=== PATIENT | female | born 1940 | race Hispanic/Latino ===

== ENCOUNTER 2018-04-03 11:47 | Inpatient (IN) | payer MEDICARE ==
[2018-04-03] MEDS ORDERED: BABY ASPIRIN PO ONE (11:55)
[2018-04-03] MEDS ORDERED: HEPARIN IV ONE (11:55)
[2018-04-03] MEDS ORDERED: NACL 0.9% 1000 ML 1,000 ML IV ONE (11:55)
[2018-04-03] MEDS ORDERED: XYLOCAINE 2% INFILTRATI ONE (11:58)
[2018-04-03] MEDS ORDERED: NITROGLYCERIN SYRINGE 3 ML ONE (11:58)
[2018-04-03] MEDS ORDERED: CALAN ONE (11:58)
[2018-04-03] MEDS ORDERED: HEPARIN/NS 5000 UNIT/500ML(CATH LAB) 1,000 ML IR ONE (11:58)
[2018-04-03] MEDS ORDERED: HEPARIN 10,000 UNITS/10 ML ONE (11:58)
[2018-04-03] MEDS ORDERED: SUBLIMAZE ONE (11:59)
[2018-04-03] MEDS ORDERED: VERSED ONE (11:59)
[2018-04-03] MEDS ORDERED: HEPARIN 10,000 UNITS/10 ML IV ONE (12:00)
--- NOTE | 2018-04-03 12:02 | Emergency Department Report ---
ED Chest Pain HPI - General Stated Complaint: CHEST PAIN Time Seen by Provider: 04/03/18 11:54 - History of Present Illness Initial Comments: Patient is a very pleasant 77-year-old female who is presenting with chest pain. Patient states that her chest pain has been present for several hours. Patient states as a sharp burning pain in the center of her chest with some mild shortness of breath. Patient states is been continuous. Patient states she lifted something yesterday and is not sure if this may have caused the pain. Patient has a history of hypertension and a family history of MIs. Patient denies any nausea vomiting fevers chills or cough. - Related Data Home Medications Medication Instructions Recorded Confirmed Last Taken Aspirin [Aspirin BABY CHEW TAB] 11/23/13 11/23/13 Unknown Cyclobenzaprine HCl [Flexeril] 10 mg PO 11/23/13 11/23/13 Unknown Esomeprazole Magnesium [Nexium] 11/23/13 11/23/13 Unknown Hydrochlorothiazide 25 mg PO 11/23/13 11/23/13 Unknown Hydrocodone Bit/Acetaminophen 1 each PO 11/23/13 11/23/13 Unknown [Vicodin 5/500] Lisinopril [Zestril] 5 mg PO QDAY 11/23/13 11/23/13 Unknown Simvastatin 11/23/13 11/23/13 Unknown Allergies Allergy/AdvReac Type Severity Reaction Status Date / Time Penicillins Allergy Rash Verified 04/03/18 11:53 Sulfa (Sulfonamide Allergy Rash Verified 04/03/18 11:53 Antibiotics) Heart Score - HEART Score History: Moderately suspicious EKG: Significant ST-depression Age: > 65 Risk factors: 1-2 risk factors Troponin: < normal limit HEART Score: 6 ED Review of Systems ROS: Stated complaint: CHEST PAIN Other details as noted in HPI Comment: All other systems reviewed and negative ED Past Medical Hx - Past Medical History Hx Hypertension: Yes Hx Arthritis: Yes Additional medical history: bulging disc, arthritis - Surgical History Additional Surgical History: heart cath x 2 - Social History Smoking Status: Never Smoker Substance Use Type: None - Medications Home Medications: Home Medications Medication Instructions Recorded Confirmed Last Taken Type Aspirin [Aspirin BABY CHEW TAB] 11/23/13 11/23/13 Unknown History Cyclobenzaprine HCl [Flexeril] 10 mg PO 11/23/13 11/23/13 Unknown History Esomeprazole Magnesium [Nexium] 11/23/13 11/23/13 Unknown History Hydrochlorothiazide 25 mg PO 11/23/13 11/23/13 Unknown History Hydrocodone Bit/Acetaminophen 1 each PO 11/23/13 11/23/13 Unknown History [Vicodin 5/500] Lisinopril [Zestril] 5 mg PO QDAY 11/23/13 11/23/13 Unknown History Simvastatin 11/23/13 11/23/13 Unknown History ED Physical Exam - General General appearance: alert, in no apparent distress - Head Head exam: Present: atraumatic, normocephalic - Eye Eye exam: Present: normal appearance - ENT ENT exam: Present: mucous membranes moist - Neck Neck exam: Present: normal inspection - Respiratory Respiratory exam: Present: normal lung sounds bilaterally. Absent: respiratory distress, wheezes, rales, rhonchi - Cardiovascular Cardiovascular Exam: Present: regular rate, normal rhythm. Absent: systolic murmur, diastolic murmur, rubs, gallop - GI/Abdominal GI/Abdominal exam: Present: soft, normal bowel sounds - Extremities Exam Extremities exam: Present: normal inspection - Back Exam Back exam: Present: normal inspection - Neurological Exam Neurological exam: Present: alert, oriented X3 - Psychiatric Psychiatric exam: Present: normal affect, normal mood - Skin Skin exam: Present: warm, dry, intact, normal color. Absent: rash SHELL score - Shell Score Age > 65: (1) Yes Aspirin use within the Past 7 Days: (0) No 3 or more CAD Risk Factors: (0) No 2 or more Angina events in past 24 hrs: (1) Yes Known CAD with more than 50% Stenosis: (0) No Elevated Cardiac Markers: (0) No ST Deviation Greater than 0.5mm: (1) Yes SHELL Score: 3 ED Medical Decision Making - EKG Data -: EKG Interpreted by Me - EKG Data Interpretation: other (EKG shows a rate of 89 with sinus rhythm normal axis there's ST elevation in leads 1 aVL V5 and V6 with ST depression in leads 3) - Medical Decision Making Patient's x-ray was sent to us prior to arrival as a potential STEMI. Patient has ST elevation in lateral leads and is meeting STEMI criteria. Patient will be taken to the [facility] Dr. Pearson. Critical care attestation.: If time is entered above; I have spent that time in minutes in the direct care of this critically ill patient, excluding procedure time. ED Disposition Clinical Impression: STEMI (ST elevation myocardial infarction) Disposition: -09 OP ADMIT IP TO THIS HOSP Is pt being admited?: Yes Does the pt Need Aspirin: No Condition: Stable
--- NOTE | 2018-04-03 12:02 | History and Physical Report ---
History of Present Illness Date of examination: 04/03/18 Date of admission: 04/03/18 Chief complaint: chest pain History of present illness: The patient is a 77 year old female with a history of HTN, hyperlipidemia, GERD who presented with complaints of sharp, substernal chest pain, bilateral shoulder pain and neck pain that started this morning at 9:30 am while she was at the store. She denies any associated shortness of breath, nausea, vomiting or diaphoresis. EKG in the ER showed sinus rhythm with lateral ST elevation and STEMI protocol was initiated. She has been taken to the cathode maker emergently by Dr. Micky Pearson. Medications and Allergies Allergies Allergy/AdvReac Type Severity Reaction Status Date / Time Penicillins Allergy Rash Verified 04/03/18 11:53 Sulfa (Sulfonamide Allergy Rash Verified 04/03/18 11:53 Antibiotics) Home Medications Medication Instructions Recorded Confirmed Last Taken Type Aspirin [Aspirin BABY CHEW TAB] 11/23/13 11/23/13 Unknown History Cyclobenzaprine HCl [Flexeril] 10 mg PO 11/23/13 11/23/13 Unknown History Esomeprazole Magnesium [Nexium] 11/23/13 11/23/13 Unknown History Hydrochlorothiazide 25 mg PO 11/23/13 11/23/13 Unknown History Hydrocodone Bit/Acetaminophen 1 each PO 11/23/13 11/23/13 Unknown History [Vicodin 5/500] Lisinopril [Zestril] 5 mg PO QDAY 11/23/13 11/23/13 Unknown History Simvastatin 11/23/13 11/23/13 Unknown History Active Meds: Active Medications Sodium Chloride (Nacl 0.9% 1000 Ml) 1,000 mls @ 42 mls/hr IV ONCE ONE Stop: 04/04/18 11:43 Physical Examination Vital Signs Temp Pulse Resp BP Pulse Ox 98.2 F 92 H 20 137/74 95 04/03/18 11:53 04/03/18 11:53 04/03/18 11:53 04/03/18 11:53 04/03/18 11:53 Results 04/03/18 11:47 04/03/18 11:47
[2018-04-03 12:05] LABS: Basophils # (Auto) 0.1 K/mm3 (0.0-0.1); Basophils % (Auto) 0.6 % (0.0-1.8); Eosinophils # (Auto) 0.2 K/mm3 (0.0-0.4); Eosinophils % (Auto) 1.9 % (0.0-4.3); Hematocrit 39.6 % (30.3-42.9); Hemoglobin 13.5 gm/dl (10.1-14.3); Lymphocytes # (Auto) 3.2 K/mm3 (1.2-5.4); Lymphocytes % (Auto) 27.4 % (13.4-35.0); Mean Corpuscular HGB Conc 34 % (30-34); Mean Corpuscular Hemoglobin 31 pg (28-32); Mean Corpuscular Volume 92 fl (79-97); Monocytes # (Auto) 1.2 K/mm3 (0.0-0.8); Monocytes % (Auto) 10.8 % (0.0-7.3); Platelet Count 211 K/mm3 (140-440); Red Cell Distribution Width 14.2 % (13.2-15.2)
[2018-04-03 12:15] LABS: INR 0.87 (0.87-1.13)
[2018-04-03 12:27] LABS: Creatine Kinase MB 17.3 ng/mL (0.0-4.0)
[2018-04-03 12:28] LABS: BUN/Creatinine Ratio 24; Blood Urea Nitrogen 19 mg/dL (7-17); Hemolysis Index 16
--- NOTE | 2018-04-03 12:53 | Consultation ---
History of Present Illness Consult date: 04/03/18 Requesting physician: TRUDI GONZALEZ Consult reason: chest pain History of present illness: The patient is a 77 year old female with a history of HTN, hyperlipidemia, GERD who presented with complaints of sharp, substernal chest pain, bilateral shoulder pain and neck pain that started this morning at 9:30 am while she was at the store. She denies any associated shortness of breath, nausea, vomiting or diaphoresis. EKG in the ER showed sinus rhythm with lateral ST elevation and STEMI protocol was initiated. She was taken to the r and d lab technician emergently by Dr. 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 Past History Past Medical History: hypertension, hyperlipidemia, other (breast CA) Past Surgical History: hysterectomy Social history: denies: smoking, alcohol abuse, prescription drug abuse Family history: CAD (mother) Medications and Allergies Allergies Allergy/AdvReac Type Severity Reaction Status Date / Time Penicillins Allergy Rash Verified 04/03/18 11:53 Sulfa (Sulfonamide Allergy Rash Verified 04/03/18 11:53 Antibiotics) Home Medications Medication Instructions Recorded Confirmed Last Taken Type Aspirin [Aspirin BABY CHEW TAB] 11/23/13 11/23/13 Unknown History Cyclobenzaprine HCl [Flexeril] 10 mg PO 11/23/13 11/23/13 Unknown History Esomeprazole Magnesium [Nexium] 11/23/13 11/23/13 Unknown History Hydrochlorothiazide 25 mg PO 11/23/13 11/23/13 Unknown History Hydrocodone Bit/Acetaminophen 1 each PO 11/23/13 11/23/13 Unknown History [Vicodin 5/500] Lisinopril [Zestril] 5 mg PO QDAY 11/23/13 11/23/13 Unknown History Simvastatin 11/23/13 11/23/13 Unknown History Active Meds: Active Medications Heparin Sodium (Porcine) (Heparin) 5,000 unit SUB-Q Q12HR ZULEYMA Sodium Chloride (Nacl 0.9% 1000 Ml) 1,000 mls @ 42 mls/hr IV ONCE ONE Stop: 04/04/18 11:43 Sodium Chloride (Nacl 0.9% 500 Ml) 500 mls @ 50 mls/hr IV DIRECT ZULEYMA Stop: 04/03/18 22:59 Review of Systems Constitutional: no fever, no chills Ears, nose, mouth and throat: no nasal congestion, no nasal discharge, no sinus pressure Cardiovascular: chest pain Respiratory: no cough, no congestion, no wheezing Gastrointestinal: no abdominal pain, no nausea, no vomiting, no diarrhea Genitourinary Female: no dysuria, no urgency Musculoskeletal: no neck stiffness, no neck pain, no myalgias Integumentary: no rash, no pruritis Neurological: no parathesias, no numbness, no tingling Endocrine: no cold intolerance, no heat intolerance Hematologic/Lymphatic: no easy bruising, no easy bleeding Allergic/Immunologic: no urticaria, no wheezing Physical Examination Vital Signs Temp Pulse Resp BP Pulse Ox 98.2 F 92 H 20 137/74 95 04/03/18 11:53 04/03/18 11:53 04/03/18 11:53 04/03/18 11:53 04/03/18 11:53 General appearance: no acute distress HEENT: Positive: Normocephaly, Mucus Membranes Moist Neck: Positive: neck supple, trachea midline Cardiac: Positive: Reg Rate and Rhythm, S1/S2 Lungs: Positive: clear to auscultation Neuro: Positive: Grossly Intact Abdomen: Positive: Soft, Active Bowel Sounds. Negative: Tender Skin: Positive: Clear. Negative: Rash Extremities: Present: normal. Absent: edema Results 04/03/18 11:47 04/03/18 11:47 Cardiac Enzymes 04/03/18 Range/Units 11:47 CK-MB (CK-2) 17.3 H (0.0-4.0) ng/mL Coagulation 04/03/18 Range/Units 11:47 PT 12.3 (12.2-14.9) Sec. INR 0.87 (0.87-1.13) APTT 27.0 (24.2-36.6) Sec. CBC 04/03/18 Range/Units 11:47 WBC 11.5 H (4.5-11.0) K/mm3 RBC 4.30 (3.65-5.03) M/mm3 Hgb 13.5 (10.1-14.3) gm/dl Hct 39.6 (30.3-42.9) % Plt Count 211 (140-440) K/mm3 Lymph # 3.2 (1.2-5.4) K/mm3 [place]hea # 1.2 H (0.0-0.8) K/mm3 Eos # 0.2 (0.0-0.4) K/mm3 Baso # 0.1 (0.0-0.1) K/mm3 Comprehensive Metabolic Panel 04/03/18 Range/Units 11:47 Sodium 134 L (137-145) mmol/L Potassium 3.5 L (3.6-5.0) mmol/L Chloride 94.4 L (98-107) mmol/L Carbon Dioxide 25 (22-30) mmol/L BUN 19 H (7-17) mg/dL Creatinine 0.8 (0.7-1.2) mg/dL Calcium 9.0 (8.4-10.2) mg/dL - Imaging and Cardiology Echo: report reviewed EKG: image reviewed EKG interpretations - Telemetry EKG Rhythm: Sinus Rhythm - EKG Sinus rhythms and dysrhythmias: sinus rhythm Myocardial infarction: lateral RI (acute or rece Assessment and Plan Assessment: Takutsubo's cardiomyopathy Hypertension Hyperlipidemia GERD H/o breast CA Plan: Emergent LHC revealed normal coronaries, Takutsubo's cardiomyopathy, EF 20-25%. Admit to ICU. Obtain echocardiogram. Consider starting low dose coreg this evening if BP stable. The patient has been seen in conjunction with Dr. Pearson who agrees with the assessment and plan of care.
[2018-04-03] MEDS ORDERED: NACL 0.9% 500 ML 500 ML IV SCH (13:00)
--- NOTE | 2018-04-03 13:09 | Cardiac Catherization Report ---
CARDIAC CATHETERIZATION INDICATION FOR PROCEDURE: The patient is a pleasant 77-year-old female presents with inferior ST elevation, STEMI protocol initiated. The patient with 10/10 chest pain upon arrival. The patient was brought to the laborer pipelines in urgent fashion, prepped and draped in sterile fashion. PROCEDURE IN DETAIL: Once informed consent obtained, we brought the patient to the laborer pipelines in urgent fashion, prepped and draped in sterile fashion. Micky's test in right hand was normal. A 2 mL of 2% lidocaine was used to anesthetize the right wrist. A standard 6-[place] hydrophilic sheath used to cannulate the right radial artery via modified Seldinger technique. All exchanges performed to exchange a J-tip guidewire. JL3.5 catheter used to engage the left main. No dampening or ventricularization. Cineangiography performed in all projections. JR4 catheter used to cross the aortic valve under fluoroscopic guidance. Left ventriculography performed in 30 degree [place]WLER and 30 [place] degree projections via hand injections, catheter flushed. Manual pullback performed with continuous pressure monitoring. Catheter used to engage the right coronary. No dampening or ventricularization. Cineangiography performed in all projections in multiple projections. Next, catheter removed from the body of wire, sheath removed. Manual pressure used to achieve hemostasis. I directly supervised the administration of moderate sedation with fentanyl and Versed from 12:23 to 12:45. DATA: Aortic pressure is 120/50, LV pressure is 120, LVEDP of 30 mmHg. Left ventriculography reveals anterior apical and mid inferior akinesis with basal sparing, estimated ejection fraction of 20-25%. No evidence of aortic stenosis. CORONARY ANATOMY: This is a strongly right dominant system. Left main without significant disease, bifurcates in left anterior descending and left circumflex. Left circumflex is a small vessel, courses AV groove, diminutive to AV groove circa. No significant disease. LAD is a moderate sized vessel, courses anterior intergroove, wraps around the apex. 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 SHELL 3 flow. Right coronary is a large vessel, courses AV groove, distally bifurcates into the posterior descending and posterolateral branch, no discrete stenosis noted. CONCLUSIONS: 1. No angiographic evidence of significant epicardial coronary disease in this right dominant system. 2. 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 SHELL 3 flow. 3. Anterior apical and inferoapical dyskinesis with basal sparing estimated ejection fraction of 20-25%. 4. No evidence of aortic stenosis. These findings are likely consistent with a Takotsubo stress cardiomyopathy. The patient with a lot of stress in her life over the past couple of days. I believe the mid LAD bridge is an ambient nonrelated finding. She is clinically stable, chest pain free at this point. Standard radial care. We will initiate low dose beta blockade. We will admit to ICU. Watch for dysrhythmias and so forth. Results of procedure explained at length to the patient and family. All questions and concerns were addressed. JOB# [id number] GAVIN/JANNY
[2018-04-03] MEDS ORDERED: TYLENOL PO PRN (13:31)
[2018-04-03] MEDS ORDERED: ULTRAM ONE (13:42)
[2018-04-03] MEDS: ULTRAM PO PRN (13:47)
[2018-04-03] MEDS ORDERED: K-DUR PO ONE (14:00)
--- NOTE | 2018-04-03 14:43 | History and Physical Report ---
History of Present Illness Chief complaint: I have pain in my chest History of present illness: 77 YO Female with HTN, HLD, GERD, Breast Cancer, OA, LDD, CAD S/P Cath presents to ED for evaluation. Pt states that she has experienced pain in her chest for the past 1 day with worsening symptoms over the past 4 hours. Pt states that the pain is 5/10, sharp, burning, substernal, nonradiating, not associated with shortness of breath, not worsened with exertion, or relieved with rest. EMS notified, and upon arrival pt found to have EKG changes consistent with STEMI. A code STEMI was called and the patient was transported to [facility] for further care and evaluation. Pt seen and evaluated in ED and found to have STEMI. Cardiology team consulted and patient taken to labor relations representative for intervention. Pt admitted to ICU. Past History Past Medical History: hypertension, hyperlipidemia, other (breast CA) Past Surgical History: hysterectomy Social history: denies: smoking, alcohol abuse, prescription drug abuse Family history: CAD (mother) Medications and Allergies Allergies Allergy/AdvReac Type Severity Reaction Status Date / Time Penicillins Allergy Rash Verified 04/03/18 11:53 Sulfa (Sulfonamide Allergy Rash Verified 04/03/18 11:53 Antibiotics) Home Medications Medication Instructions Recorded Confirmed Last Taken Type Aspirin [Aspirin BABY CHEW TAB] 81 mg PO DAILY 11/23/13 04/03/18 04/03/18 History Esomeprazole Magnesium [Nexium] 5 mg PO DAILY 11/23/13 04/03/18 04/03/18 History Hydrochlorothiazide 25 mg PO DAILY 11/23/13 04/03/18 04/03/18 History Hydrocodone Bit/Acetaminophen 1 each PO Q8H PRN 11/23/13 04/03/18 04/03/18 History [Vicodin 5/500] Lisinopril [Zestril] 5 mg PO QDAY 11/23/13 04/03/18 04/03/18 08:30 History Simvastatin 10 mg PO DAILY 11/23/13 04/03/18 04/02/18 History Active Meds: Active Medications Acetaminophen (Tylenol) 650 mg PO Q6H PRN PRN Reason: Pain, Mild (1-3) Aspirin (Baby Aspirin) 81 mg PO QDAY ZULEYMA Heparin Sodium (Porcine) (Heparin) 5,000 unit SUB-Q Q12HR [facility] Sodium Chloride (Nacl 0.9% 1000 Ml) 1,000 mls @ 42 mls/hr IV ONCE ONE Stop: 04/04/18 11:43 Sodium Chloride (Nacl 0.9% 500 Ml) 500 mls @ 50 mls/hr IV DIRECT ZULEYMA Stop: 04/03/18 22:59 Tramadol HCl (Ultram) 50 mg PO Q6H PRN PRN Reason: Pain, Moderate (4-6) Last Admin: 04/03/18 13:47 Dose: 50 mg Review of Systems Constitutional: no weight loss, no weight gain, no fever, no chills Ears, nose, mouth and throat: no ear pain, no ear discharge, no tinnitis, no decreased hearing, no nose pain, no nasal congestion Breasts: no change in shape, no swelling, no mass Cardiovascular: chest pain, no orthopnea, no palpitations, no rapid/irregular heart beat, no edema, no syncope, no lightheadedness Respiratory: no cough, no cough with sputum, no excessive sputum, no hemoptysis , no shortness of breath Gastrointestinal: no nausea, no vomiting, no diarrhea, no constipation Genitourinary Female: no pelvic pain, no flank pain, no menorrhagia, no dysuria , no urinary frequency, no urgency Rectal: no pain, no incontinence, no bleeding Musculoskeletal: no neck stiffness, no neck pain, no shooting arm pain, no arm numbness/tingling, no low back pain, no shooting leg pain Integumentary: no rash, no pruritis, no redness, no sores, no wounds Neurological: no transient paralysis, no paralysis, no weakness, no parathesias , no numbness, no tingling Psychiatric: no memory loss, no change in sleep habits, no sleep disturbances, no insomnia, no hypersomnia, no change in appetite Endocrine: no cold intolerance, no heat intolerance, no polyphagia, no excessive thirst, no polydipsia, no polyuria Hematologic/Lymphatic: no easy bruising, no easy bleeding, no lymphadenopathy, no lymphedema Allergic/Immunologic: no urticaria, no allergic rhinitis, no wheezing, no persistent infections, no anaphylaxis, no angioedema Exam - Constitutional Vitals: Temp Pulse Resp BP Pulse Ox 98.1 F 85 16 104/54 96 04/03/18 12:47 04/03/18 14:00 04/03/18 14:00 04/03/18 14:00 04/03/18 14:00 General appearance: Present: mild distress - EENT Eyes: Present: PERRL ENT: hearing intact, clear oral mucosa - Neck Neck: Present: supple, normal ROM - Respiratory Respiratory effort: normal Respiratory: bilateral: CTA - Cardiovascular Heart Sounds: Present: S1 & S2. Absent: rub, click - Extremities Extremities: pulses symmetrical, No edema Peripheral Pulses: within normal limits - Abdominal General gastrointestinal: Present: soft, non-tender, non-distended, normal bowel sounds Female genitourinary: Present: normal - Integumentary Integumentary: Present: clear, warm, dry - Musculoskeletal Musculoskeletal: gait normal, strength equal bilaterally - Psychiatric Psychiatric: appropriate mood/affect, intact judgment & insight - Neurologic Neurologic: CNII-XII intact, moves all extremities Results - Labs CBC & Chem 7: 04/03/18 11:47 04/03/18 11:47 Labs: Abnormal lab results 04/03/18 04/03/18 04/03/18 Range/Units 11:47 11:47 12:29 WBC 11.5 H (4.5-11.0) K/mm3 [place] % (Auto) 10.8 H (0.0-7.3) % [place] # 1.2 H (0.0-0.8) K/mm3 Activated Clotting Time > 1000 H (74-137) Sodium 134 L (137-145) mmol/L Potassium 3.5 L (3.6-5.0) mmol/L Chloride 94.4 L (98-107) mmol/L BUN 19 H (7-17) mg/dL Total Creatine Kinase 155 H (30-135) units/L CK-MB (CK-2) 17.3 H (0.0-4.0) ng/mL CK-MB (CK-2) Rel Index 11.1 H (0-4) Troponin T 0.368 H* (0.00-0.029) ng/mL Assessment and Plan - Patient Problems (1) STEMI (ST elevation myocardial infarction) Current Visit: No Status: Acute Qualifiers: Involved coronary artery: unspecified coronary artery Qualified Code(s): I21.3 - ST elevation (STEMI) myocardial infarction of unspecified site Plan to address problem: Cardiology consulted in ED, Pt taken urgently to labor relations representative, The high probability of a clinically significant, sudden or life threatening deterioration of the [cardiac, pulmonary] system(s) required my full and direct attention, intervention and personal management. The aggregate critical care time was [65] minutes. This time is in addition to time spent performing reported procedures but includes the following: [x] Data Review and interpretation [x] Patient assessment and monitoring of vital signs [x] Documentation [x] Medication orders and management (2) HTN (hypertension) Current Visit: Yes Status: Acute Qualifiers: Hypertension type: essential hypertension Qualified Code(s): I10 - Essential (primary) hypertension Plan to address problem: monitor bp q shift, continue medical management (3) HLD (hyperlipidemia) Current Visit: Yes Status: Acute Qualifiers: Hyperlipidemia type: mixed hyperlipidemia Qualified Code(s): E78.2 - Mixed hyperlipidemia Plan to address problem: Statin therapy, lipid panel, low cholesterol diet, (4) GERD (gastroesophageal reflux disease) Current Visit: Yes Status: Acute Qualifiers: Esophagitis presence: without esophagitis Qualified Code(s): K21.9 - Gastro -esophageal reflux disease without esophagitis Plan to address problem: PPI therapy, (5) Lumbar disc disease Current Visit: Yes Status: Acute Plan to address problem: Pain control, [place], Morphine prn, (6) DVT prophylaxis Current Visit: Yes Status: Acute
[2018-04-03 15:24] LABS: HDL Cholesterol 63 mg/dL (40-59); LDL Cholesterol,Direct 80 mg/dL (50-130)
--- NOTE | 2018-04-03 15:38 | XRay Report ---
Single view chest: History: Chest pain. Findings: Normal cardiomediastinal silhouette. Trachea is midline. Mild COPD. No consolidation or pleural effusion. Impression: COPD. No acute lung changes.
[2018-04-03 17:32] LABS: Creatine Kinase MB 69.6 ng/mL (0.0-4.0)
[2018-04-03] MEDS: MORPHINE IV PRN ×2 (19:11→22:22)
[2018-04-03] MEDS: HEPARIN SUB-Q SCH (22:24)
[2018-04-04] MEDS: NORCO 5/325 PO PRN ×2 (00:42→17:04)
[2018-04-04 06:21] LABS: Basophils # (Auto) 0.1 K/mm3 (0.0-0.1); Basophils % (Auto) 0.4 % (0.0-1.8); Eosinophils # (Auto) 0.1 K/mm3 (0.0-0.4); Eosinophils % (Auto) 0.7 % (0.0-4.3); Hematocrit 37.6 % (30.3-42.9); Lymphocytes % (Auto) 22.3 % (13.4-35.0); Mean Corpuscular HGB Conc 35 % (30-34); Mean Corpuscular Hemoglobin 32 pg (28-32); Mean Corpuscular Volume 91 fl (79-97); Monocytes # (Auto) 1.2 K/mm3 (0.0-0.8); Monocytes % (Auto) 9.2 % (0.0-7.3); Platelet Count 206 K/mm3 (140-440); Red Blood Count 4.12 M/mm3 (3.65-5.03); Red Cell Distribution Width 14.1 % (13.2-15.2)
[2018-04-04 06:47] LABS: Creatine Kinase MB 51.9 ng/mL (0.0-4.0)
[2018-04-04 06:49] LABS: BUN/Creatinine Ratio 19; Blood Urea Nitrogen 15 mg/dL (7-17); Calcium 8.4 mg/dL (8.4-10.2); Hemolysis Index 10
[2018-04-04] MEDS: MORPHINE IV PRN ×3 (07:58→19:24)
[2018-04-04] MEDS: BABY ASPIRIN PO SCH (10:04)
[2018-04-04] MEDS: HEPARIN SUB-Q SCH ×2 (10:05→22:28)
--- NOTE | 2018-04-04 11:05 | Progress Note ---
Assessment and Plan Assessment: Takutsubo's cardiomyopathy H/o hypertension - with intermittent hypotension overnight Hyperlipidemia Hypokalemia GERD H/o breast CA Plan: S/p emergent LHC yesterday which revealed normal coronaries, Takutsubo's cardiomyopathy, EF 20-25%. Await echo. Replete K+. Consider starting low dose coreg if/when BP stable. Cont telemetry. Possible d/c home tomorrow. The patient has been seen in conjunction with Dr. Sonia Pearson who agrees with the assessment and plan of care. Subjective Date of service: 04/04/18 Principal diagnosis: Takutsubo's cardiomyopathy Interval history: pt resting comfortably at bedside, no current complaints. Intermittent hypotension noted overnight. Objective Last Vital Signs Temp 98.4 F 04/04/18 06:04 Pulse 80 04/04/18 09:54 Resp 18 04/04/18 10:00 BP 104/66 04/04/18 06:04 Pulse Ox 93 04/04/18 06:04 - Physical Examination General: No Apparent Distress HEENT: Positive: Normocephaly, Mucus Membranes Moist Neck: Positive: neck supple, trachea midline Cardiac: Positive: Reg Rate and Rhythm, S1/S2 Lungs: Positive: clear to auscultation Neuro: Positive: Grossly Intact Abdomen: Positive: Soft, Active Bowel Sounds. Negative: Tender Skin: Positive: Clear. Negative: Rash Extremities: Present: normal. Absent: edema - Labs and Meds Cardiac Enzymes 04/03/18 04/03/18 04/04/18 Range/Units 11:47 16:59 06:12 CK-MB (CK-2) 17.3 H 69.6 H 51.9 H (0.0-4.0) ng/mL Coagulation 04/03/18 Range/Units 11:47 PT 12.3 (12.2-14.9) Sec. INR 0.87 (0.87-1.13) APTT 27.0 (24.2-36.6) Sec. Lipids 04/03/18 Range/Units 11:47 Triglycerides 169 H (2-149) mg/dL Cholesterol 158 (50-199) mg/dL HDL Cholesterol 63 H (40-59) mg/dL Cholesterol/HDL Ratio 2.50 % CBC 04/03/18 04/04/18 Range/Units 11:47 06:12 WBC 11.5 H 13.3 H (4.5-11.0) K/mm3 RBC 4.30 4.12 (3.65-5.03) M/mm3 Hgb 13.5 13.0 (10.1-14.3) gm/dl Hct 39.6 37.6 (30.3-42.9) % Plt Count 211 206 (140-440) K/mm3 Lymph # 3.2 3.0 (1.2-5.4) K/mm3 [place] # 1.2 H 1.2 H (0.0-0.8) K/mm3 Eos # 0.2 0.1 (0.0-0.4) K/mm3 Baso # 0.1 0.1 (0.0-0.1) K/mm3 Comprehensive Metabolic Panel 04/03/18 04/04/18 Range/Units 11:47 06:12 Sodium 134 L 132 L (137-145) mmol/L Potassium 3.5 L 3.4 L (3.6-5.0) mmol/L Chloride 94.4 L 94.8 L (98-107) mmol/L Carbon Dioxide 25 28 (22-30) mmol/L BUN 19 H 15 (7-17) mg/dL Creatinine 0.8 0.8 (0.7-1.2) mg/dL Glucose 121 H 107 H (65-100) mg/dL Calcium 9.0 8.4 (8.4-10.2) mg/dL - Imaging and Cardiology EKG: image reviewed Echo: report reviewed - Telemetry EKG Rhythm: Sinus Rhythm - EKG Sinus rhythms and dysrhythmias: sinus rhythm Myocardial infarction: lateral HI (acute or rece
[2018-04-04] MEDS ORDERED: K-DUR PO NR (11:30)
[2018-04-04] MEDS: PROTONIX PO SCH (11:52)
[2018-04-04] MEDS ORDERED: PROAIR IH PRN (12:15)
[2018-04-04] MEDS ORDERED: PROVENTIL IH ONE (12:30)
[2018-04-04] MEDS ORDERED: PROVENTIL IH PRN (12:40)
[2018-04-04] MEDS: PEPTO BISMOL PO PRN ×2 (13:06→19:24)
--- NOTE | 2018-04-04 15:51 | Progress Note ---
Assessment and Plan Takutsubo's cardiomyopathy - S/p emergent LHC yesterday which revealed normal coronaries, EF 20-25%. - 2d echo pending H/o hypertension - held BP meds for intermittent hypotensive episodes - will start coreg if BP tolerates Hyperlipidemia, cont statin Hypokalemia, repleted GERD, cont ppi H/o breast CA, outpt f/p Brief History: The patient is a 77 year old female with a history of HTN, hyperlipidemia, GERD who presented with complaints of sharp, substernal chest pain, bilateral shoulder pain and neck pain that started in the morning at 9:30 am while she was at the store. EKG in the ER showed sinus rhythm with lateral ST elevation and STEMI protocol was initiated. She was taken to the labor utilization superintendent emergently by Dr. Micky Pearson but cath revealed normal coronaries and Takutsubo's cardiomyopathy with EF 20-25%. Radiological data: CXR: No infiltrates Hospitalist Physical exam: GENERAL: well-developed and well-nourished WF lying on bed appeared to be in no discomfort. HEENT: Normocephalic. Atraumatic. No conjunctival congestion or icterus. Patient has moist mucous membranes. NECK: Supple. Trachea midline. CHEST/LUNGS: few crackles auscultated bilaterally, breathing nonlabored. No wheezes HEART/CARDIOVASCULAR: Regular in rate and rhythm. S1 and S2 positive. ABDOMEN: Abdomen is soft, nontender. Patient has normal bowel sounds. SKIN: There is no rash. Warm and dry. NEURO: No focal motor deficit. Follows command. MUSCULOSKELETAL: No joint effusion or tenderness. EXTRIMITY: No edema, no cyanosis or clubbing. PSYCH: Cooperative. Subjective Date of service: 04/04/18 Principal diagnosis: Takutsubo's cardiomyopathy Interval history: Patient seen and examined. Medical records and medication list reviewed. No acute event overnight noted by the RN. Patient denies any chest pain or difficulty breathing. Patient is tolerating diet. Discussed plan of care at bedside with patient. Objective - Constitutional Vitals: Vital Signs - 12hr 04/04/18 04/04/18 04/04/18 06:04 09:54 10:00 Temperature 98.4 F Pulse Rate 85 80 Pulse Rate [ Bilateral Throughout] Respiratory 18 Rate Respiratory Rate [Bilateral Throughout] Respiratory 18 Rate [Chest] Blood Pressure 104/66 O2 Sat by Pulse 93 Oximetry 04/04/18 04/04/18 12:38 12:47 Temperature 98.6 F Pulse Rate 105 H Pulse Rate [ 111 H Bilateral Throughout] Respiratory 14 Rate Respiratory 19 Rate [Bilateral Throughout] Respiratory Rate [Chest] Blood Pressure 112/73 O2 Sat by Pulse 98 Oximetry - Labs CBC & Chem 7: 04/04/18 06:12 04/05/18 06:47 Labs: Abnormal lab results 04/03/18 04/04/18 04/04/18 Range/Units 16:59 06:12 06:12 WBC 13.3 H (4.5-11.0) K/mm3 MCHC 35 H (30-34) % [place] % (Auto) 9.2 H (0.0-7.3) % [place] # 1.2 H (0.0-0.8) K/mm3 Seg Neutrophils # 9.0 H (1.8-7.7) K/mm3 Sodium 132 L (137-145) mmol/L Potassium 3.4 L (3.6-5.0) mmol/L Chloride 94.8 L (98-107) mmol/L Glucose 107 H (65-100) mg/dL Total Creatine Kinase 503 H 498 H (30-135) units/L CK-MB (CK-2) 69.6 H 51.9 H (0.0-4.0) ng/mL CK-MB (CK-2) Rel Index 13.8 H 10.4 H (0-4) Troponin T 1.900 H* D 1.950 H* (0.00-0.029) ng/mL
--- NOTE | 2018-04-04 20:51 | Consultation ---
History of Present Illness Consult date: 04/04/18 Reason for consult: chest pain, asthma History of present illness: PULMONARY CONSULTATION Dr. Mercado thank you for asking us to participate in the care of this patient. This is 77 year old White female history of Asthma,GERD,Hypertension,CAD, H/O of breast cancer, Osteo arthritis and hyperlipidemia admitted with substernal chest pain.Cardiology consulted. Patient undergone cardiac cath. Reported takotsubo cardiomyopathy. Patient tired no acute respiratory distress at this time. Patient denies smoking, alcohol or drug abuse. Patient worked in [employer] in [employer] before retired.Patient is and has nine children. Patient allergic to penicillin and sulfa. Past History Past Medical History: CAD, hypertension, hyperlipidemia, other (breast CA, Asthma.) Past Surgical History: hysterectomy Social history: denies: smoking, alcohol abuse, prescription drug abuse Family history: CAD (mother) Medications and Allergies Allergies Allergy/AdvReac Type Severity Reaction Status Date / Time Penicillins Allergy Rash Verified 04/03/18 11:53 Sulfa (Sulfonamide Allergy Rash Verified 04/03/18 11:53 Antibiotics) Home Medications Medication Instructions Recorded Confirmed Last Taken Type Aspirin [Aspirin BABY CHEW TAB] 81 mg PO DAILY 11/23/13 04/03/18 04/03/18 History Esomeprazole Magnesium [Nexium] 5 mg PO DAILY 11/23/13 04/03/18 04/03/18 History Hydrochlorothiazide 25 mg PO DAILY 11/23/13 04/03/18 04/03/18 History Hydrocodone Bit/Acetaminophen 1 each PO Q8H PRN 11/23/13 04/03/18 04/03/18 History [Vicodin 5/500] Lisinopril [Zestril] 5 mg PO QDAY 11/23/13 04/03/18 04/03/18 08:30 History Simvastatin 10 mg PO DAILY 11/23/13 04/03/18 04/02/18 History Active Meds: Active Medications Acetaminophen (Tylenol) 650 mg PO Q6H PRN PRN Reason: Pain, Mild (1-3) Acetaminophen/Hydrocodone Bitart ([place] 5/325) 1 each PO Q8H PRN PRN Reason: Pain, Moderate (4-6) Last Admin: 04/04/18 17:04 Dose: 1 each Albuterol (Proventil) 2.5 mg IH Q4HRT PRN PRN Reason: Shortness Of Breath Arformoterol Tartrate (Brovana Nebu) 15 mcg IH Q12HRT [facility] Aspirin (Baby Aspirin) 81 mg PO QDAY [facility] Last Admin: 04/04/18 10:04 Dose: 81 mg Bismuth Subsalicylate (Pepto Bismol) 262 mg PO Q6H PRN PRN Reason: Indigestion Last Admin: 04/04/18 19:24 Dose: 262 mg Budesonide (Pulmicort) 0.5 mg IH Q12HRT [facility] Heparin Sodium (Porcine) (Heparin) 5,000 unit SUB-Q Q12HR [facility] Last Admin: 04/04/18 10:05 Dose: 5,000 unit Morphine Sulfate (Morphine) 2 mg IV Q4H PRN PRN Reason: Pain, Moderate (4-6) Last Admin: 04/04/18 19:24 Dose: 2 mg Pantoprazole Sodium (Protonix) 40 mg PO QDAY [facility] Last Admin: 04/04/18 11:52 Dose: 40 mg Tramadol HCl (Ultram) 50 mg PO Q6H PRN PRN Reason: Pain, Moderate (4-6) Last Admin: 04/03/18 13:47 Dose: 50 mg Review of Systems All systems: negative Physical Examination Vital signs: Vital Signs Temp Pulse Resp BP Pulse Ox 98.2 F 92 H 20 137/74 95 04/03/18 11:53 04/03/18 11:53 04/03/18 11:53 04/03/18 11:53 04/03/18 11:53 General appearance: no acute distress, alert Eyes: non-icteric ENT: oropharynx moist Neck: supple, no lymphadenopathy, no JVD Ascultation: Bilateral: diminished breath sounds (Prolonged expiratory phase.) Cardiovascular: regular rate and rhythm Gastrointestinal: normoactive bowel sounds Integumentary: normal Extremities: no cyanosis, no edema Musculoskeletal: no deformities Gait: other (Can not evaluate at this time.) normal mental status, non-focal exam, pupils equal and round, CN II-XII normal anxious Results - Laboratory Findings CBC and BMP: 04/04/18 06:12 04/04/18 06:12 PT/INR, D-dimer PT 12.3 Sec. (12.2-14.9) 04/03/18 11:47 INR 0.87 (0.87-1.13) 04/03/18 11:47 Abnormal lab findings: Abnormal Labs 04/03/18 04/03/18 04/03/18 11:47 11:47 12:29 WBC 11.5 H MCHC [place] % (Auto) 10.8 H [place] # 1.2 H Seg Neutrophils # Activated Clotting Time > 1000 H Sodium 134 L Potassium 3.5 L Chloride 94.4 L BUN 19 H Glucose 121 H Total Creatine Kinase 155 H CK-MB (CK-2) 17.3 H CK-MB (CK-2) Rel Index 11.1 H Troponin T 0.368 H* Triglycerides 169 H HDL Cholesterol 63 H 04/03/18 04/04/18 04/04/18 16:59 06:12 06:12 WBC 13.3 H MCHC 35 H [place] % (Auto) 9.2 H [place] # 1.2 H Seg Neutrophils # 9.0 H Activated Clotting Time Sodium 132 L Potassium 3.4 L Chloride 94.8 L BUN Glucose 107 H Total Creatine Kinase 503 H 498 H CK-MB (CK-2) 69.6 H 51.9 H CK-MB (CK-2) Rel Index 13.8 H 10.4 H Troponin T 1.900 H* D 1.950 H* Triglycerides HDL Cholesterol - Diagnostic Findings Chest x-ray: report reviewed (Reported COPD, No acute changes.), image reviewed Assessment and Plan his is 77 year old White female history of Asthma,GERD,Hypertension,CAD, H/O of breast cancer, Osteo arthritis and hyperlipidemia admitted with substernal chest pain.Cardiology consulted. Patient undergone cardiac cath. Reported takotsubo cardiomyopathy. Patient tired no acute respiratory distress at this time. Patient denies smoking, alcohol or drug abuse. 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 Patient allergic to penicillin and sulfa. - Patient Problems (1) Asthma Current Visit: Yes Status: Acute Qualifiers: Qualified Code(s): J45.909 - Unspecified asthma, uncomplicated Plan to address problem: O2 2 litres via nasal canula. Brovanna/Budesonide aerosol treatments q 12 hours. Albuterol/atrovent aerosol treatments q 6 hours prn for shortness of breath. Continue S/C Heparin. ABGs on room air. PFTs as out Patient. (2) GERD (gastroesophageal reflux disease) Current Visit: Yes Status: Acute Qualifiers: Esophagitis presence: without esophagitis Qualified Code(s): K21.9 - Gastro -esophageal reflux disease without esophagitis Plan to address problem: Continue Protonix. (3) HTN (hypertension) Current Visit: Yes Status: Acute Qualifiers: Hypertension type: essential hypertension Qualified Code(s): I10 - Essential (primary) hypertension Plan to address problem: Management as per primary care. (4) Chest pain Current Visit: Yes Status: Acute Plan to address problem: Management as per cardiology.
[2018-04-04] MEDS ORDERED: FLEXERIL PO ONE (22:00)
[2018-04-04] MEDS ORDERED: LOPRESSOR IV ONE (23:22)
[2018-04-04] MEDS ORDERED: XANAX PO ONE (23:25)
[2018-04-05] MEDS: BROVANA NEBU IH SCH ×3 (00:27→16:44)
[2018-04-05] MEDS: PULMICORT IH SCH ×3 (00:28→16:45)
[2018-04-05] MEDS: MORPHINE IV PRN ×4 (03:05→22:43)
[2018-04-05 07:51] LABS: Creatine Kinase MB 35.5 ng/mL (0.0-4.0)
[2018-04-05 07:56] LABS: Calcium 8.7 mg/dL (8.4-10.2)
--- NOTE | 2018-04-05 09:39 | Progress Note ---
Assessment and Plan his is 77 year old White female history of Asthma,GERD,Hypertension,CAD, H/O of breast cancer, Osteo arthritis and hyperlipidemia admitted with substernal chest pain.Cardiology consulted. Patient undergone cardiac cath. Reported takotsubo cardiomyopathy. Patient tired no acute respiratory distress at this time. Patient denies smoking, alcohol or drug abuse. Patient worked in [employer] in [place] before retired.Patient is and has nine children. Patient allergic to penicillin and sulfa. 04/05/18 Patient awake. No acute respiratory distress.Undergoing EEG testing.Patient is on 2 litres O2. O2 saturation 100%. - Patient Problems (1) Asthma Current Visit: Yes Status: Acute Qualifiers: Qualified Code(s): J45.909 - Unspecified asthma, uncomplicated Plan to address problem: O2 2 litres via nasal canula. Brovanna/Budesonide aerosol treatments q 12 hours. Albuterol/atrovent aerosol treatments q 6 hours prn for shortness of breath. Continue S/C Heparin. ABGs on room air. PFTs as out Patient. (2) GERD (gastroesophageal reflux disease) Current Visit: Yes Status: Acute Qualifiers: Esophagitis presence: without esophagitis Qualified Code(s): K21.9 - Gastro -esophageal reflux disease without esophagitis Plan to address problem: Continue Protonix. (3) HTN (hypertension) Current Visit: Yes Status: Acute Qualifiers: Hypertension type: essential hypertension Qualified Code(s): I10 - Essential (primary) hypertension Plan to address problem: Management as per primary care. (4) Chest pain Current Visit: Yes Status: Acute Plan to address problem: Management as per cardiology. Subjective Date of service: 04/05/18 Principal diagnosis: Takutsubo's cardiomyopathy Interval history: Patient awake. No acute respiratory distress.Undergoing EEG testing.Patient is on 2 litres O2. O2 saturation 100%. Objective Vital Signs - 12hr 04/04/18 04/05/18 04/05/18 22:00 00:12 00:30 Temperature Pulse Rate 140 H 111 H Pulse Rate [ Bilateral Throughout] Pulse Rate [ Right Radial] Respiratory Rate Respiratory Rate [Bilateral Throughout] Respiratory 18 Rate [Chest] Blood Pressure 148/73 97/61 Blood Pressure [Left] O2 Sat by Pulse 96 Oximetry 04/05/18 04/05/18 04/05/18 00:52 01:51 03:05 Temperature 98.3 F Pulse Rate 65 Pulse Rate [ Bilateral Throughout] Pulse Rate [ 110 H Right Radial] Respiratory 20 22 18 Rate Respiratory Rate [Bilateral Throughout] Respiratory Rate [Chest] Blood Pressure Blood Pressure 97/61 [Left] O2 Sat by Pulse 100 Oximetry 04/05/18 04/05/18 04/05/18 03:35 05:00 05:15 Temperature Pulse Rate Pulse Rate [ 121 H 113 H Bilateral Throughout] Pulse Rate [ Right Radial] Respiratory 18 Rate Respiratory 20 20 Rate [Bilateral Throughout] Respiratory Rate [Chest] Blood Pressure Blood Pressure [Left] O2 Sat by Pulse Oximetry Constitutional: no acute distress, alert Eyes: non-icteric ENT: oropharynx moist Neck: supple, no lymphadenopathy, no JVD Ascultation: Bilateral: diminished breath sounds (Prolonged expiratory phase.) Cardiovascular: regular rate and rhythm Gastrointestinal: normoactive bowel sounds Integumentary: normal Extremities: no cyanosis, no edema Neurologic: normal mental status, non-focal exam, pupils equal and round, CN II- XII normal Psychiatric: anxious CBC and BMP: 04/04/18 06:12 04/05/18 06:47 ABG, PT/INR, D-dimer: PT/INR, D-dimer PT 12.3 Sec. (12.2-14.9) 04/03/18 11:47 INR 0.87 (0.87-1.13) 04/03/18 11:47 Abnormal lab findings: Abnormal Labs 04/03/18 04/03/18 04/03/18 11:47 11:47 12:29 WBC 11.5 H MCHC [place] % (Auto) 10.8 H [place] # 1.2 H Seg Neutrophils # Activated Clotting Time > 1000 H Sodium 134 L Potassium 3.5 L Chloride 94.4 L BUN 19 H Glucose 121 H Total Creatine Kinase 155 H CK-MB (CK-2) 17.3 H CK-MB (CK-2) Rel Index 11.1 H Troponin T 0.368 H* Triglycerides 169 H HDL Cholesterol 63 H 04/03/18 04/04/18 04/04/18 16:59 06:12 06:12 WBC 13.3 H MCHC 35 H [place] % (Auto) 9.2 H [place] # 1.2 H Seg Neutrophils # 9.0 H Activated Clotting Time Sodium 132 L Potassium 3.4 L Chloride 94.8 L BUN Glucose 107 H Total Creatine Kinase 503 H 498 H CK-MB (CK-2) 69.6 H 51.9 H CK-MB (CK-2) Rel Index 13.8 H 10.4 H Troponin T 1.900 H* D 1.950 H* Triglycerides HDL Cholesterol 04/05/18 06:47 WBC MCHC [place] % (Auto) [place] # Seg Neutrophils # Activated Clotting Time Sodium 128 L Potassium Chloride 88.7 L BUN 18 H Glucose 153 H Total Creatine Kinase 399 H CK-MB (CK-2) 35.5 H CK-MB (CK-2) Rel Index 8.8 H Troponin T 1.730 H* Triglycerides HDL Cholesterol
[2018-04-05] MEDS: PROTONIX PO SCH (10:20)
[2018-04-05] MEDS: HEPARIN SUB-Q SCH ×2 (10:20→22:42)
[2018-04-05] MEDS: BABY ASPIRIN PO SCH (10:20)
--- NOTE | 2018-04-05 12:15 | Progress Note ---
Assessment and Plan Assessment: Takutsubo's cardiomyopathy - s/p emergent LHC which revealed normal coronaries AMS H/o hypertension - with intermittent hypotension overnight Sinus tachycardia Hyperlipidemia Hypokalemia - improving Hyponatremia Leukocytosis GERD H/o breast CA Plan: Echo reviewed - EF 35-40%, mild LVH, mid anterior, mid inferior and apical inferior murry are dyskinetic. Initiate IVF in setting of sinus tachycardia, hypotension and hyponatremia. Repeat BMP in AM. Consider starting low dose coreg if/when BP stable. Cont telemetry. Further evaluation of AMS per primary - pt for head CT and consider neurology consultation per primary. D/w Dr. Lee. The patient has been seen in conjunction with Dr. Sonia Pearson who agrees with the assessment and plan of care. Subjective Date of service: 04/05/18 Principal diagnosis: Takutsubo's cardiomyopathy Interval history: pt resting in bed, groggy and somewhat confused, oriented to place only. no focal neuro deficits noted on examination. no current cardiac complaints. Son at bedside. tele reviewed - pt in sinus tachycardia with HR 100s - 120s. intermittent hypotension noted again overnight. Objective Last Vital Signs Temp 98.3 F 04/05/18 00:52 Pulse 113 H 04/05/18 05:15 Resp 20 04/05/18 05:15 BP 97/61 04/05/18 00:52 Pulse Ox 100 04/05/18 00:52 - Physical Examination General: Other (confused) HEENT: Positive: Normocephaly, Mucus Membranes Moist Neck: Positive: neck supple, trachea midline Cardiac: Positive: Regular Rhythm, S1/S2, Tachycardia Lungs: Positive: clear to auscultation Neuro: Positive: Cranial Nerve 2-12 Intact, Other (confused) Abdomen: Positive: Soft, Active Bowel Sounds. Negative: Tender Skin: Positive: Clear. Negative: Rash Extremities: Present: normal. Absent: edema - Labs and Meds Cardiac Enzymes 04/05/18 Range/Units 06:47 CK-MB (CK-2) 35.5 H (0.0-4.0) ng/mL Comprehensive Metabolic Panel 04/05/18 Range/Units 06:47 Sodium 128 L (137-145) mmol/L Potassium 3.7 (3.6-5.0) mmol/L Chloride 88.7 L (98-107) mmol/L Carbon Dioxide 25 (22-30) mmol/L BUN 18 H (7-17) mg/dL Creatinine 1.1 (0.7-1.2) mg/dL Glucose 153 H (65-100) mg/dL Calcium 8.7 (8.4-10.2) mg/dL - Imaging and Cardiology EKG: image reviewed Echo: report reviewed - Telemetry EKG Rhythm: Sinus Tachycardia - EKG Sinus rhythms and dysrhythmias: sinus rhythm Myocardial infarction: lateral [place] (acute or rece
--- NOTE | 2018-04-05 13:53 | Cat Scan Report ---
FINAL REPORT EXAM: CT HEAD/BRAIN WO CON HISTORY: possible cva TECHNIQUE: CT of the Head without IV contrast. PRIORS: None currently available. FINDINGS: There is no evidence for acute ischemia. There is no hemorrhage. There is no midline shift. There is no hydrocephalus. There is no mass. Age appropriate -white matter attenuation is noted. There is no calvarial fracture. The temporal bones demonstrate aerated mastoid air cells. The middle ears appear unremarkable. Paranasal sinuses are unremarkable. Globes are intact. IMPRESSION: No acute intracranial findings.
[2018-04-05] MEDS: NORCO 5/325 PO PRN (14:45)
[2018-04-05] MEDS: ULTRAM PO PRN (15:37)
[2018-04-05] MEDS: NACL 0.9% 1000 ML 1,000 ML IV SCH (15:39)
[2018-04-05] MEDS ORDERED: ZOFRAN IV PRN (15:42)
--- NOTE | 2018-04-05 15:56 | Electroencephalogram Report ---
Electroencephalogram EEG Date of exam: 04/05/18 Description: Preliminary: 12-13 Hz alpha activity in the posterior leads and some anterior beta activity. Photic stimulation produces intermittent driving. Drowsiness least to sleep with K complexes. There is slowing intermittently on the left at F7-T3 and later at F4-C4 on the right and T4-T6 on the right likely just due to drowsiness. No epileptiform activity was seen. Interpretation: Preliminary EEG reading: Normal waking and sleep EEG.
--- NOTE | 2018-04-05 15:57 | Consultation ---
History of Present Illness Consult date: 04/05/18 Requesting physician: TOM CARABALLO Reason for Consult: AMS Chief complaint: confusion on awakening today History of present illness: This 77-year-old right-handed white female was admitted for chest pain 2 days ago leading to cardiac catheterization showing no abnormalities but troponins are elevated. Cardiac cath and echo showed reduced ejection fraction and evidence of cardiomyopathy with some dyskinetic segments and slightly dilated left ventricle as well as mild LVH. No bubbles were given however. She was noted be confused this morning upon awakening, regarding events that occurred in the hospital and remembers this problem which has since resolved. She comments that she hadn't slept for 2 days since being in the hospital. She is complaining of back pain and neck pain and states she has bulging discs in both locations and takes normally a Vicodin that has 10 mg hydrocodone in it once or twice a day. Sodium is drifting down, currently 128. LDL was 80 with HDL 63. She has been taking 81 mg aspirin and either 10 or 20 mg simvastatin at home at bedtime. Past History Past Medical History: CAD, GERD, hypertension, hyperlipidemia, other (breast CA, Asthma. 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 denies: smoking (none for many years), alcohol abuse (none), prescription drug abuse, IV drug use (none) Family history: CAD (mother), diabetes (unknown but thinks someone has had it), hypertension (mother and 2 brothers), other (son has or had epilepsy since childhood) Medications and Allergies Allergies Allergy/AdvReac Type Severity Reaction Status Date / Time Penicillins Allergy Rash Verified 04/03/18 11:53 Sulfa (Sulfonamide Allergy Rash Verified 04/03/18 11:53 Antibiotics) Home Medications Medication Instructions Recorded Confirmed Last Taken Type Aspirin [Aspirin BABY CHEW TAB] 81 mg PO DAILY 11/23/13 04/03/18 04/03/18 History Esomeprazole Magnesium [Nexium] 5 mg PO DAILY 11/23/13 04/03/18 04/03/18 History Hydrochlorothiazide 25 mg PO DAILY 11/23/13 04/03/18 04/03/18 History Hydrocodone Bit/Acetaminophen 1 each PO Q8H PRN 11/23/13 04/03/18 04/03/18 History [Vicodin 5/500] Lisinopril [Zestril] 5 mg PO QDAY 11/23/13 04/03/18 04/03/18 08:30 History Simvastatin 10 mg PO DAILY 11/23/13 04/03/18 04/02/18 History Active Meds: Active Medications Acetaminophen (Tylenol) 650 mg PO Q6H PRN PRN Reason: Pain, Mild (1-3) Acetaminophen/Hydrocodone Bitart ([place] 10/325) 1 each PO Q8H PRN PRN Reason: Pain, Moderate (4-6) Albuterol (Proventil) 2.5 mg IH Q4HRT PRN PRN Reason: Shortness Of Breath Arformoterol Tartrate (Brovana Nebu) 15 mcg IH Q12HRT [facility] Last Admin: 04/05/18 05:52 Dose: 15 mcg Aspirin (Baby Aspirin) 81 mg PO QDAY [facility] Last Admin: 04/05/18 10:20 Dose: 81 mg Atorvastatin Calcium (Lipitor) 40 mg PO QHS [facility] Bismuth Subsalicylate (Pepto Bismol) 262 mg PO Q6H PRN PRN Reason: Indigestion Last Admin: 04/04/18 19:24 Dose: 262 mg Budesonide (Pulmicort) 0.5 mg IH Q12HRT [facility] Last Admin: 04/05/18 05:52 Dose: 0.5 mg Heparin Sodium (Porcine) (Heparin) 5,000 unit SUB-Q Q12HR [facility] Last Admin: 04/05/18 10:20 Dose: 5,000 unit Sodium Chloride (Nacl 0.9% 1000 Ml) 1,000 mls @ 75 mls/hr IV DIRECT [facility] Last Admin: 04/05/18 15:39 Dose: 75 mls/hr Morphine Sulfate (Morphine) 2 mg IV Q4H PRN PRN Reason: Pain, Moderate (4-6) Last Admin: 04/05/18 13:25 Dose: 2 mg Ondansetron HCl (Zofran) 8 mg IV Q8H PRN PRN Reason: Nausea Pantoprazole Sodium (Protonix) 40 mg PO QDAY [facility] Last Admin: 04/05/18 10:20 Dose: 40 mg Review of Systems All systems: negative (sometimes headaches without nausea or photophobia or phonophobia though she calls them migraines. Sometimes lightheaded. Unknown if she snores but sometimes snaps though never sleepy driving. No problems with memory before today.) Physical Examination - Vital Signs Vital Signs: Vital Signs Temp Pulse Resp BP Pulse Ox 98.2 F 92 H 20 137/74 95 04/03/18 11:53 04/03/18 11:53 04/03/18 11:53 04/03/18 11:53 04/03/18 11:53 - Physical Exam Narrative exam: General Appearance: well developed well but borderline overweight (per BMI) mid 70s white female in NAD initially though later complaining of back pain and throat pain (not new for her). HEENT: atraumatic, normocephalic; no bruits, 2+ Natty without soreness or induration or enlargement, sclerae nonicteric. Oropharynx pink and moist. Neck: supple, no bruits. Heart: no murmur but sounds are low pitched. Extremities: no clubbing or cyanosis but 1+-2+ pedal edema. Cannot feel posterior tibial or dorsalis pedis pulses on either side. Neurologic Exam: Mental Status: Awake, alert, oriented X 3 though first said it might be 2017 before deciding it was 2018, speech is clear, names pen and point of pen, and abstracts well. Names President but not Certified Ophthalmic Assistant, serial 7's are poor but gets 5+7 = 12, no right-left confusion, gets 0 of 3 objects at 3 minutes, spells WORLD backwards with 2 transpositions giving LDORW. Cranial Nerves: malloy full, no papilledema, SVPs present, PERRLA, EOMs full without nystagmus or diplopia, facial sensation intact to pinprick and light touch, no facial weakness, Schwartz is to the left and states she has poor hearing on the right but AC>BC X 2 though AC short on the left, palate rises symmetrically to phonation and gags are positive, shoulder shrug is 5 X 2, tongue protrudes midline. Cerebellar: finger to nose and heel to cast. Sensory: intact to light touch, pinprick, and vibrations. Double simultaneous stimulation is intact. Motor Exam Upper Extremities: no drift or pronation, Edwar intact. Dairy Tester are 5 X 2, tone is normal. No atrophy or fasciculations are noted visually. Motor Exam Lower Extremities: no leg lag, quadriceps are 4+ right and 4- left with pain in the lower back, anterior tibials and gastrocnemius are 5 X 2. Edwar intact. Tone is normal. No atrophy or fasciculations are noted visually. Reflexes: Palmomental is slightly positive on the right but negative on the left , snout and jaw jerk are negative. Triceps, biceps and brachioradialis are 1 bilaterally. Alina's is negative bilaterally. Knee jerks are 1 and ankle jerks are 0 bilaterally remaining 0 on the right and becoming trace in the left with reinforcement and without clonus. Toes are upgoing right and strongly upgoing left to Babinski testing. Results - Laboratory Findings CBC and BMP: 04/04/18 06:12 04/05/18 06:47 Abnormal Lab Findings: Abnormal Labs 04/03/18 04/03/18 04/03/18 11:47 11:47 12:29 WBC 11.5 H MCHC [place] % (Auto) 10.8 H [place] # 1.2 H Seg Neutrophils # Activated Clotting Time > 1000 H Sodium 134 L Potassium 3.5 L Chloride 94.4 L BUN 19 H Glucose 121 H Total Creatine Kinase 155 H CK-MB (CK-2) 17.3 H CK-MB (CK-2) Rel Index 11.1 H Troponin T 0.368 H* Triglycerides 169 H HDL Cholesterol 63 H 04/03/18 04/04/18 04/04/18 16:59 06:12 06:12 WBC 13.3 H MCHC 35 H [place] % (Auto) 9.2 H [place] # 1.2 H Seg Neutrophils # 9.0 H Activated Clotting Time Sodium 132 L Potassium 3.4 L Chloride 94.8 L BUN Glucose 107 H Total Creatine Kinase 503 H 498 H CK-MB (CK-2) 69.6 H 51.9 H CK-MB (CK-2) Rel Index 13.8 H 10.4 H Troponin T 1.900 H* D 1.950 H* Triglycerides HDL Cholesterol 04/05/18 06:47 WBC MCHC [place] % (Auto) [place] # Seg Neutrophils # Activated Clotting Time Sodium 128 L Potassium Chloride 88.7 L BUN 18 H Glucose 153 H Total Creatine Kinase 399 H CK-MB (CK-2) 35.5 H CK-MB (CK-2) Rel Index 8.8 H Troponin T 1.730 H* Triglycerides HDL Cholesterol Assessment and Plan Impression: 1. Confusion 2. Hypertension 3. Hyperlipidemia 4. Hyponatremia Plan: 1. Message to nurse to resume the previously ordered NS iv. 2. EEG shows intermittent slowing c/w with drowsiness and sleep. 3. Could have transient global amnesia. 4. Will get brain MRI and MRA noncontrast. 45 minutes spent with this patient including later review of 100s of MRI images. Thank you for an interesting consultation on this pleasant mid 70s lady.
--- NOTE | 2018-04-05 17:57 | Progress Note ---
Assessment and Plan Acute encephalopathy - delirium vs Amnesia vs CVA - obtain CT head, EEG, consult neurology Takutsubo's cardiomyopathy - S/p emergent LHC which revealed normal coronaries, EF 20-25%. - 2d echo report noted H/o hypertension - held BP meds for intermittent hypotensive episodes - will start coreg if BP tolerates Hypotensive episode - started low volume fluid by cardiology Hyperlipidemia, cont statin Hypokalemia, repleted GERD, cont ppi H/o breast CA, outpt f/p Brief History: The patient is a 77 year old female with a history of HTN, hyperlipidemia, GERD who presented with complaints of sharp, substernal chest pain, bilateral shoulder pain and neck pain that started in the morning at 9:30 am while she was at the store. EKG in the ER showed sinus rhythm with lateral ST elevation and STEMI protocol was initiated. She was taken to the laboratory chief emergently by Dr. Micky Pearson but cath revealed normal coronaries and Takutsubo's cardiomyopathy with EF 20-25%. Radiological data: CXR: No infiltrates Hospitalist Physical exam: GENERAL: well-developed and well-nourished WF lying on bed appeared to be in no discomfort. HEENT: Normocephalic. Atraumatic. No conjunctival congestion or icterus. Patient has moist mucous membranes. NECK: Supple. Trachea midline. CHEST/LUNGS: few crackles auscultated bilaterally, breathing nonlabored. No wheezes HEART/CARDIOVASCULAR: Regular in rate and rhythm. S1 and S2 positive. ABDOMEN: Abdomen is soft, nontender. Patient has normal bowel sounds. SKIN: There is no rash. Warm and dry. NEURO: No focal motor deficit. confused. MUSCULOSKELETAL: No joint effusion or tenderness. EXTRIMITY: No edema, no cyanosis or clubbing. PSYCH: anxious. Subjective Date of service: 04/05/18 Principal diagnosis: Takutsubo's cardiomyopathy Interval history: Patient seen and examined. Medical records and medication list reviewed. Patient appears very confused this morning, does not remember why she admitted to the hospital Objective - Constitutional Vitals: Vital Signs - 12hr 04/05/18 16:40 Pulse Rate 65 Respiratory 18 Rate [Chest] - Labs CBC & Chem 7: 04/06/18 08:11 04/05/18 06:47 Labs: Abnormal lab results 05/18/18 Range/Units 06:47 Sodium 128 L (137-145) mmol/L Chloride 88.7 L (98-107) mmol/L BUN 18 H (7-17) mg/dL Glucose 153 H (65-100) mg/dL Total Creatine Kinase 399 H (30-135) units/L CK-MB (CK-2) 35.5 H (0.0-4.0) ng/mL CK-MB (CK-2) Rel Index 8.8 H (0-4) Troponin T 1.730 H* (0.00-0.029) ng/mL
[2018-04-05] MEDS: NORCO 10/325 PO PRN (18:37)
[2018-04-05] MEDS: XANAX PO PRN (23:15)
[2018-04-06] MEDS: BROVANA NEBU IH SCH ×3 (00:20→21:30)
[2018-04-06] MEDS: PULMICORT IH SCH ×3 (00:20→21:30)
[2018-04-06] MEDS: NACL 0.9% 1000 ML 1,000 ML IV SCH ×2 (04:08→23:35)
[2018-04-06] MEDS: NORCO 10/325 PO PRN ×2 (06:07→21:20)
[2018-04-06] MEDS: XANAX PO PRN ×2 (06:10→21:20)
[2018-04-06 08:59] LABS: Hematocrit 41.3 % (30.3-42.9); Hemoglobin 13.1 gm/dl (10.1-14.3); Mean Corpuscular HGB Conc 32 % (30-34); Mean Corpuscular Hemoglobin 30 pg (28-32); Mean Corpuscular Volume 96 fl (79-97); Platelet Count 195 K/mm3 (140-440); Red Blood Count 4.32 M/mm3 (3.65-5.03); Red Cell Distribution Width 14.3 % (13.2-15.2)
[2018-04-06 09:14] LABS: Calcium 8.1 mg/dL (8.4-10.2)
--- NOTE | 2018-04-06 10:48 | Progress Note ---
Assessment and Plan 77yo WF: Assessment: Takutsubo's cardiomyopathy - s/p emergent LHC which revealed normal coronaries AMS H/o hypertension - with intermittent hypotension overnight Sinus tachycardia Hyperlipidemia Hypokalemia - improving Hyponatremia Leukocytosis GERD H/o breast CA Plan: cont gentle ivf unable to initiate bb or sadaf due to lower bp neuro status improved - neuro following now clinically slowly improving Subjective Date of service: 04/06/18 Principal diagnosis: Takutsubo's cardiomyopathy Interval history: more alert and oriented this am no cp or sob Objective Vital Signs Temp Pulse Pulse Resp Resp Resp BP 04/06/18 03:39 97.7 F 111 H 22 96/59 04/06/18 00:38 106 H 22 04/06/18 00:21 111 H 18 04/05/18 23:26 98.6 F 116 H 21 99/67 04/05/18 22:00 128 H 04/05/18 20:13 98.3 F 120 H 22 105/65 04/05/18 17:38 98.1 F 125 H 24 129/79 04/05/18 16:40 65 18 Pulse Ox 04/06/18 03:39 95 04/06/18 00:38 04/06/18 00:21 04/05/18 23:26 94 04/05/18 22:00 04/05/18 20:13 92 04/05/18 17:38 93 04/05/18 16:40 - Physical Examination General: Other (confused) HEENT: Positive: Normocephaly, Mucus Membranes Moist Neck: Positive: neck supple, trachea midline Neuro: Positive: Cranial Nerve 2-12 Intact, Other (confused) Abdomen: Positive: Soft, Active Bowel Sounds. Negative: Tender Skin: Positive: Clear. Negative: Rash Extremities: Present: normal. Absent: edema - Labs and Meds CBC 04/06/18 Range/Units 08:11 WBC 19.3 H (4.5-11.0) K/mm3 RBC 4.32 (3.65-5.03) M/mm3 Hgb 13.1 (10.1-14.3) gm/dl Hct 41.3 (30.3-42.9) % Plt Count 195 (140-440) K/mm3 Comprehensive Metabolic Panel 04/06/18 Range/Units 08:11 Sodium 130 L (137-145) mmol/L Potassium 3.8 (3.6-5.0) mmol/L Chloride 91.2 L (98-107) mmol/L Carbon Dioxide 20 L (22-30) mmol/L BUN 28 H (7-17) mg/dL Creatinine 1.1 (0.7-1.2) mg/dL Glucose 137 H (65-100) mg/dL Calcium 8.1 L (8.4-10.2) mg/dL - Imaging and Cardiology EKG: image reviewed Echo: report reviewed - EKG Sinus rhythms and dysrhythmias: sinus rhythm Myocardial infarction: lateral IN (acute or rece
--- NOTE | 2018-04-06 11:22 | Progress Note ---
Assessment and Plan Takutsubo's Cardiomyopathy - s/p emergent LHC which revealed normal coronaries` Acute Encephalopathy HTN Asthma Sinus Tachycardia Hyperlipidemia Hypokalemia Hyponatremia Leukocytosis GERD H/o breast Cancer (Spent about 15 mins explaining the real gravity of her situation, the cardiomyopathy, the potential for decompensation and answered their other questions) - continue supplemental oxygen to keep O2 Sats > 90% - continue gentle diuresis - cardiac disease modifying drugs per cardiology (re: B-blockers, SARAN-I etc) - continue long and short acting bronchodilators - continue systemic steroids but taper - continue GI prophylaxis - BIPAP qhs / prn daytime in case of decompensation - continue other care per attending / other consultants ... re-evaluate in am & prn ....35' Subjective Date of service: 04/06/18 Principal diagnosis: Takutsubo's cardiomyopathy; Chest Pain Interval history: Patient is seen today for: Takutsubo's cardiomyopathy; Chest Pain Seen and examined at bedside; 24hour events reviewed; nursing and respiratory care staff consulted; no adverse overnight events reported to me; sitting on side of bed; daughter and grand-daughter in room; they were bothered about intermittent confusion and really did not understand the pathology's' that brought her to the hospital. Patient is chest pain free on 3L NC and with orthopnea & AGUILERA Objective Vital Signs - 12hr 04/05/18 04/06/18 04/06/18 23:26 00:21 00:38 Temperature 98.6 F Pulse Rate 116 H Pulse Rate [ 111 H 106 H Bilateral Throughout] Respiratory 21 Rate Respiratory 18 22 Rate [Bilateral Throughout] Blood Pressure 99/67 O2 Sat by Pulse 94 Oximetry 04/06/18 03:39 Temperature 97.7 F Pulse Rate 111 H Pulse Rate [ Bilateral Throughout] Respiratory 22 Rate Respiratory Rate [Bilateral Throughout] Blood Pressure 96/59 O2 Sat by Pulse 95 Oximetry Constitutional: no acute distress, alert, other (elderly looking CF, normocephalic and atraumatic with increased work of breathing) Eyes: non-icteric ENT: oropharynx moist Neck: supple, no lymphadenopathy, no JVD Ascultation: Bilateral: diminished breath sounds (Prolonged expiratory phase.), rhonchi (bases) Percussion: Bilateral: not dull Cardiovascular: regular rate and rhythm, murmur noted (systolic), other (no rubs ) Gastrointestinal: normoactive bowel sounds, soft, non-tender, non-distended, other (no palpable HSM) Integumentary: other (poor turgor) Extremities: no cyanosis, no edema, pulses normal, no ischemia or petechiae Neurologic: normal mental status, non-focal exam, pupils equal and round, CN II- XII normal Psychiatric: anxious CBC and BMP: 04/07/18 08:07 04/07/18 08:07 ABG, PT/INR, D-dimer: PT/INR, D-dimer PT 12.3 Sec. (12.2-14.9) 04/03/18 11:47 INR 0.87 (0.87-1.13) 04/03/18 11:47 Abnormal lab findings: Abnormal Labs 04/03/18 04/03/18 04/03/18 11:47 11:47 12:29 WBC 11.5 H MCHC [place] % (Auto) 10.8 H [place] # 1.2 H Seg Neutrophils # Activated Clotting Time > 1000 H Sodium 134 L Potassium 3.5 L Chloride 94.4 L Carbon Dioxide BUN 19 H Glucose 121 H POC Glucose Calcium Total Creatine Kinase 155 H CK-MB (CK-2) 17.3 H CK-MB (CK-2) Rel Index 11.1 H Troponin T 0.368 H* Triglycerides 169 H HDL Cholesterol 63 H 04/03/18 04/04/18 04/04/18 16:59 06:12 06:12 WBC 13.3 H MCHC 35 H [place] % (Auto) 9.2 H [place] # 1.2 H Seg Neutrophils # 9.0 H Activated Clotting Time Sodium 132 L Potassium 3.4 L Chloride 94.8 L Carbon Dioxide BUN Glucose 107 H POC Glucose Calcium Total Creatine Kinase 503 H 498 H CK-MB (CK-2) 69.6 H 51.9 H CK-MB (CK-2) Rel Index 13.8 H 10.4 H Troponin T 1.900 H* D 1.950 H* Triglycerides HDL Cholesterol 04/05/18 04/05/18 04/05/18 06:47 11:33 17:49 WBC MCHC [place] % (Auto) [place] # Seg Neutrophils # Activated Clotting Time Sodium 128 L Potassium Chloride 88.7 L Carbon Dioxide BUN 18 H Glucose 153 H POC Glucose 179 H 190 H Calcium Total Creatine Kinase 399 H CK-MB (CK-2) 35.5 H CK-MB (CK-2) Rel Index 8.8 H Troponin T 1.730 H* Triglycerides HDL Cholesterol 04/05/18 04/06/18 04/06/18 21:20 05:26 08:11 WBC MCHC [place] % (Auto) [place] # Seg Neutrophils # Activated Clotting Time Sodium 130 L Potassium Chloride 91.2 L Carbon Dioxide 20 L BUN 28 H Glucose 137 H POC Glucose 130 H 108 H Calcium 8.1 L Total Creatine Kinase CK-MB (CK-2) CK-MB (CK-2) Rel Index Troponin T Triglycerides HDL Cholesterol 04/06/18 08:11 WBC 19.3 H MCHC [place] % (Auto) [place] # Seg Neutrophils # Activated Clotting Time Sodium Potassium Chloride Carbon Dioxide BUN Glucose POC Glucose Calcium Total Creatine Kinase CK-MB (CK-2) CK-MB (CK-2) Rel Index Troponin T Triglycerides HDL Cholesterol
[2018-04-06] MEDS: BABY ASPIRIN PO SCH (11:23)
[2018-04-06] MEDS: PROTONIX PO SCH (11:23)
[2018-04-06] MEDS: HEPARIN SUB-Q SCH ×2 (11:23→21:20)
--- NOTE | 2018-04-06 13:03 | Magnetic Resonance Report ---
MRI BRAIN WITHOUT CONTRAST: 04/06/18 CLINICAL: Confusion. TECHNIQUE: Axial diffusion, T1, T2,, gradient echo T2*, coronal and axial FLAIR and sagittal T1 sequences on a 1.5 Doris magnet. FINDINGS: Normal ventricles and sulci. No restricted diffusion and no abnormal signal on any of the sequences. No mass or mass effect. No hemorrhage, edema or extra-axial collection. Normal pituitary and optic chiasm. The brainstem and cerebellum are normal. Intact vascular flow voids. Normal sinuses. The orbits, and soft tissues are normal. Normal calvarium and skull base. IMPRESSION: Normal study.
--- NOTE | 2018-04-06 13:08 | Magnetic Resonance Report ---
MRA HEAD WITHOUT CONTRAST: 04/06/18 CLINICAL: Confusion. TECHNIQUE: Axial 3-D [id number] MR angiography of the [place] with review of axial source images. FINDINGS: The quality of the examination is degraded by motion as the patient apparently fell asleep and snored during the exam. The [place] is grossly intact with no apparent aneurysm, high-grade stenosis or occlusion. Relatively symmetric blood flow in the anterior, middle and posterior cerebral arteries. Normal basilar and vertebral arteries. The left vertebral artery is dominant IMPRESSION: Normal study with quality degraded by motion.
--- NOTE | 2018-04-06 19:34 | Progress Note ---
Assessment and Plan Acute encephalopathy, resolved - delirium vs Amnesia vs CVA - negative CT head/MRI, EEG, consulted neurology Takutsubo's cardiomyopathy - S/p emergent LHC which revealed normal coronaries, EF 20-25%. - 2d echo report noted H/o hypertension - held BP meds for intermittent hypotensive episodes - will start coreg if BP tolerates Hypotensive episode, improved - started low volume fluid by cardiology, now stopped Hyperlipidemia, cont statin Hypokalemia, repleted GERD, cont ppi H/o breast CA, outpt f/p Brief History: The patient is a 77 year old female with a history of HTN, hyperlipidemia, GERD who presented with complaints of sharp, substernal chest pain, bilateral shoulder pain and neck pain that started in the morning at 9:30 am while she was at the store. EKG in the ER showed sinus rhythm with lateral ST elevation and STEMI protocol was initiated. She was taken to the [facility] lab[facility] emergently by Dr. Micky Pearson but cath revealed normal coronaries and Takutsubo's cardiomyopathy with EF 20-25%. Radiological data: CXR: No infiltrates Hospitalist Physical exam: GENERAL: well-developed and well-nourished WF lying on bed appeared to be in no discomfort. HEENT: Normocephalic. Atraumatic. No conjunctival congestion or icterus. Patient has moist mucous membranes. NECK: Supple. Trachea midline. CHEST/LUNGS: few crackles auscultated bilaterally, breathing nonlabored. No wheezes HEART/CARDIOVASCULAR: Regular in rate and rhythm. S1 and S2 positive. ABDOMEN: Abdomen is soft, nontender. Patient has normal bowel sounds. SKIN: There is no rash. Warm and dry. NEURO: No focal motor deficit. confused. MUSCULOSKELETAL: No joint effusion or tenderness. EXTRIMITY: No edema, no cyanosis or clubbing. PSYCH: anxious. Subjective Date of service: 04/06/18 Principal diagnosis: Takutsubo's cardiomyopathy; Chest Pain Interval history: Patient seen and examined. Medical records and medication list reviewed. Patient appears oriented this morning, family members at bedside, updated Objective - Constitutional Vitals: Vital Signs - 12hr 04/06/18 04/06/18 15:15 18:03 Temperature 98.6 F Pulse Rate 122 H 69 Respiratory 18 Rate Blood Pressure 99/69 [Left] O2 Sat by Pulse 98 Oximetry - Labs CBC & Chem 7: 04/06/18 08:11 04/06/18 08:11 Labs: Abnormal lab results 04/05/18 04/05/18 04/06/18 Range/Units 11:33 21:20 05:26 WBC (4.5-11.0) K/mm3 Sodium (137-145) mmol/L Chloride (98-107) mmol/L Carbon Dioxide (22-30) mmol/L BUN (7-17) mg/dL Glucose (65-100) mg/dL POC Glucose 179 H 130 H 108 H (70-105) Calcium (8.4-10.2) mg/dL 04/06/18 04/06/18 Range/Units 08:11 08:11 WBC 19.3 H (4.5-11.0) K/mm3 Sodium 130 L (137-145) mmol/L Chloride 91.2 L (98-107) mmol/L Carbon Dioxide 20 L (22-30) mmol/L BUN 28 H (7-17) mg/dL Glucose 137 H (65-100) mg/dL POC Glucose (70-105) Calcium 8.1 L (8.4-10.2) mg/dL
[2018-04-07] MEDS ORDERED: ATIVAN IV PRN (00:23)
--- NOTE | 2018-04-07 00:38 | Event Note ---
Date: 04/07/18 Reviewed MRI and MRA remotely. Both are normal. Dr. Lee's note today appears to indicate patient still confused about why in the hospital, but other notes indicate she is oriented. If still confused, ask Dr. Jhony Clarke, incoming neurology locum, to do a followup on her Sunday.
[2018-04-07 01:59] LABS: Creatine Kinase MB 13.2 ng/mL (0.0-4.0)
[2018-04-07] MEDS ORDERED: LOPRESSOR IV PRN (02:40)
[2018-04-07] MEDS: LOPRESSOR PO SCH ×3 (06:16→23:52)
[2018-04-07] MEDS: XANAX PO PRN (06:26)
[2018-04-07] MEDS: NORCO 10/325 PO PRN (06:27)
[2018-04-07 08:11] LABS: Hematocrit 40.1 % (30.3-42.9); Mean Corpuscular HGB Conc 32 % (30-34); Mean Corpuscular Hemoglobin 30 pg (28-32); Mean Corpuscular Volume 94 fl (79-97); Platelet Count 248 K/mm3 (140-440); Red Blood Count 4.27 M/mm3 (3.65-5.03); Red Cell Distribution Width 14.1 % (13.2-15.2)
[2018-04-07 08:23] LABS: Calcium 8.3 mg/dL (8.4-10.2)
[2018-04-07] MEDS ORDERED: SUBLIMAZE ONE (08:41)
[2018-04-07] MEDS ORDERED: VERSED IV ONE ×2 (08:42→09:43)
[2018-04-07] MEDS: LEVOPHED DRIP 4 MG/NS 250 ML 4 MG/250 ML BAG IV SCH (09:27)
[2018-04-07 09:32] LABS: Band Neutrophils # (Manual) 0.4 K/mm3; Basophils % (Manual) 0 % (0.0-1.8); Eosinophils % (Manual) 0 % (0.0-4.3); Monocytes % (Manual) 7.5 % (0.0-7.3); Total Cells Counted 200
[2018-04-07 09:35] LABS: Partial Thromboplastin Time > 20.0 Sec. (24.2-36.6)
[2018-04-07] MEDS ORDERED: HEPARIN/NS 5000 UNIT/500ML(CATH LAB) 1,500 ML IR ONE (09:47)
[2018-04-07] MEDS ORDERED: HEPARIN 10,000 UNITS/10 ML ONE (09:47)
[2018-04-07] MEDS ORDERED: XYLOCAINE 2% INFILTRATI ONE ×2 (09:47→10:46)
[2018-04-07] MEDS ORDERED: NITROGLYCERIN SYRINGE 3 ML ONE (09:48)
[2018-04-07] MEDS: HEPARIN/ 0.45% NACL-25,000 UNIT/500 ML 25,000 UNIT/500 ML BAG IV SCH ×2 (10:32→12:00)
[2018-04-07] MEDS ORDERED: LASIX ONE (10:35)
[2018-04-07] MEDS ORDERED: VERSED ONE (10:47)
--- NOTE | 2018-04-07 11:09 | Progress Note ---
Assessment and Plan 77yo WF: Assessment: 1. Takutsubo's cardiomyopathy - s/p emergent LHC which revealed normal coronaries 2. Subacute hypoxemic respiratory failure * likely multifactorial * ams and HFrEF * now intubated 3. Cardiogenic shock due to #1 4. AMS/delirium - neuro following 5. H/o hypertension - with intermittent hypotension overnight 6. Sinus tachycardia 7. Hyperlipidemia 8. Hypokalemia - improving 9. Hyponatremia 10. Leukocytosis 11. GERD 12. H/o breast CA Plan: this am - Urgent repeat LHC revealed no sig CAD Severe anterior, radha-apical, and infero-apical dykinesis with EF ~ 20% c/w stress cardiomyopathy Markedly elevated LVeDP of 42-45mmHG IABP placed --> augment mean sbp now improved to 110mmHG wean pressors IV lasix, heparin (due to IABP) repeat tte Discussed w ICU team Critically ill Subjective Date of service: 04/07/18 Principal diagnosis: Takutsubo's cardiomyopathy; Chest Pain Interval history: events of early am noted Objective Vital Signs Temp Pulse Pulse Resp Resp BP BP 04/07/18 06:16 95/58 04/07/18 04:49 98.9 F 107 H 20 95/58 04/07/18 00:26 98.4 F 133 H 18 103/67 04/07/18 00:04 103/67 04/06/18 21:40 128 H 18 04/06/18 21:30 134 H 18 04/06/18 21:20 24 04/06/18 20:19 98.2 F 109 H 20 101/64 04/06/18 19:50 117 H 101/64 04/06/18 19:40 124 H 04/06/18 18:03 98.6 F 69 18 99/69 04/06/18 15:15 122 H Pulse Ox 04/07/18 06:16 04/07/18 04:49 95 04/07/18 00:26 99 04/07/18 00:04 04/06/18 21:40 04/06/18 21:30 04/06/18 21:20 04/06/18 20:19 98 04/06/18 19:50 99 04/06/18 19:40 04/06/18 18:03 98 04/06/18 15:15 - Physical Examination General: Other (confused) HEENT: Positive: Normocephaly, Mucus Membranes Moist Neck: Positive: neck supple, trachea midline Neuro: Positive: Cranial Nerve 2-12 Intact, Other (confused) Abdomen: Positive: Soft, Active Bowel Sounds. Negative: Tender Skin: Positive: Clear. Negative: Rash Extremities: Present: normal. Absent: edema - Labs and Meds Cardiac Enzymes 04/07/18 Range/Units 00:47 CK-MB (CK-2) 13.2 H (0.0-4.0) ng/mL Coagulation 04/07/18 Range/Units 08:07 PT 13.7 (12.2-14.9) Sec. INR 1.00 (0.87-1.13) APTT > 20.0 L (24.2-36.6) Sec. CBC 04/07/18 Range/Units 08:07 WBC 21.5 H (4.5-11.0) K/mm3 RBC 4.27 (3.65-5.03) M/mm3 Hgb 13.0 (10.1-14.3) gm/dl Hct 40.1 (30.3-42.9) % Plt Count 248 (140-440) K/mm3 Comprehensive Metabolic Panel 04/07/18 Range/Units 08:07 Sodium 129 L (137-145) mmol/L Potassium 4.5 (3.6-5.0) mmol/L Chloride 92.4 L (98-107) mmol/L Carbon Dioxide 23 (22-30) mmol/L BUN 34 H (7-17) mg/dL Creatinine 1.1 (0.7-1.2) mg/dL Glucose 152 H (65-100) mg/dL Calcium 8.3 L (8.4-10.2) mg/dL - Imaging and Cardiology EKG: image reviewed Echo: report reviewed - EKG Sinus rhythms and dysrhythmias: sinus rhythm Myocardial infarction: lateral CA (acute or rece
[2018-04-07] MEDS: BROVANA NEBU IH SCH ×2 (11:39→20:06)
[2018-04-07] MEDS: PULMICORT IH SCH ×2 (11:39→20:06)
--- NOTE | 2018-04-07 11:42 | Event Note ---
Date: 04/07/18 Called and spoke with daughter, Petty, and length via phone. Findings and plan of care as well as current condition were outlined. All questions and concerns were addressed.
--- NOTE | 2018-04-07 11:51 | Progress Note ---
Assessment and Plan / Acute respiratory failure - likely from cardiogenic shock - intubated today, consult CC - nebs, vent per repsiratory protocol /Cardiogenic shock - likley due to due to Takutsubo's cardiomyopathy - placed on pressor and s/p IABP today - monitor at ICU /Takutsubo's cardiomyopathy - S/p emergent LHC on admission which revealed normal coronaries, EF 20-25%. - repeat LHC today revealed no sig CAD, Severe anterior, radha-apical, and infero-apical dykinesis with EF ~ 20% c/w stress cardiomyopathy - Markedly elevated LVeDP of 42-45mmHG, IABP placed --> augment mean sbp now improved to 110mmHG /Acute encephalopathy - first noted on 04/05/18 following admission - delirium vs Amnesia vs TIA - negative CT head/MRI, EEG, consulted neurology /SIRS - high WBc and SIRS likley to be due to Takutsubo's cardiomyopathy - will obtain blood cx, UA, will follow CXR - will empirically start on Zosyn till underlying infection r/o /Hyperlipidemia, cont statin /Hypokalemia, repleted /GERD, cont ppi /H/o breast CA, outpt f/p Brief History: The patient is a 77 year old female with a history of HTN, hyperlipidemia, GERD who presented with complaints of sharp, substernal chest pain, bilateral shoulder pain and neck pain that started in the morning at 9:30 am while she was at the store. EKG in the ER showed sinus rhythm with lateral ST elevation and STEMI protocol was initiated. She was taken to the lab instructor emergently by Dr. Micky Pearson but cath revealed normal coronaries and Takutsubo's cardiomyopathy with EF 20-25%. Patient then noted consuded on 04/05/18 and neurology work up initiated with neuro consult. Her EEG, CT/MRI head was normal. Mental status improbed. Today morning got hypotensive, tachypnic, placed on pressor, intubated for pending respiratory failure. Taken to lab instructor had repeat LHC and IABP placement for cardiogenic shock. Radiological data: CXR: No infiltrates Hospitalist Physical exam: GENERAL: well-developed and well-nourished WF lying on bed, intubated. HEENT: Normocephalic. Atraumatic. No conjunctival congestion or icterus. Patient has moist mucous membranes. NECK: Supple. Trachea midline. CHEST/LUNGS: few crackles auscultated bilaterally, breathing on vent HEART/CARDIOVASCULAR: tachycardic. S1 and S2 positive. ABDOMEN: Abdomen is soft, nontender. Patient has normal bowel sounds. SKIN: There is no rash. Warm and dry. NEURO: unresponsive MUSCULOSKELETAL: No joint effusion or tenderness. EXTRIMITY: No edema, no cyanosis or clubbing. PSYCH: unable to assess Subjective Date of service: 04/07/18 Principal diagnosis: Takutsubo's cardiomyopathy; Chest Pain Interval history: Patient seen and examined. Medical records and medication list reviewed. Patient appeared hypotensive and tachypnic this am EKG at bedside showed ST elevation Transferred to ICU, got intubated to protect airway, started on pressors s/p repeat LHC today showed no blockage and EF @ 20%, IABP placed Updated Son at bedside, Spoke with daughter ) Objective - Constitutional Vitals: Vital Signs - 12hr 04/07/18 04/07/18 04/07/18 00:04 00:26 04:49 Temperature 98.4 F 98.9 F Pulse Rate 133 H 107 H Respiratory 18 20 Rate Blood Pressure 103/67 Blood Pressure 103/67 95/58 [Left] O2 Sat by Pulse 99 95 Oximetry 04/07/18 06:16 Temperature Pulse Rate Respiratory Rate Blood Pressure 95/58 Blood Pressure [Left] O2 Sat by Pulse Oximetry - Labs CBC & Chem 7: 04/07/18 08:07 04/07/18 08:07 Labs: Abnormal lab results 04/06/18 04/07/18 04/07/18 Range/Units 21:35 00:14 00:47 WBC (4.5-11.0) K/mm3 Seg Neuts % (Manual) (40.0-70.0) % Lymphocytes % (Manual) (13.4-35.0) % Monocytes % (Manual) (0.0-7.3) % Seg Neutrophils # Man (1.8-7.7) K/mm3 Monocytes # (Manual) (0.0-0.8) K/mm3 APTT (24.2-36.6) Sec. Sodium (137-145) mmol/L Chloride (98-107) mmol/L BUN (7-17) mg/dL Glucose (65-100) mg/dL POC Glucose 188 H 146 H (70-105) Calcium (8.4-10.2) mg/dL Total Creatine Kinase 186 H (30-135) units/L CK-MB (CK-2) 13.2 H (0.0-4.0) ng/mL CK-MB (CK-2) Rel Index 7.0 H (0-4) Troponin T 1.420 H* (0.00-0.029) ng/mL NT-Pro-B Natriuret Pep (0-900) pg/mL 04/07/18 04/07/18 04/07/18 Range/Units 05:43 08:07 08:07 WBC 21.5 H (4.5-11.0) K/mm3 Seg Neuts % (Manual) 82.5 H (40.0-70.0) % Lymphocytes % (Manual) 7.0 L (13.4-35.0) % Monocytes % (Manual) 7.5 H (0.0-7.3) % Seg Neutrophils # Man 17.7 H (1.8-7.7) K/mm3 Monocytes # (Manual) 1.6 H (0.0-0.8) K/mm3 APTT (24.2-36.6) Sec. Sodium 129 L (137-145) mmol/L Chloride 92.4 L (98-107) mmol/L BUN 34 H (7-17) mg/dL Glucose 152 H (65-100) mg/dL POC Glucose 157 H (70-105) Calcium 8.3 L (8.4-10.2) mg/dL Total Creatine Kinase (30-135) units/L CK-MB (CK-2) (0.0-4.0) ng/mL CK-MB (CK-2) Rel Index (0-4) Troponin T 1.300 H* (0.00-0.029) ng/mL NT-Pro-B Natriuret Pep 60959 H (0-900) pg/mL 04/07/18 Range/Units 08:07 WBC (4.5-11.0) K/mm3 Seg Neuts % (Manual) (40.0-70.0) % Lymphocytes % (Manual) (13.4-35.0) % Monocytes % (Manual) (0.0-7.3) % Seg Neutrophils # Man (1.8-7.7) K/mm3 Monocytes # (Manual) (0.0-0.8) K/mm3 APTT > 20.0 L (24.2-36.6) Sec. Sodium (137-145) mmol/L Chloride (98-107) mmol/L BUN (7-17) mg/dL Glucose (65-100) mg/dL POC Glucose (70-105) Calcium (8.4-10.2) mg/dL Total Creatine Kinase (30-135) units/L CK-MB (CK-2) (0.0-4.0) ng/mL CK-MB (CK-2) Rel Index (0-4) Troponin T (0.00-0.029) ng/mL NT-Pro-B Natriuret Pep (0-900) pg/mL
[2018-04-07] MEDS ORDERED: ARTIFICIAL TEARS OPHTH OINT OU PRN (11:58)
[2018-04-07] MEDS ORDERED: VASELINE LIP THERAPY TP PRN (11:58)
--- NOTE | 2018-04-07 12:12 | XRay Report ---
Single view chest: Compared to 04/03/18. History: ET tube placement. Findings: Cardiomegaly. Pulmonary venous congestion with bilateral pleural effusion. Tip of endotracheal tube and NG tube in normal position. No pneumothorax. Impression: Megaly with pulmonary venous congestion and bilateral pleural effusion.
[2018-04-07] MEDS: DIPRIVAN 10 MG/ML 1,000 MG/100 ML BOTTLE IV SCH ×2 (12:35→18:42)
--- NOTE | 2018-04-07 14:18 | Cardiac Catherization Report ---
REFERRING PHYSICIAN: Raffaele Mercado MD INDICATION FOR PROCEDURE: The patient had essentially respiratory arrest on telemetry second ICU, intubated. She is noted to have presented several days ago with stress cardiomyopathy. Ejection fraction of some 35% or so. This may be consistent worsened decompensated heart failure. EKG shows persistent ST elevation. She is referred for urgent left heart catheterization and balloon pump placement. This is an emergency procedure. PROCEDURE IN DETAIL: The patient brought to the powerhouse laborer, intubated, sedated. She was prepped and draped in sterile fashion. An 8 mL of 2% lidocaine used to anesthetize the right groin. A standard 6-[place] sheath used to the right common femoral artery via modified Seldinger technique. She has no significant venous access except a small leg access. I placed a 5-[place] sheath in the right femoral vein via modified Seldinger technique for venous access. Next, I performed left heart catheterization. JL4 catheter used to engage left main. No dampening or vegetation. Cineangiography performed in all projections. JR4 catheter used to cross the valve under fluoroscopic guidance. Left ventriculography performed in 30 LAWLER and 30 [place] projections via hand injections, catheter flushed. Manual pullback performed with continuous pressure monitoring. Catheter used to engage the right coronary. No dampening or ventricularization. Cineangiography performed in all projections. Next, catheter removed from the body over a wire. Next, intraaortic balloon pump was placed under fluoroscopic guidance. DATA: The patient remained in sinus rhythm, heart rate of 95-110 throughout the procedure. Aortic pressure is 110/60, LV pressure is 110, LVEDP of 40 mmHg. Left ventriculography reveals severe anterior, anteroapical and inferoapical dyskinesis with a basal sparing EF approximately 20% or so. EDP markedly elevated as aforementioned. Coronaries are unchanged from prior catheterization. Left main without significant disease, bifurcates left anterior descending and left circumflex. Scattered luminal irregularities in the LAD, but no significant disease. There is an intermediate bridge in the mid LAD, but no diastolic collapse. Right coronary is widely patent, no significant disease. Left circumflex vessel disease. At this point, intraoperative balloon pump was placed due to severe nonischemic cardiomyopathy with acute respiratory arrest, likely due to pulmonary edema and elevated EDP. At least 30 minutes of critical care time were spent in the care of this patient. I directly supervised the administration of moderate sedation in this patient with fentanyl and Versed for greater than 30 minutes. CONCLUSIONS: 1. No angiographic evidence of significant epicardial coronary disease in this right dominant system. 2. Prior Takotsubo stress cardiomyopathy is still noted. No significant change in LV function, anterior anteroapical, inferoapical dyskinesis of the basal sparing is noted. Ejection fraction approximately 20%, markedly elevated LVEDP. 3. Successful right femoral venous access. 4. Successful intraaortic balloon pump placement. 5. IV Lasix given. Watch electrolytes closely. Watch blood pressure closely. She is intubated and sedated. Results of procedure at length explained to family. The patient will be watched closely in ICU. Discussed with intensive care physician as well. Her elevated blood pressure is too low to add SARAN inhibition or beta blockade at this point. Continue with intraaortic balloon pump and intermittent diuresis. We need to watch blood pressure closely. JOB# [id number] SBM/NTS
--- NOTE | 2018-04-07 14:28 | Progress Note ---
Assessment and Plan Acute hypoxemic Resp Failure on MVS < 96 hours Acute Pulmonary Edema Shock (Cardiogenic =/- vasodilatory) Takutsubo's Cardiomyopathy - s/p emergent LHC which revealed normal coronaries; EF approx 20%) Acute Encephalopathy HTN Asthma Sinus Tachycardia Hyperlipidemia Hypokalemia Hyponatremia Leukocytosis GERD H/o breast Cancer - continue full MVS acutely - started aspiration precautions and VAP bundle assessment - she is on IABP and laying relatively flat - continue empiric AB's; get CRP and lactate levels to aid with de-escalation - daily SAT's - titrate levophed to keep MAP >/= 65 mmHg - continue supplemental oxygen to keep O2 Sats > 90% - prn gentle diuresis - cardiac disease modifying drugs per cardiology (re: B-blockers, SARAN-I etc) - continue long and short acting bronchodilators - continue GI prophylaxis - continue other care per attending / other consultants ... re-evaluate in am & prn The high probability of a clinically significant, sudden or life threatening deterioration of the [cardiac, respiratory,neurology] system(s) required my full and direct attention, intervention and personal management. The aggregate critical care time was [40] minutes without overlap. Time includes spent on; [x] Data Review and interpretation [x] Patient assessment and monitoring of vital signs [x] Documentation [x] Medication orders and management Subjective Date of service: 04/07/18 Principal diagnosis: Takutsubo's cardiomyopathy; Chest ; Acute Hypoxemic Resp Failure; Shock Interval history: Patient is seen today for: Takutsubo's cardiomyopathy; Chest Pain Seen and examined at bedside; 24hour events reviewed; nursing and respiratory care staff consulted; s/p CODE BLUE overnight that required intubation secondary to cardio-pulmonary decompensation; No N/V or overt aspiration reported; s/p repeat LHCath with clean coronaries but now on IABP; discussed care plan at length with daughter again who consented for a CVL placement as now on levophed. Objective Vital Signs - 12hr 04/07/18 04/07/18 04/07/18 04:49 06:16 09:40 Temperature 98.9 F Pulse Rate 107 H 96 H Pulse Rate [ Anterior Bilateral Throughout] Respiratory 20 Rate Respiratory Rate [Anterior Bilateral Throughout] Blood Pressure 95/58 126/69 Blood Pressure 95/58 [Left] O2 Sat by Pulse 95 99 Oximetry 04/07/18 04/07/18 04/07/18 11:30 11:39 11:50 Temperature Pulse Rate Pulse Rate [ 96 H Anterior Bilateral Throughout] Respiratory Rate Respiratory 21 20 Rate [Anterior Bilateral Throughout] Blood Pressure Blood Pressure [Left] O2 Sat by Pulse 98 Oximetry Constitutional: other (elderly looking CF, normocephalic and atraumatic; Sedated ) Eyes: non-icteric ENT: oropharynx moist, other (ETT 23cm DOC) Neck: supple, no lymphadenopathy, JVD, other (no thyromegaly) Effort: mildly labored Ascultation: Bilateral: diminished breath sounds (Prolonged expiratory phase.), rhonchi Percussion: Bilateral: not dull Cardiovascular: regular rate and rhythm, murmur noted (systolic), other (no rubs ) Gastrointestinal: normoactive bowel sounds, soft, non-tender, non-distended, other (no palpable HSM) Integumentary: other (poor turgor) Extremities: no cyanosis, no edema, pulses normal, no ischemia or petechiae Neurologic: normal mental status, non-focal exam, pupils equal and round, CN II- XII normal Psychiatric: other (sedated) CBC and BMP: 04/07/18 08:07 04/07/18 08:07 ABG, PT/INR, D-dimer: ABG POC ABG pH 7.378 (7.35-7.45) 04/07/18 13:43 POC ABG pCO2 52.0 (35-45) H 04/07/18 13:43 POC ABG pO2 456 (80-105) H 04/07/18 13:43 POC ABG HCO3 30.6 04/07/18 13:43 POC ABG Total CO2 32 04/07/18 13:43 POC ABG O2 Sat 100 04/07/18 13:43 PT/INR, D-dimer PT 13.7 Sec. (12.2-14.9) 04/07/18 08:07 INR 1.00 (0.87-1.13) 04/07/18 08:07 Abnormal lab findings: Abnormal Labs 04/03/18 04/03/18 04/03/18 11:47 11:47 12:29 WBC 11.5 H MCHC [place] % (Auto) 10.8 H [place] # 1.2 H Seg Neuts % (Manual) Lymphocytes % (Manual) Monocytes % (Manual) Seg Neutrophils # Seg Neutrophils # Man Monocytes # (Manual) APTT Activated Clotting Time > 1000 H POC ABG pCO2 POC ABG pO2 Sodium 134 L Potassium 3.5 L Chloride 94.4 L Carbon Dioxide BUN 19 H Glucose 121 H POC Glucose Calcium Total Creatine Kinase 155 H CK-MB (CK-2) 17.3 H CK-MB (CK-2) Rel Index 11.1 H Troponin T 0.368 H* NT-Pro-B Natriuret Pep Triglycerides 169 H HDL Cholesterol 63 H 04/03/18 04/04/18 04/04/18 16:59 06:12 06:12 WBC 13.3 H MCHC 35 H [place] % (Auto) 9.2 H [place] # 1.2 H Seg Neuts % (Manual) Lymphocytes % (Manual) Monocytes % (Manual) Seg Neutrophils # 9.0 H Seg Neutrophils # Man Monocytes # (Manual) APTT Activated Clotting Time POC ABG pCO2 POC ABG pO2 Sodium 132 L Potassium 3.4 L Chloride 94.8 L Carbon Dioxide BUN Glucose 107 H POC Glucose Calcium Total Creatine Kinase 503 H 498 H CK-MB (CK-2) 69.6 H 51.9 H CK-MB (CK-2) Rel Index 13.8 H 10.4 H Troponin T 1.900 H* D 1.950 H* NT-Pro-B Natriuret Pep Triglycerides HDL Cholesterol 04/05/18 04/05/18 04/05/18 06:47 11:33 17:49 WBC MCHC [place] % (Auto) [place] # Seg Neuts % (Manual) Lymphocytes % (Manual) Monocytes % (Manual) Seg Neutrophils # Seg Neutrophils # Man Monocytes # (Manual) APTT Activated Clotting Time POC ABG pCO2 POC ABG pO2 Sodium 128 L Potassium Chloride 88.7 L Carbon Dioxide BUN 18 H Glucose 153 H POC Glucose 179 H 190 H Calcium Total Creatine Kinase 399 H CK-MB (CK-2) 35.5 H CK-MB (CK-2) Rel Index 8.8 H Troponin T 1.730 H* NT-Pro-B Natriuret Pep Triglycerides HDL Cholesterol 04/05/18 04/06/18 04/06/18 21:20 05:26 08:11 WBC MCHC [place] % (Auto) [place] # Seg Neuts % (Manual) Lymphocytes % (Manual) Monocytes % (Manual) Seg Neutrophils # Seg Neutrophils # Man Monocytes # (Manual) APTT Activated Clotting Time POC ABG pCO2 POC ABG pO2 Sodium 130 L Potassium Chloride 91.2 L Carbon Dioxide 20 L BUN 28 H Glucose 137 H POC Glucose 130 H 108 H Calcium 8.1 L Total Creatine Kinase CK-MB (CK-2) CK-MB (CK-2) Rel Index Troponin T NT-Pro-B Natriuret Pep Triglycerides HDL Cholesterol 04/06/18 04/06/18 04/07/18 08:11 21:35 00:14 WBC 19.3 H MCHC [place] % (Auto) [place] # Seg Neuts % (Manual) Lymphocytes % (Manual) Monocytes % (Manual) Seg Neutrophils # Seg Neutrophils # Man Monocytes # (Manual) APTT Activated Clotting Time POC ABG pCO2 POC ABG pO2 Sodium Potassium Chloride Carbon Dioxide BUN Glucose POC Glucose 188 H 146 H Calcium Total Creatine Kinase CK-MB (CK-2) CK-MB (CK-2) Rel Index Troponin T NT-Pro-B Natriuret Pep Triglycerides HDL Cholesterol 04/07/18 04/07/18 04/07/18 00:47 05:43 08:07 WBC 21.5 H MCHC [place] % (Auto) [place] # Seg Neuts % (Manual) 82.5 H Lymphocytes % (Manual) 7.0 L Monocytes % (Manual) 7.5 H Seg Neutrophils # Seg Neutrophils # Man 17.7 H Monocytes # (Manual) 1.6 H APTT Activated Clotting Time POC ABG pCO2 POC ABG pO2 Sodium Potassium Chloride Carbon Dioxide BUN Glucose POC Glucose 157 H Calcium Total Creatine Kinase 186 H CK-MB (CK-2) 13.2 H CK-MB (CK-2) Rel Index 7.0 H Troponin T 1.420 H* NT-Pro-B Natriuret Pep Triglycerides HDL Cholesterol 04/07/18 04/07/18 04/07/18 08:07 08:07 13:43 WBC MCHC [place] % (Auto) [place] # Seg Neuts % (Manual) Lymphocytes % (Manual) Monocytes % (Manual) Seg Neutrophils # Seg Neutrophils # Man Monocytes # (Manual) APTT > 20.0 L Activated Clotting Time POC ABG pCO2 52.0 H POC ABG pO2 456 H Sodium 129 L Potassium Chloride 92.4 L Carbon Dioxide BUN 34 H Glucose 152 H POC Glucose Calcium 8.3 L Total Creatine Kinase CK-MB (CK-2) CK-MB (CK-2) Rel Index Troponin T 1.300 H* NT-Pro-B Natriuret Pep 21926 H Triglycerides HDL Cholesterol Chest x-ray: image reviewed (bilateral moderate effusions; RIJ tip in distal SVC ; no pneumothorax; cardiomegaly) Allied health notes reviewed: nursing
--- NOTE | 2018-04-07 14:46 | Procedure Note ---
Date of procedure: 04/07/18 Pre-op diagnosis: Hypotension; Shock Post-op diagnosis: same Procedure: Right IJ CVL placement with Ultrasound guidance Full note dictated # [id number] Please see dictated notes for full details No immediate complications
--- NOTE | 2018-04-07 15:01 | XRay Report ---
FINAL REPORT PROCEDURE: XR CHEST 1V AP TECHNIQUE: Chest radiograph anteroposterior view. CPT 57196 HISTORY: Central line placement COMPARISON: No prior studies are available for comparison. FINDINGS: Right jugular central venous line in place. Tip projects in the proximal SVC. No evidence of pneumothorax. NG tube is seen directed into the stomach. Endotracheal tube in place. The tip lies 2.2 centimeters above the jonathan and is in good position. The heart appears to be mildly enlarged. Upper lobe vasculature mildly distended. Layering bilateral pleural effusions are suspected. Patchy perihilar densities are seen greater on the right than the left extending into the right lower lobe. This may represent pulmonary edema. Underlying infiltrates are not excluded. Numerous surgical clips are seen in the left axillary region and left breast laterally. IMPRESSION: Support lines in good position. No evidence of pneumothorax. Layering bilateral pleural effusions suspected as well as mild pulmonary edema/CHF. Underlying infiltrates are not excluded..
[2018-04-07 15:40] LABS: Hematocrit 36.6 % (30.3-42.9); Mean Corpuscular HGB Conc 33 % (30-34); Mean Corpuscular Hemoglobin 30 pg (28-32); Mean Corpuscular Volume 92 fl (79-97); Platelet Count 249 K/mm3 (140-440); Red Blood Count 3.95 M/mm3 (3.65-5.03); Red Cell Distribution Width 14.1 % (13.2-15.2)
[2018-04-07] MEDS: BABY ASPIRIN PO SCH (16:29)
[2018-04-07] MEDS: ZOSYN/NS 4.5GM/100ML 4.5 GM/100 ML VIAL IV SCH ×3 (16:30→23:51)
[2018-04-07] MEDS: PROTONIX PO SCH (16:30)
[2018-04-07 17:08] LABS: Bilirubin,Urine NEG (Negative); Blood,Urine SM (Negative); Color,Urine Yellow (Yellow); Hyaline Casts,Urine 3 /LPF; Mucus,Urine FEW /HPF; Protein,Urine <15 mg/dL mg/dL (Negative); Urobilinogen,Urine < 2.0 mg/dL (<2.0)
--- NOTE | 2018-04-07 20:05 | Operative Report ---
PROCEDURE: Right internal jugular central venous catheter placement. INDICATIONS: Shock, cardiogenic and hypotension. CONSENT: Informed and witnessed obtained from the patient's daughter. COMPLICATIONS: No immediate procedural complications. DESCRIPTION OF PROCEDURE: After informed and witnessed consent as well as premedication, the patient was on a propofol drip. The patient was sterilely prepped and draped the area of the right IJ, the right upper anterior triangle of the neck was sterilely prepped and draped. After this, a full barrier protection was used including hat, mask, sterile gloves, sterile gown and full body barrier drape. Generous local anesthetic agent was used throughout the whole time. Ultrasound guidance was used to locate the right IJ after a preprocedure sulfate had shown a fully patent vessel with easy compressibility. The central line needle was used to assess the right IJ on the first stick. Good dark venous looking blood return was obtained. The patient was in Trendelenburg position throughout the whole procedure. The wire was threaded through the needle. Catheter was advanced over wire after dilatation with a dilator provided. The catheter was sutured in place with 0 silk sutures. Blood loss was minimal, less than 10. No immediate procedural complications. The patient was taken out of Trendelenburg. Postprocedure chest x-ray confirms adequate placement without pneumothorax. Nursing staff been directed that is okay to use the procedure. JOB# [id number] SUGEY/JANNY
--- NOTE | 2018-04-07 23:53 | Event Note ---
Date: 04/07/18 Since mental status has improved per Dr. Lee, Neurology is signing off. Call us if needed. Thanks!
[2018-04-08] MEDS: LEVOPHED DRIP 4 MG/NS 250 ML 4 MG/250 ML BAG IV SCH ×3 (00:01→20:52)
[2018-04-08] MEDS: DIPRIVAN 10 MG/ML 1,000 MG/100 ML BOTTLE IV SCH ×2 (00:10→12:47)
--- NOTE | 2018-04-08 02:44 | XRay Report ---
FINAL REPORT EXAM: XR CHEST 1V AP HISTORY: follow up respiratory failure COMPARISON: None available. FINDINGS: Frontal view(s) of the chest obtained. Stable mild cardiac enlargement. ETT, NG tube and right IJ line remain in place. There is stable hazy patchy airspace opacities throughout the lungs with small effusions. No pneumothorax. Gross stable positioning of surgical clips along the left axillary region and projecting over the left hilar region. IMPRESSION: Gross stable positioning of lines and tubes. Stable hazy opacities throughout the lungs with bilateral pleural effusions most concerning for CHF. No change from prior study.
[2018-04-08] MEDS: ZOSYN/NS 4.5GM/100ML 4.5 GM/100 ML VIAL IV SCH ×3 (07:27→22:16)
[2018-04-08] MEDS: PULMICORT IH SCH ×2 (08:10→20:04)
[2018-04-08] MEDS: BROVANA NEBU IH SCH ×2 (08:10→20:03)
[2018-04-08 09:17] LABS: Hematocrit 32.7 % (30.3-42.9); Hemoglobin 11.2 gm/dl (10.1-14.3); Mean Corpuscular HGB Conc 34 % (30-34); Mean Corpuscular Hemoglobin 31 pg (28-32); Mean Corpuscular Volume 91 fl (79-97); Platelet Count 207 K/mm3 (140-440); Red Blood Count 3.59 M/mm3 (3.65-5.03); Red Cell Distribution Width 14.2 % (13.2-15.2)
[2018-04-08 09:36] LABS: BUN/Creatinine Ratio 39; Blood Urea Nitrogen 27 mg/dL (7-17); Calcium 7.1 mg/dL (8.4-10.2); Hemolysis Index 2
[2018-04-08] MEDS ORDERED: HEPARIN 1,000 UNIT in NACL 0.9% 500 ML 500 ML IV SCH (10:30)
--- NOTE | 2018-04-08 11:43 | Progress Note ---
Assessment and Plan Continue gentle intermittent diuresis. F/u echo. Cont supportive measures, including IABP. The patient has been seen in conjunction with Dr. Winters who agrees with the assessment and plan of care. - Patient Problems (1) Takotsubo cardiomyopathy Current Visit: Yes Status: Acute (2) Cardiogenic shock Current Visit: Yes Status: Acute (3) Heart failure with reduced ejection fraction Current Visit: Yes Status: Acute (4) Acute respiratory failure Current Visit: Yes Status: Acute (5) Hyponatremia Current Visit: Yes Status: Acute (6) Altered mental status Current Visit: Yes Status: Acute (7) HLD (hyperlipidemia) Current Visit: Yes Status: Acute Qualifiers: Hyperlipidemia type: mixed hyperlipidemia Qualified Code(s): E78.2 - Mixed hyperlipidemia (8) History of breast cancer Current Visit: Yes Status: Acute Subjective Date of service: 04/08/18 Principal diagnosis: Takutsubo's cardiomyopathy; Chest ; Acute Hypoxemic Resp Failure; Shock Interval history: pt resting in bed, intubated, sedated. IABP in place on 1:1 with 100% augmentation. levophed gtt infusing. pt in SR. no family at bedside. Objective Last Vital Signs Temp 98 F 04/08/18 08:00 Pulse 93 H 04/08/18 11:00 Resp 17 04/08/18 11:00 BP 90/47 04/08/18 11:00 Pulse Ox 98 04/08/18 11:00 - Physical Examination General: Other (intubated, sedated) HEENT: Positive: Normocephaly, Mucus Membranes Moist Neck: Positive: neck supple, trachea midline Cardiac: Positive: Reg Rate and Rhythm, S1/S2 Lungs: Positive: clear to auscultation (anterior), Ventilated Respirations Neuro: Positive: Other (intubated, sedated) Abdomen: Positive: Soft, Active Bowel Sounds. Negative: Tender Skin: Positive: Clear. Negative: Rash Extremities: Present: normal, +1 Edema (BLE) - Labs and Meds CBC 04/07/18 04/08/18 Range/Units 15:15 08:58 WBC 19.0 H 17.3 H (4.5-11.0) K/mm3 RBC 3.95 3.59 L (3.65-5.03) M/mm3 Hgb 12.0 11.2 (10.1-14.3) gm/dl Hct 36.6 32.7 (30.3-42.9) % Plt Count 249 207 (140-440) K/mm3 Comprehensive Metabolic Panel 04/08/18 Range/Units 08:58 Sodium 140 D (137-145) mmol/L Potassium 3.6 (3.6-5.0) mmol/L Chloride 97.7 L (98-107) mmol/L Carbon Dioxide 27 (22-30) mmol/L BUN 27 H (7-17) mg/dL Creatinine 0.7 (0.7-1.2) mg/dL Glucose 114 H (65-100) mg/dL Calcium 7.1 L (8.4-10.2) mg/dL - Imaging and Cardiology EKG: image reviewed Echo: report reviewed - Telemetry EKG Rhythm: Sinus Rhythm - EKG Sinus rhythms and dysrhythmias: sinus rhythm Myocardial infarction: lateral PA (acute or rece - Allied health notes Allied health notes reviewed: nursing
--- NOTE | 2018-04-08 12:34 | Progress Note ---
Assessment and Plan Acute hypoxemic Resp Failure on MVS < 96 hours Acute Pulmonary Edema Shock (Cardiogenic =/- vasodilatory) Takutsubo's Cardiomyopathy - s/p emergent LHC which revealed normal coronaries; EF approx 20%) Acute Encephalopathy HTN Asthma Sinus Tachycardia Hyperlipidemia Hypokalemia Hyponatremia Leukocytosis GERD H/o breast Cancer - continue full MVS acutely - continue aspiration precautions and VAP bundle assessment - she is on IABP and laying relatively flat - continue empiric AB's - daily SAT's - SBT's from tomorrow - wean levophed to keep MAP >/= 65 mmHg - continue supplemental oxygen to keep O2 Sats > 90% - continue gentle diuresis - cardiac disease modifying drugs per cardiology (re: B-blockers, SARAN-I etc) - continue long and short acting bronchodilators - continue GI prophylaxis - continue other care per attending / other consultants ... re-evaluate in am & prn The high probability of a clinically significant, sudden or life threatening deterioration of the [cardiac, respiratory,neurology] system(s) required my full and direct attention, intervention and personal management. The aggregate critical care time was [35] minutes without overlap. Time includes spent on; [x] Data Review and interpretation [x] Patient assessment and monitoring of vital signs [x] Documentation [x] Medication orders and management Subjective Date of service: 04/08/18 Principal diagnosis: Takutsubo's cardiomyopathy; Chest ; Acute Hypoxemic Resp Failure; Shock Interval history: Patient is seen today for: Takutsubo's cardiomyopathy; Chest Pain Seen and examined at bedside; 24hour events reviewed; nursing and respiratory care staff consulted; s/p CODE BLUE overnight that required intubation secondary to cardio-pulmonary decompensation; No N/V or overt aspiration reported; s/p repeat LHCath with clean coronaries but now on IABP; remains lethargic Objective Vital Signs - 12hr 04/08/18 04/08/18 04/08/18 00:45 01:01 01:15 Temperature Pulse Rate 102 H 107 H 103 H Pulse Rate [ Apical] Respiratory 19 16 21 Rate Blood Pressure 91/33 99/47 99/47 O2 Sat by Pulse 98 100 97 Oximetry 04/08/18 04/08/18 04/08/18 01:31 01:45 02:00 Temperature Pulse Rate 101 H 103 H Pulse Rate [ 102 H Apical] Respiratory 22 19 19 Rate Blood Pressure 99/47 99/47 O2 Sat by Pulse 100 100 100 Oximetry 04/08/18 04/08/18 04/08/18 02:01 02:15 02:31 Temperature Pulse Rate 102 H 99 H 99 H Pulse Rate [ Apical] Respiratory 20 20 20 Rate Blood Pressure 96/58 96/58 96/58 O2 Sat by Pulse 100 100 100 Oximetry 04/08/18 04/08/18 04/08/18 02:45 03:01 03:15 Temperature Pulse Rate 100 H 103 H 106 H Pulse Rate [ Apical] Respiratory 20 20 19 Rate Blood Pressure 96/58 114/55 114/55 O2 Sat by Pulse 100 100 100 Oximetry 04/08/18 04/08/18 04/08/18 03:31 03:37 03:45 Temperature Pulse Rate 102 H 102 H 100 H Pulse Rate [ Apical] Respiratory 19 22 21 Rate Blood Pressure 114/55 114/55 114/55 O2 Sat by Pulse 100 100 100 Oximetry 04/08/18 04/08/18 04/08/18 04:00 04:01 04:15 Temperature 99.5 F Pulse Rate 99 H 101 H Pulse Rate [ Apical] Respiratory 20 20 Rate Blood Pressure 104/54 104/54 O2 Sat by Pulse 100 100 Oximetry 04/08/18 04/08/18 04/08/18 04:31 04:45 05:01 Temperature Pulse Rate 98 H 100 H 101 H Pulse Rate [ Apical] Respiratory 18 22 21 Rate Blood Pressure 104/54 104/54 90/45 O2 Sat by Pulse 100 100 100 Oximetry 04/08/18 04/08/18 04/08/18 05:15 05:31 05:45 Temperature Pulse Rate 106 H 98 H 99 H Pulse Rate [ Apical] Respiratory 20 21 14 Rate Blood Pressure 90/45 90/45 90/45 O2 Sat by Pulse 100 100 100 Oximetry 04/08/18 04/08/18 04/08/18 06:00 06:15 06:31 Temperature Pulse Rate 103 H 96 H 97 H Pulse Rate [ Apical] Respiratory 12 17 20 Rate Blood Pressure 96/49 90/45 90/45 O2 Sat by Pulse 100 100 100 Oximetry 04/08/18 04/08/18 04/08/18 06:45 07:01 07:15 Temperature Pulse Rate 97 H 97 H 99 H Pulse Rate [ Apical] Respiratory 19 19 20 Rate Blood Pressure 90/45 101/41 101/41 O2 Sat by Pulse 100 100 100 Oximetry 04/08/18 04/08/18 04/08/18 07:31 07:45 08:00 Temperature 98 F Pulse Rate 100 H 98 H 101 H Pulse Rate [ Apical] Respiratory 22 21 16 Rate Blood Pressure 101/41 101/41 110/51 O2 Sat by Pulse 100 100 100 Oximetry 04/08/18 04/08/18 04/08/18 08:05 08:10 08:15 Temperature 98 F Pulse Rate 93 H Pulse Rate [ Apical] Respiratory 18 Rate Blood Pressure 110/51 O2 Sat by Pulse 97 99 Oximetry 04/08/18 04/08/18 04/08/18 08:31 08:45 08:59 Temperature Pulse Rate 95 H 97 H 97 H Pulse Rate [ Apical] Respiratory 19 19 Rate Blood Pressure 110/51 110/51 109/55 O2 Sat by Pulse 99 99 97 Oximetry 04/08/18 04/08/18 04/08/18 09:01 09:15 09:31 Temperature Pulse Rate 99 H 98 H 97 H Pulse Rate [ Apical] Respiratory 16 17 18 Rate Blood Pressure 109/55 109/55 109/55 O2 Sat by Pulse 97 98 97 Oximetry 04/08/18 04/08/18 04/08/18 09:45 10:01 10:15 Temperature Pulse Rate 97 H 98 H 97 H Pulse Rate [ Apical] Respiratory 19 20 21 Rate Blood Pressure 109/55 97/39 97/39 O2 Sat by Pulse 97 97 98 Oximetry 04/08/18 04/08/18 04/08/18 10:31 10:45 11:00 Temperature Pulse Rate 93 H 93 H 93 H Pulse Rate [ Apical] Respiratory 19 17 17 Rate Blood Pressure 97/39 97/39 90/47 O2 Sat by Pulse 97 97 98 Oximetry 04/08/1804/08/18 04/08/18 11:15 11:31 11:45 Temperature Pulse Rate 98 H 97 H 97 H Pulse Rate [ Apical] Respiratory 19 19 21 Rate Blood Pressure 90/47 90/47 90/47 O2 Sat by Pulse 98 97 97 Oximetry 04/08/18 04/08/18 12:00 12:15 Temperature Pulse Rate 97 H 103 H Pulse Rate [ Apical] Respiratory 20 16 Rate Blood Pressure 97/49 90/47 O2 Sat by Pulse 98 98 Oximetry Constitutional: no acute distress, other (elderly looking CF, normocephalic and atraumatic; Sedated) Eyes: non-icteric ENT: oropharynx moist, other (ETT 23cm DOC) Neck: supple, no lymphadenopathy, JVD, other (no thyromegaly) Effort: mildly labored Ascultation: Bilateral: diminished breath sounds (Prolonged expiratory phase.), rhonchi Percussion: Bilateral: not dull Cardiovascular: regular rate and rhythm, murmur noted (systolic), other (no rubs ) Gastrointestinal: normoactive bowel sounds, soft, non-tender, non-distended, other (no palpable HSM) Integumentary: other (poor turgor) Extremities: no cyanosis, no edema, pulses normal, no ischemia or petechiae Neurologic: non-focal exam, pupils equal and round, CN II-XII normal, other ( lethargic) Psychiatric: other (unable to assess) CBC and BMP: 04/10/18 09:10 04/10/18 Unknown ABG, PT/INR, D-dimer: ABG POC ABG pH 7.471 (7.35-7.45) H 04/08/18 04:23 POC ABG pCO2 39.4 (35-45) 04/08/18 04:23 POC ABG pO2 133 (80-105) H 04/08/18 04:23 POC ABG HCO3 28.7 04/08/18 04:23 POC ABG Total CO2 30 04/08/18 04:23 POC ABG O2 Sat 99 04/08/18 04:23 PT/INR, D-dimer PT 13.7 Sec. (12.2-14.9) 04/07/18 08:07 INR 1.00 (0.87-1.13) 04/07/18 08:07 Abnormal lab findings: Abnormal Labs 04/03/18 04/03/18 04/03/18 11:47 11:47 12:29 WBC 11.5 H RBC MCHC Meagher % (Auto) 10.8 H Meagher # 1.2 H Seg Neuts % (Manual) Lymphocytes % (Manual) Monocytes % (Manual) Seg Neutrophils # Seg Neutrophils # Man Monocytes # (Manual) APTT Activated Clotting Time > 1000 H POC ABG pH POC ABG pCO2 POC ABG pO2 Sodium 134 L Potassium 3.5 L Chloride 94.4 L Carbon Dioxide BUN 19 H Glucose 121 H POC Glucose Calcium Total Creatine Kinase 155 H CK-MB (CK-2) 17.3 H CK-MB (CK-2) Rel Index 11.1 H Troponin T 0.368 H* NT-Pro-B Natriuret Pep Triglycerides 169 H HDL Cholesterol 63 H Urine WBC (Auto) 04/03/18 04/04/18 04/04/18 16:59 06:12 06:12 WBC 13.3 H RBC MCHC 35 H Meagher % (Auto) 9.2 H Meagher # 1.2 H Seg Neuts % (Manual) Lymphocytes % (Manual) Monocytes % (Manual) Seg Neutrophils # 9.0 H Seg Neutrophils # Man Monocytes # (Manual) APTT Activated Clotting Time POC ABG pH POC ABG pCO2 POC ABG pO2 Sodium 132 L Potassium 3.4 L Chloride 94.8 L Carbon Dioxide BUN Glucose 107 H POC Glucose Calcium Total Creatine Kinase 503 H 498 H CK-MB (CK-2) 69.6 H 51.9 H CK-MB (CK-2) Rel Index 13.8 H 10.4 H Troponin T 1.900 H* D 1.950 H* NT-Pro-B Natriuret Pep Triglycerides HDL Cholesterol Urine WBC (Auto) 04/05/18 04/05/18 04/05/18 06:47 11:33 17:49 WBC RBC MCHC Meagher % (Auto) Meagher # Seg Neuts % (Manual) Lymphocytes % (Manual) Monocytes % (Manual) Seg Neutrophils # Seg Neutrophils # Man Monocytes # (Manual) APTT Activated Clotting Time POC ABG pH POC ABG pCO2 POC ABG pO2 Sodium 128 L Potassium Chloride 88.7 L Carbon Dioxide BUN 18 H Glucose 153 H POC Glucose 179 H 190 H Calcium Total Creatine Kinase 399 H CK-MB (CK-2) 35.5 H CK-MB (CK-2) Rel Index 8.8 H Troponin T 1.730 H* NT-Pro-B Natriuret Pep Triglycerides HDL Cholesterol Urine WBC (Auto) 04/05/18 04/06/18 04/06/18 21:20 05:26 08:11 WBC RBC MCHC Meagher % (Auto) Meagher # Seg Neuts % (Manual) Lymphocytes % (Manual) Monocytes % (Manual) Seg Neutrophils # Seg Neutrophils # Man Monocytes # (Manual) APTT Activated Clotting Time POC ABG pH POC ABG pCO2 POC ABG pO2 Sodium 130 L Potassium Chloride 91.2 L Carbon Dioxide 20 L BUN 28 H Glucose 137 H POC Glucose 130 H 108 H Calcium 8.1 L Total Creatine Kinase CK-MB (CK-2) CK-MB (CK-2) Rel Index Troponin T NT-Pro-B Natriuret Pep Triglycerides HDL Cholesterol Urine WBC (Auto) 04/06/18 04/06/18 04/07/18 08:11 21:35 00:14 WBC 19.3 H RBC MCHC Meagher % (Auto) Meagher # Seg Neuts % (Manual) Lymphocytes % (Manual) Monocytes % (Manual) Seg Neutrophils # Seg Neutrophils # Man Monocytes # (Manual) APTT Activated Clotting Time POC ABG pH POC ABG pCO2 POC ABG pO2 Sodium Potassium Chloride Carbon Dioxide BUN Glucose POC Glucose 188 H 146 H Calcium Total Creatine Kinase CK-MB (CK-2) CK-MB (CK-2) Rel Index Troponin T NT-Pro-B Natriuret Pep Triglycerides HDL Cholesterol Urine WBC (Auto) 04/07/18 04/07/18 04/07/18 00:47 05:43 08:07 WBC 21.5 H RBC MCHC Meagher % (Auto) Meagher # Seg Neuts % (Manual) 82.5 H Lymphocytes % (Manual) 7.0 L Monocytes % (Manual) 7.5 H Seg Neutrophils # Seg Neutrophils # Man 17.7 H Monocytes # (Manual) 1.6 H APTT Activated Clotting Time POC ABG pH POC ABG pCO2 POC ABG pO2 Sodium Potassium Chloride Carbon Dioxide BUN Glucose POC Glucose 157 H Calcium Total Creatine Kinase 186 H CK-MB (CK-2) 13.2 H CK-MB (CK-2) Rel Index 7.0 H Troponin T 1.420 H* NT-Pro-B Natriuret Pep Triglycerides HDL Cholesterol Urine WBC (Auto) 04/07/18 04/07/18 04/07/18 08:07 08:07 13:43 WBC RBC MCHC Meagher % (Auto) Meagher # Seg Neuts % (Manual) Lymphocytes % (Manual) Monocytes % (Manual) Seg Neutrophils # Seg Neutrophils # Man Monocytes # (Manual) APTT > 20.0 L Activated Clotting Time POC ABG pH POC ABG pCO2 52.0 H POC ABG pO2 456 H Sodium 129 L Potassium Chloride 92.4 L Carbon Dioxide BUN 34 H Glucose 152 H POC Glucose Calcium 8.3 L Total Creatine Kinase CK-MB (CK-2) CK-MB (CK-2) Rel Index Troponin T 1.300 H* NT-Pro-B Natriuret Pep 63370 H Triglycerides HDL Cholesterol Urine WBC (Auto) 04/07/18 04/07/18 04/08/18 15:15 15:15 04:23 WBC 19.0 H RBC MCHC Meagher % (Auto) Meagher # Seg Neuts % (Manual) Lymphocytes % (Manual) Monocytes % (Manual) Seg Neutrophils # Seg Neutrophils # Man Monocytes # (Manual) APTT Activated Clotting Time POC ABG pH 7.471 H POC ABG pCO2 POC ABG pO2 133 H Sodium Potassium Chloride Carbon Dioxide BUN Glucose POC Glucose Calcium Total Creatine Kinase CK-MB (CK-2) CK-MB (CK-2) Rel Index Troponin T NT-Pro-B Natriuret Pep Triglycerides HDL Cholesterol Urine WBC (Auto) 46.0 H 04/08/18 04/08/18 04/08/18 05:51 08:58 08:58 WBC 17.3 H RBC 3.59 L MCHC Meagher % (Auto) Meagher # Seg Neuts % (Manual) Lymphocytes % (Manual) Monocytes % (Manual) Seg Neutrophils # Seg Neutrophils # Man Monocytes # (Manual) APTT Activated Clotting Time POC ABG pH POC ABG pCO2 POC ABG pO2 Sodium Potassium Chloride 97.7 L Carbon Dioxide BUN 27 H Glucose 114 H POC Glucose 111 H Calcium 7.1 L Total Creatine Kinase CK-MB (CK-2) CK-MB (CK-2) Rel Index Troponin T NT-Pro-B Natriuret Pep Triglycerides HDL Cholesterol Urine WBC (Auto) Chest x-ray: image reviewed (persistent bilateral effusions with volume overload pattern) Allied health notes reviewed: nursing
[2018-04-08] MEDS ORDERED: LASIX IV ONE (13:00)
[2018-04-08] MEDS: PEPCID PO SCH ×2 (13:03→22:16)
[2018-04-08] MEDS: BABY ASPIRIN PO SCH (13:03)
[2018-04-08] MEDS ORDERED: SUBLIMAZE IV PRN (13:41)
--- NOTE | 2018-04-08 14:48 | Progress Note ---
Assessment and Plan / Acute respiratory failure - likely from cardiogenic shock - intubated 04/07/18, consulted CC - nebs, vent per repsiratory protocol /Cardiogenic shock - likely due to due to Takutsubo's cardiomyopathy - placed on pressor and s/p IABP placed on yesterday - monitor at ICU /Takutsubo's cardiomyopathy - S/p emergent LHC on admission which revealed normal coronaries, EF 20-25%. - repeat LHC yesterday revealed no sig CAD, Severe anterior, radha-apical, and infero-apical dykinesis with EF ~ 20% c/w stress cardiomyopathy - Markedly elevated LVeDP of 42-45mmHG, IABP placed --> augment mean sbp now improved to 110mmHG - also placed on diuretics, monitor ins/os /Acute encephalopathy - first noted on 04/05/18 following admission - delirium vs transient Amnesia vs TIA - negative CT head/MRI, EEG, consulted neurology /SIRS - high WBc and SIRS likley to be due to Takutsubo's cardiomyopathy - will follow blood cx, UA, b/l pleural congestion on CXR - will empirically cont on Zosyn till underlying infection r/o /Hyperlipidemia, cont statin /Hypokalemia, repleted /GERD, cont ppi /H/o breast CA, outpt f/p Brief History: The patient is a 77 year old female with a history of HTN, hyperlipidemia, GERD who presented with complaints of sharp, substernal chest pain, bilateral shoulder pain and neck pain that started in the morning at 9:30 am while she was at the store. EKG in the ER showed sinus rhythm with lateral ST elevation and STEMI protocol was initiated. She was taken to the cath lab manager emergently by Dr. Micky Pearson but cath revealed normal coronaries and Takutsubo's cardiomyopathy with EF 20-25%. Patient then noted consuded on 04/05/18 and neurology work up initiated with neuro consult. Her EEG, CT/MRI head was normal. Mental status improbed. On 04/07/18 morning got hypotensive, tachypnic, placed on pressor, intubated for pending respiratory failure. Taken to cath lab manager had repeat LHC and IABP placement for cardiogenic shock. Radiological data: CXR: No infiltrates Hospitalist Physical exam: GENERAL: well-developed and well-nourished WF lying on bed, intubated. HEENT: Normocephalic. Atraumatic. No conjunctival congestion or icterus. Patient has moist mucous membranes. NECK: Supple. Trachea midline. CHEST/LUNGS: few crackles auscultated bilaterally, breathing on vent HEART/CARDIOVASCULAR: tachycardic. S1 and S2 positive. ABDOMEN: Abdomen is soft, nontender. Patient has normal bowel sounds. SKIN: There is no rash. Warm and dry. NEURO: unresponsive MUSCULOSKELETAL: No joint effusion or tenderness. EXTRIMITY: No edema, no cyanosis or clubbing. PSYCH: unable to assess Subjective Date of service: 04/08/18 Principal diagnosis: Takutsubo's cardiomyopathy; Chest ; Acute Hypoxemic Resp Failure; Shock Interval history: Patient seen and examined. Medical records and medication list reviewed. Patient remained intubated and sedated Objective - Constitutional Vitals: Vital Signs - 12hr 04/08/18 04/08/18 04/08/18 03:01 03:15 03:31 Temperature Pulse Rate 103 H 106 H 102 H Respiratory 20 19 19 Rate Blood Pressure 114/55 114/55 114/55 O2 Sat by Pulse 100 100 100 Oximetry 04/08/18 04/08/18 04/08/18 03:37 03:45 04:00 Temperature 99.5 F Pulse Rate 102 H 100 H Respiratory 22 21 Rate Blood Pressure 114/55 114/55 O2 Sat by Pulse 100 100 Oximetry 04/08/18 04/08/18 04/08/18 04:01 04:15 04:31 Temperature Pulse Rate 99 H 101 H 98 H Respiratory 20 20 18 Rate Blood Pressure 104/54 104/54 104/54 O2 Sat by Pulse 100 100 100 Oximetry 04/08/18 04/08/18 04/08/18 04:45 05:01 05:15 Temperature Pulse Rate 100 H 101 H 106 H Respiratory 22 21 20 Rate Blood Pressure 104/54 90/45 90/45 O2 Sat by Pulse 100 100 100 Oximetry 04/08/18 04/08/18 04/08/18 05:31 05:45 06:00 Temperature Pulse Rate 98 H 99 H 103 H Respiratory 21 14 12 Rate Blood Pressure 90/45 90/45 96/49 O2 Sat by Pulse 100 100 100 Oximetry 04/08/18 04/08/18 04/08/18 06:15 06:31 06:45 Temperature Pulse Rate 96 H 97 H 97 H Respiratory 17 20 19 Rate Blood Pressure 90/45 90/45 90/45 O2 Sat by Pulse 100 100 100 Oximetry 04/08/18 04/08/18 04/08/18 07:01 07:15 07:31 Temperature Pulse Rate 97 H 99 H 100 H Respiratory 19 20 22 Rate Blood Pressure 101/41 101/41 101/41 O2 Sat by Pulse 100 100 100 Oximetry 04/08/18 04/08/18 04/08/18 07:45 08:00 08:05 Temperature 98 F 98 F Pulse Rate 98 H 101 H Respiratory 21 16 Rate Blood Pressure 101/41 110/51 O2 Sat by Pulse 100 100 Oximetry 04/08/18 04/08/18 04/08/18 08:10 08:15 08:31 Temperature Pulse Rate 93 H 95 H Respiratory 18 19 Rate Blood Pressure 110/51 110/51 O2 Sat by Pulse 97 99 99 Oximetry 04/08/18 04/08/18 04/08/18 08:45 08:59 09:01 Temperature Pulse Rate 97 H 97 H 99 H Respiratory 19 16 Rate Blood Pressure 110/51 109/55 109/55 O2 Sat by Pulse 99 97 97 Oximetry 04/08/18 04/08/18 04/08/18 09:15 09:31 09:45 Temperature Pulse Rate 98 H 97 H 97 H Respiratory 17 18 19 Rate Blood Pressure 109/55 109/55 109/55 O2 Sat by Pulse 98 97 97 Oximetry 04/08/18 04/08/18 04/08/18 10:01 10:15 10:31 Temperature Pulse Rate 98 H 97 H 93 H Respiratory 20 21 19 Rate Blood Pressure 97/39 97/39 97/39 O2 Sat by Pulse 97 98 97 Oximetry 04/08/18 04/08/18 04/08/18 10:45 11:00 11:15 Temperature Pulse Rate 93 H 93 H 98 H Respiratory 17 17 19 Rate Blood Pressure 97/39 90/47 90/47 O2 Sat by Pulse 97 98 98 Oximetry 04/08/1804/08/18 04/08/18 11:31 11:45 12:00 Temperature 97.5 F L Pulse Rate 97 H 97 H 97 H Respiratory 19 21 20 Rate Blood Pressure 90/47 90/47 97/49 O2 Sat by Pulse 97 97 98 Oximetry 04/08/18 04/08/18 04/08/18 12:15 12:30 12:45 Temperature Pulse Rate 103 H 104 H 95 H Respiratory 16 16 22 Rate Blood Pressure 90/47 97/49 97/49 O2 Sat by Pulse 97 98 97 Oximetry 04/08/18 04/08/18 04/08/18 13:01 13:15 13:31 Temperature Pulse Rate 100 H 102 H 104 H Respiratory 21 14 14 Rate Blood Pressure 97/49 97/49 97/49 O2 Sat by Pulse 98 97 97 Oximetry - Labs CBC & Chem 7: 04/08/18 08:58 04/08/18 08:58 Labs: Abnormal lab results 04/07/18 04/07/18 04/08/18 Range/Units 15:15 15:15 04:23 WBC 19.0 H (4.5-11.0) K/mm3 RBC (3.65-5.03) M/mm3 POC ABG pH 7.471 H (7.35-7.45) POC ABG pO2 133 H (80-105) Chloride (98-107) mmol/L BUN (7-17) mg/dL Glucose (65-100) mg/dL POC Glucose (70-105) Calcium (8.4-10.2) mg/dL Urine WBC (Auto) 46.0 H (0.0-6.0) /HPF 04/08/18 04/08/18 04/08/18 Range/Units 05:51 08:58 08:58 WBC 17.3 H (4.5-11.0) K/mm3 RBC 3.59 L (3.65-5.03) M/mm3 POC ABG pH (7.35-7.45) POC ABG pO2 (80-105) Chloride 97.7 L (98-107) mmol/L BUN 27 H (7-17) mg/dL Glucose 114 H (65-100) mg/dL POC Glucose 111 H (70-105) Calcium 7.1 L (8.4-10.2) mg/dL Urine WBC (Auto) (0.0-6.0) /HPF
[2018-04-08] MEDS: NORCO 10/325 PO PRN (20:50)
[2018-04-08] MEDS: HEPARIN/ 0.45% NACL-25,000 UNIT/500 ML 25,000 UNIT/500 ML BAG IV SCH (20:57)
--- NOTE | 2018-04-09 03:28 | XRay Report ---
FINAL REPORT PROCEDURE: XR CHEST 1V AP TECHNIQUE: Chest radiograph anteroposterior view. CPT 56074 HISTORY: follow up respiratory failure COMPARISON: 04/08/2018 FINDINGS: Heart: Normal. Mediastinum/Vessels: Normal. Lungs/Pleural space: Slight opacification of the right lung with mild infiltrate and slight effusion. Mild effusion left lower lung.. Bony thorax: No acute osseous abnormality. Life support devices: The endotracheal tube ends 3 centimeters above the jonathan. A nasogastric tube ends below the hemidiaphragms. Right central catheter ends in the SVC. IMPRESSION: Mild infiltrates right lung with slight right effusion. Mild left effusion. Tubes and lines are properly positioned..
[2018-04-09 05:29] LABS: Hematocrit 30.2 % (30.3-42.9); Hemoglobin 10.6 gm/dl (10.1-14.3); Mean Corpuscular HGB Conc 35 % (30-34); Mean Corpuscular Hemoglobin 32 pg (28-32); Mean Corpuscular Volume 92 fl (79-97); Platelet Count 152 K/mm3 (140-440)
[2018-04-09 05:45] LABS: BUN/Creatinine Ratio 34; Blood Urea Nitrogen 27 mg/dL (7-17); Calcium 7.3 mg/dL (8.4-10.2); Hemolysis Index 3
[2018-04-09] MEDS: ZOSYN/NS 4.5GM/100ML 4.5 GM/100 ML VIAL IV SCH ×3 (06:25→21:25)
[2018-04-09] MEDS ORDERED: MAGNESIUM SULFATE IV ONE (08:11)
--- NOTE | 2018-04-09 08:24 | Progress Note ---
Assessment and Plan Acute hypoxemic Resp Failure on MVS Acute Pulmonary Edema Shock (Cardiogenic +/- vasodilatory) SIRS Takutsubo's Cardiomyopathy - s/p emergent LHC which revealed normal coronaries; EF approx 20%) Acute Encephalopathy HTN Asthma Sinus Tachycardia Hyperlipidemia Hypokalemia Hyponatremia Leukocytosis GERD H/o breast Cancer - continue full MVS -supplemental oxygen to keep O2 sats>90% - VAP bundle addressed, limited HOB elevation secondary to IABP - IABP right femoral 1:1, but when placed on 1:2 to obtain tracing, augmented pressure was 110 Start weaning off IAPB with plan to discontinue today - continue empiric antibiotics for now( Zosyn). Follow cultures then start de-escalating -Agitation and pain management, currently on propofol with RAAS of 0 - daily SAT's, will initiate SBTs in the morning. - vasopressor support, currently off norepinephrine with MAPs of 70 - continue supplemental oxygen to keep O2 Sats > 90% - Gentle diuresis while monitoring renal function and electrolytes -Keep potassium at 4 and magnesium at 2, replaced this morning - cardiac disease modifying drugs per cardiology - continue long and short acting bronchodilators - continue GI prophylaxis -on heparin infusion -morgan catheter in this critically ill patient, with cardiogenic shock, for accurate intake and output monitoring - initiate trophic feeding at 10cc/hour, patient's glucose levels are trending down The high probability of a clinically significant, sudden or life threatening deterioration of the [cardiac, respiratory,neurology] system(s) required my full and direct attention, intervention and personal management. The aggregate critical care time was [61] minutes without overlap. Time includes spent on; [x] Data Review and interpretation [x] Patient assessment and monitoring of vital signs [x] Documentation [x] Medication orders and management Subjective Date of service: 04/09/18 Principal diagnosis: Takutsubo's cardiomyopathy; Chest ; Acute Hypoxemic Resp Failure; Shock Interval history: Patient is seen today for: Takutsubo's cardiomyopathy; Chest Pain Follow up: s/p CODE BLUE that required intubation secondary to cardio- pulmonary decompensation; s/p repeat LHCath with clean coronaries Severe anterior, radha-apical, and infero-apical dykinesis with EF ~ 20% c/w stress cardiomyopathy - Markedly elevated LVeDP of 42-45mmHG, IABP 1:1 with augmented BP 110 Seen and examined. Vitals, labs, medications, chart and imaging reviewed. Discussed with RT and RN at the bedside. Events overnight, off norepinephrine at 2am with MAP>65 Patient is awake and alert, mouthing words to make her needs know. On propofol, heparin infusions Objective Vital Signs - 12hr 04/08/18 04/08/18 04/08/18 20:25 20:31 20:45 Temperature Pulse Rate 94 H 95 H Pulse Rate [ 101 H Anterior Bilateral Throughout] Respiratory 21 21 Rate Respiratory 18 Rate [Anterior Bilateral Throughout] Blood Pressure 105/53 105/53 O2 Sat by Pulse 97 97 Oximetry 04/08/18 04/08/18 04/08/18 21:01 21:15 21:31 Temperature Pulse Rate 98 H 94 H 97 H Pulse Rate [ Anterior Bilateral Throughout] Respiratory 18 19 17 Rate Respiratory Rate [Anterior Bilateral Throughout] Blood Pressure 113/43 113/43 104/40 O2 Sat by Pulse 98 96 96 Oximetry 04/08/18 04/08/18 04/08/18 21:45 22:00 22:01 Temperature Pulse Rate 98 H 93 H 96 H Pulse Rate [ Anterior Bilateral Throughout] Respiratory 16 18 16 Rate Respiratory Rate [Anterior Bilateral Throughout] Blood Pressure 104/40 102/43 O2 Sat by Pulse 97 97 97 Oximetry 04/08/18 04/08/18 04/08/18 22:15 22:31 22:45 Temperature Pulse Rate 95 H 90 89 Pulse Rate [ Anterior Bilateral Throughout] Respiratory 16 16 15 Rate Respiratory Rate [Anterior Bilateral Throughout] Blood Pressure 102/43 121/56 121/56 O2 Sat by Pulse 97 98 98 Oximetry 04/08/18 04/08/18 04/08/18 23:00 23:15 23:31 Temperature Pulse Rate 93 H 97 H 98 H Pulse Rate [ Anterior Bilateral Throughout] Respiratory 19 17 16 Rate Respiratory Rate [Anterior Bilateral Throughout] Blood Pressure 114/48 114/48 113/49 O2 Sat by Pulse 99 98 98 Oximetry 04/08/18 04/08/18 04/08/18 23:33 23:45 23:59 Temperature 98.6 F Pulse Rate 98 H 97 H Pulse Rate [ Anterior Bilateral Throughout] Respiratory 16 Rate Respiratory Rate [Anterior Bilateral Throughout] Blood Pressure 113/49 114/48 O2 Sat by Pulse 97 98 Oximetry 04/09/18 04/09/18 04/09/18 00:00 00:01 00:09 Temperature Pulse Rate 98 H 96 H Pulse Rate [ Anterior Bilateral Throughout] Respiratory 16 17 12 Rate Respiratory Rate [Anterior Bilateral Throughout] Blood Pressure 112/52 112/52 O2 Sat by Pulse 97 98 98 Oximetry 04/09/18 04/09/18 04/09/18 00:15 00:31 00:45 Temperature Pulse Rate 93 H 94 H 95 H Pulse Rate [ Anterior Bilateral Throughout] Respiratory 17 16 16 Rate Respiratory Rate [Anterior Bilateral Throughout] Blood Pressure 112/52 115/49 115/49 O2 Sat by Pulse 97 97 97 Oximetry 04/09/18 04/09/18 04/09/18 01:01 01:15 01:31 Temperature Pulse Rate 95 H 93 H 89 Pulse Rate [ Anterior Bilateral Throughout] Respiratory 15 17 16 Rate Respiratory Rate [Anterior Bilateral Throughout] Blood Pressure 115/45 115/45 99/43 O2 Sat by Pulse 97 97 98 Oximetry 04/09/18 04/09/18 04/09/18 01:45 02:00 02:15 Temperature Pulse Rate 89 89 97 H Pulse Rate [ Anterior Bilateral Throughout] Respiratory 16 16 15 Rate Respiratory Rate [Anterior Bilateral Throughout] Blood Pressure 99/43 106/51 106/51 O2 Sat by Pulse 98 98 98 Oximetry 04/09/18 04/09/18 04/09/18 02:24 02:30 02:45 Temperature Pulse Rate 90 92 H Pulse Rate [ Anterior Bilateral Throughout] Respiratory 17 18 16 Rate Respiratory Rate [Anterior Bilateral Throughout] Blood Pressure 117/52 117/52 O2 Sat by Pulse 98 97 96 Oximetry 04/09/18 04/09/18 04/09/18 03:00 03:15 03:31 Temperature Pulse Rate 96 H 95 H 87 Pulse Rate [ Anterior Bilateral Throughout] Respiratory 18 16 17 Rate Respiratory Rate [Anterior Bilateral Throughout] Blood Pressure 114/55 114/55 110/47 O2 Sat by Pulse 97 98 98 Oximetry 04/09/18 04/09/18 04/09/18 03:37 03:45 04:00 Temperature 99.4 F Pulse Rate 95 H Pulse Rate [ Anterior Bilateral Throughout] Respiratory 18 18 Rate Respiratory Rate [Anterior Bilateral Throughout] Blood Pressure 110/47 O2 Sat by Pulse 98 98 Oximetry 04/09/18 04/09/18 04/09/18 04:01 04:15 04:29 Temperature Pulse Rate 96 H 100 H 97 H Pulse Rate [ Anterior Bilateral Throughout] Respiratory 15 17 Rate Respiratory Rate [Anterior Bilateral Throughout] Blood Pressure 106/46 110/47 114/48 O2 Sat by Pulse 98 98 98 Oximetry 04/09/18 04/09/18 04/09/18 04:30 04:45 05:00 Temperature Pulse Rate 89 90 92 H Pulse Rate [ Anterior Bilateral Throughout] Respiratory 18 18 14 Rate Respiratory Rate [Anterior Bilateral Throughout] Blood Pressure 114/45 106/46 121/49 O2 Sat by Pulse 98 98 99 Oximetry 04/09/18 04/09/18 04/09/18 05:15 05:31 05:45 Temperature Pulse Rate 89 90 91 H Pulse Rate [ Anterior Bilateral Throughout] Respiratory 19 18 17 Rate Respiratory Rate [Anterior Bilateral Throughout] Blood Pressure 121/49 118/44 118/44 O2 Sat by Pulse 98 98 99 Oximetry 04/09/18 04/09/18 04/09/18 06:01 06:15 06:30 Temperature Pulse Rate 90 95 H 96 H Pulse Rate [ Anterior Bilateral Throughout] Respiratory 18 18 19 Rate Respiratory Rate [Anterior Bilateral Throughout] Blood Pressure 115/47 115/47 118/50 O2 Sat by Pulse 99 99 100 Oximetry 04/09/18 04/09/18 06:45 07:01 Temperature Pulse Rate 97 H 99 H Pulse Rate [ Anterior Bilateral Throughout] Respiratory 20 21 Rate Respiratory Rate [Anterior Bilateral Throughout] Blood Pressure 118/50 108/45 O2 Sat by Pulse 100 97 Oximetry Constitutional: alert, other (elderly looking CF, normocephalic and atraumatic; ETT to MVS) Eyes: non-icteric ENT: oropharynx moist, other (ETT 23cm DOC) Neck: supple, no lymphadenopathy, JVD, other (no thyromegaly, RIJ CVC) Effort: mildly labored Ascultation: Bilateral: diminished breath sounds, rhonchi Percussion: Bilateral: not dull Cardiovascular: regular rate and rhythm, murmur noted (systolic), other (no rubs ) Gastrointestinal: normoactive bowel sounds, soft, non-tender, non-distended, other (no palpable HSM) Integumentary: normal, other ( right femoral IABP) Extremities: no cyanosis, no edema, pulses normal, no ischemia or petechiae Neurologic: normal mental status, non-focal exam, pupils equal and round, motor strength normal and (upper extremities, LExt exam limited by IABP) Psychiatric: mood appropriate, affect normal CBC and BMP: 04/09/18 05:00 04/10/18 Unknown ABG, PT/INR, D-dimer: ABG POC ABG pH 7.556 (7.35-7.45) H 04/09/18 04:41 POC ABG pCO2 35.0 (35-45) 04/09/18 04:41 POC ABG pO2 86 (80-105) 04/09/18 04:41 POC ABG HCO3 31.1 04/09/18 04:41 POC ABG Total CO2 32 04/09/18 04:41 POC ABG O2 Sat 98 04/09/18 04:41 PT/INR, D-dimer PT 13.7 Sec. (12.2-14.9) 04/07/18 08:07 INR 1.00 (0.87-1.13) 04/07/18 08:07 Abnormal lab findings: Abnormal Labs 04/03/18 04/03/18 04/03/18 11:47 11:47 12:29 WBC 11.5 H RBC Hct MCHC [place] % (Auto) 10.8 H [place] # 1.2 H Seg Neuts % (Manual) Lymphocytes % (Manual) Monocytes % (Manual) Seg Neutrophils # Seg Neutrophils # Man Monocytes # (Manual) APTT Activated Clotting Time > 1000 H POC ABG pH POC ABG pCO2 POC ABG pO2 Sodium 134 L Potassium 3.5 L Chloride 94.4 L Carbon Dioxide BUN 19 H Glucose 121 H POC Glucose Calcium Total Creatine Kinase 155 H CK-MB (CK-2) 17.3 H CK-MB (CK-2) Rel Index 11.1 H Troponin T 0.368 H* C-Reactive Protein NT-Pro-B Natriuret Pep Triglycerides 169 H HDL Cholesterol 63 H Urine WBC (Auto) 04/03/18 04/04/18 04/04/18 16:59 06:12 06:12 WBC 13.3 H RBC Hct MCHC 35 H [place] % (Auto) 9.2 H [place] # 1.2 H Seg Neuts % (Manual) Lymphocytes % (Manual) Monocytes % (Manual) Seg Neutrophils # 9.0 H Seg Neutrophils # Man Monocytes # (Manual) APTT Activated Clotting Time POC ABG pH POC ABG pCO2 POC ABG pO2 Sodium 132 L Potassium 3.4 L Chloride 94.8 L Carbon Dioxide BUN Glucose 107 H POC Glucose Calcium Total Creatine Kinase 503 H 498 H CK-MB (CK-2) 69.6 H 51.9 H CK-MB (CK-2) Rel Index 13.8 H 10.4 H Troponin T 1.900 H* D 1.950 H* C-Reactive Protein NT-Pro-B Natriuret Pep Triglycerides HDL Cholesterol Urine WBC (Auto) 04/05/18 04/05/18 04/05/18 06:47 11:33 17:49 WBC RBC Hct MCHC [place] % (Auto) [place] # Seg Neuts % (Manual) Lymphocytes % (Manual) Monocytes % (Manual) Seg Neutrophils # Seg Neutrophils # Man Monocytes # (Manual) APTT Activated Clotting Time POC ABG pH POC ABG pCO2 POC ABG pO2 Sodium 128 L Potassium Chloride 88.7 L Carbon Dioxide BUN 18 H Glucose 153 H POC Glucose 179 H 190 H Calcium Total Creatine Kinase 399 H CK-MB (CK-2) 35.5 H CK-MB (CK-2) Rel Index 8.8 H Troponin T 1.730 H* C-Reactive Protein NT-Pro-B Natriuret Pep Triglycerides HDL Cholesterol Urine WBC (Auto) 04/05/18 04/06/18 04/06/18 21:20 05:26 08:11 WBC RBC Hct MCHC [place] % (Auto) [place] # Seg Neuts % (Manual) Lymphocytes % (Manual) Monocytes % (Manual) Seg Neutrophils # Seg Neutrophils # Man Monocytes # (Manual) APTT Activated Clotting Time POC ABG pH POC ABG pCO2 POC ABG pO2 Sodium 130 L Potassium Chloride 91.2 L Carbon Dioxide 20 L BUN 28 H Glucose 137 H POC Glucose 130 H 108 H Calcium 8.1 L Total Creatine Kinase CK-MB (CK-2) CK-MB (CK-2) Rel Index Troponin T C-Reactive Protein NT-Pro-B Natriuret Pep Triglycerides HDL Cholesterol Urine WBC (Auto) 04/06/18 04/06/18 04/07/18 08:11 21:35 00:14 WBC 19.3 H RBC Hct MCHC [place] % (Auto) [place] # Seg Neuts % (Manual) Lymphocytes % (Manual) Monocytes % (Manual) Seg Neutrophils # Seg Neutrophils # Man Monocytes # (Manual) APTT Activated Clotting Time POC ABG pH POC ABG pCO2 POC ABG pO2 Sodium Potassium Chloride Carbon Dioxide BUN Glucose POC Glucose 188 H 146 H Calcium Total Creatine Kinase CK-MB (CK-2) CK-MB (CK-2) Rel Index Troponin T C-Reactive Protein NT-Pro-B Natriuret Pep Triglycerides HDL Cholesterol Urine WBC (Auto) 04/07/18 04/07/18 04/07/18 00:47 05:43 08:07 WBC 21.5 H RBC Hct MCHC [place] % (Auto) [place] # Seg Neuts % (Manual) 82.5 H Lymphocytes % (Manual) 7.0 L Monocytes % (Manual) 7.5 H Seg Neutrophils # Seg Neutrophils # Man 17.7 H Monocytes # (Manual) 1.6 H APTT Activated Clotting Time POC ABG pH POC ABG pCO2 POC ABG pO2 Sodium Potassium Chloride Carbon Dioxide BUN Glucose POC Glucose 157 H Calcium Total Creatine Kinase 186 H CK-MB (CK-2) 13.2 H CK-MB (CK-2) Rel Index 7.0 H Troponin T 1.420 H* C-Reactive Protein NT-Pro-B Natriuret Pep Triglycerides HDL Cholesterol Urine WBC (Auto) 04/07/18 04/07/18 04/07/18 08:07 08:07 13:43 WBC RBC Hct MCHC [place] % (Auto) [place] # Seg Neuts % (Manual) Lymphocytes % (Manual) Monocytes % (Manual) Seg Neutrophils # Seg Neutrophils # Man Monocytes # (Manual) APTT > 20.0 L Activated Clotting Time POC ABG pH POC ABG pCO2 52.0 H POC ABG pO2 456 H Sodium 129 L Potassium Chloride 92.4 L Carbon Dioxide BUN 34 H Glucose 152 H POC Glucose Calcium 8.3 L Total Creatine Kinase CK-MB (CK-2) CK-MB (CK-2) Rel Index Troponin T 1.300 H* C-Reactive Protein NT-Pro-B Natriuret Pep 88777 H Triglycerides HDL Cholesterol Urine WBC (Auto) 04/07/18 04/07/18 04/08/18 15:15 15:15 04:23 WBC 19.0 H RBC Hct MCHC [place] % (Auto) [place] # Seg Neuts % (Manual) Lymphocytes % (Manual) Monocytes % (Manual) Seg Neutrophils # Seg Neutrophils # Man Monocytes # (Manual) APTT Activated Clotting Time POC ABG pH 7.471 H POC ABG pCO2 POC ABG pO2 133 H Sodium Potassium Chloride Carbon Dioxide BUN Glucose POC Glucose Calcium Total Creatine Kinase CK-MB (CK-2) CK-MB (CK-2) Rel Index Troponin T C-Reactive Protein NT-Pro-B Natriuret Pep Triglycerides HDL Cholesterol Urine WBC (Auto) 46.0 H 04/08/18 04/08/18 04/08/18 05:51 08:58 08:58 WBC 17.3 H RBC 3.59 L Hct MCHC [place] % (Auto) [place] # Seg Neuts % (Manual) Lymphocytes % (Manual) Monocytes % (Manual) Seg Neutrophils # Seg Neutrophils # Man Monocytes # (Manual) APTT Activated Clotting Time POC ABG pH POC ABG pCO2 POC ABG pO2 Sodium Potassium Chloride 97.7 L Carbon Dioxide BUN 27 H Glucose 114 H POC Glucose 111 H Calcium 7.1 L Total Creatine Kinase CK-MB (CK-2) CK-MB (CK-2) Rel Index Troponin T C-Reactive Protein NT-Pro-B Natriuret Pep Triglycerides HDL Cholesterol Urine WBC (Auto) 04/08/18 04/08/18 04/08/18 13:42 18:22 18:56 WBC RBC Hct MCHC [place] % (Auto) [place] # Seg Neuts % (Manual) Lymphocytes % (Manual) Monocytes % (Manual) Seg Neutrophils # Seg Neutrophils # Man Monocytes # (Manual) APTT Activated Clotting Time POC ABG pH POC ABG pCO2 POC ABG pO2 Sodium Potassium Chloride Carbon Dioxide BUN Glucose POC Glucose 113 H 107 H Calcium Total Creatine Kinase CK-MB (CK-2) CK-MB (CK-2) Rel Index Troponin T C-Reactive Protein 11.30 H NT-Pro-B Natriuret Pep Triglycerides HDL Cholesterol Urine WBC (Auto) 04/09/18 04/09/18 04/09/18 04:41 05:00 05:00 WBC 12.2 H RBC 3.30 L Hct 30.2 L MCHC 35 H [place] % (Auto) [place] # Seg Neuts % (Manual) Lymphocytes % (Manual) Monocytes % (Manual) Seg Neutrophils # Seg Neutrophils # Man Monocytes # (Manual) APTT Activated Clotting Time POC ABG pH 7.556 H POC ABG pCO2 POC ABG pO2 Sodium 134 L Potassium 3.2 L Chloride 94.6 L Carbon Dioxide 32 H BUN 27 H Glucose POC Glucose Calcium 7.3 L Total Creatine Kinase CK-MB (CK-2) CK-MB (CK-2) Rel Index Troponin T C-Reactive Protein NT-Pro-B Natriuret Pep Triglycerides HDL Cholesterol Urine WBC (Auto) Chest x-ray: image reviewed (Pulmonary edema, with right pleural effusion. ETT, RIJ and IABP in good position) Allied health notes reviewed: RT
[2018-04-09] MEDS: KCL 20MEQ/100ML 20 MEQ/100 ML BAG IV SCH ×2 (08:50→10:57)
[2018-04-09] MEDS ORDERED: POTASSIUM CHLORIDE FEEDTUBE ONE (09:00)
[2018-04-09] MEDS ORDERED: MAGNESIUM SULFATE 2GM/50ML 2 GM/50 ML BAG IV ONE (09:00)
--- NOTE | 2018-04-09 09:10 | Progress Note ---
Assessment and Plan Assessment and plan: Acute respiratory failure likely from cardiogenic shock intubated 04/07/18, Pulmonoology/ critical care following Cardiogenic shock likely due to due to Takutsubo's cardiomyopathy placed on pressor and s/p IABP placed on 04/07 monitor at ICU Takutsubo's cardiomyopathy S/p emergent LHC on admission which revealed normal coronaries, EF 20-25%. repeat LHC 04/07 revealed no sig CAD, Severe anterior, radha-apical, and infero- apical dykinesis with EF ~ 20% c/w stress cardiomyopathy Markedly elevated LVeDP of 42-45mmHG, IABP placed --> augment mean sbp now improved to 110mmHG also placed on diuretics, monitor I/O Acute encephalopathy first noted on 04/05/18 following admission delirium vs transient Amnesia vs TIA negative CT head/MRI, EEG, consulted neurology SIRS high WBc and SIRS likley to be due to Takutsubo's cardiomyopathy will follow blood cx, UA, b/l pleural congestion on CXR will empirically cont on Zosyn till underlying infection r/o Leukocytosis. Improving. WBC 12.3 today Hyperlipidemia, cont statin Hypokalemia. Replace and recheck. GERD, cont ppi H/o breast CA. For outpatient follow up when stable Full code status History Interval history: Patient still intubated, sedated, still on balloon pump. No fever Hospitalist Physical - Physical exam Narrative exam: General: Not in acute distress, intubated, sedated HEENT:Normocephalic, atraumatic Neck:supple,no JVD Lungs: Clear to auscultation bilaterally, no crackles, no wheeze Heart:S1 and S2 regular, no murmurs, rubs or gallop Abd: soft, non tender,non distended, normal bowel sounds Ext: No edema, no clubbing or cyanosis Neuro: Intubated, sedated - Constitutional Vitals: Temp Pulse Resp BP Pulse Ox 99.4 F 93 H 21 128/47 99 04/09/18 03:37 04/09/18 08:46 04/09/18 07:01 04/09/18 08:46 04/09/18 08:46 Results - Labs CBC & Chem 7: 04/09/18 05:00 04/09/18 05:00 Labs: Laboratory Last Values WBC 12.2 K/mm3 (4.5-11.0) H 04/09/18 05:00 RBC 3.30 M/mm3 (3.65-5.03) L 04/09/18 05:00 Hgb 10.6 gm/dl (10.1-14.3) 04/09/18 05:00 Hct 30.2 % (30.3-42.9) L 04/09/18 05:00 MCV 92 fl (79-97) 04/09/18 05:00 MCH 32 pg (28-32) 04/09/18 05:00 MCHC 35 % (30-34) H 04/09/18 05:00 RDW 14.0 % (13.2-15.2) 04/09/18 05:00 Plt Count 152 K/mm3 (140-440) 04/09/18 05:00 Lymph % (Auto) 22.3 % (13.4-35.0) 04/04/18 06:12 [place] % (Auto) 9.2 % (0.0-7.3) H 04/04/18 06:12 Eos % (Auto) 0.7 % (0.0-4.3) 04/04/18 06:12 Baso % (Auto) 0.4 % (0.0-1.8) 04/04/18 06:12 Lymph # 3.0 K/mm3 (1.2-5.4) 04/04/18 06:12 [place] # 1.2 K/mm3 (0.0-0.8) H 04/04/18 06:12 Eos # 0.1 K/mm3 (0.0-0.4) 04/04/18 06:12 Baso # 0.1 K/mm3 (0.0-0.1) 04/04/18 06:12 Add Manual Diff Complete 04/07/18 08:07 Total Counted 200 04/07/18 08:07 Seg Neutrophils % 67.4 % (40.0-70.0) 04/04/18 06:12 Seg Neuts % (Manual) 82.5 % (40.0-70.0) H 04/07/18 08:07 Band Neutrophils % 2.0 % 04/07/18 08:07 Lymphocytes % (Manual) 7.0 % (13.4-35.0) L 04/07/18 08:07 Reactive Lymphs % (Man) 0 % 04/07/18 08:07 Monocytes % (Manual) 7.5 % (0.0-7.3) H 04/07/18 08:07 Eosinophils % (Manual) 0 % (0.0-4.3) 04/07/18 08:07 Basophils % (Manual) 0 % (0.0-1.8) 04/07/18 08:07 Metamyelocytes % 1.0 % 04/07/18 08:07 Myelocytes % 0 % 04/07/18 08:07 Promyelocytes % 0 % 04/07/18 08:07 Blast Cells % 0 % 04/07/18 08:07 Nucleated RBC % Not Reportable 04/07/18 08:07 Seg Neutrophils # 9.0 K/mm3 (1.8-7.7) H 04/04/18 06:12 Seg Neutrophils # Man 17.7 K/mm3 (1.8-7.7) H 04/07/18 08:07 Band Neutrophils # 0.4 K/mm3 04/07/18 08:07 Lymphocytes # (Manual) 1.5 K/mm3 (1.2-5.4) 04/07/18 08:07 Abs React Lymphs (Man) 0.0 K/mm3 04/07/18 08:07 Monocytes # (Manual) 1.6 K/mm3 (0.0-0.8) H 04/07/18 08:07 Eosinophils # (Manual) 0.0 K/mm3 (0.0-0.4) 04/07/18 08:07 Basophils # (Manual) 0.0 K/mm3 (0.0-0.1) 04/07/18 08:07 Metamyelocytes # 0.2 K/mm3 04/07/18 08:07 Myelocytes # 0.0 K/mm3 04/07/18 08:07 Promyelocytes # 0.0 K/mm3 04/07/18 08:07 Blast Cells # 0.0 K/mm3 04/07/18 08:07 WBC Morphology Not Reportable 04/07/18 08:07 Hypersegmented Neuts Not Reportable 04/07/18 08:07 Hyposegmented Neuts Not Reportable 04/07/18 08:07 Hypogranular Neuts Not Reportable 04/07/18 08:07 Smudge Cells Not Reportable 04/07/18 08:07 Toxic Granulation Not Reportable 04/07/18 08:07 Toxic Vacuolation Not Reportable 04/07/18 08:07 Dohle Bodies Not Reportable 04/07/18 08:07 Pelger-Huet Anomaly Not Reportable 04/07/18 08:07 Roxanne Rods Not Reportable 04/07/18 08:07 Platelet Estimate Appears normal 04/07/18 08:07 Clumped Platelets Not Reportable 04/07/18 08:07 Plt Clumps, EDTA Not Reportable 04/07/18 08:07 Large Platelets Not Reportable 04/07/18 08:07 Giant Platelets Not Reportable 04/07/18 08:07 Platelet Satelliting Not Reportable 04/07/18 08:07 Plt Morphology Comment Not Reportable 04/07/18 08:07 RBC Morphology Not Reportable 04/07/18 08:07 Dimorphic RBCs Not Reportable 04/07/18 08:07 Polychromasia Not Reportable 04/07/18 08:07 Hypochromasia Not Reportable 04/07/18 08:07 Poikilocytosis Not Reportable 04/07/18 08:07 Anisocytosis Not Reportable 04/07/18 08:07 Microcytosis Not Reportable 04/07/18 08:07 Macrocytosis Not Reportable 04/07/18 08:07 Spherocytes Not Reportable 04/07/18 08:07 Pappenheimer Bodies Not Reportable 04/07/18 08:07 Sickle Cells Not Reportable 04/07/18 08:07 Target Cells Not Reportable 04/07/18 08:07 Tear Drop Cells Not Reportable 04/07/18 08:07 Ovalocytes Not Reportable 04/07/18 08:07 Helmet Cells Not Reportable 04/07/18 08:07 [place] Bodies Not Reportable 04/07/18 08:07 [place] Rings Not Reportable 04/07/18 08:07 Suman Cells Not Reportable 04/07/18 08:07 Bite Cells Not Reportable 04/07/18 08:07 Crenated Cell Not Reportable 04/07/18 08:07 Elliptocytes Not Reportable 04/07/18 08:07 Acanthocytes (Spur) Not Reportable 04/07/18 08:07 Rouleaux Not Reportable 04/07/18 08:07 Hemoglobin C Crystals Not Reportable 04/07/18 08:07 Schistocytes Not Reportable 04/07/18 08:07 Malaria parasites Not Reportable 04/07/18 08:07 Abhijit Bodies Not Reportable 04/07/18 08:07 Hem Pathologist Commnt No 04/07/18 08:07 PT 13.7 Sec. (12.2-14.9) 04/07/18 08:07 INR 1.00 (0.87-1.13) 04/07/18 08:07 APTT > 20.0 Sec. (24.2-36.6) L 04/07/18 08:07 Activated Clotting Time > 1000 (74-137) H 04/03/18 12:29 Heparin Anti-Xa Level 0.32 U.I./ml (0.3-0.7) 04/09/18 05:00 POC ABG pH 7.556 (7.35-7.45) H 04/09/18 04:41 POC ABG pCO2 35.0 (35-45) 04/09/18 04:41 POC ABG pO2 86 (80-105) 04/09/18 04:41 POC ABG HCO3 31.1 04/09/18 04:41 POC ABG Total CO2 32 04/09/18 04:41 POC ABG O2 Sat 98 04/09/18 04:41 POC ABG Base Excess 9 04/09/18 04:41 FiO2 30 % 04/09/18 04:41 Sodium 134 mmol/L (137-145) L 04/09/18 05:00 Potassium 3.2 mmol/L (3.6-5.0) L 04/09/18 05:00 Chloride 94.6 mmol/L (98-107) L 04/09/18 05:00 Carbon Dioxide 32 mmol/L (22-30) H 04/09/18 05:00 Anion Gap 11 mmol/L 04/09/18 05:00 BUN 27 mg/dL (7-17) H 04/09/18 05:00 Creatinine 0.8 mg/dL (0.7-1.2) 04/09/18 05:00 Estimated GFR > 60 ml/min 04/09/18 05:00 BUN/Creatinine Ratio 34 % 04/09/18 05:00 Glucose 85 mg/dL (65-100) 04/09/18 05:00 POC Glucose 96 (70-105) 04/09/18 00:04 Lactic Acid 1.50 mmol/L (0.7-2.0) 04/07/18 15:15 Calcium 7.3 mg/dL (8.4-10.2) L 04/09/18 05:00 Magnesium 2.30 mg/dL (1.7-2.3) 04/07/18 08:07 Total Creatine Kinase 186 units/L (30-135) H 04/07/18 00:47 CK-MB (CK-2) 13.2 ng/mL (0.0-4.0) H 04/07/18 00:47 CK-MB (CK-2) Rel Index 7.0 (0-4) H 04/07/18 00:47 Troponin T 1.300 ng/mL (0.00-0.029) H* 04/07/18 08:07 C-Reactive Protein 11.30 mg/dL (0.00-1.30) H 04/08/18 18:56 NT-Pro-B Natriuret Pep 51855 pg/mL (0-900) H 04/07/18 08:07 Triglycerides 169 mg/dL (2-149) H 04/03/18 11:47 Cholesterol 158 mg/dL (50-199) 04/03/18 11:47 LDL Cholesterol Direct 80 mg/dL (50-130) 04/03/18 11:47 HDL Cholesterol 63 mg/dL (40-59) H 04/03/18 11:47 Cholesterol/HDL Ratio 2.50 % 04/03/18 11:47 Urine Color Yellow (Yellow) 04/07/18 15:15 Urine Turbidity Clear (Clear) 04/07/18 15:15 Urine pH 5.0 (5.0-7.0) 04/07/18 15:15 Ur Specific [place] 1.020 (1.003-1.030) 04/07/18 15:15 Urine Protein <15 mg/dl mg/dL (Negative) 04/07/18 15:15 Urine Glucose (UA) Neg mg/dL (Negative) 04/07/18 15:15 Urine Ketones Neg mg/dL (Negative) 04/07/18 15:15 Urine Blood Sm (Negative) 04/07/18 15:15 Urine Nitrite Neg (Negative) 04/07/18 15:15 Urine Bilirubin Neg (Negative) 04/07/18 15:15 Urine Urobilinogen < 2.0 mg/dL (<2.0) 04/07/18 15:15 Ur Leukocyte Esterase Mod (Negative) 04/07/18 15:15 Urine WBC (Auto) 46.0 /HPF (0.0-6.0) H 04/07/18 15:15 Urine RBC (Auto) 4.0 /HPF (0.0-6.0) 04/07/18 15:15 U Epithel Cells (Auto) < 1.0 /HPF (0-13.0) 04/07/18 15:15 Hyaline Casts 3 /LPF 04/07/18 15:15 Urine Mucus Few /HPF 04/07/18 15:15 Urine Yeast (Budding) Few /HPF 04/07/18 15:15 Blood Type A POSITIVE 04/03/18 11:47 Antibody Screen Negative 04/03/18 11:47
[2018-04-09] MEDS: PULMICORT IH SCH ×2 (09:17→20:53)
[2018-04-09] MEDS: BROVANA NEBU IH SCH ×2 (09:17→20:53)
--- NOTE | 2018-04-09 10:49 | Progress Note ---
Assessment and Plan Continue gentle intermittent diuresis. Replete electrolytes PRN and repeat BMP and Mg in AM. Begin weaning IABP and attempt to discontinue later today. The patient has been seen in conjunction with Dr. Winters who agrees with the assessment and plan of care. - Patient Problems (1) Takotsubo cardiomyopathy Current Visit: Yes Status: Acute (2) Cardiogenic shock Current Visit: Yes Status: Acute (3) Heart failure with reduced ejection fraction Current Visit: Yes Status: Acute (4) Acute respiratory failure Current Visit: Yes Status: Acute (5) Hyponatremia Current Visit: Yes Status: Acute (6) Altered mental status Current Visit: Yes Status: Acute (7) HLD (hyperlipidemia) Current Visit: Yes Status: Acute Qualifiers: Hyperlipidemia type: mixed hyperlipidemia Qualified Code(s): E78.2 - Mixed hyperlipidemia (8) History of breast cancer Current Visit: Yes Status: Acute Subjective Date of service: 04/09/18 Principal diagnosis: Takutsubo's cardiomyopathy; Chest ; Acute Hypoxemic Resp Failure; Shock Interval history: pt resting in bed, intubated, sedated but easily awakened. IABP in place on 1:1 with 100% augmentation. levophed gtt weaned off. pt in SR. no family at bedside. Objective Last Vital Signs Temp 97.5 F L 04/09/18 08:00 Pulse 101 H 04/09/18 09:21 Resp 20 04/09/18 09:21 BP 121/49 04/09/18 09:15 Pulse Ox 100 04/09/18 09:15 - Physical Examination General: Other (intubated, sedated) HEENT: Positive: Normocephaly, Mucus Membranes Moist Neck: Positive: neck supple, trachea midline Cardiac: Positive: Reg Rate and Rhythm, S1/S2 Lungs: Positive: clear to auscultation, Ventilated Respirations Neuro: Positive: Other (intubated, sedated) Abdomen: Positive: Soft, Active Bowel Sounds. Negative: Tender Skin: Positive: Clear. Negative: Rash Extremities: Present: normal, +1 Edema (BLE) - Labs and Meds CBC 04/09/18 Range/Units 05:00 WBC 12.2 H (4.5-11.0) K/mm3 RBC 3.30 L (3.65-5.03) M/mm3 Hgb 10.6 (10.1-14.3) gm/dl Hct 30.2 L (30.3-42.9) % Plt Count 152 (140-440) K/mm3 Comprehensive Metabolic Panel 04/09/18 Range/Units 05:00 Sodium 134 L (137-145) mmol/L Potassium 3.2 L (3.6-5.0) mmol/L Chloride 94.6 L (98-107) mmol/L Carbon Dioxide 32 H (22-30) mmol/L BUN 27 H (7-17) mg/dL Creatinine 0.8 (0.7-1.2) mg/dL Glucose 85 (65-100) mg/dL Calcium 7.3 L (8.4-10.2) mg/dL - Imaging and Cardiology EKG: image reviewed Echo: report reviewed - EKG Sinus rhythms and dysrhythmias: sinus rhythm Myocardial infarction: lateral [place] (acute or rece - Allied health notes Allied health notes reviewed: RT
[2018-04-09] MEDS: PEPCID PO SCH ×2 (10:56→21:25)
[2018-04-09] MEDS: BABY ASPIRIN PO SCH (10:56)
[2018-04-09] MEDS ORDERED: LASIX IV ONE (12:00)
[2018-04-09] MEDS: DIPRIVAN 10 MG/ML 1,000 MG/100 ML BOTTLE IV SCH (13:16)
[2018-04-10] MEDS: DIPRIVAN 10 MG/ML 1,000 MG/100 ML BOTTLE IV SCH (00:39)
[2018-04-10] MEDS: ZOSYN/NS 4.5GM/100ML 4.5 GM/100 ML VIAL IV SCH ×3 (05:15→22:33)
--- NOTE | 2018-04-10 05:52 | XRay Report ---
FINAL REPORT EXAM: XR CHEST 1V AP HISTORY: follow up respiratory failure TECHNIQUE: A portable upright view the chest was obtained and compared to the study of 04/09/2018. FINDINGS: The heart remains mildly enlarged. The lungs remain diffusely congested with bilateral effusions. The tip of the right-sided central venous line is in good position in the distal superior vena cava. There is an NG tube coursing into the stomach. The tip of the ET tube is 3 cm above the jonathan. The bones soft tissues otherwise are unchanged. IMPRESSION: Stable pulmonary vascular congestion with bilateral effusions. Satisfactory position of all tubes and lines.
[2018-04-10 07:21] LABS: BUN/Creatinine Ratio 36; Blood Urea Nitrogen 25 mg/dL (7-17); Calcium 7.7 mg/dL (8.4-10.2); Hemolysis Index 15
[2018-04-10] MEDS: BROVANA NEBU IH SCH ×2 (09:25→20:25)
[2018-04-10] MEDS: PULMICORT IH SCH ×2 (09:25→20:25)
[2018-04-10 09:28] LABS: Hematocrit 33.9 % (30.3-42.9); Hemoglobin 11.2 gm/dl (10.1-14.3); Mean Corpuscular HGB Conc 33 % (30-34); Mean Corpuscular Hemoglobin 31 pg (28-32); Mean Corpuscular Volume 92 fl (79-97); Platelet Count 201 K/mm3 (140-440); Red Blood Count 3.67 M/mm3 (3.65-5.03)
[2018-04-10 09:55] LABS: BUN/Creatinine Ratio 37; Blood Urea Nitrogen 26 mg/dL (7-17); Hemolysis Index 2
--- NOTE | 2018-04-10 11:46 | Progress Note ---
Assessment and Plan Initiate low dose lopressor 12.5mg PO BID. Wean vent as tolerated per pulmonary. The patient has been seen in conjunction with Dr. Winters who agrees with the assessment and plan of care. - Patient Problems (1) Takotsubo cardiomyopathy Current Visit: Yes Status: Acute (2) Cardiogenic shock Current Visit: Yes Status: Acute (3) Heart failure with reduced ejection fraction Current Visit: Yes Status: Acute (4) Acute respiratory failure Current Visit: Yes Status: Acute (5) Hyponatremia Current Visit: Yes Status: Acute (6) Altered mental status Current Visit: Yes Status: Acute (7) HLD (hyperlipidemia) Current Visit: Yes Status: Acute Qualifiers: Hyperlipidemia type: mixed hyperlipidemia Qualified Code(s): E78.2 - Mixed hyperlipidemia (8) History of breast cancer Current Visit: Yes Status: Acute Subjective Date of service: 04/10/18 Principal diagnosis: Takutsubo's cardiomyopathy; Chest ; Acute Hypoxemic Resp Failure; Shock Interval history: pt resting in bed, intubated, sedated but easily awakened. IABP d/c'd yesterday evening. levophed gtt off. pt in SR. family at bedside. Objective Last Vital Signs Temp 98.4 F 04/10/18 03:31 Pulse 106 H 04/10/18 09:34 Resp 16 04/10/18 09:34 BP 127/65 04/10/18 09:34 Pulse Ox 99 04/10/18 09:34 - Physical Examination General: Other (intubated) HEENT: Positive: Normocephaly, Mucus Membranes Moist Neck: Positive: neck supple, trachea midline Cardiac: Positive: Reg Rate and Rhythm, S1/S2 Lungs: Positive: Decreased Breath Sounds, Ventilated Respirations Neuro: Positive: Other (intubated) Abdomen: Positive: Soft, Active Bowel Sounds. Negative: Tender Skin: Positive: Clear. Negative: Rash Extremities: Present: normal, +1 Edema (BLE) - Labs and Meds CBC 04/10/18 Range/Units 09:10 WBC 14.7 H (4.5-11.0) K/mm3 RBC 3.67 (3.65-5.03) M/mm3 Hgb 11.2 (10.1-14.3) gm/dl Hct 33.9 (30.3-42.9) % Plt Count 201 (140-440) K/mm3 Comprehensive Metabolic Panel 04/10/18 04/10/18 Range/Units 09:10 Unknown Sodium 140 139 (137-145) mmol/L Potassium 3.8 3.9 D (3.6-5.0) mmol/L Chloride 98.4 98.6 (98-107) mmol/L Carbon Dioxide 29 28 (22-30) mmol/L BUN 26 H 25 H (7-17) mg/dL Creatinine 0.7 0.7 (0.7-1.2) mg/dL Glucose 98 92 (65-100) mg/dL Calcium 8.0 L 7.7 L (8.4-10.2) mg/dL - Imaging and Cardiology EKG: image reviewed Echo: report reviewed - EKG Sinus rhythms and dysrhythmias: sinus rhythm Myocardial infarction: lateral [place] (acute or rece - Allied health notes Allied health notes reviewed: RT
[2018-04-10] MEDS: PEPCID PO SCH ×2 (12:25→22:33)
[2018-04-10] MEDS: BABY ASPIRIN PO SCH (12:25)
[2018-04-10] MEDS ORDERED: TRANSDERM-SCOP TD ONE (13:00)
--- NOTE | 2018-04-10 13:30 | Progress Note ---
Assessment and Plan Assessment and plan: Acute respiratory failure likely from cardiogenic shock intubated 04/07/18, Pulmonoology/ critical care following Cardiogenic shock likely due to due to Takutsubo's cardiomyopathy placed on pressor and s/p IABP placed on 04/07, removed 04/09 monitor at ICU Takutsubo's cardiomyopathy S/p emergent LHC on admission which revealed normal coronaries, EF 20-25%. repeat LHC 04/07 revealed no sig CAD, Severe anterior, rahda-apical, and infero- apical dykinesis with EF ~ 20% c/w stress cardiomyopathy Markedly elevated LVeDP of 42-45mmHG, IABP was placed, now removed Acute encephalopathy first noted on 04/05/18 following admission delirium vs transient Amnesia vs TIA negative CT head/MRI, EEG, consulted neurology SIRS high WBC and SIRS likley to be due to Takutsubo's cardiomyopathy will follow blood cx, UA, b/l pleural congestion on CXR will empirically cont on Zosyn till underlying infection r/o Leukocytosis. Improving. WBC 12.3 today Hyperlipidemia, cont statin Hypokalemia. Replace and recheck. GERD, cont ppi H/o breast cancer For outpatient follow up when stable Full code status History Interval history: Patient still intubated, sedated, Balloon pump is off .No fever Hospitalist Physical - Physical exam Narrative exam: General: Not in acute distress, intubated, sedated HEENT:Normocephalic, atraumatic Neck:supple,no JVD Lungs: Clear to auscultation bilaterally, no crackles, no wheeze Heart:S1 and S2 regular, no murmurs, rubs or gallop Abd: soft, non tender,non distended, normal bowel sounds Ext: No edema, no clubbing or cyanosis Neuro: Intubated, sedated - Constitutional Vitals: Temp Pulse Resp BP Pulse Ox 99.4 F 106 H 16 127/65 99 04/10/18 12:00 04/10/18 09:34 04/10/18 09:34 04/10/18 09:34 04/10/18 09:34 General appearance: Present: mild distress Results - Labs CBC & Chem 7: 04/10/18 09:10 04/10/18 Unknown Labs: Laboratory Last Values WBC 14.7 K/mm3 (4.5-11.0) H 04/10/18 09:10 RBC 3.67 M/mm3 (3.65-5.03) 04/10/18 09:10 Hgb 11.2 gm/dl (10.1-14.3) 04/10/18 09:10 Hct 33.9 % (30.3-42.9) 04/10/18 09:10 MCV 92 fl (79-97) 04/10/18 09:10 MCH 31 pg (28-32) 04/10/18 09:10 MCHC 33 % (30-34) 04/10/18 09:10 RDW 14.0 % (13.2-15.2) 04/10/18 09:10 Plt Count 201 K/mm3 (140-440) 04/10/18 09:10 Lymph % (Auto) 22.3 % (13.4-35.0) 04/04/18 06:12 [place] % (Auto) 9.2 % (0.0-7.3) H 04/04/18 06:12 Eos % (Auto) 0.7 % (0.0-4.3) 04/04/18 06:12 Baso % (Auto) 0.4 % (0.0-1.8) 04/04/18 06:12 Lymph # 3.0 K/mm3 (1.2-5.4) 04/04/18 06:12 Worth # 1.2 K/mm3 (0.0-0.8) H 04/04/18 06:12 Eos # 0.1 K/mm3 (0.0-0.4) 04/04/18 06:12 Baso # 0.1 K/mm3 (0.0-0.1) 04/04/18 06:12 Add Manual Diff Complete 04/07/18 08:07 Total Counted 200 04/07/18 08:07 Seg Neutrophils % 67.4 % (40.0-70.0) 04/04/18 06:12 Seg Neuts % (Manual) 82.5 % (40.0-70.0) H 04/07/18 08:07 Band Neutrophils % 2.0 % 04/07/18 08:07 Lymphocytes % (Manual) 7.0 % (13.4-35.0) L 04/07/18 08:07 Reactive Lymphs % (Man) 0 % 04/07/18 08:07 Monocytes % (Manual) 7.5 % (0.0-7.3) H 04/07/18 08:07 Eosinophils % (Manual) 0 % (0.0-4.3) 04/07/18 08:07 Basophils % (Manual) 0 % (0.0-1.8) 04/07/18 08:07 Metamyelocytes % 1.0 % 04/07/18 08:07 Myelocytes % 0 % 04/07/18 08:07 Promyelocytes % 0 % 04/07/18 08:07 Blast Cells % 0 % 04/07/18 08:07 Nucleated RBC % Not Reportable 04/07/18 08:07 Seg Neutrophils # 9.0 K/mm3 (1.8-7.7) H 04/04/18 06:12 Seg Neutrophils # Man 17.7 K/mm3 (1.8-7.7) H 04/07/18 08:07 Band Neutrophils # 0.4 K/mm3 04/07/18 08:07 Lymphocytes # (Manual) 1.5 K/mm3 (1.2-5.4) 04/07/18 08:07 Abs React Lymphs (Man) 0.0 K/mm3 04/07/18 08:07 Monocytes # (Manual) 1.6 K/mm3 (0.0-0.8) H 04/07/18 08:07 Eosinophils # (Manual) 0.0 K/mm3 (0.0-0.4) 04/07/18 08:07 Basophils # (Manual) 0.0 K/mm3 (0.0-0.1) 04/07/18 08:07 Metamyelocytes # 0.2 K/mm3 04/07/18 08:07 Myelocytes # 0.0 K/mm3 04/07/18 08:07 Promyelocytes # 0.0 K/mm3 04/07/18 08:07 Blast Cells # 0.0 K/mm3 04/07/18 08:07 WBC Morphology Not Reportable 04/07/18 08:07 Hypersegmented Neuts Not Reportable 04/07/18 08:07 Hyposegmented Neuts Not Reportable 04/07/18 08:07 Hypogranular Neuts Not Reportable 04/07/18 08:07 Smudge Cells Not Reportable 04/07/18 08:07 Toxic Granulation Not Reportable 04/07/18 08:07 Toxic Vacuolation Not Reportable 04/07/18 08:07 Dohle Bodies Not Reportable 04/07/18 08:07 Pelger-Huet Anomaly Not Reportable 04/07/18 08:07 Roxanne Rods Not Reportable 04/07/18 08:07 Platelet Estimate Appears normal 04/07/18 08:07 Clumped Platelets Not Reportable 04/07/18 08:07 Plt Clumps, EDTA Not Reportable 04/07/18 08:07 Large Platelets Not Reportable 04/07/18 08:07 Giant Platelets Not Reportable 04/07/18 08:07 Platelet Satelliting Not Reportable 04/07/18 08:07 Plt Morphology Comment Not Reportable 04/07/18 08:07 RBC Morphology Not Reportable 04/07/18 08:07 Dimorphic RBCs Not Reportable 04/07/18 08:07 Polychromasia Not Reportable 04/07/18 08:07 Hypochromasia Not Reportable 04/07/18 08:07 Poikilocytosis Not Reportable 04/07/18 08:07 Anisocytosis Not Reportable 04/07/18 08:07 Microcytosis Not Reportable 04/07/18 08:07 Macrocytosis Not Reportable 04/07/18 08:07 Spherocytes Not Reportable 04/07/18 08:07 Pappenheimer Bodies Not Reportable 04/07/18 08:07 Sickle Cells Not Reportable 04/07/18 08:07 Target Cells Not Reportable 04/07/18 08:07 Tear Drop Cells Not Reportable 04/07/18 08:07 Ovalocytes Not Reportable 04/07/18 08:07 Helmet Cells Not Reportable 04/07/18 08:07 Dickerson-Stearns Bodies Not Reportable 04/07/18 08:07 [place] Rings Not Reportable 04/07/18 08:07 Suman Cells Not Reportable 04/07/18 08:07 Bite Cells Not Reportable 04/07/18 08:07 Crenated Cell Not Reportable 04/07/18 08:07 Elliptocytes Not Reportable 04/07/18 08:07 Acanthocytes (Spur) Not Reportable 04/07/18 08:07 Rouleaux Not Reportable 04/07/18 08:07 Hemoglobin C Crystals Not Reportable 04/07/18 08:07 Schistocytes Not Reportable 04/07/18 08:07 Malaria parasites Not Reportable 04/07/18 08:07 Abhijit Bodies Not Reportable 04/07/18 08:07 Hem Pathologist Commnt No 04/07/18 08:07 PT 13.7 Sec. (12.2-14.9) 04/07/18 08:07 INR 1.00 (0.87-1.13) 04/07/18 08:07 APTT > 20.0 Sec. (24.2-36.6) L 04/07/18 08:07 Activated Clotting Time 136 (74-137) 04/09/18 16:14 Heparin Anti-Xa Level 0.32 U.I./ml (0.3-0.7) 04/09/18 05:00 POC ABG pH 7.491 (7.35-7.45) H 04/10/18 05:19 POC ABG pCO2 38.9 (35-45) 04/10/18 05:19 POC ABG pO2 82 (80-105) 04/10/18 05:19 POC ABG HCO3 29.7 04/10/18 05:19 POC ABG Total CO2 31 04/10/18 05:19 POC ABG O2 Sat 97 04/10/18 05:19 POC ABG Base Excess 6 04/10/18 05:19 FiO2 30 % 04/10/18 05:19 Sodium 139 mmol/L (137-145) 04/10/18 Unknown Potassium 3.9 mmol/L (3.6-5.0) D 04/10/18 Unknown Chloride 98.6 mmol/L (98-107) 04/10/18 Unknown Carbon Dioxide 28 mmol/L (22-30) 04/10/18 Unknown Anion Gap 16 mmol/L 04/10/18 Unknown BUN 25 mg/dL (7-17) H 04/10/18 Unknown Creatinine 0.7 mg/dL (0.7-1.2) 04/10/18 Unknown Estimated GFR > 60 ml/min 04/10/18 Unknown BUN/Creatinine Ratio 36 % 04/10/18 Unknown Glucose 92 mg/dL (65-100) 04/10/18 Unknown POC Glucose 95 (70-105) 04/10/18 05:31 Lactic Acid 1.50 mmol/L (0.7-2.0) 04/07/18 15:15 Calcium 7.7 mg/dL (8.4-10.2) L 04/10/18 Unknown Magnesium 2.30 mg/dL (1.7-2.3) 04/10/18 Unknown Total Creatine Kinase 186 units/L (30-135) H 04/07/18 00:47 CK-MB (CK-2) 13.2 ng/mL (0.0-4.0) H 04/07/18 00:47 CK-MB (CK-2) Rel Index 7.0 (0-4) H 04/07/18 00:47 Troponin T 1.300 ng/mL (0.00-0.029) H* 04/07/18 08:07 C-Reactive Protein 11.30 mg/dL (0.00-1.30) H 04/08/18 18:56 NT-Pro-B Natriuret Pep 44128 pg/mL (0-900) H 04/07/18 08:07 Triglycerides 169 mg/dL (2-149) H 04/03/18 11:47 Cholesterol 158 mg/dL (50-199) 04/03/18 11:47 LDL Cholesterol Direct 80 mg/dL (50-130) 04/03/18 11:47 HDL Cholesterol 63 mg/dL (40-59) H 04/03/18 11:47 Cholesterol/HDL Ratio 2.50 % 04/03/18 11:47 Urine Color Yellow (Yellow) 04/07/18 15:15 Urine Turbidity Clear (Clear) 04/07/18 15:15 Urine pH 5.0 (5.0-7.0) 04/07/18 15:15 Ur Specific [place] 1.020 (1.003-1.030) 04/07/18 15:15 Urine Protein <15 mg/dl mg/dL (Negative) 04/07/18 15:15 Urine Glucose (UA) Neg mg/dL (Negative) 04/07/18 15:15 Urine Ketones Neg mg/dL (Negative) 04/07/18 15:15 Urine Blood Sm (Negative) 04/07/18 15:15 Urine Nitrite Neg (Negative) 04/07/18 15:15 Urine Bilirubin Neg (Negative) 04/07/18 15:15 Urine Urobilinogen < 2.0 mg/dL (<2.0) 04/07/18 15:15 Ur Leukocyte Esterase Mod (Negative) 04/07/18 15:15 Urine WBC (Auto) 46.0 /HPF (0.0-6.0) H 04/07/18 15:15 Urine RBC (Auto) 4.0 /HPF (0.0-6.0) 04/07/18 15:15 U Epithel Cells (Auto) < 1.0 /HPF (0-13.0) 04/07/18 15:15 Hyaline Casts 3 /LPF 04/07/18 15:15 Urine Mucus Few /HPF 04/07/18 15:15 Urine Yeast (Budding) Few /HPF 04/07/18 15:15 Blood Type A POSITIVE 04/03/18 11:47 Antibody Screen Negative 04/03/18 11:47
[2018-04-10] MEDS: HEPARIN SUB-Q SCH ×2 (14:10→22:33)
[2018-04-10] MEDS ORDERED: PANCREAZE DR 10,500 UNIT FEEDTUBE PRN (14:46)
[2018-04-10] MEDS ORDERED: SODIUM BICARBONATE FEEDTUBE PRN (14:46)
[2018-04-10] MEDS ORDERED: SIMPLE SYRUP FEEDTUBE PRN ×2 (14:46)
--- NOTE | 2018-04-10 14:54 | Progress Note ---
Assessment and Plan Acute hypoxemic Resp Failure on MVS < 96 hours Acute Pulmonary Edema Bilateral pleural effusions. Shock (Cardiogenic =/- vasodilatory) Takutsubo's Cardiomyopathy - s/p emergent LHC which revealed normal coronaries; EF approx 20%) Acute Encephalopathy HTN Asthma Sinus Tachycardia Hyperlipidemia Hypokalemia Hyponatremia Leukocytosis GERD H/o breast Cancer (Overall improved; tenuously tolerating PSV trials at times though and i will hold on extubation today) - get 2 hour ABG - add scopolamine re: large oral secretions - continue long and short acting bronchodilators with pulmonary hygiene per RT - rest on AC qhs - get US chest and consider thoracentesis if she fails weaning off ventilator - continue aspiration precautions and VAP bundle assessment - continue empiric AB's; get CRP and lactate levels to aid with de-escalation - daily SAT's - addressing VAP bundle - titrate levophed to keep MAP >/= 65 mmHg - continue supplemental oxygen to keep O2 Sats > 90% - continue gentle diuresis - cardiac disease modifying drugs per cardiology (re: B-blockers, SARAN-I etc) - continue GI prophylaxis - continue other care per attending / other consultants ...... improving ... re-evaluate in am & prn The high probability of a clinically significant, sudden or life threatening deterioration of the [cardiac, respiratory,neurology] system(s) required my full and direct attention, intervention and personal management. The aggregate critical care time was [35] minutes without overlap. Time includes spent on; [x] Data Review and interpretation [x] Patient assessment and monitoring of vital signs [x] Documentation [x] Medication orders and management Subjective Date of service: 04/10/18 Principal diagnosis: Takutsubo's cardiomyopathy; Chest ; Acute Hypoxemic Resp Failure; Shock Interval history: Patient is seen today for: Takutsubo's cardiomyopathy; Chest ; Acute Hypoxemic Resp Failure; Shock Seen and examined at bedside; 24hour events reviewed; nursing and respiratory care staff consulted; on PSV trial and tolerating well so far; good response to diuretics; denies acute chest pains or increased SOB; weaned off IABP Objective Vital Signs - 12hr 04/10/18 04/10/18 04/10/18 03:00 03:15 03:30 Temperature Pulse Rate 99 H 102 H 102 H Respiratory 24 23 22 Rate Blood Pressure 116/61 120/60 122/63 O2 Sat by Pulse 99 99 100 Oximetry 04/10/18 04/10/18 04/10/18 03:31 03:45 04:00 Temperature 98.4 F Pulse Rate 101 H 100 H Respiratory 22 21 Rate Blood Pressure 119/61 115/59 O2 Sat by Pulse 99 99 Oximetry 04/10/18 04/10/18 04/10/18 04:15 04:28 04:30 Temperature Pulse Rate 98 H 98 H 97 H Respiratory 19 19 Rate Blood Pressure 121/58 121/58 109/58 O2 Sat by Pulse 99 98 98 Oximetry 04/10/18 04/10/18 04/10/18 04:45 05:00 05:15 Temperature Pulse Rate 110 H 106 H 101 H Respiratory 20 22 22 Rate Blood Pressure 129/75 127/65 119/62 O2 Sat by Pulse 97 98 98 Oximetry 04/10/18 04/10/18 04/10/18 05:30 05:45 06:00 Temperature Pulse Rate 105 H 106 H 101 H Respiratory 22 21 20 Rate Blood Pressure 117/62 125/58 110/57 O2 Sat by Pulse 98 98 97 Oximetry 04/10/18 04/10/18 04/10/18 06:15 06:30 06:45 Temperature Pulse Rate 98 H 103 H 100 H Respiratory 20 22 20 Rate Blood Pressure 107/56 113/64 115/60 O2 Sat by Pulse 98 99 97 Oximetry 04/10/18 04/10/18 04/10/18 07:00 07:15 07:30 Temperature Pulse Rate 100 H 98 H 99 H Respiratory 19 20 20 Rate Blood Pressure 112/55 102/53 114/58 O2 Sat by Pulse 98 98 97 Oximetry 04/10/18 04/10/18 04/10/18 07:45 08:00 08:15 Temperature Pulse Rate 98 H 103 H 104 H Respiratory 20 21 21 Rate Blood Pressure 117/56 117/66 125/64 O2 Sat by Pulse 95 100 99 Oximetry 04/10/18 04/10/18 04/10/18 08:30 08:45 09:00 Temperature Pulse Rate 107 H 105 H 104 H Respiratory 21 23 22 Rate Blood Pressure 125/66 129/64 127/59 O2 Sat by Pulse 95 100 99 Oximetry 04/10/18 04/10/18 04/10/18 09:15 09:30 09:34 Temperature Pulse Rate 105 H 104 H 106 H Respiratory 22 19 16 Rate Blood Pressure 122/61 127/65 127/65 O2 Sat by Pulse 82 L 98 99 Oximetry 04/10/18 04/10/18 04/10/18 09:45 10:00 10:15 Temperature Pulse Rate 107 H 107 H 104 H Respiratory 24 22 22 Rate Blood Pressure 123/64 128/61 119/59 O2 Sat by Pulse 95 95 94 Oximetry 04/10/18 04/10/18 04/10/18 10:30 10:45 11:00 Temperature Pulse Rate 104 H 101 H 106 H Respiratory 23 18 21 Rate Blood Pressure 122/59 111/57 123/65 O2 Sat by Pulse 94 95 96 Oximetry 04/10/18 04/10/18 04/10/18 11:15 11:30 11:45 Temperature Pulse Rate 105 H 105 H 105 H Respiratory 21 22 19 Rate Blood Pressure 135/60 140/59 120/58 O2 Sat by Pulse 95 95 95 Oximetry 04/10/18 04/10/18 04/10/18 12:00 12:15 12:30 Temperature 99.4 F Pulse Rate 106 H 106 H 107 H Respiratory 21 21 21 Rate Blood Pressure 117/57 114/62 118/64 O2 Sat by Pulse 95 95 96 Oximetry 04/10/18 04/10/18 04/10/18 12:45 13:00 13:15 Temperature Pulse Rate 105 H 111 H 109 H Respiratory 20 21 18 Rate Blood Pressure 118/53 126/76 128/64 O2 Sat by Pulse 94 96 91 Oximetry 04/10/18 13:30 Temperature Pulse Rate 111 H Respiratory 19 Rate Blood Pressure 126/64 O2 Sat by Pulse 98 Oximetry Constitutional: no acute distress, other (elderly looking CF, normocephalic and atraumatic; Sedated) Eyes: non-icteric ENT: oropharynx moist, other (ETT 23cm DOC) Neck: supple, no lymphadenopathy, JVD, other (no thyromegaly) Effort: mildly labored Ascultation: Bilateral: diminished breath sounds (Prolonged expiratory phase.), rhonchi Percussion: Bilateral: not dull Cardiovascular: regular rate and rhythm, murmur noted (systolic), other (no rubs ) Gastrointestinal: normoactive bowel sounds, soft, non-tender, non-distended, other (no palpable HSM) Integumentary: other (poor turgor) Extremities: no cyanosis, no edema, pulses normal, no ischemia or petechiae Neurologic: normal mental status, non-focal exam, pupils equal and round, CN II- XII normal Psychiatric: mood appropriate, affect normal CBC and BMP: 04/10/18 09:10 04/10/18 Unknown ABG, PT/INR, D-dimer: ABG POC ABG pH 7.524 (7.35-7.45) H 04/10/18 13:36 POC ABG pCO2 39.2 (35-45) 04/10/18 13:36 POC ABG pO2 329 (80-105) H 04/10/18 13:36 POC ABG HCO3 32.3 04/10/18 13:36 POC ABG Total CO2 33 04/10/18 13:36 POC ABG O2 Sat 100 04/10/18 13:36 PT/INR, D-dimer PT 13.7 Sec. (12.2-14.9) 04/07/18 08:07 INR 1.00 (0.87-1.13) 04/07/18 08:07 Abnormal lab findings: Abnormal Labs 04/03/18 04/03/18 04/03/18 11:47 11:47 12:29 WBC 11.5 H RBC Hct MCHC [place] % (Auto) 10.8 H [place] # 1.2 H Seg Neuts % (Manual) Lymphocytes % (Manual) Monocytes % (Manual) Seg Neutrophils # Seg Neutrophils # Man Monocytes # (Manual) APTT Activated Clotting Time > 1000 H POC ABG pH POC ABG pCO2 POC ABG pO2 Sodium 134 L Potassium 3.5 L Chloride 94.4 L Carbon Dioxide BUN 19 H Glucose 121 H POC Glucose Calcium Total Creatine Kinase 155 H CK-MB (CK-2) 17.3 H CK-MB (CK-2) Rel Index 11.1 H Troponin T 0.368 H* C-Reactive Protein NT-Pro-B Natriuret Pep Triglycerides 169 H HDL Cholesterol 63 H Urine WBC (Auto) 04/03/18 04/04/18 04/04/18 16:59 06:12 06:12 WBC 13.3 H RBC Hct MCHC 35 H [place] % (Auto) 9.2 H [place] # 1.2 H Seg Neuts % (Manual) Lymphocytes % (Manual) Monocytes % (Manual) Seg Neutrophils # 9.0 H Seg Neutrophils # Man Monocytes # (Manual) APTT Activated Clotting Time POC ABG pH POC ABG pCO2 POC ABG pO2 Sodium 132 L Potassium 3.4 L Chloride 94.8 L Carbon Dioxide BUN Glucose 107 H POC Glucose Calcium Total Creatine Kinase 503 H 498 H CK-MB (CK-2) 69.6 H 51.9 H CK-MB (CK-2) Rel Index 13.8 H 10.4 H Troponin T 1.900 H* D 1.950 H* C-Reactive Protein NT-Pro-B Natriuret Pep Triglycerides HDL Cholesterol Urine WBC (Auto) 04/05/18 04/05/18 04/05/18 06:47 11:33 17:49 WBC RBC Hct MCHC [place] % (Auto) [place] # Seg Neuts % (Manual) Lymphocytes % (Manual) Monocytes % (Manual) Seg Neutrophils # Seg Neutrophils # Man Monocytes # (Manual) APTT Activated Clotting Time POC ABG pH POC ABG pCO2 POC ABG pO2 Sodium 128 L Potassium Chloride 88.7 L Carbon Dioxide BUN 18 H Glucose 153 H POC Glucose 179 H 190 H Calcium Total Creatine Kinase 399 H CK-MB (CK-2) 35.5 H CK-MB (CK-2) Rel Index 8.8 H Troponin T 1.730 H* C-Reactive Protein NT-Pro-B Natriuret Pep Triglycerides HDL Cholesterol Urine WBC (Auto) 04/05/18 04/06/18 04/06/18 21:20 05:26 08:11 WBC RBC Hct MCHC [place] % (Auto) [place] # Seg Neuts % (Manual) Lymphocytes % (Manual) Monocytes % (Manual) Seg Neutrophils # Seg Neutrophils # Man Monocytes # (Manual) APTT Activated Clotting Time POC ABG pH POC ABG pCO2 POC ABG pO2 Sodium 130 L Potassium Chloride 91.2 L Carbon Dioxide 20 L BUN 28 H Glucose 137 H POC Glucose 130 H 108 H Calcium 8.1 L Total Creatine Kinase CK-MB (CK-2) CK-MB (CK-2) Rel Index Troponin T C-Reactive Protein NT-Pro-B Natriuret Pep Triglycerides HDL Cholesterol Urine WBC (Auto) 04/06/18 04/06/18 04/07/18 08:11 21:35 00:14 WBC 19.3 H RBC Hct MCHC [place] % (Auto) [place] # Seg Neuts % (Manual) Lymphocytes % (Manual) Monocytes % (Manual) Seg Neutrophils # Seg Neutrophils # Man Monocytes # (Manual) APTT Activated Clotting Time POC ABG pH POC ABG pCO2 POC ABG pO2 Sodium Potassium Chloride Carbon Dioxide BUN Glucose POC Glucose 188 H 146 H Calcium Total Creatine Kinase CK-MB (CK-2) CK-MB (CK-2) Rel Index Troponin T C-Reactive Protein NT-Pro-B Natriuret Pep Triglycerides HDL Cholesterol Urine WBC (Auto) 04/07/18 04/07/18 04/07/18 00:47 05:43 08:07 WBC 21.5 H RBC Hct MCHC [place] % (Auto) [place] # Seg Neuts % (Manual) 82.5 H Lymphocytes % (Manual) 7.0 L Monocytes % (Manual) 7.5 H Seg Neutrophils # Seg Neutrophils # Man 17.7 H Monocytes # (Manual) 1.6 H APTT Activated Clotting Time POC ABG pH POC ABG pCO2 POC ABG pO2 Sodium Potassium Chloride Carbon Dioxide BUN Glucose POC Glucose 157 H Calcium Total Creatine Kinase 186 H CK-MB (CK-2) 13.2 H CK-MB (CK-2) Rel Index 7.0 H Troponin T 1.420 H* C-Reactive Protein NT-Pro-B Natriuret Pep Triglycerides HDL Cholesterol Urine WBC (Auto) 04/07/18 04/07/18 04/07/18 08:07 08:07 13:43 WBC RBC Hct MCHC [place] % (Auto) [place] # Seg Neuts % (Manual) Lymphocytes % (Manual) Monocytes % (Manual) Seg Neutrophils # Seg Neutrophils # Man Monocytes # (Manual) APTT > 20.0 L Activated Clotting Time POC ABG pH POC ABG pCO2 52.0 H POC ABG pO2 456 H Sodium 129 L Potassium Chloride 92.4 L Carbon Dioxide BUN 34 H Glucose 152 H POC Glucose Calcium 8.3 L Total Creatine Kinase CK-MB (CK-2) CK-MB (CK-2) Rel Index Troponin T 1.300 H* C-Reactive Protein NT-Pro-B Natriuret Pep 52566 H Triglycerides HDL Cholesterol Urine WBC (Auto) 04/07/18 04/07/18 04/08/18 15:15 15:15 04:23 WBC 19.0 H RBC Hct MCHC [place] % (Auto) [place] # Seg Neuts % (Manual) Lymphocytes % (Manual) Monocytes % (Manual) Seg Neutrophils # Seg Neutrophils # Man Monocytes # (Manual) APTT Activated Clotting Time POC ABG pH 7.471 H POC ABG pCO2 POC ABG pO2 133 H Sodium Potassium Chloride Carbon Dioxide BUN Glucose POC Glucose Calcium Total Creatine Kinase CK-MB (CK-2) CK-MB (CK-2) Rel Index Troponin T C-Reactive Protein NT-Pro-B Natriuret Pep Triglycerides HDL Cholesterol Urine WBC (Auto) 46.0 H 04/08/18 04/08/18 04/08/18 05:51 08:58 08:58 WBC 17.3 H RBC 3.59 L Hct MCHC [place] % (Auto) [place] # Seg Neuts % (Manual) Lymphocytes % (Manual) Monocytes % (Manual) Seg Neutrophils # Seg Neutrophils # Man Monocytes # (Manual) APTT Activated Clotting Time POC ABG pH POC ABG pCO2 POC ABG pO2 Sodium Potassium Chloride 97.7 L Carbon Dioxide BUN 27 H Glucose 114 H POC Glucose 111 H Calcium 7.1 L Total Creatine Kinase CK-MB (CK-2) CK-MB (CK-2) Rel Index Troponin T C-Reactive Protein NT-Pro-B Natriuret Pep Triglycerides HDL Cholesterol Urine WBC (Auto) 04/08/18 04/08/18 04/08/18 13:42 18:22 18:56 WBC RBC Hct MCHC [place] % (Auto) [place] # Seg Neuts % (Manual) Lymphocytes % (Manual) Monocytes % (Manual) Seg Neutrophils # Seg Neutrophils # Man Monocytes # (Manual) APTT Activated Clotting Time POC ABG pH POC ABG pCO2 POC ABG pO2 Sodium Potassium Chloride Carbon Dioxide BUN Glucose POC Glucose 113 H 107 H Calcium Total Creatine Kinase CK-MB (CK-2) CK-MB (CK-2) Rel Index Troponin T C-Reactive Protein 11.30 H NT-Pro-B Natriuret Pep Triglycerides HDL Cholesterol Urine WBC (Auto) 04/09/18 04/09/18 04/09/18 04:41 05:00 05:00 WBC 12.2 H RBC 3.30 L Hct 30.2 L MCHC 35 H [place] % (Auto) [place] # Seg Neuts % (Manual) Lymphocytes % (Manual) Monocytes % (Manual) Seg Neutrophils # Seg Neutrophils # Man Monocytes # (Manual) APTT Activated Clotting Time POC ABG pH 7.556 H POC ABG pCO2 POC ABG pO2 Sodium 134 L Potassium 3.2 L Chloride 94.6 L Carbon Dioxide 32 H BUN 27 H Glucose POC Glucose Calcium 7.3 L Total Creatine Kinase CK-MB (CK-2) CK-MB (CK-2) Rel Index Troponin T C-Reactive Protein NT-Pro-B Natriuret Pep Triglycerides HDL Cholesterol Urine WBC (Auto) 04/09/18 04/10/18 04/10/18 18:27 05:19 09:10 WBC 14.7 H RBC Hct MCHC [place] % (Auto) [place] # Seg Neuts % (Manual) Lymphocytes % (Manual) Monocytes % (Manual) Seg Neutrophils # Seg Neutrophils # Man Monocytes # (Manual) APTT Activated Clotting Time POC ABG pH 7.491 H POC ABG pCO2 POC ABG pO2 Sodium Potassium Chloride Carbon Dioxide BUN Glucose POC Glucose 111 H Calcium Total Creatine Kinase CK-MB (CK-2) CK-MB (CK-2) Rel Index Troponin T C-Reactive Protein NT-Pro-B Natriuret Pep Triglycerides HDL Cholesterol Urine WBC (Auto) 04/10/18 04/10/18 04/10/18 09:10 13:36 Unknown WBC RBC Hct MCHC [place] % (Auto) [place] # Seg Neuts % (Manual) Lymphocytes % (Manual) Monocytes % (Manual) Seg Neutrophils # Seg Neutrophils # Man Monocytes # (Manual) APTT Activated Clotting Time POC ABG pH 7.524 H POC ABG pCO2 POC ABG pO2 329 H Sodium Potassium Chloride Carbon Dioxide BUN 26 H 25 H Glucose POC Glucose Calcium 8.0 L 7.7 L Total Creatine Kinase CK-MB (CK-2) CK-MB (CK-2) Rel Index Troponin T C-Reactive Protein NT-Pro-B Natriuret Pep Triglycerides HDL Cholesterol Urine WBC (Auto) Chest x-ray: image reviewed (bilateral effusions) Allied health notes reviewed: nursing
[2018-04-10] MEDS: COLACE FEEDTUBE SCH ×2 (19:14→22:32)
--- NOTE | 2018-04-10 20:30 | Ultrasound Report ---
FINAL REPORT EXAM: US CHEST HISTORY: bilateral pleural effusions TECHNIQUE: Limited ultrasound of bilateral back PRIORS: CXR 04/10/2018 FINDINGS: Limited ultrasound of the back was performed to evaluate for pleural effusion. There are moderate bilateral pleural effusions identified. On the right, the effusion measures 730 cc. The middle of the effusion is 7.3 cm deep to the skin surface. On the left, the effusion measures 750 cc. The middle of the effusion is 8 cm deep to the skin surface. IMPRESSION: Moderate bilateral pleural effusions
[2018-04-10] MEDS: NORCO 10/325 PO PRN (22:33)
[2018-04-10] MEDS: LOPRESSOR PO SCH (22:34)
--- NOTE | 2018-04-11 02:17 | XRay Report ---
FINAL REPORT EXAM: XR CHEST 1V AP HISTORY: follow up respiratory failure TECHNIQUE: A portable upright view of the chest was obtained and compared to the study of 04/10/2018. FINDINGS: The lungs remain diffusely congested with bilateral effusions. The heart is mildly enlarged. The tip of the right-sided central venous line remains in good position in the distal superior vena cava. There is an NG tube in good position in the stomach. The tip of the ET tube is in good position above the jonathan. The skeletal structures otherwise are unchanged. IMPRESSION: Stable pulmonary vascular congestion and bilateral effusions. Satisfactory position of tubes and lines.
[2018-04-11] MEDS: HEPARIN SUB-Q SCH (06:45)
[2018-04-11] MEDS: ZOSYN/NS 4.5GM/100ML 4.5 GM/100 ML VIAL IV SCH (08:00)
[2018-04-11] MEDS: BROVANA NEBU IH SCH ×2 (08:22→20:15)
[2018-04-11] MEDS: PULMICORT IH SCH ×2 (08:22→20:15)
[2018-04-11] MEDS: MORPHINE IV PRN ×2 (08:47→17:34)
--- NOTE | 2018-04-11 10:51 | Progress Note ---
Assessment and Plan Assessment and plan: Acute respiratory failure likely from cardiogenic shock intubated 04/07/18, Pulmonoology/ critical care following Cardiogenic shock likely due to due to Takutsubo's cardiomyopathy placed on pressor and s/p IABP placed on 04/07, removed 04/09 Takutsubo's cardiomyopathy S/p emergent LHC on admission which revealed normal coronaries, EF 20-25%. repeat LHC 04/07 revealed no significant CAD, Severe anterior, radha-apical, and infero-apical dykinesis with EF ~ 20% c/w stress cardiomyopathy IABP was placed, now removed Acute encephalopathy first noted on 04/05/18 following admission delirium vs transient Amnesia vs TIA negative CT head/MRI, EEG, consulted neurology SIRS high WBC and SIRS likley to be due to Takutsubo's cardiomyopathy Follow blood cx, UA, b/l pleural congestion on CXR Cont on Zosyn till underlying infection r/o Leukocytosis. Improving. WBC 13.1 today Hyperlipidemia, cont statin Hypokalemia. Replace and recheck. GERD, cont Protonix H/o breast cancer For outpatient follow up when stable Full code status History Interval history: Patient still intubated, sedated, Balloon pump is off Fever Hospitalist Physical - Physical exam Narrative exam: General: Not in acute distress, intubated, sedated HEENT:Normocephalic, atraumatic Neck:supple,no JVD Lungs: Clear to auscultation bilaterally, no crackles, no wheeze Heart:S1 and S2 regular, no murmurs, rubs or gallop Abd: soft, non tender,non distended, normal bowel sounds Ext: No edema, no clubbing or cyanosis Neuro: Intubated, sedated,Eyes open, follows commands - Constitutional Vitals: Temp Pulse Resp BP Pulse Ox 99.4 F 90 10 L 112/61 95 04/11/18 08:00 04/11/18 09:00 04/11/18 09:00 04/11/18 09:00 04/11/18 08:23 Results - Labs CBC & Chem 7: 04/11/18 11:00 04/11/18 11:00 Labs: Laboratory Last Values WBC 14.7 K/mm3 (4.5-11.0) H 04/10/18 09:10 RBC 3.67 M/mm3 (3.65-5.03) 04/10/18 09:10 Hgb 11.2 gm/dl (10.1-14.3) 04/10/18 09:10 Hct 33.9 % (30.3-42.9) 04/10/18 09:10 MCV 92 fl (79-97) 04/10/18 09:10 MCH 31 pg (28-32) 04/10/18 09:10 MCHC 33 % (30-34) 04/10/18 09:10 RDW 14.0 % (13.2-15.2) 04/10/18 09:10 Plt Count 201 K/mm3 (140-440) 04/10/18 09:10 Lymph % (Auto) 22.3 % (13.4-35.0) 04/04/18 06:12 [place] % (Auto) 9.2 % (0.0-7.3) H 04/04/18 06:12 Eos % (Auto) 0.7 % (0.0-4.3) 04/04/18 06:12 Baso % (Auto) 0.4 % (0.0-1.8) 04/04/18 06:12 Lymph # 3.0 K/mm3 (1.2-5.4) 04/04/18 06:12 [place] # 1.2 K/mm3 (0.0-0.8) H 04/04/18 06:12 Eos # 0.1 K/mm3 (0.0-0.4) 04/04/18 06:12 Baso # 0.1 K/mm3 (0.0-0.1) 04/04/18 06:12 Add Manual Diff Complete 04/07/18 08:07 Total Counted 200 04/07/18 08:07 Seg Neutrophils % 67.4 % (40.0-70.0) 04/04/18 06:12 Seg Neuts % (Manual) 82.5 % (40.0-70.0) H 04/07/18 08:07 Band Neutrophils % 2.0 % 04/07/18 08:07 Lymphocytes % (Manual) 7.0 % (13.4-35.0) L 04/07/18 08:07 Reactive Lymphs % (Man) 0 % 04/07/18 08:07 Monocytes % (Manual) 7.5 % (0.0-7.3) H 04/07/18 08:07 Eosinophils % (Manual) 0 % (0.0-4.3) 04/07/18 08:07 Basophils % (Manual) 0 % (0.0-1.8) 04/07/18 08:07 Metamyelocytes % 1.0 % 04/07/18 08:07 Myelocytes % 0 % 04/07/18 08:07 Promyelocytes % 0 % 04/07/18 08:07 Blast Cells % 0 % 04/07/18 08:07 Nucleated RBC % Not Reportable 04/07/18 08:07 Seg Neutrophils # 9.0 K/mm3 (1.8-7.7) H 04/04/18 06:12 Seg Neutrophils # Man 17.7 K/mm3 (1.8-7.7) H 04/07/18 08:07 Band Neutrophils # 0.4 K/mm3 04/07/18 08:07 Lymphocytes # (Manual) 1.5 K/mm3 (1.2-5.4) 04/07/18 08:07 Abs React Lymphs (Man) 0.0 K/mm3 04/07/18 08:07 Monocytes # (Manual) 1.6 K/mm3 (0.0-0.8) H 04/07/18 08:07 Eosinophils # (Manual) 0.0 K/mm3 (0.0-0.4) 04/07/18 08:07 Basophils # (Manual) 0.0 K/mm3 (0.0-0.1) 04/07/18 08:07 Metamyelocytes # 0.2 K/mm3 04/07/18 08:07 Myelocytes # 0.0 K/mm3 04/07/18 08:07 Promyelocytes # 0.0 K/mm3 04/07/18 08:07 Blast Cells # 0.0 K/mm3 04/07/18 08:07 WBC Morphology Not Reportable 04/07/18 08:07 Hypersegmented Neuts Not Reportable 04/07/18 08:07 Hyposegmented Neuts Not Reportable 04/07/18 08:07 Hypogranular Neuts Not Reportable 04/07/18 08:07 Smudge Cells Not Reportable 04/07/18 08:07 Toxic Granulation Not Reportable 04/07/18 08:07 Toxic Vacuolation Not Reportable 04/07/18 08:07 Dohle Bodies Not Reportable 04/07/18 08:07 Pelger-Huet Anomaly Not Reportable 04/07/18 08:07 Roxanne Rods Not Reportable 04/07/18 08:07 Platelet Estimate Appears normal 04/07/18 08:07 Clumped Platelets Not Reportable 04/07/18 08:07 Plt Clumps, EDTA Not Reportable 04/07/18 08:07 Large Platelets Not Reportable 04/07/18 08:07 Giant Platelets Not Reportable 04/07/18 08:07 Platelet Satelliting Not Reportable 04/07/18 08:07 Plt Morphology Comment Not Reportable 04/07/18 08:07 RBC Morphology Not Reportable 04/07/18 08:07 Dimorphic RBCs Not Reportable 04/07/18 08:07 Polychromasia Not Reportable 04/07/18 08:07 Hypochromasia Not Reportable 04/07/18 08:07 Poikilocytosis Not Reportable 04/07/18 08:07 Anisocytosis Not Reportable 04/07/18 08:07 Microcytosis Not Reportable 04/07/18 08:07 Macrocytosis Not Reportable 04/07/18 08:07 Spherocytes Not Reportable 04/07/18 08:07 Pappenheimer Bodies Not Reportable 04/07/18 08:07 Sickle Cells Not Reportable 04/07/18 08:07 Target Cells Not Reportable 04/07/18 08:07 Tear Drop Cells Not Reportable 04/07/18 08:07 Ovalocytes Not Reportable 04/07/18 08:07 Helmet Cells Not Reportable 04/07/18 08:07 [place] Bodies Not Reportable 04/07/18 08:07 [place] Rings Not Reportable 04/07/18 08:07 Suman Cells Not Reportable 04/07/18 08:07 Bite Cells Not Reportable 04/07/18 08:07 Crenated Cell Not Reportable 04/07/18 08:07 Elliptocytes Not Reportable 04/07/18 08:07 Acanthocytes (Spur) Not Reportable 04/07/18 08:07 Rouleaux Not Reportable 04/07/18 08:07 Hemoglobin C Crystals Not Reportable 04/07/18 08:07 Schistocytes Not Reportable 04/07/18 08:07 Malaria parasites Not Reportable 04/07/18 08:07 Abhijit Bodies Not Reportable 04/07/18 08:07 Hem Pathologist Commnt No 04/07/18 08:07 PT 13.7 Sec. (12.2-14.9) 04/07/18 08:07 INR 1.00 (0.87-1.13) 04/07/18 08:07 APTT > 20.0 Sec. (24.2-36.6) L 04/07/18 08:07 Activated Clotting Time 136 (74-137) 04/09/18 16:14 Heparin Anti-Xa Level 0.32 U.I./ml (0.3-0.7) 04/09/18 05:00 POC ABG pH 7.517 (7.35-7.45) H 04/11/18 05:34 POC ABG pCO2 39.0 (35-45) 04/11/18 05:34 POC ABG pO2 79 (80-105) L 04/11/18 05:34 POC ABG HCO3 31.6 04/11/18 05:34 POC ABG Total CO2 33 04/11/18 05:34 POC ABG O2 Sat 97 04/11/18 05:34 POC ABG Base Excess 9 04/11/18 05:34 FiO2 25 % 04/11/18 05:34 Sodium 139 mmol/L (137-145) 04/10/18 Unknown Potassium 3.9 mmol/L (3.6-5.0) D 04/10/18 Unknown Chloride 98.6 mmol/L (98-107) 04/10/18 Unknown Carbon Dioxide 28 mmol/L (22-30) 04/10/18 Unknown Anion Gap 16 mmol/L 04/10/18 Unknown BUN 25 mg/dL (7-17) H 04/10/18 Unknown Creatinine 0.7 mg/dL (0.7-1.2) 04/10/18 Unknown Estimated GFR > 60 ml/min 04/10/18 Unknown BUN/Creatinine Ratio 36 % 04/10/18 Unknown Glucose 92 mg/dL (65-100) 04/10/18 Unknown POC Glucose 103 (70-105) 04/11/18 05:41 Lactic Acid 1.50 mmol/L (0.7-2.0) 04/07/18 15:15 Calcium 7.7 mg/dL (8.4-10.2) L 04/10/18 Unknown Magnesium 2.30 mg/dL (1.7-2.3) 04/10/18 Unknown Total Creatine Kinase 186 units/L (30-135) H 04/07/18 00:47 CK-MB (CK-2) 13.2 ng/mL (0.0-4.0) H 04/07/18 00:47 CK-MB (CK-2) Rel Index 7.0 (0-4) H 04/07/18 00:47 Troponin T 1.300 ng/mL (0.00-0.029) H* 04/07/18 08:07 C-Reactive Protein 11.30 mg/dL (0.00-1.30) H 04/08/18 18:56 NT-Pro-B Natriuret Pep 09638 pg/mL (0-900) H 04/07/18 08:07 Triglycerides 169 mg/dL (2-149) H 04/03/18 11:47 Cholesterol 158 mg/dL (50-199) 04/03/18 11:47 LDL Cholesterol Direct 80 mg/dL (50-130) 04/03/18 11:47 HDL Cholesterol 63 mg/dL (40-59) H 04/03/18 11:47 Cholesterol/HDL Ratio 2.50 % 04/03/18 11:47 Urine Color Yellow (Yellow) 04/07/18 15:15 Urine Turbidity Clear (Clear) 04/07/18 15:15 Urine pH 5.0 (5.0-7.0) 04/07/18 15:15 Ur Specific [place] 1.020 (1.003-1.030) 04/07/18 15:15 Urine Protein <15 mg/dl mg/dL (Negative) 04/07/18 15:15 Urine Glucose (UA) Neg mg/dL (Negative) 04/07/18 15:15 Urine Ketones Neg mg/dL (Negative) 04/07/18 15:15 Urine Blood Sm (Negative) 04/07/18 15:15 Urine Nitrite Neg (Negative) 04/07/18 15:15 Urine Bilirubin Neg (Negative) 04/07/18 15:15 Urine Urobilinogen < 2.0 mg/dL (<2.0) 04/07/18 15:15 Ur Leukocyte Esterase Mod (Negative) 04/07/18 15:15 Urine WBC (Auto) 46.0 /HPF (0.0-6.0) H 04/07/18 15:15 Urine RBC (Auto) 4.0 /HPF (0.0-6.0) 04/07/18 15:15 U Epithel Cells (Auto) < 1.0 /HPF (0-13.0) 04/07/18 15:15 Hyaline Casts 3 /LPF 04/07/18 15:15 Urine Mucus Few /HPF 04/07/18 15:15 Urine Yeast (Budding) Few /HPF 04/07/18 15:15 Blood Type A POSITIVE 04/03/18 11:47 Antibody Screen Negative 04/03/18 11:47
[2018-04-11] MEDS: PEPCID PO SCH ×2 (10:59→23:12)
[2018-04-11] MEDS: NORCO 10/325 PO PRN (10:59)
[2018-04-11] MEDS: LOPRESSOR PO SCH ×2 (10:59→23:20)
--- NOTE | 2018-04-11 11:19 | Progress Note ---
Assessment and Plan Initiate IV amio for more adequate HR control. Resume heparin gtt for systemic anticoagulation in regards to paroxysmal atrial fibrillation and consider conversion to OAC prior to hospital discharge. Cont low dose lopressor and consider initiation of ACEI/ARB if/when BPs permit. Wean vent as tolerated per pulmonary. The patient has been seen in conjunction with Dr. Winters who agrees with the assessment and plan of care. - Patient Problems (1) Takotsubo cardiomyopathy Current Visit: Yes Status: Acute (2) Cardiogenic shock Current Visit: Yes Status: Acute (3) Heart failure with reduced ejection fraction Current Visit: Yes Status: Acute (4) Paroxysmal atrial fibrillation with RVR Current Visit: Yes Status: Acute (5) Acute respiratory failure Current Visit: Yes Status: Acute (6) Hyponatremia Current Visit: Yes Status: Acute (7) Altered mental status Current Visit: Yes Status: Acute (8) HLD (hyperlipidemia) Current Visit: Yes Status: Acute Qualifiers: Hyperlipidemia type: mixed hyperlipidemia Qualified Code(s): E78.2 - Mixed hyperlipidemia (9) History of breast cancer Current Visit: Yes Status: Acute Subjective Date of service: 04/11/18 Principal diagnosis: Takutsubo's cardiomyopathy; Chest ; Acute Hypoxemic Resp Failure; Shock Interval history: pt resting in bed, intubated, alert. levophed gtt off. tele reviewed - pt currently in SR but was noted to have multiple bouts of AFib with RVR overnight. family at bedside. Objective Last Vital Signs Temp 99.4 F 04/11/18 08:00 Pulse 93 H 04/11/18 10:59 Resp 10 L 04/11/18 09:00 BP 114/56 04/11/18 10:59 Pulse Ox 95 04/11/18 08:23 - Physical Examination General: Other (intubated, alert) HEENT: Positive: Normocephaly, Mucus Membranes Moist Neck: Positive: neck supple, trachea midline Cardiac: Positive: Reg Rate and Rhythm, S1/S2 Lungs: Positive: clear to auscultation Neuro: Positive: Other (intubated) Abdomen: Positive: Soft, Active Bowel Sounds. Negative: Tender Skin: Positive: Clear. Negative: Rash Extremities: Present: normal, +1 Edema (BLE) - Imaging and Cardiology EKG: image reviewed Echo: report reviewed - EKG Sinus rhythms and dysrhythmias: sinus rhythm Myocardial infarction: lateral ME (acute or rece - Allied health notes Allied health notes reviewed: nursing
[2018-04-11] MEDS ORDERED: CORDARONE 150 MG in D5W 97 ML IV ONE (11:30)
[2018-04-11 11:40] LABS: Hematocrit 33.2 % (30.3-42.9); Hemoglobin 10.9 gm/dl (10.1-14.3); Mean Corpuscular HGB Conc 33 % (30-34); Mean Corpuscular Hemoglobin 30 pg (28-32); Mean Corpuscular Volume 93 fl (79-97); Platelet Count 221 K/mm3 (140-440); Red Blood Count 3.58 M/mm3 (3.65-5.03); Red Cell Distribution Width 14.1 % (13.2-15.2)
[2018-04-11] MEDS: BABY ASPIRIN PO SCH (11:41)
[2018-04-11] MEDS: COLACE FEEDTUBE SCH ×2 (11:41→23:12)
[2018-04-11] MEDS: CORDARONE 900 MG in D5W 482 ML IV SCH (11:42)
[2018-04-11 11:50] LABS: BUN/Creatinine Ratio 50; Blood Urea Nitrogen 30 mg/dL (7-17); Calcium 8.4 mg/dL (8.4-10.2); Hemolysis Index 3
--- NOTE | 2018-04-11 12:32 | Progress Note ---
Assessment and Plan Acute hypoxemic Resp Failure on MVS Acute Pulmonary Edema Shock (Cardiogenic +/- vasodilatory) SIRS Takutsubo's Cardiomyopathy - s/p emergent LHC which revealed normal coronaries; EF approx 20%) Acute Encephalopathy HTN Asthma Sinus Tachycardia Hyperlipidemia Hypokalemia Hyponatremia Leukocytosis GERD H/o breast Cancer - tolerating PSV trials, get weaning parameters..RSBI, NIF. Give a dose of furosemide, in anticipation that the removal of positive pressure , may cause increase in venous return and result in pulmonary edema -supplemental oxygen to keep O2 sats>90% - VAP bundle addressed - cultures are negative, discontinue Zosyn - daily SAT's, will initiate SBTs in the morning. - continue supplemental oxygen to keep O2 Sats > 90% - Gentle diuresis while monitoring renal function and electrolytes -Keep potassium at 4 and magnesium at 2 - cardiac disease modifying drugs per cardiology - continue long and short acting bronchodilators - continue GI prophylaxis -on heparin infusion per cardiology -discontinue morgan catheter -Once patient is extubated, bedside swallow evaluation, PT/OT to evaluate and treat The high probability of a clinically significant, sudden or life threatening deterioration of the [cardiac, respiratory,neurology] system(s) required my full and direct attention, intervention and personal management. The aggregate critical care time was [31] minutes without overlap. Time includes spent on; [x] Data Review and interpretation [x] Patient assessment and monitoring of vital signs [x] Documentation [x] Medication orders and management Subjective Date of service: 04/11/18 Principal diagnosis: Takutsubo's cardiomyopathy; Chest ; Acute Hypoxemic Resp Failure; Shock Interval history: Patient is seen today for: Takutsubo's cardiomyopathy; Chest Pain Follow up: s/p CODE BLUE that required intubation secondary to cardio- pulmonary decompensation; s/p repeat LHCath with clean coronaries Severe anterior, radha-apical, and infero-apical dykinesis with EF ~ 20% c/w stress cardiomyopathy - Markedly elevated LVeDP of 42-45mmHG, IABP 1:1 with augmented BP 110 s/p IABP removal Seen and examined. Vitals, labs, medications, chart and imaging reviewed. No acute overnight events Discussed with RT and RN at the bedside. Patient is awake and alert, mouthing words to make her needs know. Awake and alert, tolerating PSV 10/5 with tidal volumes of 500 Granddaughter at the bedsdie..updated her. Xochiltetn discussed in IDT-ICU rounds Objective - Exam Narrative Exam: General: Not in acute distress, intubated, sedated HEENT:Normocephalic, atraumatic Neck:supple,no JVD Lungs: Clear to auscultation bilaterally, no crackles, no wheeze Heart:S1 and S2 regular, no murmurs, rubs or gallop Abd: soft, non tender,non distended, normal bowel sounds Ext: No edema, no clubbing or cyanosis Neuro: Intubated, sedated,Eyes open, follows commands Vital Signs - 12hr 04/11/18 04/11/18 04/11/18 00:30 00:43 01:00 Temperature Pulse Rate 89 81 Pulse Rate [ Anterior Bilateral Throughout] Pulse Rate [ 81 Apical] Respiratory 13 16 14 Rate Respiratory Rate [Anterior Bilateral Throughout] Blood Pressure 107/54 108/59 O2 Sat by Pulse 95 98 93 Oximetry 04/11/18 04/11/18 04/11/18 01:30 02:00 03:00 Temperature Pulse Rate 90 79 87 Pulse Rate [ Anterior Bilateral Throughout] Pulse Rate [ Apical] Respiratory 13 12 13 Rate Respiratory Rate [Anterior Bilateral Throughout] Blood Pressure 108/59 113/54 108/53 O2 Sat by Pulse 94 95 94 Oximetry 04/11/18 04/11/18 04/11/18 04:00 05:00 05:27 Temperature 99.2 F Pulse Rate 92 H 80 94 H Pulse Rate [ Anterior Bilateral Throughout] Pulse Rate [ 80 Apical] Respiratory 15 13 Rate Respiratory Rate [Anterior Bilateral Throughout] Blood Pressure 119/62 109/58 109/58 O2 Sat by Pulse 95 96 95 Oximetry 04/11/18 04/11/18 04/11/18 06:00 06:22 07:00 Temperature Pulse Rate 95 H 86 92 H Pulse Rate [ Anterior Bilateral Throughout] Pulse Rate [ Apical] Respiratory 15 14 14 Rate Respiratory Rate [Anterior Bilateral Throughout] Blood Pressure 121/64 121/74 106/57 O2 Sat by Pulse 96 Oximetry 04/11/18 04/11/18 04/11/18 08:00 08:23 08:43 Temperature 99.4 F Pulse Rate 86 97 H Pulse Rate [ 101 H 85 Anterior Bilateral Throughout] Pulse Rate [ Apical] Respiratory 13 17 Rate Respiratory 12 14 Rate [Anterior Bilateral Throughout] Blood Pressure 104/53 104/53 O2 Sat by Pulse 95 95 Oximetry 04/11/18 04/11/18 09:00 10:59 Temperature Pulse Rate 90 93 H Pulse Rate [ Anterior Bilateral Throughout] Pulse Rate [ Apical] Respiratory 10 L Rate Respiratory Rate [Anterior Bilateral Throughout] Blood Pressure 112/61 114/56 O2 Sat by Pulse Oximetry Constitutional: no acute distress, other (elderly looking CF, normocephalic and atraumatic; Sedated) Eyes: non-icteric ENT: oropharynx moist, other (ETT 23cm DOC) Neck: supple, no lymphadenopathy, JVD, other (no thyromegaly) Effort: mildly labored Ascultation: Bilateral: diminished breath sounds (Prolonged expiratory phase.), rhonchi Percussion: Bilateral: not dull Cardiovascular: regular rate and rhythm, murmur noted (systolic), other (no rubs ) Gastrointestinal: normoactive bowel sounds, soft, non-tender, non-distended, other (no palpable HSM) Integumentary: other (poor turgor) Extremities: no cyanosis, no edema, pulses normal, no ischemia or petechiae Neurologic: normal mental status, non-focal exam, pupils equal and round, CN II- XII normal Psychiatric: mood appropriate, affect normal CBC and BMP: 04/11/18 11:00 04/11/18 11:00 ABG, PT/INR, D-dimer: ABG POC ABG pH 7.517 (7.35-7.45) H 04/11/18 05:34 POC ABG pCO2 39.0 (35-45) 04/11/18 05:34 POC ABG pO2 79 (80-105) L 04/11/18 05:34 POC ABG HCO3 31.6 04/11/18 05:34 POC ABG Total CO2 33 04/11/18 05:34 POC ABG O2 Sat 97 04/11/18 05:34 PT/INR, D-dimer PT 13.7 Sec. (12.2-14.9) 04/07/18 08:07 INR 1.00 (0.87-1.13) 04/07/18 08:07 Abnormal lab findings: Abnormal Labs 04/03/18 04/03/18 04/03/18 11:47 11:47 12:29 WBC 11.5 H RBC Hct MCHC Dickinson % (Auto) 10.8 H Dickinson # 1.2 H Seg Neuts % (Manual) Lymphocytes % (Manual) Monocytes % (Manual) Seg Neutrophils # Seg Neutrophils # Man Monocytes # (Manual) APTT Activated Clotting Time > 1000 H POC ABG pH POC ABG pCO2 POC ABG pO2 Sodium 134 L Potassium 3.5 L Chloride 94.4 L Carbon Dioxide BUN 19 H Creatinine Glucose 121 H POC Glucose Calcium Total Creatine Kinase 155 H CK-MB (CK-2) 17.3 H CK-MB (CK-2) Rel Index 11.1 H Troponin T 0.368 H* C-Reactive Protein NT-Pro-B Natriuret Pep Triglycerides 169 H HDL Cholesterol 63 H Urine WBC (Auto) 04/03/18 04/04/18 04/04/18 16:59 06:12 06:12 WBC 13.3 H RBC Hct MCHC 35 H Dickinson % (Auto) 9.2 H Dickinson # 1.2 H Seg Neuts % (Manual) Lymphocytes % (Manual) Monocytes % (Manual) Seg Neutrophils # 9.0 H Seg Neutrophils # Man Monocytes # (Manual) APTT Activated Clotting Time POC ABG pH POC ABG pCO2 POC ABG pO2 Sodium 132 L Potassium 3.4 L Chloride 94.8 L Carbon Dioxide BUN Creatinine Glucose 107 H POC Glucose Calcium Total Creatine Kinase 503 H 498 H CK-MB (CK-2) 69.6 H 51.9 H CK-MB (CK-2) Rel Index 13.8 H 10.4 H Troponin T 1.900 H* D 1.950 H* C-Reactive Protein NT-Pro-B Natriuret Pep Triglycerides HDL Cholesterol Urine WBC (Auto) 04/05/18 04/05/18 04/05/18 06:47 11:33 17:49 WBC RBC Hct MCHC Dickinson % (Auto) Dickinson # Seg Neuts % (Manual) Lymphocytes % (Manual) Monocytes % (Manual) Seg Neutrophils # Seg Neutrophils # Man Monocytes # (Manual) APTT Activated Clotting Time POC ABG pH POC ABG pCO2 POC ABG pO2 Sodium 128 L Potassium Chloride 88.7 L Carbon Dioxide BUN 18 H Creatinine Glucose 153 H POC Glucose 179 H 190 H Calcium Total Creatine Kinase 399 H CK-MB (CK-2) 35.5 H CK-MB (CK-2) Rel Index 8.8 H Troponin T 1.730 H* C-Reactive Protein NT-Pro-B Natriuret Pep Triglycerides HDL Cholesterol Urine WBC (Auto) 04/05/18 04/06/18 04/06/18 21:20 05:26 08:11 WBC RBC Hct MCHC Dickinson % (Auto) Dickinson # Seg Neuts % (Manual) Lymphocytes % (Manual) Monocytes % (Manual) Seg Neutrophils # Seg Neutrophils # Man Monocytes # (Manual) APTT Activated Clotting Time POC ABG pH POC ABG pCO2 POC ABG pO2 Sodium 130 L Potassium Chloride 91.2 L Carbon Dioxide 20 L BUN 28 H Creatinine Glucose 137 H POC Glucose 130 H 108 H Calcium 8.1 L Total Creatine Kinase CK-MB (CK-2) CK-MB (CK-2) Rel Index Troponin T C-Reactive Protein NT-Pro-B Natriuret Pep Triglycerides HDL Cholesterol Urine WBC (Auto) 04/06/18 04/06/18 04/07/18 08:11 21:35 00:14 WBC 19.3 H RBC Hct MCHC Dickinson % (Auto) Dickinson # Seg Neuts % (Manual) Lymphocytes % (Manual) Monocytes % (Manual) Seg Neutrophils # Seg Neutrophils # Man Monocytes # (Manual) APTT Activated Clotting Time POC ABG pH POC ABG pCO2 POC ABG pO2 Sodium Potassium Chloride Carbon Dioxide BUN Creatinine Glucose POC Glucose 188 H 146 H Calcium Total Creatine Kinase CK-MB (CK-2) CK-MB (CK-2) Rel Index Troponin T C-Reactive Protein NT-Pro-B Natriuret Pep Triglycerides HDL Cholesterol Urine WBC (Auto) 04/07/18 04/07/18 04/07/18 00:47 05:43 08:07 WBC 21.5 H RBC Hct MCHC Dickinson % (Auto) Dickinson # Seg Neuts % (Manual) 82.5 H Lymphocytes % (Manual) 7.0 L Monocytes % (Manual) 7.5 H Seg Neutrophils # Seg Neutrophils # Man 17.7 H Monocytes # (Manual) 1.6 H APTT Activated Clotting Time POC ABG pH POC ABG pCO2 POC ABG pO2 Sodium Potassium Chloride Carbon Dioxide BUN Creatinine Glucose POC Glucose 157 H Calcium Total Creatine Kinase 186 H CK-MB (CK-2) 13.2 H CK-MB (CK-2) Rel Index 7.0 H Troponin T 1.420 H* C-Reactive Protein NT-Pro-B Natriuret Pep Triglycerides HDL Cholesterol Urine WBC (Auto) 04/07/18 04/07/18 04/07/18 08:07 08:07 13:43 WBC RBC Hct MCHC Dickinson % (Auto) Dickinson # Seg Neuts % (Manual) Lymphocytes % (Manual) Monocytes % (Manual) Seg Neutrophils # Seg Neutrophils # Man Monocytes # (Manual) APTT > 20.0 L Activated Clotting Time POC ABG pH POC ABG pCO2 52.0 H POC ABG pO2 456 H Sodium 129 L Potassium Chloride 92.4 L Carbon Dioxide BUN 34 H Creatinine Glucose 152 H POC Glucose Calcium 8.3 L Total Creatine Kinase CK-MB (CK-2) CK-MB (CK-2) Rel Index Troponin T 1.300 H* C-Reactive Protein NT-Pro-B Natriuret Pep 73078 H Triglycerides HDL Cholesterol Urine WBC (Auto) 04/07/18 04/07/18 04/08/18 15:15 15:15 04:23 WBC 19.0 H RBC Hct MCHC Dickinson % (Auto) Dickinson # Seg Neuts % (Manual) Lymphocytes % (Manual) Monocytes % (Manual) Seg Neutrophils # Seg Neutrophils # Man Monocytes # (Manual) APTT Activated Clotting Time POC ABG pH 7.471 H POC ABG pCO2 POC ABG pO2 133 H Sodium Potassium Chloride Carbon Dioxide BUN Creatinine Glucose POC Glucose Calcium Total Creatine Kinase CK-MB (CK-2) CK-MB (CK-2) Rel Index Troponin T C-Reactive Protein NT-Pro-B Natriuret Pep Triglycerides HDL Cholesterol Urine WBC (Auto) 46.0 H 04/08/18 04/08/18 04/08/18 05:51 08:58 08:58 WBC 17.3 H RBC 3.59 L Hct MCHC Dickinson % (Auto) Dickinson # Seg Neuts % (Manual) Lymphocytes % (Manual) Monocytes % (Manual) Seg Neutrophils # Seg Neutrophils # Man Monocytes # (Manual) APTT Activated Clotting Time POC ABG pH POC ABG pCO2 POC ABG pO2 Sodium Potassium Chloride 97.7 L Carbon Dioxide BUN 27 H Creatinine Glucose 114 H POC Glucose 111 H Calcium 7.1 L Total Creatine Kinase CK-MB (CK-2) CK-MB (CK-2) Rel Index Troponin T C-Reactive Protein NT-Pro-B Natriuret Pep Triglycerides HDL Cholesterol Urine WBC (Auto) 04/08/18 04/08/1804/08/18 13:42 18:22 18:56 WBC RBC Hct MCHC Dickinson % (Auto) Dickinson # Seg Neuts % (Manual) Lymphocytes % (Manual) Monocytes % (Manual) Seg Neutrophils # Seg Neutrophils # Man Monocytes # (Manual) APTT Activated Clotting Time POC ABG pH POC ABG pCO2 POC ABG pO2 Sodium Potassium Chloride Carbon Dioxide BUN Creatinine Glucose POC Glucose 113 H 107 H Calcium Total Creatine Kinase CK-MB (CK-2) CK-MB (CK-2) Rel Index Troponin T C-Reactive Protein 11.30 H NT-Pro-B Natriuret Pep Triglycerides HDL Cholesterol Urine WBC (Auto) 04/09/18 04/09/18 04/09/18 04:41 05:00 05:00 WBC 12.2 H RBC 3.30 L Hct 30.2 L MCHC 35 H Dickinson % (Auto) Dickinson # Seg Neuts % (Manual) Lymphocytes % (Manual) Monocytes % (Manual) Seg Neutrophils # Seg Neutrophils # Man Monocytes # (Manual) APTT Activated Clotting Time POC ABG pH 7.556 H POC ABG pCO2 POC ABG pO2 Sodium 134 L Potassium 3.2 L Chloride 94.6 L Carbon Dioxide 32 H BUN 27 H Creatinine Glucose POC Glucose Calcium 7.3 L Total Creatine Kinase CK-MB (CK-2) CK-MB (CK-2) Rel Index Troponin T C-Reactive Protein NT-Pro-B Natriuret Pep Triglycerides HDL Cholesterol Urine WBC (Auto) 04/09/18 04/10/18 04/10/18 18:27 05:19 09:10 WBC 14.7 H RBC Hct MCHC Dickinson % (Auto) Dickinson # Seg Neuts % (Manual) Lymphocytes % (Manual) Monocytes % (Manual) Seg Neutrophils # Seg Neutrophils # Man Monocytes # (Manual) APTT Activated Clotting Time POC ABG pH 7.491 H POC ABG pCO2 POC ABG pO2 Sodium Potassium Chloride Carbon Dioxide BUN Creatinine Glucose POC Glucose 111 H Calcium Total Creatine Kinase CK-MB (CK-2) CK-MB (CK-2) Rel Index Troponin T C-Reactive Protein NT-Pro-B Natriuret Pep Triglycerides HDL Cholesterol Urine WBC (Auto) 04/10/18 04/10/18 04/10/18 09:10 13:36 Unknown WBC RBC Hct MCHC Dickinson % (Auto) Dickinson # Seg Neuts % (Manual) Lymphocytes % (Manual) Monocytes % (Manual) Seg Neutrophils # Seg Neutrophils # Man Monocytes # (Manual) APTT Activated Clotting Time POC ABG pH 7.524 H POC ABG pCO2 POC ABG pO2 329 H Sodium Potassium Chloride Carbon Dioxide BUN 26 H 25 H Creatinine Glucose POC Glucose Calcium 8.0 L 7.7 L Total Creatine Kinase CK-MB (CK-2) CK-MB (CK-2) Rel Index Troponin T C-Reactive Protein NT-Pro-B Natriuret Pep Triglycerides HDL Cholesterol Urine WBC (Auto) 04/11/18 04/11/18 04/11/18 00:05 05:34 11:00 WBC 13.1 H RBC 3.58 L Hct MCHC Dickinson % (Auto) Dickinson # Seg Neuts % (Manual) Lymphocytes % (Manual) Monocytes % (Manual) Seg Neutrophils # Seg Neutrophils # Man Monocytes # (Manual) APTT Activated Clotting Time POC ABG pH 7.517 H POC ABG pCO2 POC ABG pO2 79 L Sodium Potassium Chloride Carbon Dioxide BUN Creatinine Glucose POC Glucose 106 H Calcium Total Creatine Kinase CK-MB (CK-2) CK-MB (CK-2) Rel Index Troponin T C-Reactive Protein NT-Pro-B Natriuret Pep Triglycerides HDL Cholesterol Urine WBC (Auto) 04/11/18 11:00 WBC RBC Hct MCHC Dickinson % (Auto) Dickinson # Seg Neuts % (Manual) Lymphocytes % (Manual) Monocytes % (Manual) Seg Neutrophils # Seg Neutrophils # Man Monocytes # (Manual) APTT Activated Clotting Time POC ABG pH POC ABG pCO2 POC ABG pO2 Sodium Potassium Chloride Carbon Dioxide 32 H BUN 30 H Creatinine 0.6 L Glucose 105 H POC Glucose Calcium Total Creatine Kinase CK-MB (CK-2) CK-MB (CK-2) Rel Index Troponin T C-Reactive Protein NT-Pro-B Natriuret Pep Triglycerides HDL Cholesterol Urine WBC (Auto) Allied health notes reviewed: nursing
[2018-04-11] MEDS ORDERED: LASIX IV ONE (13:00)
[2018-04-11] MEDS ORDERED: HEPARIN/ 0.45% NACL-25,000 UNIT/500 ML 25,000 UNIT/500 ML BAG ONE ×2 (13:22)
[2018-04-11] MEDS ORDERED: LASIX ONE ×2 (13:23)
[2018-04-11] MEDS ORDERED: NACL 0.9% 500 ML 500 ML ONE ×2 (13:23)
[2018-04-11] MEDS: HEPARIN/ 0.45% NACL-25,000 UNIT/500 ML 25,000 UNIT/500 ML BAG IV SCH (13:27)
[2018-04-11 16:58] LABS: Hematocrit 35.8 % (30.3-42.9); Hemoglobin 12.3 gm/dl (10.1-14.3)
[2018-04-11 17:08] LABS: INR 0.97 (0.87-1.13)
[2018-04-11 17:30] LABS: Partial Thromboplastin Time 70.8 Sec. (24.2-36.6)
[2018-04-11] MEDS: KCL 20MEQ/100ML 20 MEQ/100 ML BAG IV SCH ×2 (18:49→19:51)
[2018-04-12] MEDS: MORPHINE IV PRN (00:21)
[2018-04-12 05:14] LABS: Hematocrit 35.7 % (30.3-42.9); Hemoglobin 11.7 gm/dl (10.1-14.3); Mean Corpuscular HGB Conc 33 % (30-34); Mean Corpuscular Hemoglobin 30 pg (28-32); Mean Corpuscular Volume 92 fl (79-97); Platelet Count 231 K/mm3 (140-440); Red Blood Count 3.87 M/mm3 (3.65-5.03); Red Cell Distribution Width 14.2 % (13.2-15.2)
[2018-04-12 05:50] LABS: BUN/Creatinine Ratio 43; Blood Urea Nitrogen 30 mg/dL (7-17); Calcium 8.4 mg/dL (8.4-10.2); Hemolysis Index 3
[2018-04-12] MEDS: PULMICORT IH SCH ×2 (08:14→20:33)
[2018-04-12] MEDS: BROVANA NEBU IH SCH ×2 (08:14→20:33)
[2018-04-12] MEDS: PEPCID PO SCH ×2 (09:20→21:29)
[2018-04-12] MEDS: LOPRESSOR PO SCH ×2 (09:20→23:55)
[2018-04-12] MEDS: BABY ASPIRIN PO SCH (09:21)
--- NOTE | 2018-04-12 09:21 | Progress Note ---
Assessment and Plan Assessment and plan: Acute respiratory failure likely from cardiogenic shock Extubated yesterday, 04/11,was intubated 04/07/18, Pulmonology/ critical care following Cardiogenic shock likely due to due to Takutsubo's cardiomyopathy placed on pressor and s/p IABP placed on 04/07, removed 04/09 Takutsubo's cardiomyopathy S/p emergent LHC on admission which revealed normal coronaries, EF 20-25%. repeat LHC 04/07 revealed no significant CAD, Severe anterior, radha-apical, and infero-apical dykinesis with EF ~ 20% c/w stress cardiomyopathy IABP was placed, now removed Acute encephalopathy first noted on 04/05/18 following admission delirium vs transient Amnesia vs TIA negative CT head/MRI, EEG, consulted neurology SIRS high WBC and SIRS likley to be due to Takutsubo's cardiomyopathy Follow blood cx, UA, b/l pleural congestion on CXR Cont on Zosyn till underlying infection r/o Leukocytosis. WBC 15 today Hyperlipidemia, cont statin Hypokalemia. Replace and recheck. GERD, cont Protonix H/o breast cancer For outpatient follow up when stable Full code status Poss transfer to Tele today. History Interval history: Patient extubated yesterday, No chest pain, No SOB Wants to eat Hospitalist Physical - Physical exam Narrative exam: General: Not in acute distress, lying in bed, HEENT:Normocephalic, atraumatic Neck:supple,no JVD Lungs: Clear to auscultation bilaterally, no crackles, no wheeze Heart:S1 and S2 regular, no murmurs, rubs or gallop Abd: soft, non tender,non distended, normal bowel sounds Ext: No edema, no clubbing or cyanosis Neuro: Awake,alert,oriented x 3, moves all ext - Constitutional Vitals: Temp Pulse Resp BP Pulse Ox 97.8 F 75 18 101/55 100 04/12/18 08:00 04/12/18 08:15 04/12/18 08:15 04/12/18 08:00 04/12/18 08:00 General appearance: Present: mild distress Results - Labs CBC & Chem 7: 04/12/18 04:27 04/12/18 04:27 Labs: Laboratory Last Values WBC 15.0 K/mm3 (4.5-11.0) H 04/12/18 04:27 RBC 3.87 M/mm3 (3.65-5.03) 04/12/18 04:27 Hgb 11.7 gm/dl (10.1-14.3) 04/12/18 04:27 Hct 35.7 % (30.3-42.9) 04/12/18 04:27 MCV 92 fl (79-97) 04/12/18 04:27 MCH 30 pg (28-32) 04/12/18 04:27 MCHC 33 % (30-34) 04/12/18 04:27 RDW 14.2 % (13.2-15.2) 04/12/18 04:27 Plt Count 231 K/mm3 (140-440) 04/12/18 04:27 Lymph % (Auto) 22.3 % (13.4-35.0) 04/04/18 06:12 [place] % (Auto) 9.2 % (0.0-7.3) H 04/04/18 06:12 Eos % (Auto) 0.7 % (0.0-4.3) 04/04/18 06:12 Baso % (Auto) 0.4 % (0.0-1.8) 04/04/18 06:12 Lymph # 3.0 K/mm3 (1.2-5.4) 04/04/18 06:12 [place] # 1.2 K/mm3 (0.0-0.8) H 04/04/18 06:12 Eos # 0.1 K/mm3 (0.0-0.4) 04/04/18 06:12 Baso # 0.1 K/mm3 (0.0-0.1) 04/04/18 06:12 Add Manual Diff Complete 04/07/18 08:07 Total Counted 200 04/07/18 08:07 Seg Neutrophils % 67.4 % (40.0-70.0) 04/04/18 06:12 Seg Neuts % (Manual) 82.5 % (40.0-70.0) H 04/07/18 08:07 Band Neutrophils % 2.0 % 04/07/18 08:07 Lymphocytes % (Manual) 7.0 % (13.4-35.0) L 04/07/18 08:07 Reactive Lymphs % (Man) 0 % 04/07/18 08:07 Monocytes % (Manual) 7.5 % (0.0-7.3) H 04/07/18 08:07 Eosinophils % (Manual) 0 % (0.0-4.3) 04/07/18 08:07 Basophils % (Manual) 0 % (0.0-1.8) 04/07/18 08:07 Metamyelocytes % 1.0 % 04/07/18 08:07 Myelocytes % 0 % 04/07/18 08:07 Promyelocytes % 0 % 04/07/18 08:07 Blast Cells % 0 % 04/07/18 08:07 Nucleated RBC % Not Reportable 04/07/18 08:07 Seg Neutrophils # 9.0 K/mm3 (1.8-7.7) H 04/04/18 06:12 Seg Neutrophils # Man 17.7 K/mm3 (1.8-7.7) H 04/07/18 08:07 Band Neutrophils # 0.4 K/mm3 04/07/18 08:07 Lymphocytes # (Manual) 1.5 K/mm3 (1.2-5.4) 04/07/18 08:07 Abs React Lymphs (Man) 0.0 K/mm3 04/07/18 08:07 Monocytes # (Manual) 1.6 K/mm3 (0.0-0.8) H 04/07/18 08:07 Eosinophils # (Manual) 0.0 K/mm3 (0.0-0.4) 04/07/18 08:07 Basophils # (Manual) 0.0 K/mm3 (0.0-0.1) 04/07/18 08:07 Metamyelocytes # 0.2 K/mm3 04/07/18 08:07 Myelocytes # 0.0 K/mm3 04/07/18 08:07 Promyelocytes # 0.0 K/mm3 04/07/18 08:07 Blast Cells # 0.0 K/mm3 04/07/18 08:07 WBC Morphology Not Reportable 04/07/18 08:07 Hypersegmented Neuts Not Reportable 04/07/18 08:07 Hyposegmented Neuts Not Reportable 04/07/18 08:07 Hypogranular Neuts Not Reportable 04/07/18 08:07 Smudge Cells Not Reportable 04/07/18 08:07 Toxic Granulation Not Reportable 04/07/18 08:07 Toxic Vacuolation Not Reportable 04/07/18 08:07 Dohle Bodies Not Reportable 04/07/18 08:07 Pelger-Huet Anomaly Not Reportable 04/07/18 08:07 Roxanne Rods Not Reportable 04/07/18 08:07 Platelet Estimate Appears normal 04/07/18 08:07 Clumped Platelets Not Reportable 04/07/18 08:07 Plt Clumps, EDTA Not Reportable 04/07/18 08:07 Large Platelets Not Reportable 04/07/18 08:07 Giant Platelets Not Reportable 04/07/18 08:07 Platelet Satelliting Not Reportable 04/07/18 08:07 Plt Morphology Comment Not Reportable 04/07/18 08:07 RBC Morphology Not Reportable 04/07/18 08:07 Dimorphic RBCs Not Reportable 04/07/18 08:07 Polychromasia Not Reportable 04/07/18 08:07 Hypochromasia Not Reportable 04/07/18 08:07 Poikilocytosis Not Reportable 04/07/18 08:07 Anisocytosis Not Reportable 04/07/18 08:07 Microcytosis Not Reportable 04/07/18 08:07 Macrocytosis Not Reportable 04/07/18 08:07 Spherocytes Not Reportable 04/07/18 08:07 Pappenheimer Bodies Not Reportable 04/07/18 08:07 Sickle Cells Not Reportable 04/07/18 08:07 Target Cells Not Reportable 04/07/18 08:07 Tear Drop Cells Not Reportable 04/07/18 08:07 Ovalocytes Not Reportable 04/07/18 08:07 Helmet Cells Not Reportable 04/07/18 08:07 [place] Bodies Not Reportable 04/07/18 08:07 [place] Rings Not Reportable 04/07/18 08:07 [place] Cells Not Reportable 04/07/18 08:07 Bite Cells Not Reportable 04/07/18 08:07 Crenated Cell Not Reportable 04/07/18 08:07 Elliptocytes Not Reportable 04/07/18 08:07 Acanthocytes (Spur) Not Reportable 04/07/18 08:07 Rouleaux Not Reportable 04/07/18 08:07 Hemoglobin C Crystals Not Reportable 04/07/18 08:07 Schistocytes Not Reportable 04/07/18 08:07 Malaria parasites Not Reportable 04/07/18 08:07 Abhijit Bodies Not Reportable 04/07/18 08:07 Hem Pathologist Commnt No 04/07/18 08:07 PT 13.4 Sec. (12.2-14.9) 04/11/18 16:43 INR 0.97 (0.87-1.13) 04/11/18 16:43 APTT 70.8 Sec. (24.2-36.6) H* 04/11/18 16:43 Activated Clotting Time 136 (74-137) 04/09/18 16:14 Heparin Anti-Xa Level 0.99 U.I./ml (0.3-0.7) H 04/12/18 04:27 POC ABG pH 7.523 (7.35-7.45) H 04/11/18 16:36 POC ABG pCO2 38.7 (35-45) 04/11/18 16:36 POC ABG pO2 90 (80-105) 04/11/18 16:36 POC ABG HCO3 31.9 04/11/18 16:36 POC ABG Total CO2 33 04/11/18 16:36 POC ABG O2 Sat 98 04/11/18 16:36 POC ABG Base Excess 9 04/11/18 16:36 FiO2 28 % 04/11/18 16:36 Sodium 139 mmol/L (137-145) 04/12/18 04:27 Potassium 4.0 mmol/L (3.6-5.0) 04/12/18 04:27 Chloride 95.7 mmol/L (98-107) L 04/12/18 04:27 Carbon Dioxide 28 mmol/L (22-30) 04/12/18 04:27 Anion Gap 19 mmol/L 04/12/18 04:27 BUN 30 mg/dL (7-17) H 04/12/18 04:27 Creatinine 0.7 mg/dL (0.7-1.2) 04/12/18 04:27 Estimated GFR > 60 ml/min 04/12/18 04:27 BUN/Creatinine Ratio 43 % 04/12/18 04:27 Glucose 81 mg/dL (65-100) 04/12/18 04:27 POC Glucose 91 (70-105) 04/12/18 05:36 Lactic Acid 1.50 mmol/L (0.7-2.0) 04/07/18 15:15 Calcium 8.4 mg/dL (8.4-10.2) 04/12/18 04:27 Magnesium 2.30 mg/dL (1.7-2.3) 04/10/18 Unknown Total Creatine Kinase 186 units/L (30-135) H 04/07/18 00:47 CK-MB (CK-2) 13.2 ng/mL (0.0-4.0) H 04/07/18 00:47 CK-MB (CK-2) Rel Index 7.0 (0-4) H 04/07/18 00:47 Troponin T 1.300 ng/mL (0.00-0.029) H* 04/07/18 08:07 C-Reactive Protein 11.30 mg/dL (0.00-1.30) H 04/08/18 18:56 NT-Pro-B Natriuret Pep 76776 pg/mL (0-900) H 04/07/18 08:07 Triglycerides 169 mg/dL (2-149) H 04/03/18 11:47 Cholesterol 158 mg/dL (50-199) 04/03/18 11:47 LDL Cholesterol Direct 80 mg/dL (50-130) 04/03/18 11:47 HDL Cholesterol 63 mg/dL (40-59) H 04/03/18 11:47 Cholesterol/HDL Ratio 2.50 % 04/03/18 11:47 Urine Color Yellow (Yellow) 04/07/18 15:15 Urine Turbidity Clear (Clear) 04/07/18 15:15 Urine pH 5.0 (5.0-7.0) 04/07/18 15:15 Ur Specific [place] 1.020 (1.003-1.030) 04/07/18 15:15 Urine Protein <15 mg/dl mg/dL (Negative) 04/07/18 15:15 Urine Glucose (UA) Neg mg/dL (Negative) 04/07/18 15:15 Urine Ketones Neg mg/dL (Negative) 04/07/18 15:15 Urine Blood Sm (Negative) 04/07/18 15:15 Urine Nitrite Neg (Negative) 04/07/18 15:15 Urine Bilirubin Neg (Negative) 04/07/18 15:15 Urine Urobilinogen < 2.0 mg/dL (<2.0) 04/07/18 15:15 Ur Leukocyte Esterase Mod (Negative) 04/07/18 15:15 Urine WBC (Auto) 46.0 /HPF (0.0-6.0) H 04/07/18 15:15 Urine RBC (Auto) 4.0 /HPF (0.0-6.0) 04/07/18 15:15 U Epithel Cells (Auto) < 1.0 /HPF (0-13.0) 04/07/18 15:15 Hyaline Casts 3 /LPF 04/07/18 15:15 Urine Mucus Few /HPF 04/07/18 15:15 Urine Yeast (Budding) Few /HPF 04/07/18 15:15 Blood Type A POSITIVE 04/03/18 11:47 Antibody Screen Negative 04/03/18 11:47
[2018-04-12] MEDS: COLACE FEEDTUBE SCH ×2 (09:23→23:55)
[2018-04-12] MEDS: CORDARONE 900 MG in D5W 482 ML IV SCH (10:28)
--- NOTE | 2018-04-12 10:56 | Progress Note ---
Assessment and Plan Switch IV amiodarone to PO. She may be transferred to telemetry unit later today. Ultimately, spironolactone may be initiated if her renal indices are stable. She may not be able to tolerate ACEI or ARB for now due to her low NL to borderline BPs. PT consult. - Patient Problems (1) Takotsubo cardiomyopathy Current Visit: Yes Status: Acute (2) Cardiogenic shock Current Visit: Yes Status: Resolved (3) Acute respiratory failure Current Visit: Yes Status: Resolved Qualifiers: Respiratory failure complication: hypoxia Qualified Code(s): J96.01 - Acute respiratory failure with hypoxia (4) Heart failure with reduced ejection fraction Current Visit: Yes Status: Acute (5) Paroxysmal atrial fibrillation with RVR Current Visit: Yes Status: Acute Subjective Date of service: 04/12/18 Principal diagnosis: Takutsubo CMP, Cardiogenic shock, Acute respiratory failure , HFrEF, Afib Interval history: She was extubated yesterday. She is sitting up in bed with no complaints. She has converted to sinus rhythm on IV amiodarone. Objective Vital Signs Temp Pulse Pulse Pulse Resp Resp BP 04/12/18 10:00 82 19 100/64 04/12/18 09:20 84 104/56 04/12/18 09:00 78 12 104/56 04/12/18 08:15 75 18 04/12/18 08:00 97.8 F 75 83 14 101/55 04/12/18 07:00 81 14 106/57 04/12/18 06:00 76 11 L 104/59 04/12/18 05:00 72 14 104/56 04/12/18 04:00 98.9 F 78 79 15 98/57 04/12/18 03:00 78 14 102/58 04/12/18 02:00 77 14 99/57 04/12/18 01:00 79 12 103/56 04/12/18 00:00 98.4 F 79 78 12 103/56 04/11/18 23:43 83 17 108/65 04/11/18 23:20 93 H 106/58 04/11/18 23:00 129 H 12 106/58 04/11/18 22:00 93 H 16 94/47 04/11/18 21:00 93 H 14 93/50 04/11/18 20:33 92 H 21 04/11/18 20:16 87 21 04/11/18 20:00 98.8 F 94 H 93 H 18 101/58 04/11/18 19:00 87 15 97/51 04/11/18 18:00 81 13 102/52 04/11/18 17:00 91 H 16 110/68 04/11/18 16:00 131 H 80 14 99/57 04/11/18 15:38 98.9 F 04/11/18 15:01 04/11/18 15:00 102 H 15 116/61 04/11/18 14:00 90 12 120/69 04/11/18 13:26 93 H 15 103/57 04/11/18 13:18 96 H 15 103/57 04/11/18 12:00 98.7 F 80 12 04/11/18 11:00 94 H 04/11/18 10:59 93 H 114/56 Last Vital Signs Temp 97.8 F 04/12/18 08:00 Pulse 82 04/12/18 10:00 Resp 19 04/12/18 10:00 BP 100/64 04/12/18 10:00 Pulse Ox 99 04/12/18 10:00 - Physical Examination General: No Apparent Distress HEENT: Positive: EOMI, Normocephaly, Mucus Membranes Moist Neck: Positive: neck supple, trachea midline Cardiac: Positive: Reg Rate and Rhythm, S1/S2 Lungs: Positive: clear to auscultation Neuro: Positive: Grossly Intact, Other (intubated) Abdomen: Positive: Soft, Active Bowel Sounds. Negative: Tender Skin: Positive: Clear. Negative: Rash Musculoskeletal: Normal Range of Motion Extremities: Present: normal. Absent: edema - Labs and Meds Coagulation 04/11/18 Range/Units 16:43 PT 13.4 (12.2-14.9) Sec. INR 0.97 (0.87-1.13) APTT 70.8 H* (24.2-36.6) Sec. CBC 04/11/18 04/11/18 04/12/18 Range/Units 11:00 16:43 04:27 WBC 13.1 H 15.0 H (4.5-11.0) K/mm3 RBC 3.58 L 3.87 (3.65-5.03) M/mm3 Hgb 10.9 12.3 11.7 (10.1-14.3) gm/dl Hct 33.2 35.8 35.7 (30.3-42.9) % Plt Count 221 244 231 (140-440) K/mm3 Comprehensive Metabolic Panel 04/11/18 04/12/18 Range/Units 11:00 04:27 Sodium 138 139 (137-145) mmol/L Potassium 3.7 4.0 (3.6-5.0) mmol/L Chloride 102.0 95.7 L (98-107) mmol/L Carbon Dioxide 32 H 28 (22-30) mmol/L BUN 30 H 30 H (7-17) mg/dL Creatinine 0.6 L 0.7 (0.7-1.2) mg/dL Glucose 105 H 81 (65-100) mg/dL Calcium 8.4 8.4 (8.4-10.2) mg/dL - Imaging and Cardiology EKG: image reviewed Echo: report reviewed - EKG Sinus rhythms and dysrhythmias: sinus rhythm Myocardial infarction: lateral MT (acute or rece - Allied health notes Allied health notes reviewed: nursing
--- NOTE | 2018-04-12 12:09 | Progress Note ---
Assessment and Plan Acute hypoxemic Resp Failure on MVS < 96 hours Acute Pulmonary Edema Shock (Cardiogenic =/- vasodilatory) Takutsubo's Cardiomyopathy - s/p emergent LHC which revealed normal coronaries; EF approx 20%) Acute Encephalopathy HTN Asthma Sinus Tachycardia Hyperlipidemia Hypokalemia Hyponatremia Leukocytosis GERD H/o breast Cancer (US Chest with bilateral mild to moderate effusions) - clinically doing much better and will treat effusions conservatively - continue aspiration precautions - follow clinically off AB's - continue supplemental oxygen to keep O2 Sats > 90% - prn gentle diuresis - cardiac disease modifying drugs per cardiology (re: B-blockers, SARAN-I etc) - continue long and short acting bronchodilators - continue GI prophylaxis - continue other care per attending / other consultants ... re-evaluate in am & prn ... transfer to telemetry ok .. 35' Subjective Date of service: 04/12/18 Principal diagnosis: Takutsubo CMP, Cardiogenic shock, Acute respiratory failure , HFrEF, Afib Interval history: Patient is seen today for: Takutsubo's cardiomyopathy; Chest Pain Seen and examined at bedside; 24hour events reviewed; nursing and respiratory care staff consulted; doing very well post extubation; sitting in chair; denies acute chest pains or increased SOB; No N/V/F/C Objective Vital Signs - 12hr 04/12/18 04/12/18 04/12/18 01:00 02:00 03:00 Temperature Pulse Rate 79 77 78 Pulse Rate [ Anterior Bilateral Throughout] Pulse Rate [ Apical] Respiratory 12 14 14 Rate Respiratory Rate [Anterior Bilateral Throughout] Blood Pressure 103/56 99/57 102/58 O2 Sat by Pulse 100 100 100 Oximetry 04/12/18 04/12/18 04/12/18 04:00 05:00 06:00 Temperature 98.9 F Pulse Rate 78 72 76 Pulse Rate [ Anterior Bilateral Throughout] Pulse Rate [ 79 Apical] Respiratory 15 14 11 L Rate Respiratory Rate [Anterior Bilateral Throughout] Blood Pressure 98/57 104/56 104/59 O2 Sat by Pulse 99 100 100 Oximetry 04/12/18 04/12/18 04/12/18 07:00 08:00 08:15 Temperature 97.8 F Pulse Rate 81 75 Pulse Rate [ 75 Anterior Bilateral Throughout] Pulse Rate [ 83 Apical] Respiratory 14 14 Rate Respiratory 18 Rate [Anterior Bilateral Throughout] Blood Pressure 106/57 101/55 O2 Sat by Pulse 100 100 Oximetry 04/12/18 04/12/18 04/12/18 09:00 09:20 10:00 Temperature Pulse Rate 78 84 82 Pulse Rate [ Anterior Bilateral Throughout] Pulse Rate [ Apical] Respiratory 12 19 Rate Respiratory Rate [Anterior Bilateral Throughout] Blood Pressure 104/56 104/56 100/64 O2 Sat by Pulse 99 99 Oximetry Constitutional: no acute distress, other (elderly looking CF, normocephalic and atraumatic; Sedated) Eyes: non-icteric ENT: oropharynx moist Neck: supple, no lymphadenopathy, JVD, other (no thyromegaly) Effort: mildly labored Ascultation: Bilateral: diminished breath sounds (Prolonged expiratory phase.), rhonchi (scant in posterior bases) Percussion: Bilateral: not dull Cardiovascular: regular rate and rhythm, murmur noted (systolic), other (no rubs ) Gastrointestinal: normoactive bowel sounds, soft, non-tender, non-distended, other (no palpable HSM) Integumentary: other (poor turgor) Extremities: no cyanosis, no edema, pulses normal, no ischemia or petechiae Neurologic: normal mental status, non-focal exam, pupils equal and round, CN II- XII normal Psychiatric: mood appropriate, affect normal CBC and BMP: 04/12/18 04:27 04/12/18 04:27 ABG, PT/INR, D-dimer: ABG POC ABG pH 7.523 (7.35-7.45) H 04/11/18 16:36 POC ABG pCO2 38.7 (35-45) 04/11/18 16:36 POC ABG pO2 90 (80-105) 04/11/18 16:36 POC ABG HCO3 31.9 04/11/18 16:36 POC ABG Total CO2 33 04/11/18 16:36 POC ABG O2 Sat 98 04/11/18 16:36 PT/INR, D-dimer PT 13.4 Sec. (12.2-14.9) 04/11/18 16:43 INR 0.97 (0.87-1.13) 04/11/18 16:43 Abnormal lab findings: Abnormal Labs 04/03/18 04/03/18 04/03/18 11:47 11:47 12:29 WBC 11.5 H RBC Hct MCHC Morris % (Auto) 10.8 H Morris # 1.2 H Seg Neuts % (Manual) Lymphocytes % (Manual) Monocytes % (Manual) Seg Neutrophils # Seg Neutrophils # Man Monocytes # (Manual) APTT Activated Clotting Time > 1000 H Heparin Anti-Xa Level POC ABG pH POC ABG pCO2 POC ABG pO2 Sodium 134 L Potassium 3.5 L Chloride 94.4 L Carbon Dioxide BUN 19 H Creatinine Glucose 121 H POC Glucose Calcium Total Creatine Kinase 155 H CK-MB (CK-2) 17.3 H CK-MB (CK-2) Rel Index 11.1 H Troponin T 0.368 H* C-Reactive Protein NT-Pro-B Natriuret Pep Triglycerides 169 H HDL Cholesterol 63 H Urine WBC (Auto) 04/03/18 04/04/18 04/04/18 16:59 06:12 06:12 WBC 13.3 H RBC Hct MCHC 35 H Morris % (Auto) 9.2 H Morris # 1.2 H Seg Neuts % (Manual) Lymphocytes % (Manual) Monocytes % (Manual) Seg Neutrophils # 9.0 H Seg Neutrophils # Man Monocytes # (Manual) APTT Activated Clotting Time Heparin Anti-Xa Level POC ABG pH POC ABG pCO2 POC ABG pO2 Sodium 132 L Potassium 3.4 L Chloride 94.8 L Carbon Dioxide BUN Creatinine Glucose 107 H POC Glucose Calcium Total Creatine Kinase 503 H 498 H CK-MB (CK-2) 69.6 H 51.9 H CK-MB (CK-2) Rel Index 13.8 H 10.4 H Troponin T 1.900 H* D 1.950 H* C-Reactive Protein NT-Pro-B Natriuret Pep Triglycerides HDL Cholesterol Urine WBC (Auto) 04/05/18 04/05/18 04/05/18 06:47 11:33 17:49 WBC RBC Hct MCHC Morris % (Auto) Morris # Seg Neuts % (Manual) Lymphocytes % (Manual) Monocytes % (Manual) Seg Neutrophils # Seg Neutrophils # Man Monocytes # (Manual) APTT Activated Clotting Time Heparin Anti-Xa Level POC ABG pH POC ABG pCO2 POC ABG pO2 Sodium 128 L Potassium Chloride 88.7 L Carbon Dioxide BUN 18 H Creatinine Glucose 153 H POC Glucose 179 H 190 H Calcium Total Creatine Kinase 399 H CK-MB (CK-2) 35.5 H CK-MB (CK-2) Rel Index 8.8 H Troponin T 1.730 H* C-Reactive Protein NT-Pro-B Natriuret Pep Triglycerides HDL Cholesterol Urine WBC (Auto) 04/05/18 04/06/18 04/06/18 21:20 05:26 08:11 WBC RBC Hct MCHC Morris % (Auto) Morris # Seg Neuts % (Manual) Lymphocytes % (Manual) Monocytes % (Manual) Seg Neutrophils # Seg Neutrophils # Man Monocytes # (Manual) APTT Activated Clotting Time Heparin Anti-Xa Level POC ABG pH POC ABG pCO2 POC ABG pO2 Sodium 130 L Potassium Chloride 91.2 L Carbon Dioxide 20 L BUN 28 H Creatinine Glucose 137 H POC Glucose 130 H 108 H Calcium 8.1 L Total Creatine Kinase CK-MB (CK-2) CK-MB (CK-2) Rel Index Troponin T C-Reactive Protein NT-Pro-B Natriuret Pep Triglycerides HDL Cholesterol Urine WBC (Auto) 04/06/18 04/06/18 04/07/18 08:11 21:35 00:14 WBC 19.3 H RBC Hct MCHC Morris % (Auto) Morris # Seg Neuts % (Manual) Lymphocytes % (Manual) Monocytes % (Manual) Seg Neutrophils # Seg Neutrophils # Man Monocytes # (Manual) APTT Activated Clotting Time Heparin Anti-Xa Level POC ABG pH POC ABG pCO2 POC ABG pO2 Sodium Potassium Chloride Carbon Dioxide BUN Creatinine Glucose POC Glucose 188 H 146 H Calcium Total Creatine Kinase CK-MB (CK-2) CK-MB (CK-2) Rel Index Troponin T C-Reactive Protein NT-Pro-B Natriuret Pep Triglycerides HDL Cholesterol Urine WBC (Auto) 04/07/18 04/07/18 04/07/18 00:47 05:43 08:07 WBC 21.5 H RBC Hct MCHC Morris % (Auto) Morris # Seg Neuts % (Manual) 82.5 H Lymphocytes % (Manual) 7.0 L Monocytes % (Manual) 7.5 H Seg Neutrophils # Seg Neutrophils # Man 17.7 H Monocytes # (Manual) 1.6 H APTT Activated Clotting Time Heparin Anti-Xa Level POC ABG pH POC ABG pCO2 POC ABG pO2 Sodium Potassium Chloride Carbon Dioxide BUN Creatinine Glucose POC Glucose 157 H Calcium Total Creatine Kinase 186 H CK-MB (CK-2) 13.2 H CK-MB (CK-2) Rel Index 7.0 H Troponin T 1.420 H* C-Reactive Protein NT-Pro-B Natriuret Pep Triglycerides HDL Cholesterol Urine WBC (Auto) 04/07/18 04/07/18 04/07/18 08:07 08:07 13:43 WBC RBC Hct MCHC Morris % (Auto) Morris # Seg Neuts % (Manual) Lymphocytes % (Manual) Monocytes % (Manual) Seg Neutrophils # Seg Neutrophils # Man Monocytes # (Manual) APTT > 20.0 L Activated Clotting Time Heparin Anti-Xa Level POC ABG pH POC ABG pCO2 52.0 H POC ABG pO2 456 H Sodium 129 L Potassium Chloride 92.4 L Carbon Dioxide BUN 34 H Creatinine Glucose 152 H POC Glucose Calcium 8.3 L Total Creatine Kinase CK-MB (CK-2) CK-MB (CK-2) Rel Index Troponin T 1.300 H* C-Reactive Protein NT-Pro-B Natriuret Pep 89936 H Triglycerides HDL Cholesterol Urine WBC (Auto) 04/07/18 04/07/18 04/08/18 15:15 15:15 04:23 WBC 19.0 H RBC Hct MCHC Morris % (Auto) Morris # Seg Neuts % (Manual) Lymphocytes % (Manual) Monocytes % (Manual) Seg Neutrophils # Seg Neutrophils # Man Monocytes # (Manual) APTT Activated Clotting Time Heparin Anti-Xa Level POC ABG pH 7.471 H POC ABG pCO2 POC ABG pO2 133 H Sodium Potassium Chloride Carbon Dioxide BUN Creatinine Glucose POC Glucose Calcium Total Creatine Kinase CK-MB (CK-2) CK-MB (CK-2) Rel Index Troponin T C-Reactive Protein NT-Pro-B Natriuret Pep Triglycerides HDL Cholesterol Urine WBC (Auto) 46.0 H 04/08/18 04/08/18 04/08/18 05:51 08:58 08:58 WBC 17.3 H RBC 3.59 L Hct MCHC Morris % (Auto) Morris # Seg Neuts % (Manual) Lymphocytes % (Manual) Monocytes % (Manual) Seg Neutrophils # Seg Neutrophils # Man Monocytes # (Manual) APTT Activated Clotting Time Heparin Anti-Xa Level POC ABG pH POC ABG pCO2 POC ABG pO2 Sodium Potassium Chloride 97.7 L Carbon Dioxide BUN 27 H Creatinine Glucose 114 H POC Glucose 111 H Calcium 7.1 L Total Creatine Kinase CK-MB (CK-2) CK-MB (CK-2) Rel Index Troponin T C-Reactive Protein NT-Pro-B Natriuret Pep Triglycerides HDL Cholesterol Urine WBC (Auto) 04/08/18 04/08/18 04/08/18 13:42 18:22 18:56 WBC RBC Hct MCHC Morris % (Auto) Morris # Seg Neuts % (Manual) Lymphocytes % (Manual) Monocytes % (Manual) Seg Neutrophils # Seg Neutrophils # Man Monocytes # (Manual) APTT Activated Clotting Time Heparin Anti-Xa Level POC ABG pH POC ABG pCO2 POC ABG pO2 Sodium Potassium Chloride Carbon Dioxide BUN Creatinine Glucose POC Glucose 113 H 107 H Calcium Total Creatine Kinase CK-MB (CK-2) CK-MB (CK-2) Rel Index Troponin T C-Reactive Protein 11.30 H NT-Pro-B Natriuret Pep Triglycerides HDL Cholesterol Urine WBC (Auto) 04/09/18 04/09/18 04/09/18 04:41 05:00 05:00 WBC 12.2 H RBC 3.30 L Hct 30.2 L MCHC 35 H Morris % (Auto) Morris # Seg Neuts % (Manual) Lymphocytes % (Manual) Monocytes % (Manual) Seg Neutrophils # Seg Neutrophils # Man Monocytes # (Manual) APTT Activated Clotting Time Heparin Anti-Xa Level POC ABG pH 7.556 H POC ABG pCO2 POC ABG pO2 Sodium 134 L Potassium 3.2 L Chloride 94.6 L Carbon Dioxide 32 H BUN 27 H Creatinine Glucose POC Glucose Calcium 7.3 L Total Creatine Kinase CK-MB (CK-2) CK-MB (CK-2) Rel Index Troponin T C-Reactive Protein NT-Pro-B Natriuret Pep Triglycerides HDL Cholesterol Urine WBC (Auto) 04/09/18 04/10/18 04/10/18 18:27 05:19 09:10 WBC 14.7 H RBC Hct MCHC Morris % (Auto) Morris # Seg Neuts % (Manual) Lymphocytes % (Manual) Monocytes % (Manual) Seg Neutrophils # Seg Neutrophils # Man Monocytes # (Manual) APTT Activated Clotting Time Heparin Anti-Xa Level POC ABG pH 7.491 H POC ABG pCO2 POC ABG pO2 Sodium Potassium Chloride Carbon Dioxide BUN Creatinine Glucose POC Glucose 111 H Calcium Total Creatine Kinase CK-MB (CK-2) CK-MB (CK-2) Rel Index Troponin T C-Reactive Protein NT-Pro-B Natriuret Pep Triglycerides HDL Cholesterol Urine WBC (Auto) 04/10/18 04/10/18 04/10/18 09:10 13:36 Unknown WBC RBC Hct MCHC Morris % (Auto) Morris # Seg Neuts % (Manual) Lymphocytes % (Manual) Monocytes % (Manual) Seg Neutrophils # Seg Neutrophils # Man Monocytes # (Manual) APTT Activated Clotting Time Heparin Anti-Xa Level POC ABG pH 7.524 H POC ABG pCO2 POC ABG pO2 329 H Sodium Potassium Chloride Carbon Dioxide BUN 26 H 25 H Creatinine Glucose POC Glucose Calcium 8.0 L 7.7 L Total Creatine Kinase CK-MB (CK-2) CK-MB (CK-2) Rel Index Troponin T C-Reactive Protein NT-Pro-B Natriuret Pep Triglycerides HDL Cholesterol Urine WBC (Auto) 04/11/18 04/11/18 04/11/18 00:05 05:34 11:00 WBC 13.1 H RBC 3.58 L Hct MCHC Morris % (Auto) Morris # Seg Neuts % (Manual) Lymphocytes % (Manual) Monocytes % (Manual) Seg Neutrophils # Seg Neutrophils # Man Monocytes # (Manual) APTT Activated Clotting Time Heparin Anti-Xa Level POC ABG pH 7.517 H POC ABG pCO2 POC ABG pO2 79 L Sodium Potassium Chloride Carbon Dioxide BUN Creatinine Glucose POC Glucose 106 H Calcium Total Creatine Kinase CK-MB (CK-2) CK-MB (CK-2) Rel Index Troponin T C-Reactive Protein NT-Pro-B Natriuret Pep Triglycerides HDL Cholesterol Urine WBC (Auto) 04/11/18 04/11/18 04/11/18 11:00 12:47 16:36 WBC RBC Hct MCHC Morris % (Auto) Morris # Seg Neuts % (Manual) Lymphocytes % (Manual) Monocytes % (Manual) Seg Neutrophils # Seg Neutrophils # Man Monocytes # (Manual) APTT Activated Clotting Time Heparin Anti-Xa Level POC ABG pH 7.523 H POC ABG pCO2 POC ABG pO2 Sodium Potassium Chloride Carbon Dioxide 32 H BUN 30 H Creatinine 0.6 L Glucose 105 H POC Glucose 116 H Calcium Total Creatine Kinase CK-MB (CK-2) CK-MB (CK-2) Rel Index Troponin T C-Reactive Protein NT-Pro-B Natriuret Pep Triglycerides HDL Cholesterol Urine WBC (Auto) 04/11/18 04/11/18 04/11/18 16:43 17:28 20:42 WBC RBC Hct MCHC Morris % (Auto) Morris # Seg Neuts % (Manual) Lymphocytes % (Manual) Monocytes % (Manual) Seg Neutrophils # Seg Neutrophils # Man Monocytes # (Manual) APTT 70.8 H* Activated Clotting Time Heparin Anti-Xa Level 0.89 H POC ABG pH POC ABG pCO2 POC ABG pO2 Sodium Potassium Chloride Carbon Dioxide BUN Creatinine Glucose POC Glucose 109 H Calcium Total Creatine Kinase CK-MB (CK-2) CK-MB (CK-2) Rel Index Troponin T C-Reactive Protein NT-Pro-B Natriuret Pep Triglycerides HDL Cholesterol Urine WBC (Auto) 04/12/18 04/12/18 04/12/18 04:27 04:27 04:27 WBC 15.0 H RBC Hct MCHC Morris % (Auto) Morris # Seg Neuts % (Manual) Lymphocytes % (Manual) Monocytes % (Manual) Seg Neutrophils # Seg Neutrophils # Man Monocytes # (Manual) APTT Activated Clotting Time Heparin Anti-Xa Level 0.99 H POC ABG pH POC ABG pCO2 POC ABG pO2 Sodium Potassium Chloride 95.7 L Carbon Dioxide BUN 30 H Creatinine Glucose POC Glucose Calcium Total Creatine Kinase CK-MB (CK-2) CK-MB (CK-2) Rel Index Troponin T C-Reactive Protein NT-Pro-B Natriuret Pep Triglycerides HDL Cholesterol Urine WBC (Auto) Allied health notes reviewed: nursing
[2018-04-12] MEDS: CORDARONE PO SCH ×2 (12:42→21:28)
[2018-04-12] MEDS: HEPARIN/ 0.45% NACL-25,000 UNIT/500 ML 25,000 UNIT/500 ML BAG IV SCH (20:07)
[2018-04-12] MEDS: NORCO 10/325 PO PRN (20:09)
[2018-04-12] MEDS: XANAX PO PRN (21:34)
[2018-04-13 06:52] LABS: Hematocrit 30.8 % (30.3-42.9); Hemoglobin 10.2 gm/dl (10.1-14.3)
[2018-04-13] MEDS: COLACE FEEDTUBE SCH ×2 (10:29→21:12)
[2018-04-13] MEDS: LOPRESSOR PO SCH ×2 (11:11→21:12)
[2018-04-13] MEDS: CORDARONE PO SCH ×2 (11:12→21:11)
[2018-04-13] MEDS: BABY ASPIRIN PO SCH (11:12)
[2018-04-13] MEDS: PEPCID PO SCH ×2 (11:30→21:11)
[2018-04-13] MEDS: NORCO 10/325 PO PRN (12:35)
--- NOTE | 2018-04-13 12:59 | Progress Note ---
Assessment and Plan Assessment and plan: Acute respiratory failure likely from cardiogenic shock Extubated yesterday, 04/11,was intubated 04/07/18, Pulmonology/ critical care following Cardiogenic shock likely due to due to Takutsubo's cardiomyopathy placed on pressor and s/p IABP placed on 04/07, removed 04/09 Takutsubo's cardiomyopathy S/p emergent LHC on admission which revealed normal coronaries, EF 20-25%. repeat LHC 04/07 revealed no significant CAD, Severe anterior, radha-apical, and infero-apical dykinesis with EF ~ 20% c/w stress cardiomyopathy IABP was placed, now removed Acute encephalopathy first noted on 04/05/18 following admission delirium vs transient Amnesia vs TIA negative CT head/MRI, EEG, consulted neurology SIRS high WBC and SIRS likley to be due to Takutsubo's cardiomyopathy Follow blood cx, UA, b/l pleural congestion on CXR Cont on Zosyn till underlying infection r/o Leukocytosis. Hyperlipidemia, cont statin Hypokalemia. Resolved GERD, cont Protonix H/o breast cancer For outpatient follow up when stable Full code status Poss dc home in few days. History Interval history: Patient extubated 04/11/17 She feels much better No chest pain, No SOB Hospitalist Physical - Physical exam Narrative exam: General: Not in acute distress, lying in bed, HEENT:Normocephalic, atraumatic Neck:supple,no JVD Lungs: Clear to auscultation bilaterally, no crackles, no wheeze Heart:S1 and S2 regular, no murmurs, rubs or gallop Abd: soft, non tender,non distended, normal bowel sounds Ext: No edema, no clubbing or cyanosis Neuro: Awake,alert,oriented x 3, moves all ext - Constitutional Vitals: Temp Pulse Resp BP Pulse Ox 98.1 F 77 18 104/55 100 04/13/18 03:43 04/13/18 11:11 04/13/18 03:43 04/13/18 03:43 04/13/18 03:43 General appearance: Present: mild distress Results - Labs CBC & Chem 7: 04/13/18 06:06 04/12/18 04:27 Labs: Laboratory Last Values WBC 15.0 K/mm3 (4.5-11.0) H 05/25/18 04:27 RBC 3.87 M/mm3 (3.65-5.03) 04/12/18 04:27 Hgb 10.2 gm/dl (10.1-14.3) 04/13/18 06:06 Hct 30.8 % (30.3-42.9) 04/13/18 06:06 MCV 92 fl (79-97) 04/12/18 04:27 MCH 30 pg (28-32) 04/12/18 04:27 MCHC 33 % (30-34) 04/12/18 04:27 RDW 14.2 % (13.2-15.2) 04/12/18 04:27 Plt Count 231 K/mm3 (140-440) 04/13/18 06:06 Lymph % (Auto) 22.3 % (13.4-35.0) 04/04/18 06:12 Sampson % (Auto) 9.2 % (0.0-7.3) H 04/04/18 06:12 Eos % (Auto) 0.7 % (0.0-4.3) 04/04/18 06:12 Baso % (Auto) 0.4 % (0.0-1.8) 04/04/18 06:12 Lymph # 3.0 K/mm3 (1.2-5.4) 04/04/18 06:12 Sampson # 1.2 K/mm3 (0.0-0.8) H 04/04/18 06:12 Eos # 0.1 K/mm3 (0.0-0.4) 04/04/18 06:12 Baso # 0.1 K/mm3 (0.0-0.1) 04/04/18 06:12 Add Manual Diff Complete 04/07/18 08:07 Total Counted 200 04/07/18 08:07 Seg Neutrophils % 67.4 % (40.0-70.0) 04/04/18 06:12 Seg Neuts % (Manual) 82.5 % (40.0-70.0) H 04/07/18 08:07 Band Neutrophils % 2.0 % 04/07/18 08:07 Lymphocytes % (Manual) 7.0 % (13.4-35.0) L 04/07/18 08:07 Reactive Lymphs % (Man) 0 % 04/07/18 08:07 Monocytes % (Manual) 7.5 % (0.0-7.3) H 04/07/18 08:07 Eosinophils % (Manual) 0 % (0.0-4.3) 04/07/18 08:07 Basophils % (Manual) 0 % (0.0-1.8) 04/07/18 08:07 Metamyelocytes % 1.0 % 04/07/18 08:07 Myelocytes % 0 % 04/07/18 08:07 Promyelocytes % 0 % 04/07/18 08:07 Blast Cells % 0 % 04/07/18 08:07 Nucleated RBC % Not Reportable 04/07/18 08:07 Seg Neutrophils # 9.0 K/mm3 (1.8-7.7) H 04/04/18 06:12 Seg Neutrophils # Man 17.7 K/mm3 (1.8-7.7) H 04/07/18 08:07 Band Neutrophils # 0.4 K/mm3 04/07/18 08:07 Lymphocytes # (Manual) 1.5 K/mm3 (1.2-5.4) 04/07/18 08:07 Abs React Lymphs (Man) 0.0 K/mm3 04/07/18 08:07 Monocytes # (Manual) 1.6 K/mm3 (0.0-0.8) H 04/07/18 08:07 Eosinophils # (Manual) 0.0 K/mm3 (0.0-0.4) 04/07/18 08:07 Basophils # (Manual) 0.0 K/mm3 (0.0-0.1) 04/07/18 08:07 Metamyelocytes # 0.2 K/mm3 04/07/18 08:07 Myelocytes # 0.0 K/mm3 04/07/18 08:07 Promyelocytes # 0.0 K/mm3 04/07/18 08:07 Blast Cells # 0.0 K/mm3 04/07/18 08:07 WBC Morphology Not Reportable 04/07/18 08:07 Hypersegmented Neuts Not Reportable 04/07/18 08:07 Hyposegmented Neuts Not Reportable 04/07/18 08:07 Hypogranular Neuts Not Reportable 04/07/18 08:07 Smudge Cells Not Reportable 04/07/18 08:07 Toxic Granulation Not Reportable 04/07/18 08:07 Toxic Vacuolation Not Reportable 04/07/18 08:07 Dohle Bodies Not Reportable 04/07/18 08:07 Pelger-Huet Anomaly Not Reportable 04/07/18 08:07 Roxanne Rods Not Reportable 04/07/18 08:07 Platelet Estimate Appears normal 04/07/18 08:07 Clumped Platelets Not Reportable 04/07/18 08:07 Plt Clumps, EDTA Not Reportable 04/07/18 08:07 Large Platelets Not Reportable 04/07/18 08:07 Giant Platelets Not Reportable 04/07/18 08:07 Platelet Satelliting Not Reportable 04/07/18 08:07 Plt Morphology Comment Not Reportable 04/07/18 08:07 RBC Morphology Not Reportable 04/07/18 08:07 Dimorphic RBCs Not Reportable 04/07/18 08:07 Polychromasia Not Reportable 04/07/18 08:07 Hypochromasia Not Reportable 04/07/18 08:07 Poikilocytosis Not Reportable 04/07/18 08:07 Anisocytosis Not Reportable 04/07/18 08:07 Microcytosis Not Reportable 04/07/18 08:07 Macrocytosis Not Reportable 04/07/18 08:07 Spherocytes Not Reportable 04/07/18 08:07 Pappenheimer Bodies Not Reportable 04/07/18 08:07 Sickle Cells Not Reportable 04/07/18 08:07 Target Cells Not Reportable 04/07/18 08:07 Tear Drop Cells Not Reportable 04/07/18 08:07 Ovalocytes Not Reportable 04/07/18 08:07 Helmet Cells Not Reportable 04/07/18 08:07 Dickerson-Ocosta Bodies Not Reportable 04/07/18 08:07 Sheffield Rings Not Reportable 04/07/18 08:07 Suman Cells Not Reportable 04/07/18 08:07 Bite Cells Not Reportable 04/07/18 08:07 Crenated Cell Not Reportable 04/07/18 08:07 Elliptocytes Not Reportable 04/07/18 08:07 Acanthocytes (Spur) Not Reportable 04/07/18 08:07 Rouleaux Not Reportable 04/07/18 08:07 Hemoglobin C Crystals Not Reportable 04/07/18 08:07 Schistocytes Not Reportable 04/07/18 08:07 Malaria parasites Not Reportable 04/07/18 08:07 Abhijit Bodies Not Reportable 04/07/18 08:07 Hem Pathologist Commnt No 04/07/18 08:07 PT 13.4 Sec. (12.2-14.9) 04/11/18 16:43 INR 0.97 (0.87-1.13) 04/11/18 16:43 APTT 70.8 Sec. (24.2-36.6) H* 04/11/18 16:43 Activated Clotting Time 136 (74-137) 04/09/18 16:14 Heparin Anti-Xa Level 0.69 U.I./ml (0.3-0.7) 04/12/18 14:44 POC ABG pH 7.523 (7.35-7.45) H 04/11/18 16:36 POC ABG pCO2 38.7 (35-45) 04/11/18 16:36 POC ABG pO2 90 (80-105) 04/11/18 16:36 POC ABG HCO3 31.9 04/11/18 16:36 POC ABG Total CO2 33 04/11/18 16:36 POC ABG O2 Sat 98 04/11/18 16:36 POC ABG Base Excess 9 04/11/18 16:36 FiO2 28 % 04/11/18 16:36 Sodium 139 mmol/L (137-145) 04/12/18 04:27 Potassium 4.0 mmol/L (3.6-5.0) 04/12/18 04:27 Chloride 95.7 mmol/L (98-107) L 04/12/18 04:27 Carbon Dioxide 28 mmol/L (22-30) 04/12/18 04:27 Anion Gap 19 mmol/L 04/12/18 04:27 BUN 30 mg/dL (7-17) H 04/12/18 04:27 Creatinine 0.7 mg/dL (0.7-1.2) 04/12/18 04:27 Estimated GFR > 60 ml/min 04/12/18 04:27 BUN/Creatinine Ratio 43 % 04/12/18 04:27 Glucose 81 mg/dL (65-100) 04/12/18 04:27 POC Glucose 95 (70-105) 04/13/18 06:11 Lactic Acid 1.50 mmol/L (0.7-2.0) 04/07/18 15:15 Calcium 8.4 mg/dL (8.4-10.2) 04/12/18 04:27 Magnesium 2.30 mg/dL (1.7-2.3) 04/10/18 Unknown Total Creatine Kinase 186 units/L (30-135) H 04/07/18 00:47 CK-MB (CK-2) 13.2 ng/mL (0.0-4.0) H 04/07/18 00:47 CK-MB (CK-2) Rel Index 7.0 (0-4) H 04/07/18 00:47 Troponin T 1.300 ng/mL (0.00-0.029) H* 04/07/18 08:07 C-Reactive Protein 11.30 mg/dL (0.00-1.30) H 04/08/18 18:56 NT-Pro-B Natriuret Pep 40281 pg/mL (0-900) H 04/07/18 08:07 Triglycerides 169 mg/dL (2-149) H 04/03/18 11:47 Cholesterol 158 mg/dL (50-199) 04/03/18 11:47 LDL Cholesterol Direct 80 mg/dL (50-130) 04/03/18 11:47 HDL Cholesterol 63 mg/dL (40-59) H 04/03/18 11:47 Cholesterol/HDL Ratio 2.50 % 04/03/18 11:47 Urine Color Yellow (Yellow) 04/07/18 15:15 Urine Turbidity Clear (Clear) 04/07/18 15:15 Urine pH 5.0 (5.0-7.0) 04/07/18 15:15 Ur Specific [place] 1.020 (1.003-1.030) 04/07/18 15:15 Urine Protein <15 mg/dl mg/dL (Negative) 04/07/18 15:15 Urine Glucose (UA) Neg mg/dL (Negative) 04/07/18 15:15 Urine Ketones Neg mg/dL (Negative) 04/07/18 15:15 Urine Blood Sm (Negative) 04/07/18 15:15 Urine Nitrite Neg (Negative) 04/07/18 15:15 Urine Bilirubin Neg (Negative) 04/07/18 15:15 Urine Urobilinogen < 2.0 mg/dL (<2.0) 04/07/18 15:15 Ur Leukocyte Esterase Mod (Negative) 04/07/18 15:15 Urine WBC (Auto) 46.0 /HPF (0.0-6.0) H 04/07/18 15:15 Urine RBC (Auto) 4.0 /HPF (0.0-6.0) 04/07/18 15:15 U Epithel Cells (Auto) < 1.0 /HPF (0-13.0) 04/07/18 15:15 Hyaline Casts 3 /LPF 04/07/18 15:15 Urine Mucus Few /HPF 04/07/18 15:15 Urine Yeast (Budding) Few /HPF 04/07/18 15:15 Blood Type A POSITIVE 04/03/18 11:47 Antibody Screen Negative 04/03/18 11:47
--- NOTE | 2018-04-13 13:56 | Progress Note ---
Assessment and Plan Patient awake. Resting on nasal canula 2.5 litres and O2 [id number] receiving aerosol treatment. No acute respiratory distress. - Patient Problems (1) Asthma Current Visit: Yes Status: Acute Qualifiers: Qualified Code(s): J45.909 - Unspecified asthma, uncomplicated Plan to address problem: O2 2.5 litres via nasal canula. Brovanna/Budesonide aerosol treatments q 12 hours. Albuterol/atrovent aerosol treatments q 6 hours prn for shortness of breath. Patient is on I/V Heparin. Heparin. PFTs as out Patient. (2) GERD (gastroesophageal reflux disease) Current Visit: Yes Status: Acute Qualifiers: Esophagitis presence: without esophagitis Qualified Code(s): K21.9 - Gastro -esophageal reflux disease without esophagitis Plan to address problem: Continue Protonix. (3) HTN (hypertension) Current Visit: Yes Status: Acute Qualifiers: Hypertension type: essential hypertension Qualified Code(s): I10 - Essential (primary) hypertension Plan to address problem: Management as per primary care. (4) Chest pain Current Visit: Yes Status: Acute Plan to address problem: Management as per cardiology. Subjective Date of service: 04/13/18 Principal diagnosis: Tak[place]o CMP, Cardiogenic shock, Acute respiratory failure , HFrEF, Afib Interval history: Patient awake. Resting on nasal canula 2.5 litres and O2 [id number] receiving aerosol treatment. No acute respiratory distress. Objective Vital Signs - 12hr 04/13/18 04/13/18 04/13/18 03:43 04:00 11:11 Temperature 98.1 F Pulse Rate 77 77 77 Respiratory 18 Rate Blood Pressure 104/55 O2 Sat by Pulse 100 Oximetry Constitutional: no acute distress, other (elderly looking CF, normocephalic and atraumatic; Sedated) Eyes: non-icteric ENT: oropharynx moist Neck: supple, no lymphadenopathy, JVD, other (no thyromegaly) Effort: mildly labored Ascultation: Bilateral: diminished breath sounds (Prolonged expiratory phase.), rhonchi (scant in posterior bases) Percussion: Bilateral: not dull Cardiovascular: regular rate and rhythm, murmur noted (systolic), other (no rubs ) Gastrointestinal: normoactive bowel sounds, soft, non-tender, non-distended, other (no palpable HSM) Integumentary: other (poor turgor) Extremities: no cyanosis, no edema, pulses normal, no ischemia or petechiae Neurologic: normal mental status, non-focal exam, pupils equal and round, CN II- XII normal Psychiatric: mood appropriate, affect normal CBC and BMP: 04/13/18 06:06 04/12/18 04:27 ABG, PT/INR, D-dimer: ABG POC ABG pH 7.523 (7.35-7.45) H 04/11/18 16:36 POC ABG pCO2 38.7 (35-45) 04/11/18 16:36 POC ABG pO2 90 (80-105) 04/11/18 16:36 POC ABG HCO3 31.9 04/11/18 16:36 POC ABG Total CO2 33 04/11/18 16:36 POC ABG O2 Sat 98 04/11/18 16:36 PT/INR, D-dimer PT 13.4 Sec. (12.2-14.9) 04/11/18 16:43 INR 0.97 (0.87-1.13) 04/11/18 16:43 Abnormal lab findings: Abnormal Labs 04/03/18 04/03/18 04/03/18 11:47 11:47 12:29 WBC 11.5 H RBC Hct MCHC [place] % (Auto) 10.8 H [place] # 1.2 H Seg Neuts % (Manual) Lymphocytes % (Manual) Monocytes % (Manual) Seg Neutrophils # Seg Neutrophils # Man Monocytes # (Manual) APTT Activated Clotting Time > 1000 H Heparin Anti-Xa Level POC ABG pH POC ABG pCO2 POC ABG pO2 Sodium 134 L Potassium 3.5 L Chloride 94.4 L Carbon Dioxide BUN 19 H Creatinine Glucose 121 H POC Glucose Calcium Total Creatine Kinase 155 H CK-MB (CK-2) 17.3 H CK-MB (CK-2) Rel Index 11.1 H Troponin T 0.368 H* C-Reactive Protein NT-Pro-B Natriuret Pep Triglycerides 169 H HDL Cholesterol 63 H Urine WBC (Auto) 04/03/18 04/04/18 04/04/18 16:59 06:12 06:12 WBC 13.3 H RBC Hct MCHC 35 H [place] % (Auto) 9.2 H [place] # 1.2 H Seg Neuts % (Manual) Lymphocytes % (Manual) Monocytes % (Manual) Seg Neutrophils # 9.0 H Seg Neutrophils # Man Monocytes # (Manual) APTT Activated Clotting Time Heparin Anti-Xa Level POC ABG pH POC ABG pCO2 POC ABG pO2 Sodium 132 L Potassium 3.4 L Chloride 94.8 L Carbon Dioxide BUN Creatinine Glucose 107 H POC Glucose Calcium Total Creatine Kinase 503 H 498 H CK-MB (CK-2) 69.6 H 51.9 H CK-MB (CK-2) Rel Index 13.8 H 10.4 H Troponin T 1.900 H* D 1.950 H* C-Reactive Protein NT-Pro-B Natriuret Pep Triglycerides HDL Cholesterol Urine WBC (Auto) 04/05/18 04/05/18 04/05/18 06:47 11:33 17:49 WBC RBC Hct MCHC [place] % (Auto) [place] # Seg Neuts % (Manual) Lymphocytes % (Manual) Monocytes % (Manual) Seg Neutrophils # Seg Neutrophils # Man Monocytes # (Manual) APTT Activated Clotting Time Heparin Anti-Xa Level POC ABG pH POC ABG pCO2 POC ABG pO2 Sodium 128 L Potassium Chloride 88.7 L Carbon Dioxide BUN 18 H Creatinine Glucose 153 H POC Glucose 179 H 190 H Calcium Total Creatine Kinase 399 H CK-MB (CK-2) 35.5 H CK-MB (CK-2) Rel Index 8.8 H Troponin T 1.730 H* C-Reactive Protein NT-Pro-B Natriuret Pep Triglycerides HDL Cholesterol Urine WBC (Auto) 04/05/18 04/06/18 04/06/18 21:20 05:26 08:11 WBC RBC Hct MCHC [place] % (Auto) [place] # Seg Neuts % (Manual) Lymphocytes % (Manual) Monocytes % (Manual) Seg Neutrophils # Seg Neutrophils # Man Monocytes # (Manual) APTT Activated Clotting Time Heparin Anti-Xa Level POC ABG pH POC ABG pCO2 POC ABG pO2 Sodium 130 L Potassium Chloride 91.2 L Carbon Dioxide 20 L BUN 28 H Creatinine Glucose 137 H POC Glucose 130 H 108 H Calcium 8.1 L Total Creatine Kinase CK-MB (CK-2) CK-MB (CK-2) Rel Index Troponin T C-Reactive Protein NT-Pro-B Natriuret Pep Triglycerides HDL Cholesterol Urine WBC (Auto) 05/04/06/18 04/07/18 08:11 21:35 00:14 WBC 19.3 H RBC Hct MCHC [place] % (Auto) [place] # Seg Neuts % (Manual) Lymphocytes % (Manual) Monocytes % (Manual) Seg Neutrophils # Seg Neutrophils # Man Monocytes # (Manual) APTT Activated Clotting Time Heparin Anti-Xa Level POC ABG pH POC ABG pCO2 POC ABG pO2 Sodium Potassium Chloride Carbon Dioxide BUN Creatinine Glucose POC Glucose 188 H 146 H Calcium Total Creatine Kinase CK-MB (CK-2) CK-MB (CK-2) Rel Index Troponin T C-Reactive Protein NT-Pro-B Natriuret Pep Triglycerides HDL Cholesterol Urine WBC (Auto) 04/07/18 04/07/18 04/07/18 00:47 05:43 08:07 WBC 21.5 H RBC Hct MCHC [place] % (Auto) [place] # Seg Neuts % (Manual) 82.5 H Lymphocytes % (Manual) 7.0 L Monocytes % (Manual) 7.5 H Seg Neutrophils # Seg Neutrophils # Man 17.7 H Monocytes # (Manual) 1.6 H APTT Activated Clotting Time Heparin Anti-Xa Level POC ABG pH POC ABG pCO2 POC ABG pO2 Sodium Potassium Chloride Carbon Dioxide BUN Creatinine Glucose POC Glucose 157 H Calcium Total Creatine Kinase 186 H CK-MB (CK-2) 13.2 H CK-MB (CK-2) Rel Index 7.0 H Troponin T 1.420 H* C-Reactive Protein NT-Pro-B Natriuret Pep Triglycerides HDL Cholesterol Urine WBC (Auto) 04/07/18 04/07/18 04/07/18 08:07 08:07 13:43 WBC RBC Hct MCHC [place] % (Auto) [place] # Seg Neuts % (Manual) Lymphocytes % (Manual) Monocytes % (Manual) Seg Neutrophils # Seg Neutrophils # Man Monocytes # (Manual) APTT > 20.0 L Activated Clotting Time Heparin Anti-Xa Level POC ABG pH POC ABG pCO2 52.0 H POC ABG pO2 456 H Sodium 129 L Potassium Chloride 92.4 L Carbon Dioxide BUN 34 H Creatinine Glucose 152 H POC Glucose Calcium 8.3 L Total Creatine Kinase CK-MB (CK-2) CK-MB (CK-2) Rel Index Troponin T 1.300 H* C-Reactive Protein NT-Pro-B Natriuret Pep 50110 H Triglycerides HDL Cholesterol Urine WBC (Auto) 04/07/18 04/07/18 04/08/18 15:15 15:15 04:23 WBC 19.0 H RBC Hct MCHC [place] % (Auto) [place] # Seg Neuts % (Manual) Lymphocytes % (Manual) Monocytes % (Manual) Seg Neutrophils # Seg Neutrophils # Man Monocytes # (Manual) APTT Activated Clotting Time Heparin Anti-Xa Level POC ABG pH 7.471 H POC ABG pCO2 POC ABG pO2 133 H Sodium Potassium Chloride Carbon Dioxide BUN Creatinine Glucose POC Glucose Calcium Total Creatine Kinase CK-MB (CK-2) CK-MB (CK-2) Rel Index Troponin T C-Reactive Protein NT-Pro-B Natriuret Pep Triglycerides HDL Cholesterol Urine WBC (Auto) 46.0 H 04/08/18 04/08/18 04/08/18 05:51 08:58 08:58 WBC 17.3 H RBC 3.59 L Hct MCHC [place] % (Auto) [place] # Seg Neuts % (Manual) Lymphocytes % (Manual) Monocytes % (Manual) Seg Neutrophils # Seg Neutrophils # Man Monocytes # (Manual) APTT Activated Clotting Time Heparin Anti-Xa Level POC ABG pH POC ABG pCO2 POC ABG pO2 Sodium Potassium Chloride 97.7 L Carbon Dioxide BUN 27 H Creatinine Glucose 114 H POC Glucose 111 H Calcium 7.1 L Total Creatine Kinase CK-MB (CK-2) CK-MB (CK-2) Rel Index Troponin T C-Reactive Protein NT-Pro-B Natriuret Pep Triglycerides HDL Cholesterol Urine WBC (Auto) 04/08/18 04/08/18 04/08/18 13:42 18:22 18:56 WBC RBC Hct MCHC [place] % (Auto) [place] # Seg Neuts % (Manual) Lymphocytes % (Manual) Monocytes % (Manual) Seg Neutrophils # Seg Neutrophils # Man Monocytes # (Manual) APTT Activated Clotting Time Heparin Anti-Xa Level POC ABG pH POC ABG pCO2 POC ABG pO2 Sodium Potassium Chloride Carbon Dioxide BUN Creatinine Glucose POC Glucose 113 H 107 H Calcium Total Creatine Kinase CK-MB (CK-2) CK-MB (CK-2) Rel Index Troponin T C-Reactive Protein 11.30 H NT-Pro-B Natriuret Pep Triglycerides HDL Cholesterol Urine WBC (Auto) 04/09/18 04/09/18 04/09/18 04:41 05:00 05:00 WBC 12.2 H RBC 3.30 L Hct 30.2 L MCHC 35 H [place] % (Auto) [place] # Seg Neuts % (Manual) Lymphocytes % (Manual) Monocytes % (Manual) Seg Neutrophils # Seg Neutrophils # Man Monocytes # (Manual) APTT Activated Clotting Time Heparin Anti-Xa Level POC ABG pH 7.556 H POC ABG pCO2 POC ABG pO2 Sodium 134 L Potassium 3.2 L Chloride 94.6 L Carbon Dioxide 32 H BUN 27 H Creatinine Glucose POC Glucose Calcium 7.3 L Total Creatine Kinase CK-MB (CK-2) CK-MB (CK-2) Rel Index Troponin T C-Reactive Protein NT-Pro-B Natriuret Pep Triglycerides HDL Cholesterol Urine WBC (Auto) 04/09/18 04/10/18 04/10/18 18:27 05:19 09:10 WBC 14.7 H RBC Hct MCHC [place] % (Auto) [place] # Seg Neuts % (Manual) Lymphocytes % (Manual) Monocytes % (Manual) Seg Neutrophils # Seg Neutrophils # Man Monocytes # (Manual) APTT Activated Clotting Time Heparin Anti-Xa Level POC ABG pH 7.491 H POC ABG pCO2 POC ABG pO2 Sodium Potassium Chloride Carbon Dioxide BUN Creatinine Glucose POC Glucose 111 H Calcium Total Creatine Kinase CK-MB (CK-2) CK-MB (CK-2) Rel Index Troponin T C-Reactive Protein NT-Pro-B Natriuret Pep Triglycerides HDL Cholesterol Urine WBC (Auto) 04/10/18 04/10/18 04/10/18 09:10 13:36 Unknown WBC RBC Hct MCHC [place] % (Auto) [place] # Seg Neuts % (Manual) Lymphocytes % (Manual) Monocytes % (Manual) Seg Neutrophils # Seg Neutrophils # Man Monocytes # (Manual) APTT Activated Clotting Time Heparin Anti-Xa Level POC ABG pH 7.524 H POC ABG pCO2 POC ABG pO2 329 H Sodium Potassium Chloride Carbon Dioxide BUN 26 H 25 H Creatinine Glucose POC Glucose Calcium 8.0 L 7.7 L Total Creatine Kinase CK-MB (CK-2) CK-MB (CK-2) Rel Index Troponin T C-Reactive Protein NT-Pro-B Natriuret Pep Triglycerides HDL Cholesterol Urine WBC (Auto) 04/11/18 04/11/18 04/11/18 00:05 05:34 11:00 WBC 13.1 H RBC 3.58 L Hct MCHC [place] % (Auto) [place] # Seg Neuts % (Manual) Lymphocytes % (Manual) Monocytes % (Manual) Seg Neutrophils # Seg Neutrophils # Man Monocytes # (Manual) APTT Activated Clotting Time Heparin Anti-Xa Level POC ABG pH 7.517 H POC ABG pCO2 POC ABG pO2 79 L Sodium Potassium Chloride Carbon Dioxide BUN Creatinine Glucose POC Glucose 106 H Calcium Total Creatine Kinase CK-MB (CK-2) CK-MB (CK-2) Rel Index Troponin T C-Reactive Protein NT-Pro-B Natriuret Pep Triglycerides HDL Cholesterol Urine WBC (Auto) 04/11/18 04/11/18 04/11/18 11:00 12:47 16:36 WBC RBC Hct MCHC [place] % (Auto) [place] # Seg Neuts % (Manual) Lymphocytes % (Manual) Monocytes % (Manual) Seg Neutrophils # Seg Neutrophils # Man Monocytes # (Manual) APTT Activated Clotting Time Heparin Anti-Xa Level POC ABG pH 7.523 H POC ABG pCO2 POC ABG pO2 Sodium Potassium Chloride Carbon Dioxide 32 H BUN 30 H Creatinine 0.6 L Glucose 105 H POC Glucose 116 H Calcium Total Creatine Kinase CK-MB (CK-2) CK-MB (CK-2) Rel Index Troponin T C-Reactive Protein NT-Pro-B Natriuret Pep Triglycerides HDL Cholesterol Urine WBC (Auto) 04/11/18 04/11/18 04/11/18 16:43 17:28 20:42 WBC RBC Hct MCHC [place] % (Auto) [place] # Seg Neuts % (Manual) Lymphocytes % (Manual) Monocytes % (Manual) Seg Neutrophils # Seg Neutrophils # Man Monocytes # (Manual) APTT 70.8 H* Activated Clotting Time Heparin Anti-Xa Level 0.89 H POC ABG pH POC ABG pCO2 POC ABG pO2 Sodium Potassium Chloride Carbon Dioxide BUN Creatinine Glucose POC Glucose 109 H Calcium Total Creatine Kinase CK-MB (CK-2) CK-MB (CK-2) Rel Index Troponin T C-Reactive Protein NT-Pro-B Natriuret Pep Triglycerides HDL Cholesterol Urine WBC (Auto) 04/12/18 04/12/18 04/12/18 04:27 04:27 04:27 WBC 15.0 H RBC Hct MCHC [place] % (Auto) [place] # Seg Neuts % (Manual) Lymphocytes % (Manual) Monocytes % (Manual) Seg Neutrophils # Seg Neutrophils # Man Monocytes # (Manual) APTT Activated Clotting Time Heparin Anti-Xa Level 0.99 H POC ABG pH POC ABG pCO2 POC ABG pO2 Sodium Potassium Chloride 95.7 L Carbon Dioxide BUN 30 H Creatinine Glucose POC Glucose Calcium Total Creatine Kinase CK-MB (CK-2) CK-MB (CK-2) Rel Index Troponin T C-Reactive Protein NT-Pro-B Natriuret Pep Triglycerides HDL Cholesterol Urine WBC (Auto) 04/12/18 23:15 WBC RBC Hct MCHC [place] % (Auto) [place] # Seg Neuts % (Manual) Lymphocytes % (Manual) Monocytes % (Manual) Seg Neutrophils # Seg Neutrophils # Man Monocytes # (Manual) APTT Activated Clotting Time Heparin Anti-Xa Level POC ABG pH POC ABG pCO2 POC ABG pO2 Sodium Potassium Chloride Carbon Dioxide BUN Creatinine Glucose POC Glucose 109 H Calcium Total Creatine Kinase CK-MB (CK-2) CK-MB (CK-2) Rel Index Troponin T C-Reactive Protein NT-Pro-B Natriuret Pep Triglycerides HDL Cholesterol Urine WBC (Auto) Chest x-ray: report reviewed (Stable pulmonary vascular congestion. Bilateral pleural effusions.), image reviewed Allied health notes reviewed: nursing
--- NOTE | 2018-04-13 19:39 | Progress Note ---
Assessment and Plan patient having intermittent atrial fibrillation. - Patient Problems (1) GERD (gastroesophageal reflux disease) Current Visit: Yes Status: Acute Qualifiers: Esophagitis presence: without esophagitis Qualified Code(s): K21.9 - Gastro -esophageal reflux disease without esophagitis (2) History of breast cancer Current Visit: Yes Status: Acute (3) Paroxysmal atrial fibrillation Current Visit: Yes Status: Acute (4) Takotsubo cardiomyopathy Current Visit: Yes Status: Acute Subjective Date of service: 04/13/18 Principal diagnosis: [place] CMP, Cardiogenic shock, Acute respiratory failure , HFrEF, Afib Interval history: patient feeling better,periods of S.R,atrial fibrillation.No chest pain. Objective Vital Signs Temp Pulse Pulse Resp Resp BP Pulse Ox 04/13/18 16:54 98.6 F 84 18 95/59 98 04/13/18 15:14 69 18 04/13/18 14:57 74 18 04/13/18 14:44 98 04/13/18 14:39 77 04/13/18 12:35 20 04/13/18 12:05 97.9 F 91 H 18 108/55 99 04/13/18 11:11 77 04/13/18 08:19 98.1 F 82 18 100/56 98 04/13/18 04:00 77 04/13/18 03:43 98.1 F 77 18 104/55 100 04/12/18 23:09 98.4 F 84 18 108/53 97 04/12/18 20:33 67 16 04/12/18 20:09 20 - Physical Examination General: No Apparent Distress HEENT: Positive: EOMI, Normocephaly, Mucus Membranes Moist Neck: Positive: neck supple, trachea midline Cardiac: Positive: Regular Rhythm (with periods of atrial fibrillation.) Neuro: Positive: Grossly Intact, Other (intubated) Abdomen: Positive: Soft, Active Bowel Sounds. Negative: Tender Skin: Positive: Clear. Negative: Rash Musculoskeletal: Normal Range of Motion Extremities: Present: normal. Absent: edema - Labs and Meds CBC 04/13/18 Range/Units 06:06 Hgb 10.2 (10.1-14.3) gm/dl Hct 30.8 (30.3-42.9) % Plt Count 231 (140-440) K/mm3 - Imaging and Cardiology EKG: image reviewed Echo: report reviewed - EKG Sinus rhythms and dysrhythmias: sinus rhythm Myocardial infarction: lateral SC (acute or rece - Allied health notes Allied health notes reviewed: nursing
[2018-04-13] MEDS: HEPARIN/ 0.45% NACL-25,000 UNIT/500 ML 25,000 UNIT/500 ML BAG IV SCH (20:34)
[2018-04-13] MEDS: XANAX PO PRN (21:11)
[2018-04-14] MEDS: BROVANA NEBU IH SCH ×4 (08:02→19:44)
[2018-04-14] MEDS: PULMICORT IH SCH ×4 (08:03→19:44)
[2018-04-14] MEDS: COLACE FEEDTUBE SCH ×2 (11:00→21:39)
[2018-04-14] MEDS: LOPRESSOR PO SCH (11:00)
[2018-04-14] MEDS: PEPCID PO SCH ×2 (11:00→21:38)
[2018-04-14] MEDS: BABY ASPIRIN PO SCH (11:00)
[2018-04-14] MEDS: CORDARONE PO SCH ×2 (11:00→21:38)
[2018-04-14] MEDS: XANAX PO PRN ×2 (14:00→21:36)
--- NOTE | 2018-04-14 16:58 | Progress Note ---
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 repeat LHC 04/07 revealed no significant CAD, Severe anterior, radha-apical, and infero-apical dykinesis with EF ~ 20% c/w stress cardiomyopathy IABP was placed, now removed Acute encephalopathy first noted on 04/05/18 following admission delirium vs transient Amnesia vs TIA negative CT head/MRI, EEG, consulted neurology Much improved, She is now awake,alert,oriented. SIRS high WBC and SIRS likley to be due to Takutsubo's cardiomyopathy Blood cx, Urine culture- no growth b/l pleural congestion on CXR Discontinued Zosyn Leukocytosis. Hyperlipidemia, cont statin Hypokalemia. Resolved GERD, cont Protonix H/o breast cancer For outpatient follow up when stable Full code status Likely discharge in few days. History Interval history: Patient extubated 04/11/17 She feels much better No chest pain, No SOB Hospitalist Physical - Physical exam Narrative exam: General: Not in acute distress, lying in bed, HEENT:Normocephalic, atraumatic Neck:supple,no JVD Lungs: Clear to auscultation bilaterally, no crackles, no wheeze Heart:S1 and S2 regular, no murmurs, rubs or gallop Abd: soft, non tender,non distended, normal bowel sounds Ext: No edema, no clubbing or cyanosis Neuro: Awake,alert,oriented x 3, moves all ext - Constitutional Vitals: Temp Pulse Resp BP Pulse Ox 98.2 F 87 20 116/59 98 04/14/18 11:26 04/14/18 11:26 04/14/18 11:26 04/14/18 11:26 04/14/18 15:54 Results - Labs CBC & Chem 7: 04/15/18 08:16 04/14/18 17:23 Labs: Laboratory Last Values WBC 15.0 K/mm3 (4.5-11.0) H 04/12/18 04:27 RBC 3.87 M/mm3 (3.65-5.03) 04/12/18 04:27 Hgb 10.2 gm/dl (10.1-14.3) 04/13/18 06:06 Hct 30.8 % (30.3-42.9) 04/13/18 06:06 MCV 92 fl (79-97) 04/12/18 04:27 MCH 30 pg (28-32) 04/12/18 04:27 MCHC 33 % (30-34) 04/12/18 04:27 RDW 14.2 % (13.2-15.2) 04/12/18 04:27 Plt Count 231 K/mm3 (140-440) 04/13/18 06:06 Lymph % (Auto) 22.3 % (13.4-35.0) 04/04/18 06:12 Bureau % (Auto) 9.2 % (0.0-7.3) H 04/04/18 06:12 Eos % (Auto) 0.7 % (0.0-4.3) 04/04/18 06:12 Baso % (Auto) 0.4 % (0.0-1.8) 04/04/18 06:12 Lymph # 3.0 K/mm3 (1.2-5.4) 04/04/18 06:12 Bureau # 1.2 K/mm3 (0.0-0.8) H 04/04/18 06:12 Eos # 0.1 K/mm3 (0.0-0.4) 04/04/18 06:12 Baso # 0.1 K/mm3 (0.0-0.1) 04/04/18 06:12 Add Manual Diff Complete 04/07/18 08:07 Total Counted 200 04/07/18 08:07 Seg Neutrophils % 67.4 % (40.0-70.0) 04/04/18 06:12 Seg Neuts % (Manual) 82.5 % (40.0-70.0) H 04/07/18 08:07 Band Neutrophils % 2.0 % 04/07/18 08:07 Lymphocytes % (Manual) 7.0 % (13.4-35.0) L 04/07/18 08:07 Reactive Lymphs % (Man) 0 % 04/07/18 08:07 Monocytes % (Manual) 7.5 % (0.0-7.3) H 04/07/18 08:07 Eosinophils % (Manual) 0 % (0.0-4.3) 04/07/18 08:07 Basophils % (Manual) 0 % (0.0-1.8) 04/07/18 08:07 Metamyelocytes % 1.0 % 04/07/18 08:07 Myelocytes % 0 % 04/07/18 08:07 Promyelocytes % 0 % 04/07/18 08:07 Blast Cells % 0 % 04/07/18 08:07 Nucleated RBC % Not Reportable 04/07/18 08:07 Seg Neutrophils # 9.0 K/mm3 (1.8-7.7) H 04/04/18 06:12 Seg Neutrophils # Man 17.7 K/mm3 (1.8-7.7) H 04/07/18 08:07 Band Neutrophils # 0.4 K/mm3 04/07/18 08:07 Lymphocytes # (Manual) 1.5 K/mm3 (1.2-5.4) 04/07/18 08:07 Abs React Lymphs (Man) 0.0 K/mm3 04/07/18 08:07 Monocytes # (Manual) 1.6 K/mm3 (0.0-0.8) H 04/07/18 08:07 Eosinophils # (Manual) 0.0 K/mm3 (0.0-0.4) 04/07/18 08:07 Basophils # (Manual) 0.0 K/mm3 (0.0-0.1) 04/07/18 08:07 Metamyelocytes # 0.2 K/mm3 04/07/18 08:07 Myelocytes # 0.0 K/mm3 04/07/18 08:07 Promyelocytes # 0.0 K/mm3 04/07/18 08:07 Blast Cells # 0.0 K/mm3 04/07/18 08:07 WBC Morphology Not Reportable 04/07/18 08:07 Hypersegmented Neuts Not Reportable 04/07/18 08:07 Hyposegmented Neuts Not Reportable 04/07/18 08:07 Hypogranular Neuts Not Reportable 04/07/18 08:07 Smudge Cells Not Reportable 04/07/18 08:07 Toxic Granulation Not Reportable 04/07/18 08:07 Toxic Vacuolation Not Reportable 04/07/18 08:07 Dohle Bodies Not Reportable 04/07/18 08:07 Pelger-Huet Anomaly Not Reportable 04/07/18 08:07 Roxanne Rods Not Reportable 04/07/18 08:07 Platelet Estimate Appears normal 04/07/18 08:07 Clumped Platelets Not Reportable 04/07/18 08:07 Plt Clumps, EDTA Not Reportable 04/07/18 08:07 Large Platelets Not Reportable 04/07/18 08:07 Giant Platelets Not Reportable 04/07/18 08:07 Platelet Satelliting Not Reportable 04/07/18 08:07 Plt Morphology Comment Not Reportable 04/07/18 08:07 RBC Morphology Not Reportable 04/07/18 08:07 Dimorphic RBCs Not Reportable 04/07/18 08:07 Polychromasia Not Reportable 04/07/18 08:07 Hypochromasia Not Reportable 04/07/18 08:07 Poikilocytosis Not Reportable 04/07/18 08:07 Anisocytosis Not Reportable 04/07/18 08:07 Microcytosis Not Reportable 04/07/18 08:07 Macrocytosis Not Reportable 04/07/18 08:07 Spherocytes Not Reportable 04/07/18 08:07 Pappenheimer Bodies Not Reportable 04/07/18 08:07 Sickle Cells Not Reportable 04/07/18 08:07 Target Cells Not Reportable 04/07/18 08:07 Tear Drop Cells Not Reportable 04/07/18 08:07 Ovalocytes Not Reportable 04/07/18 08:07 Helmet Cells Not Reportable 04/07/18 08:07 [place] Bodies Not Reportable 04/07/18 08:07 [place] Rings Not Reportable 04/07/18 08:07 Suman Cells Not Reportable 04/07/18 08:07 Bite Cells Not Reportable 04/07/18 08:07 Crenated Cell Not Reportable 04/07/18 08:07 Elliptocytes Not Reportable 04/07/18 08:07 Acanthocytes (Spur) Not Reportable 04/07/18 08:07 Rouleaux Not Reportable 04/07/18 08:07 Hemoglobin C Crystals Not Reportable 04/07/18 08:07 Schistocytes Not Reportable 04/07/18 08:07 Malaria parasites Not Reportable 04/07/18 08:07 Abhijit Bodies Not Reportable 04/07/18 08:07 Hem Pathologist Commnt No 04/07/18 08:07 PT 13.4 Sec. (12.2-14.9) 04/11/18 16:43 INR 0.97 (0.87-1.13) 04/11/18 16:43 APTT 70.8 Sec. (24.2-36.6) H* 04/11/18 16:43 Activated Clotting Time 136 (74-137) 04/09/18 16:14 Heparin Anti-Xa Level 0.54 U.I./ml (0.3-0.7) 04/14/18 13:45 POC ABG pH 7.523 (7.35-7.45) H 04/11/18 16:36 POC ABG pCO2 38.7 (35-45) 04/11/18 16:36 POC ABG pO2 90 (80-105) 04/11/18 16:36 POC ABG HCO3 31.9 04/11/18 16:36 POC ABG Total CO2 33 04/11/18 16:36 POC ABG O2 Sat 98 04/11/18 16:36 POC ABG Base Excess 9 04/11/18 16:36 FiO2 28 % 04/11/18 16:36 Sodium 139 mmol/L (137-145) 04/12/18 04:27 Potassium 4.0 mmol/L (3.6-5.0) 04/12/18 04:27 Chloride 95.7 mmol/L (98-107) L 04/12/18 04:27 Carbon Dioxide 28 mmol/L (22-30) 04/12/18 04:27 Anion Gap 19 mmol/L 04/12/18 04:27 BUN 30 mg/dL (7-17) H 04/12/18 04:27 Creatinine 0.7 mg/dL (0.7-1.2) 04/12/18 04:27 Estimated GFR > 60 ml/min 04/12/18 04:27 BUN/Creatinine Ratio 43 % 04/12/18 04:27 Glucose 81 mg/dL (65-100) 04/12/18 04:27 POC Glucose 90 (70-105) 04/14/18 16:44 Lactic Acid 1.50 mmol/L (0.7-2.0) 04/07/18 15:15 Calcium 8.4 mg/dL (8.4-10.2) 04/12/18 04:27 Magnesium 2.30 mg/dL (1.7-2.3) 04/10/18 Unknown Total Creatine Kinase 186 units/L (30-135) H 04/07/18 00:47 CK-MB (CK-2) 13.2 ng/mL (0.0-4.0) H 04/07/18 00:47 CK-MB (CK-2) Rel Index 7.0 (0-4) H 04/07/18 00:47 Troponin T 1.300 ng/mL (0.00-0.029) H* 04/07/18 08:07 C-Reactive Protein 11.30 mg/dL (0.00-1.30) H 04/08/18 18:56 NT-Pro-B Natriuret Pep 80570 pg/mL (0-900) H 04/07/18 08:07 Triglycerides 169 mg/dL (2-149) H 04/03/18 11:47 Cholesterol 158 mg/dL (50-199) 04/03/18 11:47 LDL Cholesterol Direct 80 mg/dL (50-130) 04/03/18 11:47 HDL Cholesterol 63 mg/dL (40-59) H 04/03/18 11:47 Cholesterol/HDL Ratio 2.50 % 04/03/18 11:47 Urine Color Yellow (Yellow) 04/07/18 15:15 Urine Turbidity Clear (Clear) 04/07/18 15:15 Urine pH 5.0 (5.0-7.0) 04/07/18 15:15 Ur Specific [place] 1.020 (1.003-1.030) 04/07/18 15:15 Urine Protein <15 mg/dl mg/dL (Negative) 04/07/18 15:15 Urine Glucose (UA) Neg mg/dL (Negative) 04/07/18 15:15 Urine Ketones Neg mg/dL (Negative) 04/07/18 15:15 Urine Blood Sm (Negative) 04/07/18 15:15 Urine Nitrite Neg (Negative) 04/07/18 15:15 Urine Bilirubin Neg (Negative) 04/07/18 15:15 Urine Urobilinogen < 2.0 mg/dL (<2.0) 04/07/18 15:15 Ur Leukocyte Esterase Mod (Negative) 04/07/18 15:15 Urine WBC (Auto) 46.0 /HPF (0.0-6.0) H 04/07/18 15:15 Urine RBC (Auto) 4.0 /HPF (0.0-6.0) 04/07/18 15:15 U Epithel Cells (Auto) < 1.0 /HPF (0-13.0) 04/07/18 15:15 Hyaline Casts 3 /LPF 04/07/18 15:15 Urine Mucus Few /HPF 04/07/18 15:15 Urine Yeast (Budding) Few /HPF 04/07/18 15:15 Blood Type A POSITIVE 04/03/18 11:47 Antibody Screen Negative 04/03/18 11:47
--- NOTE | 2018-04-14 17:46 | Progress Note ---
Assessment and Plan patient having intermittent atrial fibrillation. 04/14/2018>patient continues to be in S.R .Will start Eliquis,add small dose of Losartan,discussed with pt and her grand daughter. - Patient Problems (1) GERD (gastroesophageal reflux disease) Current Visit: Yes Status: Acute Qualifiers: Esophagitis presence: without esophagitis Qualified Code(s): K21.9 - Gastro -esophageal reflux disease without esophagitis (2) History of breast cancer Current Visit: Yes Status: Acute (3) Paroxysmal atrial fibrillation Current Visit: Yes Status: Acute (4) Takotsubo cardiomyopathy Current Visit: Yes Status: Acute Subjective Date of service: 04/14/18 Principal diagnosis: Takutsubo CMP, Cardiogenic shock, Acute respiratory failure , HFrEF, Afib Interval history: patient feeling better,periods of S.R,atrial fibrillation.No chest pain. Objective Vital Signs Temp Pulse Pulse Resp Resp BP Pulse Ox 04/14/18 15:54 98 04/14/18 15:37 98.0 F 85 20 106/57 96 04/14/18 11:26 98.2 F 87 20 116/59 99 04/14/18 11:00 90 119/57 04/14/18 08:19 97.6 F 90 18 119/57 98 04/14/18 08:12 89 20 04/14/18 08:05 98 04/14/18 08:00 88 18 04/14/18 04:41 98.5 F 78 18 104/57 96 04/14/18 00:06 98.3 F 80 18 105/53 98 04/13/18 19:19 98.2 F 90 18 117/68 99 - Physical Examination General: No Apparent Distress HEENT: Positive: EOMI, Normocephaly, Mucus Membranes Moist Neck: Positive: neck supple, trachea midline Cardiac: Positive: Regular Rhythm Lungs: Positive: Decreased Breath Sounds Neuro: Positive: Grossly Intact, Other (intubated) Abdomen: Positive: Soft, Active Bowel Sounds. Negative: Tender Skin: Positive: Clear. Negative: Rash Musculoskeletal: Normal Range of Motion Extremities: Present: normal. Absent: edema - Imaging and Cardiology EKG: image reviewed Echo: report reviewed - EKG Sinus rhythms and dysrhythmias: sinus rhythm Myocardial infarction: lateral AK (acute or rece - Allied health notes Allied health notes reviewed: nursing
[2018-04-14 17:58] LABS: Hematocrit 35.4 % (30.3-42.9); Hemoglobin 11.6 gm/dl (10.1-14.3); Mean Corpuscular HGB Conc 33 % (30-34); Mean Corpuscular Hemoglobin 31 pg (28-32); Mean Corpuscular Volume 93 fl (79-97); Platelet Count 301 K/mm3 (140-440); Red Cell Distribution Width 13.8 % (13.2-15.2)
[2018-04-14 18:18] LABS: BUN/Creatinine Ratio 26; Blood Urea Nitrogen 18 mg/dL (7-17); Calcium 8.8 mg/dL (8.4-10.2); Hemolysis Index 80
[2018-04-14] MEDS: NORCO 10/325 PO PRN (20:16)
--- NOTE | 2018-04-14 20:43 | Progress Note ---
Assessment and Plan Patient sleeping.. Resting on nasal canula 2 litres and O2 [id number] No acute respiratory distress. - Patient Problems (1) Asthma Current Visit: Yes Status: Acute Qualifiers: Qualified Code(s): J45.909 - Unspecified asthma, uncomplicated Plan to address problem: O2 2litres via nasal canula. Brovanna/Budesonide aerosol treatments q 12 hours. Albuterol/atrovent aerosol treatments q 6 hours prn for shortness of breath. Patient is on Apixaban.. PFTs as out Patient. (2) GERD (gastroesophageal reflux disease) Current Visit: Yes Status: Acute Qualifiers: Esophagitis presence: without esophagitis Qualified Code(s): K21.9 - Gastro -esophageal reflux disease without esophagitis Plan to address problem: Continue Protonix. (3) HTN (hypertension) Current Visit: Yes Status: Acute Qualifiers: Hypertension type: essential hypertension Qualified Code(s): I10 - Essential (primary) hypertension Plan to address problem: Management as per primary care. (4) Chest pain Current Visit: Yes Status: Acute Plan to address problem: Management as per cardiology. Subjective Date of service: 04/14/18 Principal diagnosis: Takutsubo CMP, Cardiogenic shock, Acute respiratory failure , HFrEF, Afib Interval history: Patient sleeping.. Resting on nasal canula 2 litres and O2 [id number] No acute respiratory distress. Objective Vital Signs - 12hr 04/14/18 04/14/18 04/14/18 11:00 11:26 15:37 Temperature 98.2 F 98.0 F Pulse Rate 90 87 85 Pulse Rate [ Anterior Bilateral Throughout] Respiratory 20 20 Rate Respiratory Rate [Anterior Bilateral Throughout] Blood Pressure 119/57 116/59 106/57 Blood Pressure [Left] O2 Sat by Pulse 99 96 Oximetry 04/14/18 04/14/18 04/14/18 15:54 19:47 19:48 Temperature Pulse Rate Pulse Rate [ 94 H Anterior Bilateral Throughout] Respiratory Rate Respiratory 20 Rate [Anterior Bilateral Throughout] Blood Pressure Blood Pressure [Left] O2 Sat by Pulse 98 99 Oximetry 04/14/18 04/14/18 19:59 20:14 Temperature 98.7 F Pulse Rate 91 H Pulse Rate [ 92 H Anterior Bilateral Throughout] Respiratory 20 Rate Respiratory 20 Rate [Anterior Bilateral Throughout] Blood Pressure Blood Pressure 119/66 [Left] O2 Sat by Pulse 100 Oximetry Constitutional: no acute distress, asleep, other (elderly looking CF, normocephalic and atraumatic; Sleeping at this time.) Eyes: non-icteric ENT: oropharynx moist Neck: supple, no lymphadenopathy, JVD, other (no thyromegaly) Effort: mildly labored Ascultation: Bilateral: diminished breath sounds (Prolonged expiratory phase.), rhonchi (scant in posterior bases) Percussion: Bilateral: not dull Cardiovascular: regular rate and rhythm, murmur noted (systolic), other (no rubs ) Gastrointestinal: normoactive bowel sounds, soft, non-tender, non-distended, other (no palpable HSM) Integumentary: other (poor turgor) Extremities: no cyanosis, no edema, pulses normal, no ischemia or petechiae Neurologic: normal mental status, non-focal exam, pupils equal and round, CN II- XII normal Psychiatric: mood appropriate, affect normal CBC and BMP: 04/14/18 17:23 04/14/18 17:23 ABG, PT/INR, D-dimer: ABG POC ABG pH 7.523 (7.35-7.45) H 04/11/18 16:36 POC ABG pCO2 38.7 (35-45) 04/11/18 16:36 POC ABG pO2 90 (80-105) 04/11/18 16:36 POC ABG HCO3 31.9 04/11/18 16:36 POC ABG Total CO2 33 04/11/18 16:36 POC ABG O2 Sat 98 04/11/18 16:36 PT/INR, D-dimer PT 13.4 Sec. (12.2-14.9) 04/11/18 16:43 INR 0.97 (0.87-1.13) 04/11/18 16:43 Abnormal lab findings: Abnormal Labs 04/03/18 04/03/18 04/03/18 11:47 11:47 12:29 WBC 11.5 H RBC Hct MCHC [place] % (Auto) 10.8 H [place] # 1.2 H Seg Neuts % (Manual) Lymphocytes % (Manual) Monocytes % (Manual) Seg Neutrophils # Seg Neutrophils # Man Monocytes # (Manual) APTT Activated Clotting Time > 1000 H Heparin Anti-Xa Level POC ABG pH POC ABG pCO2 POC ABG pO2 Sodium 134 L Potassium 3.5 L Chloride 94.4 L Carbon Dioxide BUN 19 H Creatinine Glucose 121 H POC Glucose Calcium Total Creatine Kinase 155 H CK-MB (CK-2) 17.3 H CK-MB (CK-2) Rel Index 11.1 H Troponin T 0.368 H* C-Reactive Protein NT-Pro-B Natriuret Pep Triglycerides 169 H HDL Cholesterol 63 H Urine WBC (Auto) 04/03/18 04/04/18 04/04/18 16:59 06:12 06:12 WBC 13.3 H RBC Hct MCHC 35 H [place] % (Auto) 9.2 H [place] # 1.2 H Seg Neuts % (Manual) Lymphocytes % (Manual) Monocytes % (Manual) Seg Neutrophils # 9.0 H Seg Neutrophils # Man Monocytes # (Manual) APTT Activated Clotting Time Heparin Anti-Xa Level POC ABG pH POC ABG pCO2 POC ABG pO2 Sodium 132 L Potassium 3.4 L Chloride 94.8 L Carbon Dioxide BUN Creatinine Glucose 107 H POC Glucose Calcium Total Creatine Kinase 503 H 498 H CK-MB (CK-2) 69.6 H 51.9 H CK-MB (CK-2) Rel Index 13.8 H 10.4 H Troponin T 1.900 H* D 1.950 H* C-Reactive Protein NT-Pro-B Natriuret Pep Triglycerides HDL Cholesterol Urine WBC (Auto) 04/05/18 04/05/18 04/05/18 06:47 11:33 17:49 WBC RBC Hct MCHC [place] % (Auto) [place] # Seg Neuts % (Manual) Lymphocytes % (Manual) Monocytes % (Manual) Seg Neutrophils # Seg Neutrophils # Man Monocytes # (Manual) APTT Activated Clotting Time Heparin Anti-Xa Level POC ABG pH POC ABG pCO2 POC ABG pO2 Sodium 128 L Potassium Chloride 88.7 L Carbon Dioxide BUN 18 H Creatinine Glucose 153 H POC Glucose 179 H 190 H Calcium Total Creatine Kinase 399 H CK-MB (CK-2) 35.5 H CK-MB (CK-2) Rel Index 8.8 H Troponin T 1.730 H* C-Reactive Protein NT-Pro-B Natriuret Pep Triglycerides HDL Cholesterol Urine WBC (Auto) 04/05/18 04/06/18 04/06/18 21:20 05:26 08:11 WBC RBC Hct MCHC [place] % (Auto) [place] # Seg Neuts % (Manual) Lymphocytes % (Manual) Monocytes % (Manual) Seg Neutrophils # Seg Neutrophils # Man Monocytes # (Manual) APTT Activated Clotting Time Heparin Anti-Xa Level POC ABG pH POC ABG pCO2 POC ABG pO2 Sodium 130 L Potassium Chloride 91.2 L Carbon Dioxide 20 L BUN 28 H Creatinine Glucose 137 H POC Glucose 130 H 108 H Calcium 8.1 L Total Creatine Kinase CK-MB (CK-2) CK-MB (CK-2) Rel Index Troponin T C-Reactive Protein NT-Pro-B Natriuret Pep Triglycerides HDL Cholesterol Urine WBC (Auto) 04/06/18 04/06/18 04/07/18 08:11 21:35 00:14 WBC 19.3 H RBC Hct MCHC [place] % (Auto) [place] # Seg Neuts % (Manual) Lymphocytes % (Manual) Monocytes % (Manual) Seg Neutrophils # Seg Neutrophils # Man Monocytes # (Manual) APTT Activated Clotting Time Heparin Anti-Xa Level POC ABG pH POC ABG pCO2 POC ABG pO2 Sodium Potassium Chloride Carbon Dioxide BUN Creatinine Glucose POC Glucose 188 H 146 H Calcium Total Creatine Kinase CK-MB (CK-2) CK-MB (CK-2) Rel Index Troponin T C-Reactive Protein NT-Pro-B Natriuret Pep Triglycerides HDL Cholesterol Urine WBC (Auto) 04/07/18 04/07/18 04/07/18 00:47 05:43 08:07 WBC 21.5 H RBC Hct MCHC [place] % (Auto) [place] # Seg Neuts % (Manual) 82.5 H Lymphocytes % (Manual) 7.0 L Monocytes % (Manual) 7.5 H Seg Neutrophils # Seg Neutrophils # Man 17.7 H Monocytes # (Manual) 1.6 H APTT Activated Clotting Time Heparin Anti-Xa Level POC ABG pH POC ABG pCO2 POC ABG pO2 Sodium Potassium Chloride Carbon Dioxide BUN Creatinine Glucose POC Glucose 157 H Calcium Total Creatine Kinase 186 H CK-MB (CK-2) 13.2 H CK-MB (CK-2) Rel Index 7.0 H Troponin T 1.420 H* C-Reactive Protein NT-Pro-B Natriuret Pep Triglycerides HDL Cholesterol Urine WBC (Auto) 04/07/18 04/07/18 04/07/18 08:07 08:07 13:43 WBC RBC Hct MCHC [place] % (Auto) [place] # Seg Neuts % (Manual) Lymphocytes % (Manual) Monocytes % (Manual) Seg Neutrophils # Seg Neutrophils # Man Monocytes # (Manual) APTT > 20.0 L Activated Clotting Time Heparin Anti-Xa Level POC ABG pH POC ABG pCO2 52.0 H POC ABG pO2 456 H Sodium 129 L Potassium Chloride 92.4 L Carbon Dioxide BUN 34 H Creatinine Glucose 152 H POC Glucose Calcium 8.3 L Total Creatine Kinase CK-MB (CK-2) CK-MB (CK-2) Rel Index Troponin T 1.300 H* C-Reactive Protein NT-Pro-B Natriuret Pep 59079 H Triglycerides HDL Cholesterol Urine WBC (Auto) 04/07/18 04/07/18 04/08/18 15:15 15:15 04:23 WBC 19.0 H RBC Hct MCHC [place] % (Auto) [place] # Seg Neuts % (Manual) Lymphocytes % (Manual) Monocytes % (Manual) Seg Neutrophils # Seg Neutrophils # Man Monocytes # (Manual) APTT Activated Clotting Time Heparin Anti-Xa Level POC ABG pH 7.471 H POC ABG pCO2 POC ABG pO2 133 H Sodium Potassium Chloride Carbon Dioxide BUN Creatinine Glucose POC Glucose Calcium Total Creatine Kinase CK-MB (CK-2) CK-MB (CK-2) Rel Index Troponin T C-Reactive Protein NT-Pro-B Natriuret Pep Triglycerides HDL Cholesterol Urine WBC (Auto) 46.0 H 04/08/18 04/08/18 04/08/18 05:51 08:58 08:58 WBC 17.3 H RBC 3.59 L Hct MCHC [place] % (Auto) [place] # Seg Neuts % (Manual) Lymphocytes % (Manual) Monocytes % (Manual) Seg Neutrophils # Seg Neutrophils # Man Monocytes # (Manual) APTT Activated Clotting Time Heparin Anti-Xa Level POC ABG pH POC ABG pCO2 POC ABG pO2 Sodium Potassium Chloride 97.7 L Carbon Dioxide BUN 27 H Creatinine Glucose 114 H POC Glucose 111 H Calcium 7.1 L Total Creatine Kinase CK-MB (CK-2) CK-MB (CK-2) Rel Index Troponin T C-Reactive Protein NT-Pro-B Natriuret Pep Triglycerides HDL Cholesterol Urine WBC (Auto) 04/08/18 04/08/18 04/08/18 13:42 18:22 18:56 WBC RBC Hct MCHC [place] % (Auto) [place] # Seg Neuts % (Manual) Lymphocytes % (Manual) Monocytes % (Manual) Seg Neutrophils # Seg Neutrophils # Man Monocytes # (Manual) APTT Activated Clotting Time Heparin Anti-Xa Level POC ABG pH POC ABG pCO2 POC ABG pO2 Sodium Potassium Chloride Carbon Dioxide BUN Creatinine Glucose POC Glucose 113 H 107 H Calcium Total Creatine Kinase CK-MB (CK-2) CK-MB (CK-2) Rel Index Troponin T C-Reactive Protein 11.30 H NT-Pro-B Natriuret Pep Triglycerides HDL Cholesterol Urine WBC (Auto) 04/09/18 04/09/18 04/09/18 04:41 05:00 05:00 WBC 12.2 H RBC 3.30 L Hct 30.2 L MCHC 35 H [place] % (Auto) [place] # Seg Neuts % (Manual) Lymphocytes % (Manual) Monocytes % (Manual) Seg Neutrophils # Seg Neutrophils # Man Monocytes # (Manual) APTT Activated Clotting Time Heparin Anti-Xa Level POC ABG pH 7.556 H POC ABG pCO2 POC ABG pO2 Sodium 134 L Potassium 3.2 L Chloride 94.6 L Carbon Dioxide 32 H BUN 27 H Creatinine Glucose POC Glucose Calcium 7.3 L Total Creatine Kinase CK-MB (CK-2) CK-MB (CK-2) Rel Index Troponin T C-Reactive Protein NT-Pro-B Natriuret Pep Triglycerides HDL Cholesterol Urine WBC (Auto) 04/09/18 04/10/18 04/10/18 18:27 05:19 09:10 WBC 14.7 H RBC Hct MCHC [place] % (Auto) [place] # Seg Neuts % (Manual) Lymphocytes % (Manual) Monocytes % (Manual) Seg Neutrophils # Seg Neutrophils # Man Monocytes # (Manual) APTT Activated Clotting Time Heparin Anti-Xa Level POC ABG pH 7.491 H POC ABG pCO2 POC ABG pO2 Sodium Potassium Chloride Carbon Dioxide BUN Creatinine Glucose POC Glucose 111 H Calcium Total Creatine Kinase CK-MB (CK-2) CK-MB (CK-2) Rel Index Troponin T C-Reactive Protein NT-Pro-B Natriuret Pep Triglycerides HDL Cholesterol Urine WBC (Auto) 04/10/18 04/10/18 04/10/18 09:10 13:36 Unknown WBC RBC Hct MCHC [place] % (Auto) [place] # Seg Neuts % (Manual) Lymphocytes % (Manual) Monocytes % (Manual) Seg Neutrophils # Seg Neutrophils # Man Monocytes # (Manual) APTT Activated Clotting Time Heparin Anti-Xa Level POC ABG pH 7.524 H POC ABG pCO2 POC ABG pO2 329 H Sodium Potassium Chloride Carbon Dioxide BUN 26 H 25 H Creatinine Glucose POC Glucose Calcium 8.0 L 7.7 L Total Creatine Kinase CK-MB (CK-2) CK-MB (CK-2) Rel Index Troponin T C-Reactive Protein NT-Pro-B Natriuret Pep Triglycerides HDL Cholesterol Urine WBC (Auto) 04/11/18 04/11/18 04/11/18 00:05 05:34 11:00 WBC 13.1 H RBC 3.58 L Hct MCHC [place] % (Auto) [place] # Seg Neuts % (Manual) Lymphocytes % (Manual) Monocytes % (Manual) Seg Neutrophils # Seg Neutrophils # Man Monocytes # (Manual) APTT Activated Clotting Time Heparin Anti-Xa Level POC ABG pH 7.517 H POC ABG pCO2 POC ABG pO2 79 L Sodium Potassium Chloride Carbon Dioxide BUN Creatinine Glucose POC Glucose 106 H Calcium Total Creatine Kinase CK-MB (CK-2) CK-MB (CK-2) Rel Index Troponin T C-Reactive Protein NT-Pro-B Natriuret Pep Triglycerides HDL Cholesterol Urine WBC (Auto) 04/11/18 04/11/18 04/11/18 11:00 12:47 16:36 WBC RBC Hct MCHC [place] % (Auto) [place] # Seg Neuts % (Manual) Lymphocytes % (Manual) Monocytes % (Manual) Seg Neutrophils # Seg Neutrophils # Man Monocytes # (Manual) APTT Activated Clotting Time Heparin Anti-Xa Level POC ABG pH 7.523 H POC ABG pCO2 POC ABG pO2 Sodium Potassium Chloride Carbon Dioxide 32 H BUN 30 H Creatinine 0.6 L Glucose 105 H POC Glucose 116 H Calcium Total Creatine Kinase CK-MB (CK-2) CK-MB (CK-2) Rel Index Troponin T C-Reactive Protein NT-Pro-B Natriuret Pep Triglycerides HDL Cholesterol Urine WBC (Auto) 04/11/18 04/11/18 04/11/18 16:43 17:28 20:42 WBC RBC Hct MCHC [place] % (Auto) [place] # Seg Neuts % (Manual) Lymphocytes % (Manual) Monocytes % (Manual) Seg Neutrophils # Seg Neutrophils # Man Monocytes # (Manual) APTT 70.8 H* Activated Clotting Time Heparin Anti-Xa Level 0.89 H POC ABG pH POC ABG pCO2 POC ABG pO2 Sodium Potassium Chloride Carbon Dioxide BUN Creatinine Glucose POC Glucose 109 H Calcium Total Creatine Kinase CK-MB (CK-2) CK-MB (CK-2) Rel Index Troponin T C-Reactive Protein NT-Pro-B Natriuret Pep Triglycerides HDL Cholesterol Urine WBC (Auto) 04/12/18 04/12/18 04/12/18 04:27 04:27 04:27 WBC 15.0 H RBC Hct MCHC [place] % (Auto) [place] # Seg Neuts % (Manual) Lymphocytes % (Manual) Monocytes % (Manual) Seg Neutrophils # Seg Neutrophils # Man Monocytes # (Manual) APTT Activated Clotting Time Heparin Anti-Xa Level 0.99 H POC ABG pH POC ABG pCO2 POC ABG pO2 Sodium Potassium Chloride 95.7 L Carbon Dioxide BUN 30 H Creatinine Glucose POC Glucose Calcium Total Creatine Kinase CK-MB (CK-2) CK-MB (CK-2) Rel Index Troponin T C-Reactive Protein NT-Pro-B Natriuret Pep Triglycerides HDL Cholesterol Urine WBC (Auto) 04/12/18 04/14/18 04/14/18 23:15 17:23 17:23 WBC 12.6 H RBC Hct MCHC [place] % (Auto) [place] # Seg Neuts % (Manual) Lymphocytes % (Manual) Monocytes % (Manual) Seg Neutrophils # Seg Neutrophils # Man Monocytes # (Manual) APTT Activated Clotting Time Heparin Anti-Xa Level POC ABG pH POC ABG pCO2 POC ABG pO2 Sodium 132 L D Potassium Chloride 93.3 L Carbon Dioxide BUN 18 H Creatinine Glucose POC Glucose 109 H Calcium Total Creatine Kinase CK-MB (CK-2) CK-MB (CK-2) Rel Index Troponin T C-Reactive Protein NT-Pro-B Natriuret Pep Triglycerides HDL Cholesterol Urine WBC (Auto) Allied health notes reviewed: nursing
[2018-04-14] MEDS: ELIQUIS PO SCH (21:38)
[2018-04-14] MEDS: COZAAR PO SCH (21:39)
[2018-04-15] MEDS: LOPRESSOR PO SCH ×3 (01:11→21:30)
[2018-04-15 08:50] LABS: Hematocrit 31.8 % (30.3-42.9); Hemoglobin 10.9 gm/dl (10.1-14.3)
[2018-04-15] MEDS: BROVANA NEBU IH SCH ×2 (09:16→19:56)
[2018-04-15] MEDS: PULMICORT IH SCH ×2 (09:16→19:56)
[2018-04-15] MEDS: PEPCID PO SCH ×2 (10:54→21:30)
[2018-04-15] MEDS: BABY ASPIRIN PO SCH (10:54)
[2018-04-15] MEDS: ELIQUIS PO SCH ×3 (10:54→21:30)
[2018-04-15] MEDS: CORDARONE PO SCH ×2 (10:55→21:30)
[2018-04-15] MEDS: COZAAR PO SCH (10:56)
[2018-04-15] MEDS: COLACE FEEDTUBE SCH ×2 (10:56→21:30)
--- NOTE | 2018-04-15 17:37 | Progress Note ---
Assessment and Plan patient having intermittent atrial fibrillation. 04/14/2018>patient continues to be in S.R .Will start Eliquis,add small dose of Losartan,discussed with pt and her grand daughter. 04/15/2018>responding well,physical therapy helping her . Continue present medical therapy including Epiquis.Increase Metoprolol to 25 mg BID. - Patient Problems (1) GERD (gastroesophageal reflux disease) Current Visit: Yes Status: Acute Qualifiers: Esophagitis presence: without esophagitis Qualified Code(s): K21.9 - Gastro -esophageal reflux disease without esophagitis (2) History of breast cancer Current Visit: Yes Status: Acute (3) Paroxysmal atrial fibrillation Current Visit: Yes Status: Acute (4) Takotsubo cardiomyopathy Current Visit: Yes Status: Acute Subjective Date of service: 04/15/18 Principal diagnosis: Tak[place]o CMP, Cardiogenic shock, Acute respiratory failure , HFrEF, Afib Interval history: patient feeling better,periods of S.R,atrial fibrillation.No chest pain.Diuresing well. Objective Vital Signs Temp Pulse Pulse Resp Resp BP BP 04/15/18 17:24 97.8 F 85 20 102/41 04/15/18 10:56 93 H 120/64 04/15/18 10:55 93 H 120/64 04/15/18 10:48 98.0 F 91 H 20 120/64 04/15/18 09:26 88 20 04/15/18 09:16 86 18 04/15/18 07:20 98.4 F 79 18 99/54 04/15/18 05:41 98.4 F 84 20 121/74 04/15/18 04:49 159/64 04/15/18 04:44 80 101/55 04/15/18 01:42 97.6 F 84 18 131/64 04/14/18 20:14 98.7 F 91 H 20 119/66 04/14/18 19:59 92 H 20 04/14/18 19:48 04/14/18 19:47 94 H 20 04/14/18 19:30 92 H 119/66 Pulse Ox 04/15/18 17:24 96 04/15/18 10:56 04/15/18 10:55 04/15/18 10:48 99 04/15/18 09:26 04/15/18 09:16 98 04/15/18 07:20 96 04/15/18 05:41 92 04/15/18 04:49 04/15/18 04:44 97 04/15/18 01:42 91 04/14/18 20:14 100 04/14/18 19:59 04/14/18 19:48 99 04/14/18 19:47 04/14/18 19:30 100 - Physical Examination General: No Apparent Distress HEENT: Positive: EOMI, Normocephaly, Mucus Membranes Moist Neck: Positive: neck supple, trachea midline Cardiac: Positive: Regular Rhythm Lungs: Positive: Decreased Breath Sounds Neuro: Positive: Grossly Intact, Other (intubated) Abdomen: Positive: Soft, Active Bowel Sounds. Negative: Tender Skin: Positive: Clear. Negative: Rash Musculoskeletal: Normal Range of Motion Extremities: Present: normal. Absent: edema - Labs and Meds CBC 04/14/18 04/15/18 Range/Units 17:23 08:16 WBC 12.6 H (4.5-11.0) K/mm3 RBC 3.80 (3.65-5.03) M/mm3 Hgb 11.6 10.9 (10.1-14.3) gm/dl Hct 35.4 31.8 (30.3-42.9) % Plt Count 301 235 (140-440) K/mm3 Comprehensive Metabolic Panel 04/14/18 Range/Units 17:23 Sodium 132 L D (137-145) mmol/L Potassium 3.8 (3.6-5.0) mmol/L Chloride 93.3 L (98-107) mmol/L Carbon Dioxide 28 (22-30) mmol/L BUN 18 H (7-17) mg/dL Creatinine 0.7 (0.7-1.2) mg/dL Glucose 96 (65-100) mg/dL Calcium 8.8 (8.4-10.2) mg/dL - Imaging and Cardiology EKG: image reviewed Echo: report reviewed - EKG Sinus rhythms and dysrhythmias: sinus rhythm Myocardial infarction: lateral NE (acute or rece - Allied health notes Allied health notes reviewed: nursing
[2018-04-15] MEDS: NORCO 10/325 PO PRN (17:54)
--- NOTE | 2018-04-15 18:09 | Progress Note ---
Assessment and Plan Patient alert, awake.. Resting on nasal canula 2 litres and O2 saturation 92%. No acute respiratory distress. - Patient Problems (1) Asthma Current Visit: Yes Status: Acute Qualifiers: Qualified Code(s): J45.909 - Unspecified asthma, uncomplicated Plan to address problem: O2 2litres via nasal canula. Brovanna/Budesonide aerosol treatments q 12 hours. Albuterol/atrovent aerosol treatments q 6 hours prn for shortness of breath. Patient is on Apixaban.. PFTs as out Patient. (2) GERD (gastroesophageal reflux disease) Current Visit: Yes Status: Acute Qualifiers: Esophagitis presence: without esophagitis Qualified Code(s): K21.9 - Gastro -esophageal reflux disease without esophagitis Plan to address problem: Continue Protonix. (3) HTN (hypertension) Current Visit: Yes Status: Acute Qualifiers: Hypertension type: essential hypertension Qualified Code(s): I10 - Essential (primary) hypertension Plan to address problem: Management as per primary care. (4) Chest pain Current Visit: Yes Status: Acute Plan to address problem: Management as per cardiology. 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 Resting on nasal canula 2 litres and O2 saturation 92%. No acute respiratory distress. Objective Vital Signs - 12hr 04/15/18 04/15/18 04/15/18 07:20 09:16 09:26 Temperature 98.4 F Pulse Rate 79 Pulse Rate [ 86 88 Anterior Bilateral Throughout] Respiratory 18 Rate Respiratory 18 20 Rate [Anterior Bilateral Throughout] Blood Pressure 99/54 Blood Pressure [Left] O2 Sat by Pulse 96 98 Oximetry 04/15/18 04/15/18 04/15/18 10:48 10:55 10:56 Temperature 98.0 F Pulse Rate 91 H 93 H 93 H Pulse Rate [ Anterior Bilateral Throughout] Respiratory 20 Rate Respiratory Rate [Anterior Bilateral Throughout] Blood Pressure 120/64 120/64 120/64 Blood Pressure [Left] O2 Sat by Pulse 99 Oximetry 04/15/18 04/15/18 17:24 17:54 Temperature 97.8 F Pulse Rate 85 Pulse Rate [ Anterior Bilateral Throughout] Respiratory 20 20 Rate Respiratory Rate [Anterior Bilateral Throughout] Blood Pressure Blood Pressure 102/41 [Left] O2 Sat by Pulse 96 Oximetry Constitutional: no acute distress, alert Eyes: non-icteric ENT: oropharynx moist Neck: supple, no lymphadenopathy, JVD, other (no thyromegaly) Effort: mildly labored Ascultation: Bilateral: diminished breath sounds (Prolonged expiratory phase.), rhonchi (scant in posterior bases) Percussion: Bilateral: not dull Cardiovascular: regular rate and rhythm, murmur noted (systolic), other (no rubs ) Gastrointestinal: normoactive bowel sounds, soft, non-tender, non-distended, other (no palpable HSM) Integumentary: other (poor turgor) Extremities: no cyanosis, no edema, pulses normal, no ischemia or petechiae Neurologic: normal mental status, non-focal exam, pupils equal and round, CN II- XII normal Psychiatric: mood appropriate, affect normal CBC and BMP: 04/15/18 08:16 04/14/18 17:23 ABG, PT/INR, D-dimer: ABG POC ABG pH 7.523 (7.35-7.45) H 04/11/18 16:36 POC ABG pCO2 38.7 (35-45) 04/11/18 16:36 POC ABG pO2 90 (80-105) 04/11/18 16:36 POC ABG HCO3 31.9 04/11/18 16:36 POC ABG Total CO2 33 04/11/18 16:36 POC ABG O2 Sat 98 04/11/18 16:36 PT/INR, D-dimer PT 13.4 Sec. (12.2-14.9) 04/11/18 16:43 INR 0.97 (0.87-1.13) 04/11/18 16:43 Abnormal lab findings: Abnormal Labs 04/03/18 04/03/18 04/03/18 11:47 11:47 12:29 WBC 11.5 H RBC Hct MCHC [place] % (Auto) 10.8 H [place] # 1.2 H Seg Neuts % (Manual) Lymphocytes % (Manual) Monocytes % (Manual) Seg Neutrophils # Seg Neutrophils # Man Monocytes # (Manual) APTT Activated Clotting Time > 1000 H Heparin Anti-Xa Level POC ABG pH POC ABG pCO2 POC ABG pO2 Sodium 134 L Potassium 3.5 L Chloride 94.4 L Carbon Dioxide BUN 19 H Creatinine Glucose 121 H POC Glucose Calcium Total Creatine Kinase 155 H CK-MB (CK-2) 17.3 H CK-MB (CK-2) Rel Index 11.1 H Troponin T 0.368 H* C-Reactive Protein NT-Pro-B Natriuret Pep Triglycerides 169 H HDL Cholesterol 63 H Urine WBC (Auto) 04/03/18 04/04/18 04/04/18 16:59 06:12 06:12 WBC 13.3 H RBC Hct MCHC 35 H [place] % (Auto) 9.2 H [place] # 1.2 H Seg Neuts % (Manual) Lymphocytes % (Manual) Monocytes % (Manual) Seg Neutrophils # 9.0 H Seg Neutrophils # Man Monocytes # (Manual) APTT Activated Clotting Time Heparin Anti-Xa Level POC ABG pH POC ABG pCO2 POC ABG pO2 Sodium 132 L Potassium 3.4 L Chloride 94.8 L Carbon Dioxide BUN Creatinine Glucose 107 H POC Glucose Calcium Total Creatine Kinase 503 H 498 H CK-MB (CK-2) 69.6 H 51.9 H CK-MB (CK-2) Rel Index 13.8 H 10.4 H Troponin T 1.900 H* D 1.950 H* C-Reactive Protein NT-Pro-B Natriuret Pep Triglycerides HDL Cholesterol Urine WBC (Auto) 04/05/18 04/05/18 04/05/18 06:47 11:33 17:49 WBC RBC Hct MCHC [place] % (Auto) [place] # Seg Neuts % (Manual) Lymphocytes % (Manual) Monocytes % (Manual) Seg Neutrophils # Seg Neutrophils # Man Monocytes # (Manual) APTT Activated Clotting Time Heparin Anti-Xa Level POC ABG pH POC ABG pCO2 POC ABG pO2 Sodium 128 L Potassium Chloride 88.7 L Carbon Dioxide BUN 18 H Creatinine Glucose 153 H POC Glucose 179 H 190 H Calcium Total Creatine Kinase 399 H CK-MB (CK-2) 35.5 H CK-MB (CK-2) Rel Index 8.8 H Troponin T 1.730 H* C-Reactive Protein NT-Pro-B Natriuret Pep Triglycerides HDL Cholesterol Urine WBC (Auto) 04/05/18 04/06/18 04/06/18 21:20 05:26 08:11 WBC RBC Hct MCHC [place] % (Auto) [place] # Seg Neuts % (Manual) Lymphocytes % (Manual) Monocytes % (Manual) Seg Neutrophils # Seg Neutrophils # Man Monocytes # (Manual) APTT Activated Clotting Time Heparin Anti-Xa Level POC ABG pH POC ABG pCO2 POC ABG pO2 Sodium 130 L Potassium Chloride 91.2 L Carbon Dioxide 20 L BUN 28 H Creatinine Glucose 137 H POC Glucose 130 H 108 H Calcium 8.1 L Total Creatine Kinase CK-MB (CK-2) CK-MB (CK-2) Rel Index Troponin T C-Reactive Protein NT-Pro-B Natriuret Pep Triglycerides HDL Cholesterol Urine WBC (Auto) 04/06/18 04/06/18 04/07/18 08:11 21:35 00:14 WBC 19.3 H RBC Hct MCHC [place] % (Auto) [place] # Seg Neuts % (Manual) Lymphocytes % (Manual) Monocytes % (Manual) Seg Neutrophils # Seg Neutrophils # Man Monocytes # (Manual) APTT Activated Clotting Time Heparin Anti-Xa Level POC ABG pH POC ABG pCO2 POC ABG pO2 Sodium Potassium Chloride Carbon Dioxide BUN Creatinine Glucose POC Glucose 188 H 146 H Calcium Total Creatine Kinase CK-MB (CK-2) CK-MB (CK-2) Rel Index Troponin T C-Reactive Protein NT-Pro-B Natriuret Pep Triglycerides HDL Cholesterol Urine WBC (Auto) 04/07/18 04/07/18 04/07/18 00:47 05:43 08:07 WBC 21.5 H RBC Hct MCHC [place] % (Auto) [place] # Seg Neuts % (Manual) 82.5 H Lymphocytes % (Manual) 7.0 L Monocytes % (Manual) 7.5 H Seg Neutrophils # Seg Neutrophils # Man 17.7 H Monocytes # (Manual) 1.6 H APTT Activated Clotting Time Heparin Anti-Xa Level POC ABG pH POC ABG pCO2 POC ABG pO2 Sodium Potassium Chloride Carbon Dioxide BUN Creatinine Glucose POC Glucose 157 H Calcium Total Creatine Kinase 186 H CK-MB (CK-2) 13.2 H CK-MB (CK-2) Rel Index 7.0 H Troponin T 1.420 H* C-Reactive Protein NT-Pro-B Natriuret Pep Triglycerides HDL Cholesterol Urine WBC (Auto) 04/07/18 04/07/18 04/07/18 08:07 08:07 13:43 WBC RBC Hct MCHC [place] % (Auto) [place] # Seg Neuts % (Manual) Lymphocytes % (Manual) Monocytes % (Manual) Seg Neutrophils # Seg Neutrophils # Man Monocytes # (Manual) APTT > 20.0 L Activated Clotting Time Heparin Anti-Xa Level POC ABG pH POC ABG pCO2 52.0 H POC ABG pO2 456 H Sodium 129 L Potassium Chloride 92.4 L Carbon Dioxide BUN 34 H Creatinine Glucose 152 H POC Glucose Calcium 8.3 L Total Creatine Kinase CK-MB (CK-2) CK-MB (CK-2) Rel Index Troponin T 1.300 H* C-Reactive Protein NT-Pro-B Natriuret Pep 45167 H Triglycerides HDL Cholesterol Urine WBC (Auto) 04/07/18 04/07/18 04/08/18 15:15 15:15 04:23 WBC 19.0 H RBC Hct MCHC [place] % (Auto) [place] # Seg Neuts % (Manual) Lymphocytes % (Manual) Monocytes % (Manual) Seg Neutrophils # Seg Neutrophils # Man Monocytes # (Manual) APTT Activated Clotting Time Heparin Anti-Xa Level POC ABG pH 7.471 H POC ABG pCO2 POC ABG pO2 133 H Sodium Potassium Chloride Carbon Dioxide BUN Creatinine Glucose POC Glucose Calcium Total Creatine Kinase CK-MB (CK-2) CK-MB (CK-2) Rel Index Troponin T C-Reactive Protein NT-Pro-B Natriuret Pep Triglycerides HDL Cholesterol Urine WBC (Auto) 46.0 H 04/08/18 04/08/18 04/08/18 05:51 08:58 08:58 WBC 17.3 H RBC 3.59 L Hct MCHC [place] % (Auto) [place] # Seg Neuts % (Manual) Lymphocytes % (Manual) Monocytes % (Manual) Seg Neutrophils # Seg Neutrophils # Man Monocytes # (Manual) APTT Activated Clotting Time Heparin Anti-Xa Level POC ABG pH POC ABG pCO2 POC ABG pO2 Sodium Potassium Chloride 97.7 L Carbon Dioxide BUN 27 H Creatinine Glucose 114 H POC Glucose 111 H Calcium 7.1 L Total Creatine Kinase CK-MB (CK-2) CK-MB (CK-2) Rel Index Troponin T C-Reactive Protein NT-Pro-B Natriuret Pep Triglycerides HDL Cholesterol Urine WBC (Auto) 04/08/18 04/08/18 04/08/18 13:42 18:22 18:56 WBC RBC Hct MCHC [place] % (Auto) [place] # Seg Neuts % (Manual) Lymphocytes % (Manual) Monocytes % (Manual) Seg Neutrophils # Seg Neutrophils # Man Monocytes # (Manual) APTT Activated Clotting Time Heparin Anti-Xa Level POC ABG pH POC ABG pCO2 POC ABG pO2 Sodium Potassium Chloride Carbon Dioxide BUN Creatinine Glucose POC Glucose 113 H 107 H Calcium Total Creatine Kinase CK-MB (CK-2) CK-MB (CK-2) Rel Index Troponin T C-Reactive Protein 11.30 H NT-Pro-B Natriuret Pep Triglycerides HDL Cholesterol Urine WBC (Auto) 04/09/18 04/09/18 04/09/18 04:41 05:00 05:00 WBC 12.2 H RBC 3.30 L Hct 30.2 L MCHC 35 H [place] % (Auto) [place] # Seg Neuts % (Manual) Lymphocytes % (Manual) Monocytes % (Manual) Seg Neutrophils # Seg Neutrophils # Man Monocytes # (Manual) APTT Activated Clotting Time Heparin Anti-Xa Level POC ABG pH 7.556 H POC ABG pCO2 POC ABG pO2 Sodium 134 L Potassium 3.2 L Chloride 94.6 L Carbon Dioxide 32 H BUN 27 H Creatinine Glucose POC Glucose Calcium 7.3 L Total Creatine Kinase CK-MB (CK-2) CK-MB (CK-2) Rel Index Troponin T C-Reactive Protein NT-Pro-B Natriuret Pep Triglycerides HDL Cholesterol Urine WBC (Auto) 04/09/18 04/10/18 04/10/18 18:27 05:19 09:10 WBC 14.7 H RBC Hct MCHC [place] % (Auto) [place] # Seg Neuts % (Manual) Lymphocytes % (Manual) Monocytes % (Manual) Seg Neutrophils # Seg Neutrophils # Man Monocytes # (Manual) APTT Activated Clotting Time Heparin Anti-Xa Level POC ABG pH 7.491 H POC ABG pCO2 POC ABG pO2 Sodium Potassium Chloride Carbon Dioxide BUN Creatinine Glucose POC Glucose 111 H Calcium Total Creatine Kinase CK-MB (CK-2) CK-MB (CK-2) Rel Index Troponin T C-Reactive Protein NT-Pro-B Natriuret Pep Triglycerides HDL Cholesterol Urine WBC (Auto) 04/10/18 04/10/18 04/10/18 09:10 13:36 Unknown WBC RBC Hct MCHC [place] % (Auto) [place] # Seg Neuts % (Manual) Lymphocytes % (Manual) Monocytes % (Manual) Seg Neutrophils # Seg Neutrophils # Man Monocytes # (Manual) APTT Activated Clotting Time Heparin Anti-Xa Level POC ABG pH 7.524 H POC ABG pCO2 POC ABG pO2 329 H Sodium Potassium Chloride Carbon Dioxide BUN 26 H 25 H Creatinine Glucose POC Glucose Calcium 8.0 L 7.7 L Total Creatine Kinase CK-MB (CK-2) CK-MB (CK-2) Rel Index Troponin T C-Reactive Protein NT-Pro-B Natriuret Pep Triglycerides HDL Cholesterol Urine WBC (Auto) 04/11/18 04/11/18 04/11/18 00:05 05:34 11:00 WBC 13.1 H RBC 3.58 L Hct MCHC [place] % (Auto) [place] # Seg Neuts % (Manual) Lymphocytes % (Manual) Monocytes % (Manual) Seg Neutrophils # Seg Neutrophils # Man Monocytes # (Manual) APTT Activated Clotting Time Heparin Anti-Xa Level POC ABG pH 7.517 H POC ABG pCO2 POC ABG pO2 79 L Sodium Potassium Chloride Carbon Dioxide BUN Creatinine Glucose POC Glucose 106 H Calcium Total Creatine Kinase CK-MB (CK-2) CK-MB (CK-2) Rel Index Troponin T C-Reactive Protein NT-Pro-B Natriuret Pep Triglycerides HDL Cholesterol Urine WBC (Auto) 04/11/18 04/11/18 04/11/18 11:00 12:47 16:36 WBC RBC Hct MCHC [place] % (Auto) [place] # Seg Neuts % (Manual) Lymphocytes % (Manual) Monocytes % (Manual) Seg Neutrophils # Seg Neutrophils # Man Monocytes # (Manual) APTT Activated Clotting Time Heparin Anti-Xa Level POC ABG pH 7.523 H POC ABG pCO2 POC ABG pO2 Sodium Potassium Chloride Carbon Dioxide 32 H BUN 30 H Creatinine 0.6 L Glucose 105 H POC Glucose 116 H Calcium Total Creatine Kinase CK-MB (CK-2) CK-MB (CK-2) Rel Index Troponin T C-Reactive Protein NT-Pro-B Natriuret Pep Triglycerides HDL Cholesterol Urine WBC (Auto) 04/11/18 04/11/18 04/11/18 16:43 17:28 20:42 WBC RBC Hct MCHC [place] % (Auto) [place] # Seg Neuts % (Manual) Lymphocytes % (Manual) Monocytes % (Manual) Seg Neutrophils # Seg Neutrophils # Man Monocytes # (Manual) APTT 70.8 H* Activated Clotting Time Heparin Anti-Xa Level 0.89 H POC ABG pH POC ABG pCO2 POC ABG pO2 Sodium Potassium Chloride Carbon Dioxide BUN Creatinine Glucose POC Glucose 109 H Calcium Total Creatine Kinase CK-MB (CK-2) CK-MB (CK-2) Rel Index Troponin T C-Reactive Protein NT-Pro-B Natriuret Pep Triglycerides HDL Cholesterol Urine WBC (Auto) 04/12/18 04/12/18 04/12/18 04:27 04:27 04:27 WBC 15.0 H RBC Hct MCHC [place] % (Auto) [place] # Seg Neuts % (Manual) Lymphocytes % (Manual) Monocytes % (Manual) Seg Neutrophils # Seg Neutrophils # Man Monocytes # (Manual) APTT Activated Clotting Time Heparin Anti-Xa Level 0.99 H POC ABG pH POC ABG pCO2 POC ABG pO2 Sodium Potassium Chloride 95.7 L Carbon Dioxide BUN 30 H Creatinine Glucose POC Glucose Calcium Total Creatine Kinase CK-MB (CK-2) CK-MB (CK-2) Rel Index Troponin T C-Reactive Protein NT-Pro-B Natriuret Pep Triglycerides HDL Cholesterol Urine WBC (Auto) 04/12/18 04/14/18 04/14/18 23:15 17:23 17:23 WBC 12.6 H RBC Hct MCHC [place] % (Auto) [place] # Seg Neuts % (Manual) Lymphocytes % (Manual) Monocytes % (Manual) Seg Neutrophils # Seg Neutrophils # Man Monocytes # (Manual) APTT Activated Clotting Time Heparin Anti-Xa Level POC ABG pH POC ABG pCO2 POC ABG pO2 Sodium 132 L D Potassium Chloride 93.3 L Carbon Dioxide BUN 18 H Creatinine Glucose POC Glucose 109 H Calcium Total Creatine Kinase CK-MB (CK-2) CK-MB (CK-2) Rel Index Troponin T C-Reactive Protein NT-Pro-B Natriuret Pep Triglycerides HDL Cholesterol Urine WBC (Auto) 04/15/18 08:15 WBC RBC Hct MCHC [place] % (Auto) [place] # Seg Neuts % (Manual) Lymphocytes % (Manual) Monocytes % (Manual) Seg Neutrophils # Seg Neutrophils # Man Monocytes # (Manual) APTT Activated Clotting Time Heparin Anti-Xa Level 1.90 H POC ABG pH POC ABG pCO2 POC ABG pO2 Sodium Potassium Chloride Carbon Dioxide BUN Creatinine Glucose POC Glucose Calcium Total Creatine Kinase CK-MB (CK-2) CK-MB (CK-2) Rel Index Troponin T C-Reactive Protein NT-Pro-B Natriuret Pep Triglycerides HDL Cholesterol Urine WBC (Auto) Allied health notes reviewed: nursing
[2018-04-15] MEDS: XANAX PO PRN (21:30)
[2018-04-16] MEDS: LOPRESSOR PO SCH ×2 (09:46→21:58)
[2018-04-16] MEDS: BABY ASPIRIN PO SCH (09:47)
[2018-04-16] MEDS: PEPCID PO SCH ×2 (09:47→21:57)
[2018-04-16] MEDS: CORDARONE PO SCH ×2 (09:48→21:58)
[2018-04-16] MEDS: COZAAR PO SCH (09:48)
[2018-04-16] MEDS: COLACE FEEDTUBE SCH ×2 (10:00→21:57)
[2018-04-16] MEDS: BROVANA NEBU IH SCH ×2 (10:49→21:16)
[2018-04-16] MEDS: PULMICORT IH SCH ×2 (10:49→21:16)
--- NOTE | 2018-04-16 12:07 | Progress Note ---
Assessment and Plan Optimize HR - titrate lopressor as BPs permit and cont amio 200mg BID. Cont losartan. Encourage increased activity and ambulation. The patient has been seen in conjunction with Dr. Fitch who agrees with the assessment and plan of care. - Patient Problems (1) Takotsubo cardiomyopathy Current Visit: Yes Status: Acute (2) Cardiogenic shock Current Visit: Yes Status: Resolved (3) Heart failure with reduced ejection fraction Current Visit: Yes Status: Acute (4) Paroxysmal atrial fibrillation with RVR Current Visit: Yes Status: Acute (5) Acute respiratory failure Current Visit: Yes Status: Resolved Qualifiers: Respiratory failure complication: hypoxia Qualified Code(s): J96.01 - Acute respiratory failure with hypoxia (6) Hyponatremia Current Visit: Yes Status: Acute (7) Altered mental status Current Visit: Yes Status: Resolved (8) HLD (hyperlipidemia) Current Visit: Yes Status: Chronic Qualifiers: Hyperlipidemia type: mixed hyperlipidemia Qualified Code(s): E78.2 - Mixed hyperlipidemia (9) History of breast cancer Current Visit: Yes Status: Chronic Subjective Date of service: 04/16/18 Principal diagnosis: Tak[place]o CMP, Cardiogenic shock, Acute respiratory failure , HFrEF, Afib Interval history: pt resting in bed, A&O, no current cardiac complaints. tele reviewed - pt currently in SR but was noted to have occasional bouts of AFib with RVR (HR 130s ) overnight. no family at bedside. Objective Last Vital Signs Temp 98.6 F 04/16/18 09:31 Pulse 80 04/16/18 10:45 Resp 18 04/16/18 10:45 BP 96/69 04/16/18 09:48 Pulse Ox 92 04/16/18 10:00 - Physical Examination General: No Apparent Distress HEENT: Positive: EOMI, Normocephaly, Mucus Membranes Moist Neck: Positive: neck supple, trachea midline Cardiac: Positive: Reg Rate and Rhythm, S1/S2 Lungs: Positive: clear to auscultation Neuro: Positive: Grossly Intact, Other (intubated) Abdomen: Positive: Soft, Active Bowel Sounds. Negative: Tender Skin: Positive: Clear. Negative: Rash Musculoskeletal: Normal Range of Motion Extremities: Present: normal. Absent: edema - Imaging and Cardiology EKG: image reviewed Echo: report reviewed - Telemetry EKG Rhythm: Sinus Rhythm - EKG Sinus rhythms and dysrhythmias: sinus rhythm Myocardial infarction: lateral DC (acute or rece - Allied health notes Allied health notes reviewed: nursing
[2018-04-16] MEDS: ELIQUIS PO SCH ×2 (12:22→21:58)
[2018-04-16] MEDS: NORCO 10/325 PO PRN (14:29)
--- NOTE | 2018-04-16 17:04 | Progress Note ---
Assessment and Plan Acute hypoxemic Resp Failure on MVS Acute Pulmonary Edema Shock (Cardiogenic +/- vasodilatory) SIRS Takutsubo's Cardiomyopathy - s/p emergent LHC which revealed normal coronaries; EF approx 20%) Acute Encephalopathy HTN Asthma Sinus Tachycardia Hyperlipidemia Hypokalemia Hyponatremia Leukocytosis GERD H/o breast Cancer - continue supplemental oxygen to keep O2 Sats > 90% - cardiac disease modifying drugs per cardiology - continue long and short acting bronchodilators - increase activity -PT/OT on going -discharge planning Subjective Date of service: 04/16/18 Principal diagnosis: Takutsubo's cardiomyopathy; Chest ; Acute Hypoxemic Resp Failure; Shock Interval history: Patient is seen today for: Takutsubo's cardiomyopathy; Chest Pain Follow up: s/p CODE BLUE that required intubation secondary to cardio- pulmonary decompensation; s/p repeat LHCath with clean coronaries Severe anterior, radha-apical, and infero-apical dykinesis with EF ~ 20% c/w stress cardiomyopathy - Markedly elevated LVeDP of 42-45mmHG, IABP 1:1 with augmented BP 110 s/p IABP removal Seen and examined. Vitals, labs, medications, chart and imaging reviewed. No acute overnight events Patient is awake and alert. Denies any chest pain, no shortness of breath. No fevers or chills Objective - Exam Narrative Exam: General: Not in acute distress HEENT:Normocephalic, atraumatic Neck:supple,no JVD Lungs: Clear to auscultation bilaterally, no crackles, no wheeze Heart:S1 and S2 regular, no murmurs, rubs or gallop Abd: soft, non tender,non distended, normal bowel sounds Ext: No edema, no clubbing or cyanosis Neuro: Eyes open, follows commands Vital Signs - 12hr 04/16/18 04/16/18 04/16/18 09:31 09:46 09:48 Temperature 98.6 F Pulse Rate 86 85 85 Pulse Rate [ Anterior Bilateral Throughout] Pulse Rate [ Throughout] Respiratory 18 Rate Respiratory Rate [Anterior Bilateral Throughout] Respiratory Rate [ Throughout] Blood Pressure 96/69 96/69 96/69 O2 Sat by Pulse 91 Oximetry 04/16/18 04/16/18 04/16/18 10:00 10:45 14:29 Temperature Pulse Rate Pulse Rate [ 80 Anterior Bilateral Throughout] Pulse Rate [ 84 Throughout] Respiratory 20 Rate Respiratory 18 Rate [Anterior Bilateral Throughout] Respiratory 18 Rate [ Throughout] Blood Pressure O2 Sat by Pulse 92 Oximetry Constitutional: no acute distress, other (elderly looking CF, normocephalic and atraumatic) Eyes: non-icteric ENT: oropharynx moist Neck: supple, no lymphadenopathy, JVD, other (no thyromegaly) Effort: normal Ascultation: Bilateral: diminished breath sounds (Prolonged expiratory phase.), rhonchi Percussion: Bilateral: not dull Cardiovascular: regular rate and rhythm, murmur noted (systolic), other (no rubs ) Gastrointestinal: normoactive bowel sounds, soft, non-tender, non-distended, other (no palpable HSM) Integumentary: normal Extremities: no cyanosis, no edema, pulses normal, no ischemia or petechiae Neurologic: normal mental status, non-focal exam, pupils equal and round, CN II- XII normal, motor strength normal and Psychiatric: mood appropriate, affect normal CBC and BMP: 04/15/18 08:16 04/14/18 17:23 ABG, PT/INR, D-dimer: ABG POC ABG pH 7.523 (7.35-7.45) H 04/11/18 16:36 POC ABG pCO2 38.7 (35-45) 04/11/18 16:36 POC ABG pO2 90 (80-105) 04/11/18 16:36 POC ABG HCO3 31.9 04/11/18 16:36 POC ABG Total CO2 33 04/11/18 16:36 POC ABG O2 Sat 98 04/11/18 16:36 PT/INR, D-dimer PT 13.4 Sec. (12.2-14.9) 04/11/18 16:43 INR 0.97 (0.87-1.13) 04/11/18 16:43 Abnormal lab findings: Abnormal Labs 04/03/18 04/03/18 04/03/18 11:47 11:47 12:29 WBC 11.5 H RBC Hct MCHC [place] % (Auto) 10.8 H [place] # 1.2 H Seg Neuts % (Manual) Lymphocytes % (Manual) Monocytes % (Manual) Seg Neutrophils # Seg Neutrophils # Man Monocytes # (Manual) APTT Activated Clotting Time > 1000 H Heparin Anti-Xa Level POC ABG pH POC ABG pCO2 POC ABG pO2 Sodium 134 L Potassium 3.5 L Chloride 94.4 L Carbon Dioxide BUN 19 H Creatinine Glucose 121 H POC Glucose Calcium Total Creatine Kinase 155 H CK-MB (CK-2) 17.3 H CK-MB (CK-2) Rel Index 11.1 H Troponin T 0.368 H* C-Reactive Protein NT-Pro-B Natriuret Pep Triglycerides 169 H HDL Cholesterol 63 H Urine WBC (Auto) 04/03/18 04/04/18 04/04/18 16:59 06:12 06:12 WBC 13.3 H RBC Hct MCHC 35 H [place] % (Auto) 9.2 H [place] # 1.2 H Seg Neuts % (Manual) Lymphocytes % (Manual) Monocytes % (Manual) Seg Neutrophils # 9.0 H Seg Neutrophils # Man Monocytes # (Manual) APTT Activated Clotting Time Heparin Anti-Xa Level POC ABG pH POC ABG pCO2 POC ABG pO2 Sodium 132 L Potassium 3.4 L Chloride 94.8 L Carbon Dioxide BUN Creatinine Glucose 107 H POC Glucose Calcium Total Creatine Kinase 503 H 498 H CK-MB (CK-2) 69.6 H 51.9 H CK-MB (CK-2) Rel Index 13.8 H 10.4 H Troponin T 1.900 H* D 1.950 H* C-Reactive Protein NT-Pro-B Natriuret Pep Triglycerides HDL Cholesterol Urine WBC (Auto) 04/05/18 04/05/18 04/05/18 06:47 11:33 17:49 WBC RBC Hct MCHC [place] % (Auto) [place] # Seg Neuts % (Manual) Lymphocytes % (Manual) Monocytes % (Manual) Seg Neutrophils # Seg Neutrophils # Man Monocytes # (Manual) APTT Activated Clotting Time Heparin Anti-Xa Level POC ABG pH POC ABG pCO2 POC ABG pO2 Sodium 128 L Potassium Chloride 88.7 L Carbon Dioxide BUN 18 H Creatinine Glucose 153 H POC Glucose 179 H 190 H Calcium Total Creatine Kinase 399 H CK-MB (CK-2) 35.5 H CK-MB (CK-2) Rel Index 8.8 H Troponin T 1.730 H* C-Reactive Protein NT-Pro-B Natriuret Pep Triglycerides HDL Cholesterol Urine WBC (Auto) 05/18/18 05/19/18 05/19/18 21:20 05:26 08:11 WBC RBC Hct MCHC [place] % (Auto) [place] # Seg Neuts % (Manual) Lymphocytes % (Manual) Monocytes % (Manual) Seg Neutrophils # Seg Neutrophils # Man Monocytes # (Manual) APTT Activated Clotting Time Heparin Anti-Xa Level POC ABG pH POC ABG pCO2 POC ABG pO2 Sodium 130 L Potassium Chloride 91.2 L Carbon Dioxide 20 L BUN 28 H Creatinine Glucose 137 H POC Glucose 130 H 108 H Calcium 8.1 L Total Creatine Kinase CK-MB (CK-2) CK-MB (CK-2) Rel Index Troponin T C-Reactive Protein NT-Pro-B Natriuret Pep Triglycerides HDL Cholesterol Urine WBC (Auto) 04/06/18 04/06/18 04/07/18 08:11 21:35 00:14 WBC 19.3 H RBC Hct MCHC [place] % (Auto) [place] # Seg Neuts % (Manual) Lymphocytes % (Manual) Monocytes % (Manual) Seg Neutrophils # Seg Neutrophils # Man Monocytes # (Manual) APTT Activated Clotting Time Heparin Anti-Xa Level POC ABG pH POC ABG pCO2 POC ABG pO2 Sodium Potassium Chloride Carbon Dioxide BUN Creatinine Glucose POC Glucose 188 H 146 H Calcium Total Creatine Kinase CK-MB (CK-2) CK-MB (CK-2) Rel Index Troponin T C-Reactive Protein NT-Pro-B Natriuret Pep Triglycerides HDL Cholesterol Urine WBC (Auto) 04/07/18 04/07/18 04/07/18 00:47 05:43 08:07 WBC 21.5 H RBC Hct MCHC [place] % (Auto) [place] # Seg Neuts % (Manual) 82.5 H Lymphocytes % (Manual) 7.0 L Monocytes % (Manual) 7.5 H Seg Neutrophils # Seg Neutrophils # Man 17.7 H Monocytes # (Manual) 1.6 H APTT Activated Clotting Time Heparin Anti-Xa Level POC ABG pH POC ABG pCO2 POC ABG pO2 Sodium Potassium Chloride Carbon Dioxide BUN Creatinine Glucose POC Glucose 157 H Calcium Total Creatine Kinase 186 H CK-MB (CK-2) 13.2 H CK-MB (CK-2) Rel Index 7.0 H Troponin T 1.420 H* C-Reactive Protein NT-Pro-B Natriuret Pep Triglycerides HDL Cholesterol Urine WBC (Auto) 04/07/18 04/07/18 04/07/18 08:07 08:07 13:43 WBC RBC Hct MCHC [place] % (Auto) [place] # Seg Neuts % (Manual) Lymphocytes % (Manual) Monocytes % (Manual) Seg Neutrophils # Seg Neutrophils # Man Monocytes # (Manual) APTT > 20.0 L Activated Clotting Time Heparin Anti-Xa Level POC ABG pH POC ABG pCO2 52.0 H POC ABG pO2 456 H Sodium 129 L Potassium Chloride 92.4 L Carbon Dioxide BUN 34 H Creatinine Glucose 152 H POC Glucose Calcium 8.3 L Total Creatine Kinase CK-MB (CK-2) CK-MB (CK-2) Rel Index Troponin T 1.300 H* C-Reactive Protein NT-Pro-B Natriuret Pep 27737 H Triglycerides HDL Cholesterol Urine WBC (Auto) 04/07/18 04/07/18 04/08/18 15:15 15:15 04:23 WBC 19.0 H RBC Hct MCHC [place] % (Auto) [place] # Seg Neuts % (Manual) Lymphocytes % (Manual) Monocytes % (Manual) Seg Neutrophils # Seg Neutrophils # Man Monocytes # (Manual) APTT Activated Clotting Time Heparin Anti-Xa Level POC ABG pH 7.471 H POC ABG pCO2 POC ABG pO2 133 H Sodium Potassium Chloride Carbon Dioxide BUN Creatinine Glucose POC Glucose Calcium Total Creatine Kinase CK-MB (CK-2) CK-MB (CK-2) Rel Index Troponin T C-Reactive Protein NT-Pro-B Natriuret Pep Triglycerides HDL Cholesterol Urine WBC (Auto) 46.0 H 04/08/18 04/08/18 04/08/18 05:51 08:58 08:58 WBC 17.3 H RBC 3.59 L Hct MCHC [place] % (Auto) [place] # Seg Neuts % (Manual) Lymphocytes % (Manual) Monocytes % (Manual) Seg Neutrophils # Seg Neutrophils # Man Monocytes # (Manual) APTT Activated Clotting Time Heparin Anti-Xa Level POC ABG pH POC ABG pCO2 POC ABG pO2 Sodium Potassium Chloride 97.7 L Carbon Dioxide BUN 27 H Creatinine Glucose 114 H POC Glucose 111 H Calcium 7.1 L Total Creatine Kinase CK-MB (CK-2) CK-MB (CK-2) Rel Index Troponin T C-Reactive Protein NT-Pro-B Natriuret Pep Triglycerides HDL Cholesterol Urine WBC (Auto) 04/08/18 04/08/18 04/08/18 13:42 18:22 18:56 WBC RBC Hct MCHC [place] % (Auto) [place] # Seg Neuts % (Manual) Lymphocytes % (Manual) Monocytes % (Manual) Seg Neutrophils # Seg Neutrophils # Man Monocytes # (Manual) APTT Activated Clotting Time Heparin Anti-Xa Level POC ABG pH POC ABG pCO2 POC ABG pO2 Sodium Potassium Chloride Carbon Dioxide BUN Creatinine Glucose POC Glucose 113 H 107 H Calcium Total Creatine Kinase CK-MB (CK-2) CK-MB (CK-2) Rel Index Troponin T C-Reactive Protein 11.30 H NT-Pro-B Natriuret Pep Triglycerides HDL Cholesterol Urine WBC (Auto) 04/09/18 04/09/18 04/09/18 04:41 05:00 05:00 WBC 12.2 H RBC 3.30 L Hct 30.2 L MCHC 35 H [place] % (Auto) [place] # Seg Neuts % (Manual) Lymphocytes % (Manual) Monocytes % (Manual) Seg Neutrophils # Seg Neutrophils # Man Monocytes # (Manual) APTT Activated Clotting Time Heparin Anti-Xa Level POC ABG pH 7.556 H POC ABG pCO2 POC ABG pO2 Sodium 134 L Potassium 3.2 L Chloride 94.6 L Carbon Dioxide 32 H BUN 27 H Creatinine Glucose POC Glucose Calcium 7.3 L Total Creatine Kinase CK-MB (CK-2) CK-MB (CK-2) Rel Index Troponin T C-Reactive Protein NT-Pro-B Natriuret Pep Triglycerides HDL Cholesterol Urine WBC (Auto) 04/09/18 04/10/18 04/10/18 18:27 05:19 09:10 WBC 14.7 H RBC Hct MCHC [place] % (Auto) [place] # Seg Neuts % (Manual) Lymphocytes % (Manual) Monocytes % (Manual) Seg Neutrophils # Seg Neutrophils # Man Monocytes # (Manual) APTT Activated Clotting Time Heparin Anti-Xa Level POC ABG pH 7.491 H POC ABG pCO2 POC ABG pO2 Sodium Potassium Chloride Carbon Dioxide BUN Creatinine Glucose POC Glucose 111 H Calcium Total Creatine Kinase CK-MB (CK-2) CK-MB (CK-2) Rel Index Troponin T C-Reactive Protein NT-Pro-B Natriuret Pep Triglycerides HDL Cholesterol Urine WBC (Auto) 04/10/18 04/10/18 04/10/18 09:10 13:36 Unknown WBC RBC Hct MCHC [place] % (Auto) [place] # Seg Neuts % (Manual) Lymphocytes % (Manual) Monocytes % (Manual) Seg Neutrophils # Seg Neutrophils # Man Monocytes # (Manual) APTT Activated Clotting Time Heparin Anti-Xa Level POC ABG pH 7.524 H POC ABG pCO2 POC ABG pO2 329 H Sodium Potassium Chloride Carbon Dioxide BUN 26 H 25 H Creatinine Glucose POC Glucose Calcium 8.0 L 7.7 L Total Creatine Kinase CK-MB (CK-2) CK-MB (CK-2) Rel Index Troponin T C-Reactive Protein NT-Pro-B Natriuret Pep Triglycerides HDL Cholesterol Urine WBC (Auto) 04/11/18 04/11/18 04/11/18 00:05 05:34 11:00 WBC 13.1 H RBC 3.58 L Hct MCHC [place] % (Auto) [place] # Seg Neuts % (Manual) Lymphocytes % (Manual) Monocytes % (Manual) Seg Neutrophils # Seg Neutrophils # Man Monocytes # (Manual) APTT Activated Clotting Time Heparin Anti-Xa Level POC ABG pH 7.517 H POC ABG pCO2 POC ABG pO2 79 L Sodium Potassium Chloride Carbon Dioxide BUN Creatinine Glucose POC Glucose 106 H Calcium Total Creatine Kinase CK-MB (CK-2) CK-MB (CK-2) Rel Index Troponin T C-Reactive Protein NT-Pro-B Natriuret Pep Triglycerides HDL Cholesterol Urine WBC (Auto) 04/11/18 04/11/18 04/11/18 11:00 12:47 16:36 WBC RBC Hct MCHC [place] % (Auto) [place] # Seg Neuts % (Manual) Lymphocytes % (Manual) Monocytes % (Manual) Seg Neutrophils # Seg Neutrophils # Man Monocytes # (Manual) APTT Activated Clotting Time Heparin Anti-Xa Level POC ABG pH 7.523 H POC ABG pCO2 POC ABG pO2 Sodium Potassium Chloride Carbon Dioxide 32 H BUN 30 H Creatinine 0.6 L Glucose 105 H POC Glucose 116 H Calcium Total Creatine Kinase CK-MB (CK-2) CK-MB (CK-2) Rel Index Troponin T C-Reactive Protein NT-Pro-B Natriuret Pep Triglycerides HDL Cholesterol Urine WBC (Auto) 04/11/18 04/11/18 04/11/18 16:43 17:28 20:42 WBC RBC Hct MCHC [place] % (Auto) [place] # Seg Neuts % (Manual) Lymphocytes % (Manual) Monocytes % (Manual) Seg Neutrophils # Seg Neutrophils # Man Monocytes # (Manual) APTT 70.8 H* Activated Clotting Time Heparin Anti-Xa Level 0.89 H POC ABG pH POC ABG pCO2 POC ABG pO2 Sodium Potassium Chloride Carbon Dioxide BUN Creatinine Glucose POC Glucose 109 H Calcium Total Creatine Kinase CK-MB (CK-2) CK-MB (CK-2) Rel Index Troponin T C-Reactive Protein NT-Pro-B Natriuret Pep Triglycerides HDL Cholesterol Urine WBC (Auto) 04/12/18 04/12/18 04/12/18 04:27 04:27 04:27 WBC 15.0 H RBC Hct MCHC [place] % (Auto) [place] # Seg Neuts % (Manual) Lymphocytes % (Manual) Monocytes % (Manual) Seg Neutrophils # Seg Neutrophils # Man Monocytes # (Manual) APTT Activated Clotting Time Heparin Anti-Xa Level 0.99 H POC ABG pH POC ABG pCO2 POC ABG pO2 Sodium Potassium Chloride 95.7 L Carbon Dioxide BUN 30 H Creatinine Glucose POC Glucose Calcium Total Creatine Kinase CK-MB (CK-2) CK-MB (CK-2) Rel Index Troponin T C-Reactive Protein NT-Pro-B Natriuret Pep Triglycerides HDL Cholesterol Urine WBC (Auto) 04/12/18 04/14/18 04/14/18 23:15 17:23 17:23 WBC 12.6 H RBC Hct MCHC [place] % (Auto) [place] # Seg Neuts % (Manual) Lymphocytes % (Manual) Monocytes % (Manual) Seg Neutrophils # Seg Neutrophils # Man Monocytes # (Manual) APTT Activated Clotting Time Heparin Anti-Xa Level POC ABG pH POC ABG pCO2 POC ABG pO2 Sodium 132 L D Potassium Chloride 93.3 L Carbon Dioxide BUN 18 H Creatinine Glucose POC Glucose 109 H Calcium Total Creatine Kinase CK-MB (CK-2) CK-MB (CK-2) Rel Index Troponin T C-Reactive Protein NT-Pro-B Natriuret Pep Triglycerides HDL Cholesterol Urine WBC (Auto) 04/15/18 08:15 WBC RBC Hct MCHC [place] % (Auto) [place] # Seg Neuts % (Manual) Lymphocytes % (Manual) Monocytes % (Manual) Seg Neutrophils # Seg Neutrophils # Man Monocytes # (Manual) APTT Activated Clotting Time Heparin Anti-Xa Level 1.90 H POC ABG pH POC ABG pCO2 POC ABG pO2 Sodium Potassium Chloride Carbon Dioxide BUN Creatinine Glucose POC Glucose Calcium Total Creatine Kinase CK-MB (CK-2) CK-MB (CK-2) Rel Index Troponin T C-Reactive Protein NT-Pro-B Natriuret Pep Triglycerides HDL Cholesterol Urine WBC (Auto) Allied health notes reviewed: nursing
--- NOTE | 2018-04-16 18:28 | Progress Note ---
Assessment and Plan Assessment and plan: Acute respiratory failure likely from cardiogenic shock Extubated 04/11,was intubated 04/07/18, Pulmonology/ critical care following Now on Oxygen by ID only Cardiogenic shock likely due to due to Takutsubo's cardiomyopathy placed on pressor and s/p IABP placed on 04/07, removed 04/09 Takutsubo's cardiomyopathy S/p emergent LHC on admission which revealed normal coronaries, EF 20-25%. repeat LHC 04/07 revealed no significant CAD, Severe anterior, radha-apical, and infero-apical dykinesis with EF ~ 20% c/w stress cardiomyopathy IABP was placed, now removed Acute encephalopathy first noted on 04/05/18 following admission delirium vs transient Amnesia vs TIA negative CT head/MRI, EEG, consulted neurology Much improved, She is now awake,alert,oriented. SIRS high WBC and SIRS likley to be due to Takutsubo's cardiomyopathy Follow blood cx, UA, b/l pleural congestion on CXR Cont on Zosyn till underlying infection r/o Leukocytosis. Hyperlipidemia, cont statin Hypokalemia. Resolved GERD, cont Protonix H/o breast cancer For outpatient follow up when stable Full code status Patient is now medically stable for discharge. However patient and family requesting SNF placement. i discussed with case management. History Interval history: Patient extubated 04/11/17 She feels much better No chest pain, No SOB Patient and family requesting subacute rehab Hospitalist Physical - Physical exam Narrative exam: General: Not in acute distress, lying in bed, HEENT:Normocephalic, atraumatic Neck:supple,no JVD Lungs: Clear to auscultation bilaterally, no crackles, no wheeze Heart:S1 and S2 regular, no murmurs, rubs or gallop Abd: soft, non tender,non distended, normal bowel sounds Ext: No edema, no clubbing or cyanosis Neuro: Awake,alert,oriented x 3, moves all ext - Constitutional Vitals: Temp Pulse Resp BP Pulse Ox 98.6 F 80 20 96/69 92 04/16/18 09:31 04/16/18 10:45 04/16/18 14:29 04/16/18 09:48 04/16/18 10:00 Results - Labs CBC & Chem 7: 04/15/18 08:16 04/14/18 17:23 Labs: Laboratory Last Values WBC 12.6 K/mm3 (4.5-11.0) H 04/14/18 17:23 RBC 3.80 M/mm3 (3.65-5.03) 04/14/18 17:23 Hgb 10.9 gm/dl (10.1-14.3) 04/15/18 08:16 Hct 31.8 % (30.3-42.9) 04/15/18 08:16 MCV 93 fl (79-97) 04/14/18 17:23 MCH 31 pg (28-32) 04/14/18 17: MCHC 33 % (30-34) 04/14/18 17:23 RDW 13.8 % (13.2-15.2) 04/14/18 17:23 Plt Count 235 K/mm3 (140-440) 04/15/18 08:16 Lymph % (Auto) 22.3 % (13.4-35.0) 04/04/18 06:12 [place] % (Auto) 9.2 % (0.0-7.3) H 04/04/18 06:12 Eos % (Auto) 0.7 % (0.0-4.3) 04/04/18 06:12 Baso % (Auto) 0.4 % (0.0-1.8) 04/04/18 06:12 Lymph # 3.0 K/mm3 (1.2-5.4) 04/04/18 06:12 [place] # 1.2 K/mm3 (0.0-0.8) H 04/04/18 06:12 Eos # 0.1 K/mm3 (0.0-0.4) 04/04/18 06:12 Baso # 0.1 K/mm3 (0.0-0.1) 04/04/18 06:12 Add Manual Diff Complete 04/07/18 08:07 Total Counted 200 04/07/18 08:07 Seg Neutrophils % 67.4 % (40.0-70.0) 04/04/18 06:12 Seg Neuts % (Manual) 82.5 % (40.0-70.0) H 04/07/18 08:07 Band Neutrophils % 2.0 % 04/07/18 08:07 Lymphocytes % (Manual) 7.0 % (13.4-35.0) L 04/07/18 08:07 Reactive Lymphs % (Man) 0 % 04/07/18 08:07 Monocytes % (Manual) 7.5 % (0.0-7.3) H 04/07/18 08:07 Eosinophils % (Manual) 0 % (0.0-4.3) 04/07/18 08:07 Basophils % (Manual) 0 % (0.0-1.8) 04/07/18 08:07 Metamyelocytes % 1.0 % 04/07/18 08:07 Myelocytes % 0 % 04/07/18 08:07 Promyelocytes % 0 % 04/07/18 08:07 Blast Cells % 0 % 04/07/18 08:07 Nucleated RBC % Not Reportable 04/07/18 08:07 Seg Neutrophils # 9.0 K/mm3 (1.8-7.7) H 04/04/18 06:12 Seg Neutrophils # Man 17.7 K/mm3 (1.8-7.7) H 04/07/18 08:07 Band Neutrophils # 0.4 K/mm3 04/07/18 08:07 Lymphocytes # (Manual) 1.5 K/mm3 (1.2-5.4) 04/07/18 08:07 Abs React Lymphs (Man) 0.0 K/mm3 04/07/18 08:07 Monocytes # (Manual) 1.6 K/mm3 (0.0-0.8) H 04/07/18 08:07 Eosinophils # (Manual) 0.0 K/mm3 (0.0-0.4) 04/07/18 08:07 Basophils # (Manual) 0.0 K/mm3 (0.0-0.1) 04/07/18 08:07 Metamyelocytes # 0.2 K/mm3 04/07/18 08:07 Myelocytes # 0.0 K/mm3 04/07/18 08:07 Promyelocytes # 0.0 K/mm3 04/07/18 08:07 Blast Cells # 0.0 K/mm3 04/07/18 08:07 WBC Morphology Not Reportable 04/07/18 08:07 Hypersegmented Neuts Not Reportable 04/07/18 08:07 Hyposegmented Neuts Not Reportable 04/07/18 08:07 Hypogranular Neuts Not Reportable 04/07/18 08:07 Smudge Cells Not Reportable 04/07/18 08:07 Toxic Granulation Not Reportable 04/07/18 08:07 Toxic Vacuolation Not Reportable 04/07/18 08:07 Dohle Bodies Not Reportable 04/07/18 08:07 Pelger-Huet Anomaly Not Reportable 04/07/18 08:07 Roxanne Rods Not Reportable 04/07/18 08:07 Platelet Estimate Appears normal 04/07/18 08:07 Clumped Platelets Not Reportable 04/07/18 08:07 Plt Clumps, EDTA Not Reportable 04/07/18 08:07 Large Platelets Not Reportable 04/07/18 08:07 Giant Platelets Not Reportable 04/07/18 08:07 Platelet Satelliting Not Reportable 04/07/18 08:07 Plt Morphology Comment Not Reportable 04/07/18 08:07 RBC Morphology Not Reportable 04/07/18 08:07 Dimorphic RBCs Not Reportable 04/07/18 08:07 Polychromasia Not Reportable 04/07/18 08:07 Hypochromasia Not Reportable 04/07/18 08:07 Poikilocytosis Not Reportable 04/07/18 08:07 Anisocytosis Not Reportable 04/07/18 08:07 Microcytosis Not Reportable 04/07/18 08:07 Macrocytosis Not Reportable 04/07/18 08:07 Spherocytes Not Reportable 04/07/18 08:07 Pappenheimer Bodies Not Reportable 04/07/18 08:07 Sickle Cells Not Reportable 04/07/18 08:07 Target Cells Not Reportable 04/07/18 08:07 Tear Drop Cells Not Reportable 04/07/18 08:07 Ovalocytes Not Reportable 04/07/18 08:07 Helmet Cells Not Reportable 04/07/18 08:07 [place] Bodies Not Reportable 04/07/18 08:07 [place] Rings Not Reportable 04/07/18 08:07 [place] Cells Not Reportable 04/07/18 08:07 Bite Cells Not Reportable 04/07/18 08:07 Crenated Cell Not Reportable 04/07/18 08:07 Elliptocytes Not Reportable 04/07/18 08:07 Acanthocytes (Spur) Not Reportable 04/07/18 08:07 Rouleaux Not Reportable 04/07/18 08:07 Hemoglobin C Crystals Not Reportable 04/07/18 08:07 Schistocytes Not Reportable 04/07/18 08:07 Malaria parasites Not Reportable 04/07/18 08:07 Abhijit Bodies Not Reportable 04/07/18 08:07 Hem Pathologist Commnt No 04/07/18 08:07 PT 13.4 Sec. (12.2-14.9) 04/11/18 16:43 INR 0.97 (0.87-1.13) 04/11/18 16:43 APTT 70.8 Sec. (24.2-36.6) H* 04/11/18 16:43 Activated Clotting Time 136 (74-137) 04/09/18 16:14 Heparin Anti-Xa Level 1.90 U.I./ml (0.3-0.7) H 04/15/18 08:15 POC ABG pH 7.523 (7.35-7.45) H 04/11/18 16:36 POC ABG pCO2 38.7 (35-45) 04/11/18 16:36 POC ABG pO2 90 (80-105) 04/11/18 16:36 POC ABG HCO3 31.9 04/11/18 16:36 POC ABG Total CO2 33 04/11/18 16:36 POC ABG O2 Sat 98 04/11/18 16:36 POC ABG Base Excess 9 04/11/18 16:36 FiO2 28 % 04/11/18 16:36 Sodium 132 mmol/L (137-145) L D 04/14/18 17:23 Potassium 3.8 mmol/L (3.6-5.0) 04/14/18 17:23 Chloride 93.3 mmol/L (98-107) L 04/14/18 17:23 Carbon Dioxide 28 mmol/L (22-30) 04/14/18 17:23 Anion Gap 15 mmol/L 04/14/18 17:23 BUN 18 mg/dL (7-17) H 04/14/18 17:23 Creatinine 0.7 mg/dL (0.7-1.2) 04/14/18 17:23 Estimated GFR > 60 ml/min 04/14/18 17:23 BUN/Creatinine Ratio 26 % 04/14/18 17:23 Glucose 96 mg/dL (65-100) 04/14/18 17:23 POC Glucose 97 (70-105) 04/14/18 20:33 Lactic Acid 1.50 mmol/L (0.7-2.0) 04/07/18 15:15 Calcium 8.8 mg/dL (8.4-10.2) 04/14/18 17:23 Phosphorus 3.90 mg/dL (2.5-4.5) 04/14/18 17:23 Magnesium 1.80 mg/dL (1.7-2.3) 04/14/18 17:23 Total Creatine Kinase 186 units/L (30-135) H 04/07/18 00:47 CK-MB (CK-2) 13.2 ng/mL (0.0-4.0) H 04/07/18 00:47 CK-MB (CK-2) Rel Index 7.0 (0-4) H 04/07/18 00:47 Troponin T 1.300 ng/mL (0.00-0.029) H* 04/07/18 08:07 C-Reactive Protein 11.30 mg/dL (0.00-1.30) H 04/08/18 18:56 NT-Pro-B Natriuret Pep 55350 pg/mL (0-900) H 04/07/18 08:07 Triglycerides 169 mg/dL (2-149) H 04/03/18 11:47 Cholesterol 158 mg/dL (50-199) 04/03/18 11:47 LDL Cholesterol Direct 80 mg/dL (50-130) 04/03/18 11:47 HDL Cholesterol 63 mg/dL (40-59) H 04/03/18 11:47 Cholesterol/HDL Ratio 2.50 % 04/03/18 11:47 Urine Color Yellow (Yellow) 04/07/18 15:15 Urine Turbidity Clear (Clear) 04/07/18 15:15 Urine pH 5.0 (5.0-7.0) 04/07/18 15:15 Ur Specific [place] 1.020 (1.003-1.030) 04/07/18 15:15 Urine Protein <15 mg/dl mg/dL (Negative) 04/07/18 15:15 Urine Glucose (UA) Neg mg/dL (Negative) 04/07/18 15:15 Urine Ketones Neg mg/dL (Negative) 04/07/18 15:15 Urine Blood Sm (Negative) 04/07/18 15:15 Urine Nitrite Neg (Negative) 04/07/18 15:15 Urine Bilirubin Neg (Negative) 04/07/18 15:15 Urine Urobilinogen < 2.0 mg/dL (<2.0) 04/07/18 15:15 Ur Leukocyte Esterase Mod (Negative) 04/07/18 15:15 Urine WBC (Auto) 46.0 /HPF (0.0-6.0) H 04/07/18 15:15 Urine RBC (Auto) 4.0 /HPF (0.0-6.0) 04/07/18 15:15 U Epithel Cells (Auto) < 1.0 /HPF (0-13.0) 04/07/18 15:15 Hyaline Casts 3 /LPF 04/07/18 15:15 Urine Mucus Few /HPF 04/07/18 15:15 Urine Yeast (Budding) Few /HPF 04/07/18 15:15 Blood Type A POSITIVE 04/03/18 11:47 Antibody Screen Negative 04/03/18 11:47
--- NOTE | 2018-04-16 18:32 | Progress Note ---
Assessment and Plan Assessment and plan: Acute respiratory failure likely from cardiogenic shock Extubated 04/11,was intubated 04/07/18, Pulmonology/ critical care following Now on Oxygen by [place] only. 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 repeat LHC 04/07 revealed no significant CAD, Severe anterior, radha-apical, and infero-apical dykinesis with EF ~ 20% c/w stress cardiomyopathy IABP was placed, now removed Acute encephalopathy first noted on 04/05/18 following admission delirium vs transient Amnesia vs TIA negative CT head/MRI, EEG, consulted neurology Much improved, She is now awake,alert,oriented. SIRS high WBC and SIRS likley to be due to Takutsubo's cardiomyopathy Blood cultures no growth after several days Discontinued Zosyn Leukocytosis. Hyperlipidemia, cont statin Hypokalemia. Resolved GERD, cont Protonix H/o breast cancer For outpatient follow up when stable Full code status PT recommends subacute rehab. I discussed with case management. She is medically stable for discharge. History Interval history: Patient extubated 04/11/17 She feels much better No chest pain, No SOB Patient and family requesting subacute rehab placement Hospitalist Physical - Physical exam Narrative exam: General: Not in acute distress, lying in bed, HEENT:Normocephalic, atraumatic Neck:supple,no JVD Lungs: Clear to auscultation bilaterally, no crackles, no wheeze Heart:S1 and S2 regular, no murmurs, rubs or gallop Abd: soft, non tender,non distended, normal bowel sounds Ext: No edema, no clubbing or cyanosis Neuro: Awake,alert,oriented x 3, moves all ext - Constitutional Vitals: Temp Pulse Resp BP Pulse Ox 98.6 F 80 20 96/69 92 04/16/18 09:31 04/16/18 10:45 04/16/18 14:29 04/16/18 09:48 04/16/18 10:00 Results - Labs CBC & Chem 7: 04/15/18 08:16 04/14/18 17:23 Labs: Laboratory Last Values WBC 12.6 K/mm3 (4.5-11.0) H 04/14/18 17:23 RBC 3.80 M/mm3 (3.65-5.03) 04/14/18 17:23 Hgb 10.9 gm/dl (10.1-14.3) 04/15/18 08:16 Hct 31.8 % (30.3-42.9) 04/15/18 08:16 MCV 93 fl (79-97) 04/14/18 17:23 MCH 31 pg (28-32) 04/14/18 17:23 MCHC 33 % (30-34) 04/14/18 17:23 RDW 13.8 % (13.2-15.2) 04/14/18 17:23 Plt Count 235 K/mm3 (140-440) 04/15/18 08:16 Lymph % (Auto) 22.3 % (13.4-35.0) 04/04/18 06:12 [place] % (Auto) 9.2 % (0.0-7.3) H 04/04/18 06:12 Eos % (Auto) 0.7 % (0.0-4.3) 04/04/18 06:12 Baso % (Auto) 0.4 % (0.0-1.8) 04/04/18 06:12 Lymph # 3.0 K/mm3 (1.2-5.4) 04/04/18 06:12 [place] # 1.2 K/mm3 (0.0-0.8) H 04/04/18 06:12 Eos # 0.1 K/mm3 (0.0-0.4) 04/04/18 06:12 Baso # 0.1 K/mm3 (0.0-0.1) 04/04/18 06:12 Add Manual Diff Complete 04/07/18 08:07 Total Counted 200 04/07/18 08:07 Seg Neutrophils % 67.4 % (40.0-70.0) 04/04/18 06:12 Seg Neuts % (Manual) 82.5 % (40.0-70.0) H 04/07/18 08:07 Band Neutrophils % 2.0 % 04/07/18 08:07 Lymphocytes % (Manual) 7.0 % (13.4-35.0) L 04/07/18 08:07 Reactive Lymphs % (Man) 0 % 04/07/18 08:07 Monocytes % (Manual) 7.5 % (0.0-7.3) H 04/07/18 08:07 Eosinophils % (Manual) 0 % (0.0-4.3) 04/07/18 08:07 Basophils % (Manual) 0 % (0.0-1.8) 04/07/18 08:07 Metamyelocytes % 1.0 % 04/07/18 08:07 Myelocytes % 0 % 04/07/18 08:07 Promyelocytes % 0 % 04/07/18 08:07 Blast Cells % 0 % 04/07/18 08:07 Nucleated RBC % Not Reportable 04/07/18 08:07 Seg Neutrophils # 9.0 K/mm3 (1.8-7.7) H 04/04/18 06:12 Seg Neutrophils # Man 17.7 K/mm3 (1.8-7.7) H 04/07/18 08:07 Band Neutrophils # 0.4 K/mm3 04/07/18 08:07 Lymphocytes # (Manual) 1.5 K/mm3 (1.2-5.4) 04/07/18 08:07 Abs React Lymphs (Man) 0.0 K/mm3 04/07/18 08:07 Monocytes # (Manual) 1.6 K/mm3 (0.0-0.8) H 04/07/18 08:07 Eosinophils # (Manual) 0.0 K/mm3 (0.0-0.4) 04/07/18 08:07 Basophils # (Manual) 0.0 K/mm3 (0.0-0.1) 04/07/18 08:07 Metamyelocytes # 0.2 K/mm3 04/07/18 08:07 Myelocytes # 0.0 K/mm3 04/07/18 08:07 Promyelocytes # 0.0 K/mm3 04/07/18 08:07 Blast Cells # 0.0 K/mm3 04/07/18 08:07 WBC Morphology Not Reportable 04/07/18 08:07 Hypersegmented Neuts Not Reportable 04/07/18 08:07 Hyposegmented Neuts Not Reportable 04/07/18 08:07 Hypogranular Neuts Not Reportable 04/07/18 08:07 Smudge Cells Not Reportable 04/07/18 08:07 Toxic Granulation Not Reportable 04/07/18 08:07 Toxic Vacuolation Not Reportable 04/07/18 08:07 Dohle Bodies Not Reportable 04/07/18 08:07 Pelger-Huet Anomaly Not Reportable 04/07/18 08:07 Roxanne Rods Not Reportable 04/07/18 08:07 Platelet Estimate Appears normal 04/07/18 08:07 Clumped Platelets Not Reportable 04/07/18 08:07 Plt Clumps, EDTA Not Reportable 04/07/18 08:07 Large Platelets Not Reportable 04/07/18 08:07 Giant Platelets Not Reportable 04/07/18 08:07 Platelet Satelliting Not Reportable 04/07/18 08:07 Plt Morphology Comment Not Reportable 04/07/18 08:07 RBC Morphology Not Reportable 04/07/18 08:07 Dimorphic RBCs Not Reportable 04/07/18 08:07 Polychromasia Not Reportable 04/07/18 08:07 Hypochromasia Not Reportable 04/07/18 08:07 Poikilocytosis Not Reportable 04/07/18 08:07 Anisocytosis Not Reportable 04/07/18 08:07 Microcytosis Not Reportable 04/07/18 08:07 Macrocytosis Not Reportable 04/07/18 08:07 Spherocytes Not Reportable 04/07/18 08:07 Pappenheimer Bodies Not Reportable 04/07/18 08:07 Sickle Cells Not Reportable 04/07/18 08:07 Target Cells Not Reportable 04/07/18 08:07 Tear Drop Cells Not Reportable 04/07/18 08:07 Ovalocytes Not Reportable 04/07/18 08:07 Helmet Cells Not Reportable 04/07/18 08:07 [place] Bodies Not Reportable 04/07/18 08:07 [place] Rings Not Reportable 04/07/18 08:07 Suman Cells Not Reportable 04/07/18 08:07 Bite Cells Not Reportable 04/07/18 08:07 Crenated Cell Not Reportable 04/07/18 08:07 Elliptocytes Not Reportable 04/07/18 08:07 Acanthocytes (Spur) Not Reportable 04/07/18 08:07 Rouleaux Not Reportable 04/07/18 08:07 Hemoglobin C Crystals Not Reportable 04/07/18 08:07 Schistocytes Not Reportable 04/07/18 08:07 Malaria parasites Not Reportable 04/07/18 08:07 Abhijit Bodies Not Reportable 04/07/18 08:07 Hem Pathologist Commnt No 04/07/18 08:07 PT 13.4 Sec. (12.2-14.9) 04/11/18 16:43 INR 0.97 (0.87-1.13) 04/11/18 16:43 APTT 70.8 Sec. (24.2-36.6) H* 04/11/18 16:43 Activated Clotting Time 136 (74-137) 04/09/18 16:14 Heparin Anti-Xa Level 1.90 U.I./ml (0.3-0.7) H 04/15/18 08:15 POC ABG pH 7.523 (7.35-7.45) H 04/11/18 16:36 POC ABG pCO2 38.7 (35-45) 04/11/18 16:36 POC ABG pO2 90 (80-105) 04/11/18 16:36 POC ABG HCO3 31.9 04/11/18 16:36 POC ABG Total CO2 33 04/11/18 16:36 POC ABG O2 Sat 98 04/11/18 16:36 POC ABG Base Excess 9 04/11/18 16:36 FiO2 28 % 04/11/18 16:36 Sodium 132 mmol/L (137-145) L D 04/14/18 17:23 Potassium 3.8 mmol/L (3.6-5.0) 04/14/18 17:23 Chloride 93.3 mmol/L (98-107) L 04/14/18 17:23 Carbon Dioxide 28 mmol/L (22-30) 04/14/18 17:23 Anion Gap 15 mmol/L 04/14/18 17:23 BUN 18 mg/dL (7-17) H 04/14/18 17:23 Creatinine 0.7 mg/dL (0.7-1.2) 04/14/18 17:23 Estimated GFR > 60 ml/min 04/14/18 17:23 BUN/Creatinine Ratio 26 % 04/14/18 17:23 Glucose 96 mg/dL (65-100) 04/14/18 17:23 POC Glucose 97 (70-105) 04/14/18 20:33 Lactic Acid 1.50 mmol/L (0.7-2.0) 04/07/18 15:15 Calcium 8.8 mg/dL (8.4-10.2) 04/14/18 17:23 Phosphorus 3.90 mg/dL (2.5-4.5) 04/14/18 17:23 Magnesium 1.80 mg/dL (1.7-2.3) 04/14/18 17:23 Total Creatine Kinase 186 units/L (30-135) H 04/07/18 00:47 CK-MB (CK-2) 13.2 ng/mL (0.0-4.0) H 04/07/18 00:47 CK-MB (CK-2) Rel Index 7.0 (0-4) H 04/07/18 00:47 Troponin T 1.300 ng/mL (0.00-0.029) H* 04/07/18 08:07 C-Reactive Protein 11.30 mg/dL (0.00-1.30) H 04/08/18 18:56 NT-Pro-B Natriuret Pep 87569 pg/mL (0-900) H 04/07/18 08:07 Triglycerides 169 mg/dL (2-149) H 04/03/18 11:47 Cholesterol 158 mg/dL (50-199) 04/03/18 11:47 LDL Cholesterol Direct 80 mg/dL (50-130) 04/03/18 11:47 HDL Cholesterol 63 mg/dL (40-59) H 04/03/18 11:47 Cholesterol/HDL Ratio 2.50 % 04/03/18 11:47 Urine Color Yellow (Yellow) 04/07/18 15:15 Urine Turbidity Clear (Clear) 04/07/18 15:15 Urine pH 5.0 (5.0-7.0) 04/07/18 15:15 Ur Specific [place] 1.020 (1.003-1.030) 04/07/18 15:15 Urine Protein <15 mg/dl mg/dL (Negative) 04/07/18 15:15 Urine Glucose (UA) Neg mg/dL (Negative) 04/07/18 15:15 Urine Ketones Neg mg/dL (Negative) 04/07/18 15:15 Urine Blood Sm (Negative) 04/07/18 15:15 Urine Nitrite Neg (Negative) 04/07/18 15:15 Urine Bilirubin Neg (Negative) 04/07/18 15:15 Urine Urobilinogen < 2.0 mg/dL (<2.0) 04/07/18 15:15 Ur Leukocyte Esterase Mod (Negative) 04/07/18 15:15 Urine WBC (Auto) 46.0 /HPF (0.0-6.0) H 04/07/18 15:15 Urine RBC (Auto) 4.0 /HPF (0.0-6.0) 04/07/18 15:15 U Epithel Cells (Auto) < 1.0 /HPF (0-13.0) 04/07/18 15:15 Hyaline Casts 3 /LPF 04/07/18 15:15 Urine Mucus Few /HPF 04/07/18 15:15 Urine Yeast (Budding) Few /HPF 04/07/18 15:15 Blood Type A POSITIVE 04/03/18 11:47 Antibody Screen Negative 04/03/18 11:47
[2018-04-16] MEDS: XANAX PO PRN (21:57)
[2018-04-17 08:02] LABS: Hematocrit 33.2 % (30.3-42.9); Hemoglobin 11.4 gm/dl (10.1-14.3)
[2018-04-17] MEDS: PULMICORT IH SCH ×2 (09:22→21:17)
[2018-04-17] MEDS: BROVANA NEBU IH SCH ×2 (09:22→21:17)
[2018-04-17] MEDS: BABY ASPIRIN PO SCH (10:20)
[2018-04-17] MEDS: COLACE FEEDTUBE SCH ×2 (10:20→22:12)
[2018-04-17] MEDS: CORDARONE PO SCH (10:21)
[2018-04-17] MEDS: COZAAR PO SCH (10:21)
[2018-04-17] MEDS: ELIQUIS PO SCH ×2 (10:22→22:12)
[2018-04-17] MEDS: LOPRESSOR PO SCH ×2 (10:23→22:18)
--- NOTE | 2018-04-17 12:20 | Progress Note ---
Assessment and Plan Assessment and plan: Acute respiratory failure likely from cardiogenic shock Extubated 04/11,was intubated 04/07/18, Pulmonology/ critical care following Now on Oxygen by [place] only. 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 repeat LHC 04/07 revealed no significant CAD, Severe anterior, radha-apical, and infero-apical dykinesis with EF ~ 20% c/w stress cardiomyopathy IABP was placed, now removed Atrial fibrillation with RVR. Titrate lopressor as BPs permit and cont amio 200mg BID. Acute encephalopathy first noted on 04/05/18 following admission delirium vs transient Amnesia vs TIA negative CT head/MRI, EEG, consulted neurology Much improved, She is now awake,alert,oriented. SIRS high WBC and SIRS likley to be due to Takutsubo's cardiomyopathy Blood cultures no growth after several days Discontinued Zosyn Leukocytosis improved. Hyperlipidemia, cont statin Hypokalemia. Resolved GERD, cont Protonix H/o breast cancer For outpatient follow up when stable Full code status PT recommends subacute rehab. Case management is aware She is medically stable for discharge. History Interval history: No new issues overnight. Hospitalist Physical - Constitutional Vitals: Temp Pulse Resp BP Pulse Ox 98.5 F 92 H 17 116/68 93 04/17/18 07:03 04/17/18 10:23 04/17/18 09:23 04/17/18 10:23 04/17/18 09:23 General appearance: Present: mild distress - EENT Eyes: Present: PERRL, EOM intact ENT: hearing intact, clear oral mucosa, dentition normal - Neck Neck: Present: supple, normal ROM - Respiratory Respiratory effort: normal Respiratory: bilateral: CTA - Cardiovascular Rhythm: regular Heart Sounds: Present: S1 & S2. Absent: gallop, rub - Extremities Extremities: no ischemia, No edema, Full ROM - Abdominal General gastrointestinal: soft, non-tender, non-distended, normal bowel sounds - Integumentary Integumentary: Present: clear, warm, dry - Neurologic Neurologic: CNII-XII intact, moves all extremities Results - Labs CBC & Chem 7: 04/17/18 07:16 04/14/18 17:23 Labs: Laboratory Last Values WBC 12.6 K/mm3 (4.5-11.0) H 04/14/18 17:23 RBC 3.80 M/mm3 (3.65-5.03) 04/14/18 17:23 Hgb 11.4 gm/dl (10.1-14.3) 04/17/18 07:16 Hct 33.2 % (30.3-42.9) 04/17/18 07:16 MCV 93 fl (79-97) 04/14/18 17:23 MCH 31 pg (28-32) 04/14/18 17:23 MCHC 33 % (30-34) 04/14/18 17:23 RDW 13.8 % (13.2-15.2) 04/14/18 17:23 Plt Count 300 K/mm3 (140-440) 04/17/18 07:16 Lymph % (Auto) 22.3 % (13.4-35.0) 04/04/18 06:12 [place] % (Auto) 9.2 % (0.0-7.3) H 04/04/18 06:12 Eos % (Auto) 0.7 % (0.0-4.3) 04/04/18 06:12 Baso % (Auto) 0.4 % (0.0-1.8) 04/04/18 06:12 Lymph # 3.0 K/mm3 (1.2-5.4) 04/04/18 06:12 [place] # 1.2 K/mm3 (0.0-0.8) H 04/04/18 06:12 Eos # 0.1 K/mm3 (0.0-0.4) 04/04/18 06:12 Baso # 0.1 K/mm3 (0.0-0.1) 04/04/18 06:12 Add Manual Diff Complete 04/07/18 08:07 Total Counted 200 04/07/18 08:07 Seg Neutrophils % 67.4 % (40.0-70.0) 04/04/18 06:12 Seg Neuts % (Manual) 82.5 % (40.0-70.0) H 04/07/18 08:07 Band Neutrophils % 2.0 % 04/07/18 08:07 Lymphocytes % (Manual) 7.0 % (13.4-35.0) L 04/07/18 08:07 Reactive Lymphs % (Man) 0 % 04/07/18 08:07 Monocytes % (Manual) 7.5 % (0.0-7.3) H 04/07/18 08:07 Eosinophils % (Manual) 0 % (0.0-4.3) 04/07/18 08:07 Basophils % (Manual) 0 % (0.0-1.8) 04/07/18 08:07 Metamyelocytes % 1.0 % 04/07/18 08:07 Myelocytes % 0 % 04/07/18 08:07 Promyelocytes % 0 % 04/07/18 08:07 Blast Cells % 0 % 04/07/18 08:07 Nucleated RBC % Not Reportable 04/07/18 08:07 Seg Neutrophils # 9.0 K/mm3 (1.8-7.7) H 04/04/18 06:12 Seg Neutrophils # Man 17.7 K/mm3 (1.8-7.7) H 04/07/18 08:07 Band Neutrophils # 0.4 K/mm3 04/07/18 08:07 Lymphocytes # (Manual) 1.5 K/mm3 (1.2-5.4) 04/07/18 08:07 Abs React Lymphs (Man) 0.0 K/mm3 04/07/18 08:07 Monocytes # (Manual) 1.6 K/mm3 (0.0-0.8) H 04/07/18 08:07 Eosinophils # (Manual) 0.0 K/mm3 (0.0-0.4) 04/07/18 08:07 Basophils # (Manual) 0.0 K/mm3 (0.0-0.1) 04/07/18 08:07 Metamyelocytes # 0.2 K/mm3 04/07/18 08:07 Myelocytes # 0.0 K/mm3 04/07/18 08:07 Promyelocytes # 0.0 K/mm3 04/07/18 08:07 Blast Cells # 0.0 K/mm3 04/07/18 08:07 WBC Morphology Not Reportable 04/07/18 08:07 Hypersegmented Neuts Not Reportable 04/07/18 08:07 Hyposegmented Neuts Not Reportable 04/07/18 08:07 Hypogranular Neuts Not Reportable 04/07/18 08:07 Smudge Cells Not Reportable 04/07/18 08:07 Toxic Granulation Not Reportable 04/07/18 08:07 Toxic Vacuolation Not Reportable 04/07/18 08:07 Dohle Bodies Not Reportable 04/07/18 08:07 Pelger-Huet Anomaly Not Reportable 04/07/18 08:07 Roxanne Rods Not Reportable 04/07/18 08:07 Platelet Estimate Appears normal 04/07/18 08:07 Clumped Platelets Not Reportable 04/07/18 08:07 Plt Clumps, EDTA Not Reportable 04/07/18 08:07 Large Platelets Not Reportable 04/07/18 08:07 Giant Platelets Not Reportable 04/07/18 08:07 Platelet Satelliting Not Reportable 04/07/18 08:07 Plt Morphology Comment Not Reportable 04/07/18 08:07 RBC Morphology Not Reportable 04/07/18 08:07 Dimorphic RBCs Not Reportable 04/07/18 08:07 Polychromasia Not Reportable 04/07/18 08:07 Hypochromasia Not Reportable 04/07/18 08:07 Poikilocytosis Not Reportable 04/07/18 08:07 Anisocytosis Not Reportable 04/07/18 08:07 Microcytosis Not Reportable 04/07/18 08:07 Macrocytosis Not Reportable 04/07/18 08:07 Spherocytes Not Reportable 04/07/18 08:07 Pappenheimer Bodies Not Reportable 04/07/18 08:07 Sickle Cells Not Reportable 04/07/18 08:07 Target Cells Not Reportable 04/07/18 08:07 Tear Drop Cells Not Reportable 04/07/18 08:07 Ovalocytes Not Reportable 04/07/18 08:07 Helmet Cells Not Reportable 04/07/18 08:07 [place] Bodies Not Reportable 04/07/18 08:07 [place] Rings Not Reportable 04/07/18 08:07 Suman Cells Not Reportable 04/07/18 08:07 Bite Cells Not Reportable 04/07/18 08:07 Crenated Cell Not Reportable 04/07/18 08:07 Elliptocytes Not Reportable 04/07/18 08:07 Acanthocytes (Spur) Not Reportable 04/07/18 08:07 Rouleaux Not Reportable 04/07/18 08:07 Hemoglobin C Crystals Not Reportable 04/07/18 08:07 Schistocytes Not Reportable 04/07/18 08:07 Malaria parasites Not Reportable 04/07/18 08:07 Abhijit Bodies Not Reportable 04/07/18 08:07 Hem Pathologist Commnt No 04/07/18 08:07 PT 13.4 Sec. (12.2-14.9) 04/11/18 16:43 INR 0.97 (0.87-1.13) 04/11/18 16:43 APTT 70.8 Sec. (24.2-36.6) H* 04/11/18 16:43 Activated Clotting Time 136 (74-137) 04/09/18 16:14 Heparin Anti-Xa Level 1.90 U.I./ml (0.3-0.7) H 04/15/18 08:15 POC ABG pH 7.523 (7.35-7.45) H 04/11/18 16:36 POC ABG pCO2 38.7 (35-45) 04/11/18 16:36 POC ABG pO2 90 (80-105) 04/11/18 16:36 POC ABG HCO3 31.9 04/11/18 16:36 POC ABG Total CO2 33 04/11/18 16:36 POC ABG O2 Sat 98 04/11/18 16:36 POC ABG Base Excess 9 04/11/18 16:36 FiO2 28 % 04/11/18 16:36 Sodium 132 mmol/L (137-145) L D 04/14/18 17:23 Potassium 3.8 mmol/L (3.6-5.0) 04/14/18 17:23 Chloride 93.3 mmol/L (98-107) L 04/14/18 17:23 Carbon Dioxide 28 mmol/L (22-30) 04/14/18 17:23 Anion Gap 15 mmol/L 04/14/18 17:23 BUN 18 mg/dL (7-17) H 04/14/18 17:23 Creatinine 0.7 mg/dL (0.7-1.2) 04/14/18 17:23 Estimated GFR > 60 ml/min 04/14/18 17:23 BUN/Creatinine Ratio 26 % 04/14/18 17:23 Glucose 96 mg/dL (65-100) 04/14/18 17:23 POC Glucose 97 (70-105) 04/14/18 20:33 Lactic Acid 1.50 mmol/L (0.7-2.0) 04/07/18 15:15 Calcium 8.8 mg/dL (8.4-10.2) 04/14/18 17:23 Phosphorus 3.90 mg/dL (2.5-4.5) 04/14/18 17:23 Magnesium 1.80 mg/dL (1.7-2.3) 04/14/18 17:23 Total Creatine Kinase 186 units/L (30-135) H 04/07/18 00:47 CK-MB (CK-2) 13.2 ng/mL (0.0-4.0) H 04/07/18 00:47 CK-MB (CK-2) Rel Index 7.0 (0-4) H 04/07/18 00:47 Troponin T 1.300 ng/mL (0.00-0.029) H* 04/07/18 08:07 C-Reactive Protein 11.30 mg/dL (0.00-1.30) H 04/08/18 18:56 NT-Pro-B Natriuret Pep 76402 pg/mL (0-900) H 04/07/18 08:07 Triglycerides 169 mg/dL (2-149) H 04/03/18 11:47 Cholesterol 158 mg/dL (50-199) 04/03/18 11:47 LDL Cholesterol Direct 80 mg/dL (50-130) 04/03/18 11:47 HDL Cholesterol 63 mg/dL (40-59) H 04/03/18 11:47 Cholesterol/HDL Ratio 2.50 % 04/03/18 11:47 Urine Color Yellow (Yellow) 04/07/18 15:15 Urine Turbidity Clear (Clear) 04/07/18 15:15 Urine pH 5.0 (5.0-7.0) 04/07/18 15:15 Ur Specific [place] 1.020 (1.003-1.030) 04/07/18 15:15 Urine Protein <15 mg/dl mg/dL (Negative) 04/07/18 15:15 Urine Glucose (UA) Neg mg/dL (Negative) 04/07/18 15:15 Urine Ketones Neg mg/dL (Negative) 04/07/18 15:15 Urine Blood Sm (Negative) 04/07/18 15:15 Urine Nitrite Neg (Negative) 04/07/18 15:15 Urine Bilirubin Neg (Negative) 04/07/18 15:15 Urine Urobilinogen < 2.0 mg/dL (<2.0) 04/07/18 15:15 Ur Leukocyte Esterase Mod (Negative) 04/07/18 15:15 Urine WBC (Auto) 46.0 /HPF (0.0-6.0) H 04/07/18 15:15 Urine RBC (Auto) 4.0 /HPF (0.0-6.0) 04/07/18 15:15 U Epithel Cells (Auto) < 1.0 /HPF (0-13.0) 04/07/18 15:15 Hyaline Casts 3 /LPF 04/07/18 15:15 Urine Mucus Few /HPF 04/07/18 15:15 Urine Yeast (Budding) Few /HPF 04/07/18 15:15 Blood Type A POSITIVE 04/03/18 11:47 Antibody Screen Negative 04/03/18 11:47
--- NOTE | 2018-04-17 13:47 | Progress Note ---
Assessment and Plan Acute hypoxemic Resp Failure on MVS < 96 hours Acute Pulmonary Edema Pleural Effusions (Bilateral) Shock (Cardiogenic =/- vasodilatory) Takutsubo's Cardiomyopathy - s/p emergent LHC which revealed normal coronaries; EF approx 20%) Acute Encephalopathy HTN Asthma Sinus Tachycardia Hyperlipidemia Hypokalemia Hyponatremia Leukocytosis GERD H/o breast Cancer - clinically doing much better and will treat effusions conservatively - continue aspiration precautions - follow clinically off AB's - continue supplemental oxygen to keep O2 Sats > 90% - continue gentle diuresis - cardiac disease modifying drugs per cardiology (re: B-blockers, SARAN-I etc) - continue long and short acting bronchodilators - continue GI prophylaxis - continue other care per attending / other consultants - outpatient pulmonary clinic f/up ... re-evaluate in am & prn .. 25' Subjective Date of service: 04/17/18 Principal diagnosis: Takutsubo's cardiomyopathy; Chest ; Acute Hypoxemic Resp Failure; Shock Interval history: Patient is seen today for: Takutsubo's cardiomyopathy; Chest Pain Seen and examined at bedside; 24hour events reviewed; nursing and respiratory care staff consulted; doing very well post extubation; doing much better; remains on oxygen; no active wheezing; No chest pains or palpitations Objective Vital Signs - 12hr 04/17/18 04/17/18 04/17/18 05:40 07:03 07:04 Temperature 98.3 F 98.5 F Pulse Rate 88 91 H 91 H Pulse Rate [ Anterior Bilateral Throughout] Respiratory 20 20 Rate Respiratory Rate [Anterior Bilateral Throughout] Blood Pressure 116/68 Blood Pressure 100/76 [Left] O2 Sat by Pulse 94 93 93 Oximetry 04/17/18 04/17/18 04/17/18 08:00 08:40 09:23 Temperature Pulse Rate 88 Pulse Rate [ 93 H 93 H Anterior Bilateral Throughout] Respiratory Rate Respiratory 18 17 Rate [Anterior Bilateral Throughout] Blood Pressure Blood Pressure [Left] O2 Sat by Pulse 93 Oximetry 04/17/18 04/17/18 10:21 10:23 Temperature Pulse Rate 91 H 92 H Pulse Rate [ Anterior Bilateral Throughout] Respiratory Rate Respiratory Rate [Anterior Bilateral Throughout] Blood Pressure 116/68 116/68 Blood Pressure [Left] O2 Sat by Pulse Oximetry Constitutional: no acute distress, other (elderly looking CF, normocephalic and atraumatic) Eyes: non-icteric ENT: oropharynx moist Neck: supple, no lymphadenopathy, JVD, other (no thyromegaly) Effort: normal Ascultation: Bilateral: diminished breath sounds (Prolonged expiratory phase.), rhonchi Percussion: Bilateral: not dull Cardiovascular: regular rate and rhythm, murmur noted (systolic), other (no rubs ) Gastrointestinal: normoactive bowel sounds, soft, non-tender, non-distended, other (no palpable HSM) Integumentary: normal Extremities: no cyanosis, no edema, pulses normal, no ischemia or petechiae Neurologic: normal mental status, non-focal exam, pupils equal and round, CN II- XII normal, motor strength normal and Psychiatric: mood appropriate, affect normal CBC and BMP: 04/19/18 04:57 04/19/18 04:57 ABG, PT/INR, D-dimer: ABG POC ABG pH 7.523 (7.35-7.45) H 04/11/18 16:36 POC ABG pCO2 38.7 (35-45) 04/11/18 16:36 POC ABG pO2 90 (80-105) 04/11/18 16:36 POC ABG HCO3 31.9 04/11/18 16:36 POC ABG Total CO2 33 04/11/18 16:36 POC ABG O2 Sat 98 04/11/18 16:36 PT/INR, D-dimer PT 13.4 Sec. (12.2-14.9) 04/11/18 16:43 INR 0.97 (0.87-1.13) 04/11/18 16:43 Abnormal lab findings: Abnormal Labs 04/03/18 04/03/18 04/03/18 11:47 11:47 12:29 WBC 11.5 H RBC Hct MCHC [place] % (Auto) 10.8 H [place] # 1.2 H Seg Neuts % (Manual) Lymphocytes % (Manual) Monocytes % (Manual) Seg Neutrophils # Seg Neutrophils # Man Monocytes # (Manual) APTT Activated Clotting Time > 1000 H Heparin Anti-Xa Level POC ABG pH POC ABG pCO2 POC ABG pO2 Sodium 134 L Potassium 3.5 L Chloride 94.4 L Carbon Dioxide BUN 19 H Creatinine Glucose 121 H POC Glucose Calcium Total Creatine Kinase 155 H CK-MB (CK-2) 17.3 H CK-MB (CK-2) Rel Index 11.1 H Troponin T 0.368 H* C-Reactive Protein NT-Pro-B Natriuret Pep Triglycerides 169 H HDL Cholesterol 63 H Urine WBC (Auto) 04/03/18 04/04/18 04/04/18 16:59 06:12 06:12 WBC 13.3 H RBC Hct MCHC 35 H [place] % (Auto) 9.2 H [place] # 1.2 H Seg Neuts % (Manual) Lymphocytes % (Manual) Monocytes % (Manual) Seg Neutrophils # 9.0 H Seg Neutrophils # Man Monocytes # (Manual) APTT Activated Clotting Time Heparin Anti-Xa Level POC ABG pH POC ABG pCO2 POC ABG pO2 Sodium 132 L Potassium 3.4 L Chloride 94.8 L Carbon Dioxide BUN Creatinine Glucose 107 H POC Glucose Calcium Total Creatine Kinase 503 H 498 H CK-MB (CK-2) 69.6 H 51.9 H CK-MB (CK-2) Rel Index 13.8 H 10.4 H Troponin T 1.900 H* D 1.950 H* C-Reactive Protein NT-Pro-B Natriuret Pep Triglycerides HDL Cholesterol Urine WBC (Auto) 04/05/18 04/05/18 04/05/18 06:47 11:33 17:49 WBC RBC Hct MCHC [place] % (Auto) [place] # Seg Neuts % (Manual) Lymphocytes % (Manual) Monocytes % (Manual) Seg Neutrophils # Seg Neutrophils # Man Monocytes # (Manual) APTT Activated Clotting Time Heparin Anti-Xa Level POC ABG pH POC ABG pCO2 POC ABG pO2 Sodium 128 L Potassium Chloride 88.7 L Carbon Dioxide BUN 18 H Creatinine Glucose 153 H POC Glucose 179 H 190 H Calcium Total Creatine Kinase 399 H CK-MB (CK-2) 35.5 H CK-MB (CK-2) Rel Index 8.8 H Troponin T 1.730 H* C-Reactive Protein NT-Pro-B Natriuret Pep Triglycerides HDL Cholesterol Urine WBC (Auto) 04/05/18 04/06/18 04/06/18 21:20 05:26 08:11 WBC RBC Hct MCHC [place] % (Auto) [place] # Seg Neuts % (Manual) Lymphocytes % (Manual) Monocytes % (Manual) Seg Neutrophils # Seg Neutrophils # Man Monocytes # (Manual) APTT Activated Clotting Time Heparin Anti-Xa Level POC ABG pH POC ABG pCO2 POC ABG pO2 Sodium 130 L Potassium Chloride 91.2 L Carbon Dioxide 20 L BUN 28 H Creatinine Glucose 137 H POC Glucose 130 H 108 H Calcium 8.1 L Total Creatine Kinase CK-MB (CK-2) CK-MB (CK-2) Rel Index Troponin T C-Reactive Protein NT-Pro-B Natriuret Pep Triglycerides HDL Cholesterol Urine WBC (Auto) 04/06/18 04/06/18 04/07/18 08:11 21:35 00:14 WBC 19.3 H RBC Hct MCHC [place] % (Auto) [place] # Seg Neuts % (Manual) Lymphocytes % (Manual) Monocytes % (Manual) Seg Neutrophils # Seg Neutrophils # Man Monocytes # (Manual) APTT Activated Clotting Time Heparin Anti-Xa Level POC ABG pH POC ABG pCO2 POC ABG pO2 Sodium Potassium Chloride Carbon Dioxide BUN Creatinine Glucose POC Glucose 188 H 146 H Calcium Total Creatine Kinase CK-MB (CK-2) CK-MB (CK-2) Rel Index Troponin T C-Reactive Protein NT-Pro-B Natriuret Pep Triglycerides HDL Cholesterol Urine WBC (Auto) 04/07/18 04/07/18 04/07/18 00:47 05:43 08:07 WBC 21.5 H RBC Hct MCHC [place] % (Auto) [place] # Seg Neuts % (Manual) 82.5 H Lymphocytes % (Manual) 7.0 L Monocytes % (Manual) 7.5 H Seg Neutrophils # Seg Neutrophils # Man 17.7 H Monocytes # (Manual) 1.6 H APTT Activated Clotting Time Heparin Anti-Xa Level POC ABG pH POC ABG pCO2 POC ABG pO2 Sodium Potassium Chloride Carbon Dioxide BUN Creatinine Glucose POC Glucose 157 H Calcium Total Creatine Kinase 186 H CK-MB (CK-2) 13.2 H CK-MB (CK-2) Rel Index 7.0 H Troponin T 1.420 H* C-Reactive Protein NT-Pro-B Natriuret Pep Triglycerides HDL Cholesterol Urine WBC (Auto) 04/07/18 04/07/18 04/07/18 08:07 08:07 13:43 WBC RBC Hct MCHC [place] % (Auto) [place] # Seg Neuts % (Manual) Lymphocytes % (Manual) Monocytes % (Manual) Seg Neutrophils # Seg Neutrophils # Man Monocytes # (Manual) APTT > 20.0 L Activated Clotting Time Heparin Anti-Xa Level POC ABG pH POC ABG pCO2 52.0 H POC ABG pO2 456 H Sodium 129 L Potassium Chloride 92.4 L Carbon Dioxide BUN 34 H Creatinine Glucose 152 H POC Glucose Calcium 8.3 L Total Creatine Kinase CK-MB (CK-2) CK-MB (CK-2) Rel Index Troponin T 1.300 H* C-Reactive Protein NT-Pro-B Natriuret Pep 61286 H Triglycerides HDL Cholesterol Urine WBC (Auto) 04/07/18 04/07/18 04/08/18 15:15 15:15 04:23 WBC 19.0 H RBC Hct MCHC [place] % (Auto) [place] # Seg Neuts % (Manual) Lymphocytes % (Manual) Monocytes % (Manual) Seg Neutrophils # Seg Neutrophils # Man Monocytes # (Manual) APTT Activated Clotting Time Heparin Anti-Xa Level POC ABG pH 7.471 H POC ABG pCO2 POC ABG pO2 133 H Sodium Potassium Chloride Carbon Dioxide BUN Creatinine Glucose POC Glucose Calcium Total Creatine Kinase CK-MB (CK-2) CK-MB (CK-2) Rel Index Troponin T C-Reactive Protein NT-Pro-B Natriuret Pep Triglycerides HDL Cholesterol Urine WBC (Auto) 46.0 H 04/08/18 04/08/18 04/08/18 05:51 08:58 08:58 WBC 17.3 H RBC 3.59 L Hct MCHC [place] % (Auto) [place] # Seg Neuts % (Manual) Lymphocytes % (Manual) Monocytes % (Manual) Seg Neutrophils # Seg Neutrophils # Man Monocytes # (Manual) APTT Activated Clotting Time Heparin Anti-Xa Level POC ABG pH POC ABG pCO2 POC ABG pO2 Sodium Potassium Chloride 97.7 L Carbon Dioxide BUN 27 H Creatinine Glucose 114 H POC Glucose 111 H Calcium 7.1 L Total Creatine Kinase CK-MB (CK-2) CK-MB (CK-2) Rel Index Troponin T C-Reactive Protein NT-Pro-B Natriuret Pep Triglycerides HDL Cholesterol Urine WBC (Auto) 04/08/18 04/08/18 04/08/18 13:42 18:22 18:56 WBC RBC Hct MCHC [place] % (Auto) [place] # Seg Neuts % (Manual) Lymphocytes % (Manual) Monocytes % (Manual) Seg Neutrophils # Seg Neutrophils # Man Monocytes # (Manual) APTT Activated Clotting Time Heparin Anti-Xa Level POC ABG pH POC ABG pCO2 POC ABG pO2 Sodium Potassium Chloride Carbon Dioxide BUN Creatinine Glucose POC Glucose 113 H 107 H Calcium Total Creatine Kinase CK-MB (CK-2) CK-MB (CK-2) Rel Index Troponin T C-Reactive Protein 11.30 H NT-Pro-B Natriuret Pep Triglycerides HDL Cholesterol Urine WBC (Auto) 04/09/18 04/09/18 04/09/18 04:41 05:00 05:00 WBC 12.2 H RBC 3.30 L Hct 30.2 L MCHC 35 H [place] % (Auto) [place] # Seg Neuts % (Manual) Lymphocytes % (Manual) Monocytes % (Manual) Seg Neutrophils # Seg Neutrophils # Man Monocytes # (Manual) APTT Activated Clotting Time Heparin Anti-Xa Level POC ABG pH 7.556 H POC ABG pCO2 POC ABG pO2 Sodium 134 L Potassium 3.2 L Chloride 94.6 L Carbon Dioxide 32 H BUN 27 H Creatinine Glucose POC Glucose Calcium 7.3 L Total Creatine Kinase CK-MB (CK-2) CK-MB (CK-2) Rel Index Troponin T C-Reactive Protein NT-Pro-B Natriuret Pep Triglycerides HDL Cholesterol Urine WBC (Auto) 04/09/18 04/10/18 04/10/18 18:27 05:19 09:10 WBC 14.7 H RBC Hct MCHC [place] % (Auto) [place] # Seg Neuts % (Manual) Lymphocytes % (Manual) Monocytes % (Manual) Seg Neutrophils # Seg Neutrophils # Man Monocytes # (Manual) APTT Activated Clotting Time Heparin Anti-Xa Level POC ABG pH 7.491 H POC ABG pCO2 POC ABG pO2 Sodium Potassium Chloride Carbon Dioxide BUN Creatinine Glucose POC Glucose 111 H Calcium Total Creatine Kinase CK-MB (CK-2) CK-MB (CK-2) Rel Index Troponin T C-Reactive Protein NT-Pro-B Natriuret Pep Triglycerides HDL Cholesterol Urine WBC (Auto) 04/10/18 04/10/18 04/10/18 09:10 13:36 Unknown WBC RBC Hct MCHC [place] % (Auto) [place] # Seg Neuts % (Manual) Lymphocytes % (Manual) Monocytes % (Manual) Seg Neutrophils # Seg Neutrophils # Man Monocytes # (Manual) APTT Activated Clotting Time Heparin Anti-Xa Level POC ABG pH 7.524 H POC ABG pCO2 POC ABG pO2 329 H Sodium Potassium Chloride Carbon Dioxide BUN 26 H 25 H Creatinine Glucose POC Glucose Calcium 8.0 L 7.7 L Total Creatine Kinase CK-MB (CK-2) CK-MB (CK-2) Rel Index Troponin T C-Reactive Protein NT-Pro-B Natriuret Pep Triglycerides HDL Cholesterol Urine WBC (Auto) 04/11/18 04/11/18 04/11/18 00:05 05:34 11:00 WBC 13.1 H RBC 3.58 L Hct MCHC [place] % (Auto) [place] # Seg Neuts % (Manual) Lymphocytes % (Manual) Monocytes % (Manual) Seg Neutrophils # Seg Neutrophils # Man Monocytes # (Manual) APTT Activated Clotting Time Heparin Anti-Xa Level POC ABG pH 7.517 H POC ABG pCO2 POC ABG pO2 79 L Sodium Potassium Chloride Carbon Dioxide BUN Creatinine Glucose POC Glucose 106 H Calcium Total Creatine Kinase CK-MB (CK-2) CK-MB (CK-2) Rel Index Troponin T C-Reactive Protein NT-Pro-B Natriuret Pep Triglycerides HDL Cholesterol Urine WBC (Auto) 04/11/18 04/11/18 04/11/18 11:00 12:47 16:36 WBC RBC Hct MCHC [place] % (Auto) [place] # Seg Neuts % (Manual) Lymphocytes % (Manual) Monocytes % (Manual) Seg Neutrophils # Seg Neutrophils # Man Monocytes # (Manual) APTT Activated Clotting Time Heparin Anti-Xa Level POC ABG pH 7.523 H POC ABG pCO2 POC ABG pO2 Sodium Potassium Chloride Carbon Dioxide 32 H BUN 30 H Creatinine 0.6 L Glucose 105 H POC Glucose 116 H Calcium Total Creatine Kinase CK-MB (CK-2) CK-MB (CK-2) Rel Index Troponin T C-Reactive Protein NT-Pro-B Natriuret Pep Triglycerides HDL Cholesterol Urine WBC (Auto) 04/11/18 04/11/18 04/11/18 16:43 17:28 20:42 WBC RBC Hct MCHC [place] % (Auto) [place] # Seg Neuts % (Manual) Lymphocytes % (Manual) Monocytes % (Manual) Seg Neutrophils # Seg Neutrophils # Man Monocytes # (Manual) APTT 70.8 H* Activated Clotting Time Heparin Anti-Xa Level 0.89 H POC ABG pH POC ABG pCO2 POC ABG pO2 Sodium Potassium Chloride Carbon Dioxide BUN Creatinine Glucose POC Glucose 109 H Calcium Total Creatine Kinase CK-MB (CK-2) CK-MB (CK-2) Rel Index Troponin T C-Reactive Protein NT-Pro-B Natriuret Pep Triglycerides HDL Cholesterol Urine WBC (Auto) 04/12/18 04/12/18 04/12/18 04:27 04:27 04:27 WBC 15.0 H RBC Hct MCHC [place] % (Auto) [place] # Seg Neuts % (Manual) Lymphocytes % (Manual) Monocytes % (Manual) Seg Neutrophils # Seg Neutrophils # Man Monocytes # (Manual) APTT Activated Clotting Time Heparin Anti-Xa Level 0.99 H POC ABG pH POC ABG pCO2 POC ABG pO2 Sodium Potassium Chloride 95.7 L Carbon Dioxide BUN 30 H Creatinine Glucose POC Glucose Calcium Total Creatine Kinase CK-MB (CK-2) CK-MB (CK-2) Rel Index Troponin T C-Reactive Protein NT-Pro-B Natriuret Pep Triglycerides HDL Cholesterol Urine WBC (Auto) 04/12/18 04/14/18 04/14/18 23:15 17:23 17:23 WBC 12.6 H RBC Hct MCHC [place] % (Auto) [place] # Seg Neuts % (Manual) Lymphocytes % (Manual) Monocytes % (Manual) Seg Neutrophils # Seg Neutrophils # Man Monocytes # (Manual) APTT Activated Clotting Time Heparin Anti-Xa Level POC ABG pH POC ABG pCO2 POC ABG pO2 Sodium 132 L D Potassium Chloride 93.3 L Carbon Dioxide BUN 18 H Creatinine Glucose POC Glucose 109 H Calcium Total Creatine Kinase CK-MB (CK-2) CK-MB (CK-2) Rel Index Troponin T C-Reactive Protein NT-Pro-B Natriuret Pep Triglycerides HDL Cholesterol Urine WBC (Auto) 04/15/18 08:15 WBC RBC Hct MCHC [place] % (Auto) [place] # Seg Neuts % (Manual) Lymphocytes % (Manual) Monocytes % (Manual) Seg Neutrophils # Seg Neutrophils # Man Monocytes # (Manual) APTT Activated Clotting Time Heparin Anti-Xa Level 1.90 H POC ABG pH POC ABG pCO2 POC ABG pO2 Sodium Potassium Chloride Carbon Dioxide BUN Creatinine Glucose POC Glucose Calcium Total Creatine Kinase CK-MB (CK-2) CK-MB (CK-2) Rel Index Troponin T C-Reactive Protein NT-Pro-B Natriuret Pep Triglycerides HDL Cholesterol Urine WBC (Auto) Allied health notes reviewed: nursing
[2018-04-17] MEDS: NORCO 10/325 PO PRN (14:10)
--- NOTE | 2018-04-17 14:11 | Progress Note ---
Assessment and Plan Currently stable cardiac status. Decrease amio to 200mg daily. Cont all other present cardiac management, including ASA 81, lipitor, lopressor, losartan, eliquis. Pt may discharge from cardiology standpoint. Pt is pending discharge to rehab. Follow up in our [place] office with Dr. Sonia Pearson on 05/03/2018 @ 3:15PM. The patient has been seen in conjunction with Dr. Fitch who agrees with the assessment and plan of care. - Patient Problems (1) Takotsubo cardiomyopathy Current Visit: Yes Status: Acute (2) Cardiogenic shock Current Visit: Yes Status: Resolved (3) Heart failure with reduced ejection fraction Current Visit: Yes Status: Acute (4) Paroxysmal atrial fibrillation with RVR Current Visit: Yes Status: Acute (5) Acute respiratory failure Current Visit: Yes Status: Resolved Qualifiers: Respiratory failure complication: hypoxia Qualified Code(s): J96.01 - Acute respiratory failure with hypoxia (6) Hyponatremia Current Visit: Yes Status: Acute (7) Altered mental status Current Visit: Yes Status: Resolved (8) HLD (hyperlipidemia) Current Visit: Yes Status: Chronic Qualifiers: Hyperlipidemia type: mixed hyperlipidemia Qualified Code(s): E78.2 - Mixed hyperlipidemia (9) History of breast cancer Current Visit: Yes Status: Chronic Subjective Date of service: 04/17/18 Principal diagnosis: Takutsubo's cardiomyopathy; Chest ; Acute Hypoxemic Resp Failure; Shock Interval history: pt resting in bed, A&O, no current cardiac complaints. tele reviewed - pt currently in SR with no tachycardia noted overnight. son at bedside. Objective Last Vital Signs Temp 98.5 F 04/17/18 07:03 Pulse 92 H 04/17/18 10:23 Resp 17 04/17/18 09:23 BP 116/68 04/17/18 10:23 Pulse Ox 93 04/17/18 09:23 - Physical Examination General: No Apparent Distress HEENT: Positive: EOMI, Normocephaly, Mucus Membranes Moist Neck: Positive: neck supple, trachea midline Cardiac: Positive: Reg Rate and Rhythm, S1/S2 Lungs: Positive: clear to auscultation Neuro: Positive: Grossly Intact, Other (intubated) Abdomen: Positive: Soft, Active Bowel Sounds. Negative: Tender Skin: Positive: Clear. Negative: Rash Musculoskeletal: Normal Range of Motion Extremities: Present: normal. Absent: edema - Labs and Meds CBC 04/17/18 Range/Units 07:16 Hgb 11.4 (10.1-14.3) gm/dl Hct 33.2 (30.3-42.9) % Plt Count 300 (140-440) K/mm3 - Imaging and Cardiology EKG: image reviewed Echo: report reviewed - EKG Sinus rhythms and dysrhythmias: sinus rhythm Myocardial infarction: lateral OR (acute or rece - Allied health notes Allied health notes reviewed: nursing
[2018-04-17] MEDS: PEPCID PO SCH (22:11)
[2018-04-17] MEDS: XANAX PO PRN (22:52)
[2018-04-18] MEDS: PEPCID PO SCH ×3 (09:44→22:32)
[2018-04-18] MEDS: CORDARONE PO SCH (09:45)
[2018-04-18] MEDS: BABY ASPIRIN PO SCH (09:45)
[2018-04-18] MEDS: ELIQUIS PO SCH ×2 (09:46→22:32)
[2018-04-18] MEDS: COZAAR PO SCH (10:00)
[2018-04-18] MEDS: PULMICORT IH SCH ×2 (10:02→20:15)
[2018-04-18] MEDS: LOPRESSOR PO SCH ×3 (10:02→22:33)
[2018-04-18] MEDS: BROVANA NEBU IH SCH ×2 (10:02→20:15)
[2018-04-18] MEDS: COLACE FEEDTUBE SCH ×2 (10:04→22:32)
--- NOTE | 2018-04-18 11:58 | Progress Note ---
Assessment and Plan Assessment and plan: Dysuria. Check urinalysis. Start empiric antibiotics. Acute respiratory failure. Resolving. likely from cardiogenic shock Extubated 04/11,was intubated 04/07/18, Pulmonology/ critical care following Now on Oxygen by ID only. On 1 l/min Oxygen with sat 92% Cardiogenic shock. Resolved. 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 repeat LHC 04/07 revealed no significant CAD, Severe anterior, radha-apical, and infero-apical dykinesis with EF ~ 20% c/w stress cardiomyopathy IABP was placed, now removed Atrial fibrillation with RVR. cont amio 200mg daily per cardiology recommendations. Acute encephalopathy. Resolved. first noted on 04/05/18 following admission delirium vs transient Amnesia vs TIA negative CT head/MRI, EEG, consulted neurology SIRS high WBC and SIRS likley to be due to Takutsubo's cardiomyopathy Blood cultures no growth after several days Discontinued Zosyn Leukocytosis improved. Hyperlipidemia, cont statin Hypokalemia. Resolved GERD, cont Protonix H/o breast cancer For outpatient follow up when stable Full code status PT recommends subacute rehab. Case management is aware She is medically stable for discharge. History Interval history: No new issues overnight. Patient complains of dysuria this morning. Hospitalist Physical - Constitutional Vitals: Temp Pulse Resp BP Pulse Ox 98.5 F 77 17 95/52 99 04/18/18 07:33 04/18/18 11:39 04/18/18 10:03 04/18/18 10:02 04/18/18 07:33 General appearance: Present: no acute distress - EENT Eyes: Present: PERRL, EOM intact ENT: hearing intact, clear oral mucosa, dentition normal - Neck Neck: Present: supple, normal ROM - Respiratory Respiratory effort: normal Respiratory: bilateral: CTA - Cardiovascular Rhythm: regular Heart Sounds: Present: S1 & S2. Absent: gallop, rub - Extremities Extremities: no ischemia, No edema, Full ROM - Abdominal General gastrointestinal: soft, non-tender, non-distended, normal bowel sounds - Integumentary Integumentary: Present: clear, warm, dry - Neurologic Neurologic: CNII-XII intact, moves all extremities Results - Labs CBC & Chem 7: 04/17/18 07:16 04/14/18 17:23 Labs: Laboratory Last Values WBC 12.6 K/mm3 (4.5-11.0) H 04/14/18 17:23 RBC 3.80 M/mm3 (3.65-5.03) 04/14/18 17:23 Hgb 11.4 gm/dl (10.1-14.3) 04/17/18 07:16 Hct 33.2 % (30.3-42.9) 04/17/18 07:16 MCV 93 fl (79-97) 04/14/18 17:23 MCH 31 pg (28-32) 04/14/18 17:23 MCHC 33 % (30-34) 04/14/18 17:23 RDW 13.8 % (13.2-15.2) 04/14/18 17:23 Plt Count 300 K/mm3 (140-440) 04/17/18 07:16 Lymph % (Auto) 22.3 % (13.4-35.0) 04/04/18 06:12 [place] % (Auto) 9.2 % (0.0-7.3) H 04/04/18 06:12 Eos % (Auto) 0.7 % (0.0-4.3) 04/04/18 06:12 Baso % (Auto) 0.4 % (0.0-1.8) 04/04/18 06:12 Lymph # 3.0 K/mm3 (1.2-5.4) 04/04/18 06:12 [place] # 1.2 K/mm3 (0.0-0.8) H 04/04/18 06:12 Eos # 0.1 K/mm3 (0.0-0.4) 04/04/18 06:12 Baso # 0.1 K/mm3 (0.0-0.1) 04/04/18 06:12 Add Manual Diff Complete 04/07/18 08:07 Total Counted 200 04/07/18 08:07 Seg Neutrophils % 67.4 % (40.0-70.0) 04/04/18 06:12 Seg Neuts % (Manual) 82.5 % (40.0-70.0) H 04/07/18 08:07 Band Neutrophils % 2.0 % 04/07/18 08:07 Lymphocytes % (Manual) 7.0 % (13.4-35.0) L 04/07/18 08:07 Reactive Lymphs % (Man) 0 % 04/07/18 08:07 Monocytes % (Manual) 7.5 % (0.0-7.3) H 04/07/18 08:07 Eosinophils % (Manual) 0 % (0.0-4.3) 04/07/18 08:07 Basophils % (Manual) 0 % (0.0-1.8) 04/07/18 08:07 Metamyelocytes % 1.0 % 04/07/18 08:07 Myelocytes % 0 % 04/07/18 08:07 Promyelocytes % 0 % 04/07/18 08:07 Blast Cells % 0 % 04/07/18 08:07 Nucleated RBC % Not Reportable 04/07/18 08:07 Seg Neutrophils # 9.0 K/mm3 (1.8-7.7) H 04/04/18 06:12 Seg Neutrophils # Man 17.7 K/mm3 (1.8-7.7) H 04/07/18 08:07 Band Neutrophils # 0.4 K/mm3 04/07/18 08:07 Lymphocytes # (Manual) 1.5 K/mm3 (1.2-5.4) 04/07/18 08:07 Abs React Lymphs (Man) 0.0 K/mm3 04/07/18 08:07 Monocytes # (Manual) 1.6 K/mm3 (0.0-0.8) H 04/07/18 08:07 Eosinophils # (Manual) 0.0 K/mm3 (0.0-0.4) 04/07/18 08:07 Basophils # (Manual) 0.0 K/mm3 (0.0-0.1) 04/07/18 08:07 Metamyelocytes # 0.2 K/mm3 04/07/18 08:07 Myelocytes # 0.0 K/mm3 04/07/18 08:07 Promyelocytes # 0.0 K/mm3 04/07/18 08:07 Blast Cells # 0.0 K/mm3 04/07/18 08:07 WBC Morphology Not Reportable 04/07/18 08:07 Hypersegmented Neuts Not Reportable 04/07/18 08:07 Hyposegmented Neuts Not Reportable 04/07/18 08:07 Hypogranular Neuts Not Reportable 04/07/18 08:07 Smudge Cells Not Reportable 04/07/18 08:07 Toxic Granulation Not Reportable 04/07/18 08:07 Toxic Vacuolation Not Reportable 04/07/18 08:07 Dohle Bodies Not Reportable 04/07/18 08:07 Pelger-Huet Anomaly Not Reportable 04/07/18 08:07 Roxanne Rods Not Reportable 04/07/18 08:07 Platelet Estimate Appears normal 04/07/18 08:07 Clumped Platelets Not Reportable 04/07/18 08:07 Plt Clumps, EDTA Not Reportable 04/07/18 08:07 Large Platelets Not Reportable 04/07/18 08:07 Giant Platelets Not Reportable 04/07/18 08:07 Platelet Satelliting Not Reportable 04/07/18 08:07 Plt Morphology Comment Not Reportable 04/07/18 08:07 RBC Morphology Not Reportable 04/07/18 08:07 Dimorphic RBCs Not Reportable 04/07/18 08:07 Polychromasia Not Reportable 04/07/18 08:07 Hypochromasia Not Reportable 04/07/18 08:07 Poikilocytosis Not Reportable 04/07/18 08:07 Anisocytosis Not Reportable 04/07/18 08:07 Microcytosis Not Reportable 04/07/18 08:07 Macrocytosis Not Reportable 04/07/18 08:07 Spherocytes Not Reportable 04/07/18 08:07 Pappenheimer Bodies Not Reportable 04/07/18 08:07 Sickle Cells Not Reportable 04/07/18 08:07 Target Cells Not Reportable 04/07/18 08:07 Tear Drop Cells Not Reportable 04/07/18 08:07 Ovalocytes Not Reportable 04/07/18 08:07 Helmet Cells Not Reportable 04/07/18 08:07 [place] Bodies Not Reportable 04/07/18 08:07 [place] Rings Not Reportable 04/07/18 08:07 [place] Cells Not Reportable 04/07/18 08:07 Bite Cells Not Reportable 04/07/18 08:07 Crenated Cell Not Reportable 04/07/18 08:07 Elliptocytes Not Reportable 04/07/18 08:07 Acanthocytes (Spur) Not Reportable 04/07/18 08:07 Rouleaux Not Reportable 04/07/18 08:07 Hemoglobin C Crystals Not Reportable 04/07/18 08:07 Schistocytes Not Reportable 04/07/18 08:07 Malaria parasites Not Reportable 04/07/18 08:07 Abhijit Bodies Not Reportable 04/07/18 08:07 Hem Pathologist Commnt No 04/07/18 08:07 PT 13.4 Sec. (12.2-14.9) 04/11/18 16:43 INR 0.97 (0.87-1.13) 04/11/18 16:43 APTT 70.8 Sec. (24.2-36.6) H* 04/11/18 16:43 Activated Clotting Time 136 (74-137) 04/09/18 16:14 Heparin Anti-Xa Level 1.90 U.I./ml (0.3-0.7) H 04/15/18 08:15 POC ABG pH 7.523 (7.35-7.45) H 04/11/18 16:36 POC ABG pCO2 38.7 (35-45) 04/11/18 16:36 POC ABG pO2 90 (80-105) 04/11/18 16:36 POC ABG HCO3 31.9 04/11/18 16:36 POC ABG Total CO2 33 04/11/18 16:36 POC ABG O2 Sat 98 04/11/18 16:36 POC ABG Base Excess 9 04/11/18 16:36 FiO2 28 % 04/11/18 16:36 Sodium 132 mmol/L (137-145) L D 04/14/18 17:23 Potassium 3.8 mmol/L (3.6-5.0) 04/14/18 17:23 Chloride 93.3 mmol/L (98-107) L 04/14/18 17:23 Carbon Dioxide 28 mmol/L (22-30) 04/14/18 17:23 Anion Gap 15 mmol/L 04/14/18 17:23 BUN 18 mg/dL (7-17) H 04/14/18 17:23 Creatinine 0.7 mg/dL (0.7-1.2) 04/14/18 17:23 Estimated GFR > 60 ml/min 04/14/18 17:23 BUN/Creatinine Ratio 26 % 04/14/18 17:23 Glucose 96 mg/dL (65-100) 04/14/18 17:23 POC Glucose 97 (70-105) 04/14/18 20:33 Lactic Acid 1.50 mmol/L (0.7-2.0) 04/07/18 15:15 Calcium 8.8 mg/dL (8.4-10.2) 04/14/18 17:23 Phosphorus 3.90 mg/dL (2.5-4.5) 04/14/18 17:23 Magnesium 1.80 mg/dL (1.7-2.3) 04/14/18 17:23 Total Creatine Kinase 186 units/L (30-135) H 04/07/18 00:47 CK-MB (CK-2) 13.2 ng/mL (0.0-4.0) H 04/07/18 00:47 CK-MB (CK-2) Rel Index 7.0 (0-4) H 04/07/18 00:47 Troponin T 1.300 ng/mL (0.00-0.029) H* 04/07/18 08:07 C-Reactive Protein 11.30 mg/dL (0.00-1.30) H 04/08/18 18:56 NT-Pro-B Natriuret Pep 32591 pg/mL (0-900) H 04/07/18 08:07 Triglycerides 169 mg/dL (2-149) H 04/03/18 11:47 Cholesterol 158 mg/dL (50-199) 04/03/18 11:47 LDL Cholesterol Direct 80 mg/dL (50-130) 04/03/18 11:47 HDL Cholesterol 63 mg/dL (40-59) H 04/03/18 11:47 Cholesterol/HDL Ratio 2.50 % 04/03/18 11:47 Urine Color Yellow (Yellow) 04/07/18 15:15 Urine Turbidity Clear (Clear) 04/07/18 15:15 Urine pH 5.0 (5.0-7.0) 04/07/18 15:15 Ur Specific [place] 1.020 (1.003-1.030) 04/07/18 15:15 Urine Protein <15 mg/dl mg/dL (Negative) 04/07/18 15:15 Urine Glucose (UA) Neg mg/dL (Negative) 04/07/18 15:15 Urine Ketones Neg mg/dL (Negative) 04/07/18 15:15 Urine Blood Sm (Negative) 04/07/18 15:15 Urine Nitrite Neg (Negative) 04/07/18 15:15 Urine Bilirubin Neg (Negative) 04/07/18 15:15 Urine Urobilinogen < 2.0 mg/dL (<2.0) 04/07/18 15:15 Ur Leukocyte Esterase Mod (Negative) 04/07/18 15:15 Urine WBC (Auto) 46.0 /HPF (0.0-6.0) H 04/07/18 15:15 Urine RBC (Auto) 4.0 /HPF (0.0-6.0) 04/07/18 15:15 U Epithel Cells (Auto) < 1.0 /HPF (0-13.0) 04/07/18 15:15 Hyaline Casts 3 /LPF 04/07/18 15:15 Urine Mucus Few /HPF 04/07/18 15:15 Urine Yeast (Budding) Few /HPF 04/07/18 15:15 Blood Type A POSITIVE 04/03/18 11:47 Antibody Screen Negative 04/03/18 11:47
[2018-04-18] MEDS: NORCO 10/325 PO PRN (14:36)
--- NOTE | 2018-04-18 19:09 | Progress Note ---
Assessment and Plan Patient alert, awake.. Resting on nasal canula 2 litres and O2 saturation 97%. No acute respiratory distress. - Patient Problems (1) Asthma Current Visit: Yes Status: Acute Qualifiers: Qualified Code(s): J45.909 - Unspecified asthma, uncomplicated Plan to address problem: O2 2litres via nasal canula. Brovanna/Budesonide aerosol treatments q 12 hours. Albuterol/atrovent aerosol treatments q 6 hours prn for shortness of breath. Patient is on Apixaban.. PFTs as out Patient. (2) GERD (gastroesophageal reflux disease) Current Visit: Yes Status: Acute Qualifiers: Esophagitis presence: without esophagitis Qualified Code(s): K21.9 - Gastro -esophageal reflux disease without esophagitis Plan to address problem: Continue Protonix. (3) HTN (hypertension) Current Visit: Yes Status: Acute Qualifiers: Hypertension type: essential hypertension Qualified Code(s): I10 - Essential (primary) hypertension Plan to address problem: Management as per primary care. (4) Chest pain Current Visit: Yes Status: Acute Plan to address problem: Management as per cardiology. Subjective Date of service: 04/18/18 Principal diagnosis: Takutsubo's cardiomyopathy; Chest ; Acute Hypoxemic Resp Failure; Shock Interval history: Patient alert, awake.. Resting on nasal canula 2 litres and O2 saturation 97%. No acute respiratory distress. Objective Vital Signs - 12hr 04/18/18 04/18/18 04/18/18 07:33 10:00 10:02 Temperature 98.5 F Pulse Rate 74 99 H 99 H Pulse Rate [ Anterior Bilateral Throughout] Respiratory 20 Rate Respiratory Rate [Anterior Bilateral Throughout] Blood Pressure 95/52 95/52 95/52 O2 Sat by Pulse 99 Oximetry 04/18/18 04/18/18 04/18/18 10:03 11:39 12:37 Temperature Pulse Rate 77 91 H Pulse Rate [ 97 H Anterior Bilateral Throughout] Respiratory Rate Respiratory 17 Rate [Anterior Bilateral Throughout] Blood Pressure 95/47 O2 Sat by Pulse Oximetry 04/18/18 04/18/18 15:33 15:56 Temperature 98.0 F Pulse Rate 80 Pulse Rate [ Anterior Bilateral Throughout] Respiratory 20 Rate Respiratory Rate [Anterior Bilateral Throughout] Blood Pressure 92/55 O2 Sat by Pulse 97 97 Oximetry Constitutional: no acute distress, other (elderly looking CF, normocephalic and atraumatic) Eyes: non-icteric ENT: oropharynx moist Neck: supple, no lymphadenopathy, JVD, other (no thyromegaly) Effort: normal Ascultation: Bilateral: diminished breath sounds (Prolonged expiratory phase.) Percussion: Bilateral: not dull Cardiovascular: regular rate and rhythm, murmur noted (systolic), other (no rubs ) Gastrointestinal: normoactive bowel sounds, soft, non-tender, non-distended, other (no palpable HSM) Integumentary: normal Extremities: no cyanosis, no edema, pulses normal, no ischemia or petechiae Neurologic: normal mental status, non-focal exam, pupils equal and round, CN II- XII normal, motor strength normal and Psychiatric: mood appropriate, affect normal CBC and BMP: 04/17/18 07:16 04/14/18 17:23 ABG, PT/INR, D-dimer: ABG POC ABG pH 7.523 (7.35-7.45) H 04/11/18 16:36 POC ABG pCO2 38.7 (35-45) 04/11/18 16:36 POC ABG pO2 90 (80-105) 04/11/18 16:36 POC ABG HCO3 31.9 04/11/18 16:36 POC ABG Total CO2 33 04/11/18 16:36 POC ABG O2 Sat 98 04/11/18 16:36 PT/INR, D-dimer PT 13.4 Sec. (12.2-14.9) 04/11/18 16:43 INR 0.97 (0.87-1.13) 04/11/18 16:43 Abnormal lab findings: Abnormal Labs 04/03/18 04/03/18 04/03/18 11:47 11:47 12:29 WBC 11.5 H RBC Hct MCHC [place] % (Auto) 10.8 H [place] # 1.2 H Seg Neuts % (Manual) Lymphocytes % (Manual) Monocytes % (Manual) Seg Neutrophils # Seg Neutrophils # Man Monocytes # (Manual) APTT Activated Clotting Time > 1000 H Heparin Anti-Xa Level POC ABG pH POC ABG pCO2 POC ABG pO2 Sodium 134 L Potassium 3.5 L Chloride 94.4 L Carbon Dioxide BUN 19 H Creatinine Glucose 121 H POC Glucose Calcium Total Creatine Kinase 155 H CK-MB (CK-2) 17.3 H CK-MB (CK-2) Rel Index 11.1 H Troponin T 0.368 H* C-Reactive Protein NT-Pro-B Natriuret Pep Triglycerides 169 H HDL Cholesterol 63 H Urine WBC (Auto) 04/03/18 04/04/18 04/04/18 16:59 06:12 06:12 WBC 13.3 H RBC Hct MCHC 35 H [place] % (Auto) 9.2 H [place] # 1.2 H Seg Neuts % (Manual) Lymphocytes % (Manual) Monocytes % (Manual) Seg Neutrophils # 9.0 H Seg Neutrophils # Man Monocytes # (Manual) APTT Activated Clotting Time Heparin Anti-Xa Level POC ABG pH POC ABG pCO2 POC ABG pO2 Sodium 132 L Potassium 3.4 L Chloride 94.8 L Carbon Dioxide BUN Creatinine Glucose 107 H POC Glucose Calcium Total Creatine Kinase 503 H 498 H CK-MB (CK-2) 69.6 H 51.9 H CK-MB (CK-2) Rel Index 13.8 H 10.4 H Troponin T 1.900 H* D 1.950 H* C-Reactive Protein NT-Pro-B Natriuret Pep Triglycerides HDL Cholesterol Urine WBC (Auto) 04/05/18 04/05/18 04/05/18 06:47 11:33 17:49 WBC RBC Hct MCHC [place] % (Auto) [place] # Seg Neuts % (Manual) Lymphocytes % (Manual) Monocytes % (Manual) Seg Neutrophils # Seg Neutrophils # Man Monocytes # (Manual) APTT Activated Clotting Time Heparin Anti-Xa Level POC ABG pH POC ABG pCO2 POC ABG pO2 Sodium 128 L Potassium Chloride 88.7 L Carbon Dioxide BUN 18 H Creatinine Glucose 153 H POC Glucose 179 H 190 H Calcium Total Creatine Kinase 399 H CK-MB (CK-2) 35.5 H CK-MB (CK-2) Rel Index 8.8 H Troponin T 1.730 H* C-Reactive Protein NT-Pro-B Natriuret Pep Triglycerides HDL Cholesterol Urine WBC (Auto) 04/05/18 04/06/18 04/06/18 21:20 05:26 08:11 WBC RBC Hct MCHC [place] % (Auto) [place] # Seg Neuts % (Manual) Lymphocytes % (Manual) Monocytes % (Manual) Seg Neutrophils # Seg Neutrophils # Man Monocytes # (Manual) APTT Activated Clotting Time Heparin Anti-Xa Level POC ABG pH POC ABG pCO2 POC ABG pO2 Sodium 130 L Potassium Chloride 91.2 L Carbon Dioxide 20 L BUN 28 H Creatinine Glucose 137 H POC Glucose 130 H 108 H Calcium 8.1 L Total Creatine Kinase CK-MB (CK-2) CK-MB (CK-2) Rel Index Troponin T C-Reactive Protein NT-Pro-B Natriuret Pep Triglycerides HDL Cholesterol Urine WBC (Auto) 04/06/18 04/06/18 04/07/18 08:11 21:35 00:14 WBC 19.3 H RBC Hct MCHC [place] % (Auto) [place] # Seg Neuts % (Manual) Lymphocytes % (Manual) Monocytes % (Manual) Seg Neutrophils # Seg Neutrophils # Man Monocytes # (Manual) APTT Activated Clotting Time Heparin Anti-Xa Level POC ABG pH POC ABG pCO2 POC ABG pO2 Sodium Potassium Chloride Carbon Dioxide BUN Creatinine Glucose POC Glucose 188 H 146 H Calcium Total Creatine Kinase CK-MB (CK-2) CK-MB (CK-2) Rel Index Troponin T C-Reactive Protein NT-Pro-B Natriuret Pep Triglycerides HDL Cholesterol Urine WBC (Auto) 04/07/18 04/07/18 04/07/18 00:47 05:43 08:07 WBC 21.5 H RBC Hct MCHC [place] % (Auto) [place] # Seg Neuts % (Manual) 82.5 H Lymphocytes % (Manual) 7.0 L Monocytes % (Manual) 7.5 H Seg Neutrophils # Seg Neutrophils # Man 17.7 H Monocytes # (Manual) 1.6 H APTT Activated Clotting Time Heparin Anti-Xa Level POC ABG pH POC ABG pCO2 POC ABG pO2 Sodium Potassium Chloride Carbon Dioxide BUN Creatinine Glucose POC Glucose 157 H Calcium Total Creatine Kinase 186 H CK-MB (CK-2) 13.2 H CK-MB (CK-2) Rel Index 7.0 H Troponin T 1.420 H* C-Reactive Protein NT-Pro-B Natriuret Pep Triglycerides HDL Cholesterol Urine WBC (Auto) 04/07/18 04/07/18 04/07/18 08:07 08:07 13:43 WBC RBC Hct MCHC [place] % (Auto) [place] # Seg Neuts % (Manual) Lymphocytes % (Manual) Monocytes % (Manual) Seg Neutrophils # Seg Neutrophils # Man Monocytes # (Manual) APTT > 20.0 L Activated Clotting Time Heparin Anti-Xa Level POC ABG pH POC ABG pCO2 52.0 H POC ABG pO2 456 H Sodium 129 L Potassium Chloride 92.4 L Carbon Dioxide BUN 34 H Creatinine Glucose 152 H POC Glucose Calcium 8.3 L Total Creatine Kinase CK-MB (CK-2) CK-MB (CK-2) Rel Index Troponin T 1.300 H* C-Reactive Protein NT-Pro-B Natriuret Pep 20207 H Triglycerides HDL Cholesterol Urine WBC (Auto) 04/07/18 04/07/18 04/08/18 15:15 15:15 04:23 WBC 19.0 H RBC Hct MCHC [place] % (Auto) [place] # Seg Neuts % (Manual) Lymphocytes % (Manual) Monocytes % (Manual) Seg Neutrophils # Seg Neutrophils # Man Monocytes # (Manual) APTT Activated Clotting Time Heparin Anti-Xa Level POC ABG pH 7.471 H POC ABG pCO2 POC ABG pO2 133 H Sodium Potassium Chloride Carbon Dioxide BUN Creatinine Glucose POC Glucose Calcium Total Creatine Kinase CK-MB (CK-2) CK-MB (CK-2) Rel Index Troponin T C-Reactive Protein NT-Pro-B Natriuret Pep Triglycerides HDL Cholesterol Urine WBC (Auto) 46.0 H 04/08/18 04/08/18 04/08/18 05:51 08:58 08:58 WBC 17.3 H RBC 3.59 L Hct MCHC [place] % (Auto) [place] # Seg Neuts % (Manual) Lymphocytes % (Manual) Monocytes % (Manual) Seg Neutrophils # Seg Neutrophils # Man Monocytes # (Manual) APTT Activated Clotting Time Heparin Anti-Xa Level POC ABG pH POC ABG pCO2 POC ABG pO2 Sodium Potassium Chloride 97.7 L Carbon Dioxide BUN 27 H Creatinine Glucose 114 H POC Glucose 111 H Calcium 7.1 L Total Creatine Kinase CK-MB (CK-2) CK-MB (CK-2) Rel Index Troponin T C-Reactive Protein NT-Pro-B Natriuret Pep Triglycerides HDL Cholesterol Urine WBC (Auto) 04/08/18 04/08/18 04/08/18 13:42 18:22 18:56 WBC RBC Hct MCHC [place] % (Auto) [place] # Seg Neuts % (Manual) Lymphocytes % (Manual) Monocytes % (Manual) Seg Neutrophils # Seg Neutrophils # Man Monocytes # (Manual) APTT Activated Clotting Time Heparin Anti-Xa Level POC ABG pH POC ABG pCO2 POC ABG pO2 Sodium Potassium Chloride Carbon Dioxide BUN Creatinine Glucose POC Glucose 113 H 107 H Calcium Total Creatine Kinase CK-MB (CK-2) CK-MB (CK-2) Rel Index Troponin T C-Reactive Protein 11.30 H NT-Pro-B Natriuret Pep Triglycerides HDL Cholesterol Urine WBC (Auto) 04/09/18 04/09/18 04/09/18 04:41 05:00 05:00 WBC 12.2 H RBC 3.30 L Hct 30.2 L MCHC 35 H [place] % (Auto) [place] # Seg Neuts % (Manual) Lymphocytes % (Manual) Monocytes % (Manual) Seg Neutrophils # Seg Neutrophils # Man Monocytes # (Manual) APTT Activated Clotting Time Heparin Anti-Xa Level POC ABG pH 7.556 H POC ABG pCO2 POC ABG pO2 Sodium 134 L Potassium 3.2 L Chloride 94.6 L Carbon Dioxide 32 H BUN 27 H Creatinine Glucose POC Glucose Calcium 7.3 L Total Creatine Kinase CK-MB (CK-2) CK-MB (CK-2) Rel Index Troponin T C-Reactive Protein NT-Pro-B Natriuret Pep Triglycerides HDL Cholesterol Urine WBC (Auto) 04/09/18 04/10/18 04/10/18 18:27 05:19 09:10 WBC 14.7 H RBC Hct MCHC [place] % (Auto) [place] # Seg Neuts % (Manual) Lymphocytes % (Manual) Monocytes % (Manual) Seg Neutrophils # Seg Neutrophils # Man Monocytes # (Manual) APTT Activated Clotting Time Heparin Anti-Xa Level POC ABG pH 7.491 H POC ABG pCO2 POC ABG pO2 Sodium Potassium Chloride Carbon Dioxide BUN Creatinine Glucose POC Glucose 111 H Calcium Total Creatine Kinase CK-MB (CK-2) CK-MB (CK-2) Rel Index Troponin T C-Reactive Protein NT-Pro-B Natriuret Pep Triglycerides HDL Cholesterol Urine WBC (Auto) 04/10/18 04/10/18 04/10/18 09:10 13:36 Unknown WBC RBC Hct MCHC [place] % (Auto) [place] # Seg Neuts % (Manual) Lymphocytes % (Manual) Monocytes % (Manual) Seg Neutrophils # Seg Neutrophils # Man Monocytes # (Manual) APTT Activated Clotting Time Heparin Anti-Xa Level POC ABG pH 7.524 H POC ABG pCO2 POC ABG pO2 329 H Sodium Potassium Chloride Carbon Dioxide BUN 26 H 25 H Creatinine Glucose POC Glucose Calcium 8.0 L 7.7 L Total Creatine Kinase CK-MB (CK-2) CK-MB (CK-2) Rel Index Troponin T C-Reactive Protein NT-Pro-B Natriuret Pep Triglycerides HDL Cholesterol Urine WBC (Auto) 04/11/18 04/11/18 04/11/18 00:05 05:34 11:00 WBC 13.1 H RBC 3.58 L Hct MCHC [place] % (Auto) [place] # Seg Neuts % (Manual) Lymphocytes % (Manual) Monocytes % (Manual) Seg Neutrophils # Seg Neutrophils # Man Monocytes # (Manual) APTT Activated Clotting Time Heparin Anti-Xa Level POC ABG pH 7.517 H POC ABG pCO2 POC ABG pO2 79 L Sodium Potassium Chloride Carbon Dioxide BUN Creatinine Glucose POC Glucose 106 H Calcium Total Creatine Kinase CK-MB (CK-2) CK-MB (CK-2) Rel Index Troponin T C-Reactive Protein NT-Pro-B Natriuret Pep Triglycerides HDL Cholesterol Urine WBC (Auto) 04/11/18 04/11/18 04/11/18 11:00 12:47 16:36 WBC RBC Hct MCHC [place] % (Auto) [place] # Seg Neuts % (Manual) Lymphocytes % (Manual) Monocytes % (Manual) Seg Neutrophils # Seg Neutrophils # Man Monocytes # (Manual) APTT Activated Clotting Time Heparin Anti-Xa Level POC ABG pH 7.523 H POC ABG pCO2 POC ABG pO2 Sodium Potassium Chloride Carbon Dioxide 32 H BUN 30 H Creatinine 0.6 L Glucose 105 H POC Glucose 116 H Calcium Total Creatine Kinase CK-MB (CK-2) CK-MB (CK-2) Rel Index Troponin T C-Reactive Protein NT-Pro-B Natriuret Pep Triglycerides HDL Cholesterol Urine WBC (Auto) 04/11/18 04/11/18 04/11/18 16:43 17:28 20:42 WBC RBC Hct MCHC [place] % (Auto) [place] # Seg Neuts % (Manual) Lymphocytes % (Manual) Monocytes % (Manual) Seg Neutrophils # Seg Neutrophils # Man Monocytes # (Manual) APTT 70.8 H* Activated Clotting Time Heparin Anti-Xa Level 0.89 H POC ABG pH POC ABG pCO2 POC ABG pO2 Sodium Potassium Chloride Carbon Dioxide BUN Creatinine Glucose POC Glucose 109 H Calcium Total Creatine Kinase CK-MB (CK-2) CK-MB (CK-2) Rel Index Troponin T C-Reactive Protein NT-Pro-B Natriuret Pep Triglycerides HDL Cholesterol Urine WBC (Auto) 04/12/18 04/12/18 04/12/18 04:27 04:27 04:27 WBC 15.0 H RBC Hct MCHC [place] % (Auto) [place] # Seg Neuts % (Manual) Lymphocytes % (Manual) Monocytes % (Manual) Seg Neutrophils # Seg Neutrophils # Man Monocytes # (Manual) APTT Activated Clotting Time Heparin Anti-Xa Level 0.99 H POC ABG pH POC ABG pCO2 POC ABG pO2 Sodium Potassium Chloride 95.7 L Carbon Dioxide BUN 30 H Creatinine Glucose POC Glucose Calcium Total Creatine Kinase CK-MB (CK-2) CK-MB (CK-2) Rel Index Troponin T C-Reactive Protein NT-Pro-B Natriuret Pep Triglycerides HDL Cholesterol Urine WBC (Auto) 04/12/18 04/14/18 04/14/18 23:15 17:23 17:23 WBC 12.6 H RBC Hct MCHC [place] % (Auto) [place] # Seg Neuts % (Manual) Lymphocytes % (Manual) Monocytes % (Manual) Seg Neutrophils # Seg Neutrophils # Man Monocytes # (Manual) APTT Activated Clotting Time Heparin Anti-Xa Level POC ABG pH POC ABG pCO2 POC ABG pO2 Sodium 132 L D Potassium Chloride 93.3 L Carbon Dioxide BUN 18 H Creatinine Glucose POC Glucose 109 H Calcium Total Creatine Kinase CK-MB (CK-2) CK-MB (CK-2) Rel Index Troponin T C-Reactive Protein NT-Pro-B Natriuret Pep Triglycerides HDL Cholesterol Urine WBC (Auto) 04/15/18 08:15 WBC RBC Hct MCHC [place] % (Auto) [place] # Seg Neuts % (Manual) Lymphocytes % (Manual) Monocytes % (Manual) Seg Neutrophils # Seg Neutrophils # Man Monocytes # (Manual) APTT Activated Clotting Time Heparin Anti-Xa Level 1.90 H POC ABG pH POC ABG pCO2 POC ABG pO2 Sodium Potassium Chloride Carbon Dioxide BUN Creatinine Glucose POC Glucose Calcium Total Creatine Kinase CK-MB (CK-2) CK-MB (CK-2) Rel Index Troponin T C-Reactive Protein NT-Pro-B Natriuret Pep Triglycerides HDL Cholesterol Urine WBC (Auto) Allied health notes reviewed: nursing
[2018-04-18] MEDS ORDERED: VIBRAMYCIN PO SCH (22:00)
[2018-04-19 00:08] LABS: Bacteria,Urine 1+ /HPF (Negative); Bilirubin,Urine NEG (Negative); Blood,Urine MOD (Negative); Color,Urine Yellow (Yellow); Mucus,Urine FEW /HPF; Protein,Urine <15 mg/dL mg/dL (Negative); Urobilinogen,Urine < 2.0 mg/dL (<2.0)
[2018-04-19] MEDS: NORCO 10/325 PO PRN (03:01)
[2018-04-19 05:54] LABS: Basophils # (Auto) 0.1 K/mm3 (0.0-0.1); Basophils % (Auto) 0.5 % (0.0-1.8); Eosinophils # (Auto) 0.2 K/mm3 (0.0-0.4); Eosinophils % (Auto) 1.9 % (0.0-4.3); Hematocrit 30.1 % (30.3-42.9); Lymphocytes # (Auto) 2.1 K/mm3 (1.2-5.4); Lymphocytes % (Auto) 18.3 % (13.4-35.0); Mean Corpuscular HGB Conc 33 % (30-34); Mean Corpuscular Hemoglobin 31 pg (28-32); Mean Corpuscular Volume 93 fl (79-97); Monocytes % (Auto) 8.7 % (0.0-7.3); Platelet Count 296 K/mm3 (140-440); Red Blood Count 3.25 M/mm3 (3.65-5.03); Red Cell Distribution Width 14.2 % (13.2-15.2)
[2018-04-19 05:58] LABS: BUN/Creatinine Ratio 17; Blood Urea Nitrogen 12 mg/dL (7-17); Calcium 8.2 mg/dL (8.4-10.2); Hemolysis Index 2
--- NOTE | 2018-04-19 09:12 | Discharge Summary ---
<NIKKY GIVENS - Last Filed: 04/19/18 15:52> Providers - Providers Date of Admission: 04/03/18 12:40 Date of discharge: 04/19/18 Attending physician: LIANE QUIGLEY 04/03/18 Consult to Cardiac Rehabilitation [CONS] Routine Reason For Exam: post pci 04/03/18 13:50 Consult to Physician [CONS] Routine Comment: Consulting Provider: DEYANIRA SPENCER Physician Instructions: Reason For Exam: STEMI 04/04/18 15:09 Physical Therapy Evaluation and Treat [CONS] Routine Comment: Reason For Exam: physical debility 04/05/18 12:28 Consult to Physician [CONS] Routine Comment: Consulting Provider: JEN DE LA PAZ Physician Instructions: Reason For Exam: AMS 04/07/18 11:58 Consult to Dietitian/Nutrition [CONS] Routine Physician Instructions: Reason For Exam: Reason for Consult: Evaluate nutritional intake 04/10/18 12:25 Consult to Dietitian/Nutrition [CONS] Routine Physician Instructions: Reason For Exam: Reason for Consult: Write/Manage Tube Feeding 04/16/18 08:50 Consult to Case Management [CONS] Routine Services Needed at Discharge: Other Notified:: LAWANDA Phone number called:: ON UNIT Comment:: Subacute rehab placement Primary care physician: REGULATOR ASSEMBLER Hospitalization Condition: Stable Hospital course: Patient is a 77-year-old woman who presented to the emergency department with complaints of chest pain which had been occurring for 24 hours prior to admission with worsening symptoms 4 hours prior to admission. Patient underwent cardiac workup which began with serial cardiac enzymes that were positive. 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 The patient was found to be in acute respiratory failure from cardiogenic shock and was intubated on 04/07/2018 and subsequently extubated on 04/11/2018. Pulmonology/critical care was consulted and patient requires supplemental oxygen on discharge. Patient was clinically stable for discharge from cardiac standpoint to subacute rehabilitation. The patient is instructed to follow up with primary care provider within 1 week of discharge. She will also follow up with crankshaft straightener Dr. Painter on 6:15 2017. Discharge diagnoses Dysuria. Check urinalysis. Start empiric antibiotics. Acute respiratory failure. Resolving likely from cardiogenic shock Extubated 04/11,was intubated 04/07/18, Pulmonology/ critical care following Now on Oxygen by [place] only. On 1 l/min Oxygen with sat 92% Cardiogenic shock. Resolved. 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 repeat LHC 04/07 revealed no significant CAD, Severe anterior, radha-apical, and infero-apical dykinesis with EF ~ 20% c/w stress cardiomyopathy IABP was placed, now removed Atrial fibrillation with RVR. cont amio 200mg daily per cardiology recommendations. Acute encephalopathy. Resolved. first noted on 04/05/18 following admission delirium vs transient Amnesia vs TIA negative CT head/MRI, EEG, consulted neurology SIRS high WBC and SIRS likley to be due to Takutsubo's cardiomyopathy Blood cultures no growth after several days Discontinued Zosyn Leukocytosis improved. Hyperlipidemia, cont statin Hypokalemia. Resolved GERD, cont Protonix H/o breast cancer For outpatient follow up when stable PT recommends subacute rehab. Case management is aware She is medically stable for discharge. Disposition: DC/[place]-03 [facility] Time spent for discharge: 35 minutes Exam - Physical Exam Narrative exam: General appearance: Present: no acute distress - EENT Eyes: Present: PERRL, EOM intact ENT: hearing intact, clear oral mucosa, dentition normal - Neck Neck: Present: supple, normal ROM - Respiratory Respiratory effort: normal Respiratory: bilateral: CTA - Cardiovascular Rhythm: regular Heart Sounds: Present: S1 & S2. Absent: gallop, rub - Extremities Extremities: no ischemia, No edema, Full ROM - Abdominal General gastrointestinal: soft, non-tender, non-distended, normal bowel sounds - Integumentary Integumentary: Present: clear, warm, dry - Neurologic Neurologic: CNII-XII intact, moves all extremities - Constitutional Vitals: Temp Pulse Resp BP Pulse Ox 97.8 F 77 14 95/54 97 04/19/18 07:09 04/19/18 07:09 04/19/18 07:09 04/19/18 07:09 04/19/18 07:09 Plan Follow up with: PRIMARY CARE,MD [Primary Care Provider] - 7 Days AZEB PAINTER MD [Staff Physician] - 05/03/18 3:15 pm (Follow up in our [place] office with Dr. Sonia Painter on 05/03/2018 @ 3:15PM. ) Prescriptions: Budesonide [Pulmicort Respules] 0.5 mg IH Q12HRT 30 Days nebu Doxycycline [Vibramycin CAP] 100 mg PO BID #13 capsule HYDROcodone/APAP 10-325 [[place] 10-325 mg TAB] 1 each PO Q8H PRN #7 tablet PRN Reason: Pain, Moderate (4-6) <LIANE QUIGLEY - Last Filed: 04/20/18 08:10> Providers - Providers Date of Admission: 04/03/18 12:40 Attending physician: LIANE QUIGLEY 04/03/18 Consult to Cardiac Rehabilitation [CONS] Routine Reason For Exam: post pci 04/03/18 13:50 Consult to Physician [CONS] Routine Comment: Consulting Provider: DEYANIRA SPENCER Physician Instructions: Reason For Exam: STEMI 04/04/18 15:09 Physical Therapy Evaluation and Treat [CONS] Routine Comment: Reason For Exam: physical debility 04/05/18 12:28 Consult to Physician [CONS] Routine Comment: Consulting Provider: JEN DE LA PAZ Physician Instructions: Reason For Exam: AMS 04/07/18 11:58 Consult to Dietitian/Nutrition [CONS] Routine Physician Instructions: Reason For Exam: Reason for Consult: Evaluate nutritional intake 04/10/18 12:25 Consult to Dietitian/Nutrition [CONS] Routine Physician Instructions: Reason For Exam: Reason for Consult: Write/Manage Tube Feeding 04/16/18 08:50 Consult to Case Management [CONS] Routine Services Needed at Discharge: Other Notified:: LAWANDA Phone number called:: ON UNIT Comment:: Subacute rehab placement Primary care physician: REGULATOR ASSEMBLER Hospitalization Hospital course: I saw and evaluated the patient. I agree with the findings and the plan of care as documented in the Nurse Practitioner's~note, with the following corrections and additions. Core Measure Documentation - Palliative Care Palliative Care/ Comfort Measures: Not Applicable - Core Measures Any of the following diagnoses?: none Exam - Constitutional Vitals: Temp Pulse Resp BP Pulse Ox 97.9 F 86 16 105/60 98 04/19/18 11:18 04/19/18 11:18 04/19/18 11:18 04/19/18 11:18 04/19/18 11:18
[2018-04-19] MEDS: PULMICORT IH SCH (09:53)
[2018-04-19] MEDS: BROVANA NEBU IH SCH (09:53)
[2018-04-19] MEDS: BABY ASPIRIN PO SCH (11:39)
[2018-04-19] MEDS: PEPCID PO SCH (11:39)
[2018-04-19] MEDS: COZAAR PO SCH (11:39)
[2018-04-19] MEDS: CORDARONE PO SCH (11:39)
[2018-04-19] MEDS: ELIQUIS PO SCH (11:50)
[2018-04-19 11:53] VITALS: BP 105/60
== END 2018-04-19 16:02 | DRG 270 ==
LOC: ED 11:47 → CATH 12:35 → CC1 12:40 → 4A 16:10 → CC1 04-07 08:43 → 4A 04-12 16:49
PROVIDERS: ADMIT Internal Medicine; ATTEND Hospitalist
PROC: 4A023N7 Measurement of Cardiac Sampling and Pressure, Left Heart, Percutaneous Approach (ICD-10-PCS; 2018-04-03)
PROC: B2111ZZ Fluoroscopy of Multiple Coronary Arteries using Low Osmolar Contrast (ICD-10-PCS; 2018-04-03)
PROC: B2151ZZ Fluoroscopy of Left Heart using Low Osmolar Contrast (ICD-10-PCS; 2018-04-03)
PROC: 4A00X4Z Measurement of Central Nervous Electrical Activity, External Approach (ICD-10-PCS; 2018-04-05)
PROC: 5A02210 Assistance with Cardiac Output using Balloon Pump, Continuous (ICD-10-PCS; principal; 2018-04-07)
PROC: 5A1945Z Respiratory Ventilation, 24-96 Consecutive Hours (ICD-10-PCS; 2018-04-07)
PROC: 0BH17EZ Insertion of Endotracheal Airway into Trachea, Via Natural or Artificial Opening (ICD-10-PCS; 2018-04-07)
PROC: 4A023N7 Measurement of Cardiac Sampling and Pressure, Left Heart, Percutaneous Approach (ICD-10-PCS; 2018-04-07)
PROC: B2111ZZ Fluoroscopy of Multiple Coronary Arteries using Low Osmolar Contrast (ICD-10-PCS; 2018-04-07)
PROC: B2151ZZ Fluoroscopy of Left Heart using Low Osmolar Contrast (ICD-10-PCS; 2018-04-07)
PROC: 02HV33Z Insertion of Infusion Device into Superior Vena Cava, Percutaneous Approach (ICD-10-PCS; 2018-04-07)
PROC: B548ZZA Ultrasonography of Superior Vena Cava, Guidance (ICD-10-PCS; 2018-04-07)
PROC: 4A033R1 Measurement of Arterial Saturation, Peripheral, Percutaneous Approach (ICD-10-PCS; 2018-04-11)
DX: I51.81 Takotsubo syndrome (principal); I21.3 ST elevation (STEMI) myocardial infarction of unspecified site; J96.01 Acute respiratory failure with hypoxia; G93.40 Encephalopathy, unspecified; R57.0 Cardiogenic shock; J81.0 Acute pulmonary edema; R65.10 Systemic inflammatory response syndrome (SIRS) of non-infectious origin without acute organ dysfunction; E87.1 Hypo-osmolality and hyponatremia; E87.6 Hypokalemia; K21.9 Gastro-esophageal reflux disease without esophagitis; Z85.3 Personal history of malignant neoplasm of breast; I25.10 Atherosclerotic heart disease of native coronary artery without angina pectoris; M51.36 Other intervertebral disc degeneration, lumbar region; M19.90 Unspecified osteoarthritis, unspecified site; Z90.710 Acquired absence of both cervix and uterus; Z82.49 Family history of ischemic heart disease and other diseases of the circulatory system; Z79.82 Long term (current) use of aspirin; Z79.899 Other long term (current) drug therapy; J45.909 Unspecified asthma, uncomplicated; Z88.0 Allergy status to penicillin; Z88.2 Allergy status to sulfonamides; Z82.0 Family history of epilepsy and other diseases of the nervous system; Z83.3 Family history of diabetes mellitus; I95.9 Hypotension, unspecified; I11.0 Hypertensive heart disease with heart failure; I50.9 Heart failure, unspecified; E78.2 Mixed hyperlipidemia; I48.0 Paroxysmal atrial fibrillation
CPT/HCPCS: 31500; 33967; 36415; 36600; 70450; 70544; 70551; 71045; 76604; 80048; 80061; 81001; 82140; 82550; 82553; 82803; 82962; 83735; 83880; 84100; 84484; 85007; 85014; 85018; 85025; 85027; 85049; 85347; 85520; 85610; 85730; 86140; 86850; 86900; 86901; 87040; 87076; 87086; 87186; 87205; 93005; 93010; 93306; 93458; 94002; 94003; 94640; 94760; 95819; 96374; A9270-GY; C1894; G8978-GP; G8979-GP; J0282; J1644; J1940; J2060; J2250; J2270; J2405; J2543; J2704; J3010; J3475; J3480; J7030; J7040; J7060; Q9967

== ENCOUNTER 2018-07-10 17:03 | Emergency (ER) | payer MEDICARE ==
--- NOTE | 2018-07-10 18:39 | Emergency Department Report ---
ED ENT HPI - General Chief complaint: Earache Stated complaint: HIGH BP Time Seen by Provider: 07/10/18 18:35 Source: patient Mode of arrival: Ambulatory Limitations: No Limitations - History of Present Illness Initial comments: This is a 77-year-old female nontoxic appearance with no signs of distress presents to ER with complaint of high blood pressure and left earache. Patient stated that she ate a heavy breakfast that believes caused her to have high blood pressure. Patient stated that her blood pressure at home was about 190s over 90s. Patient had stated that she didn't follow-up with a urgent care for her left earache that started yesterday and is on doxycycline that she started yesterday. Patient denies any fever, chills, nausea, vomiting, chest pain, shortness of breath, headache, stiff neck, numbness or tingling. Patient states allergies to penicillin and sulfa. MD complaint: ear pain -: days(s) (1) Location: L ear Severity: mild Severity scale (0 -10): 8 Quality: aching Consistency: constant Improves with: none Worsens with: none Associated Symptoms: denies: fever, cough, gum swelling, toothache, pain with swallowing, sore throat, tinnitus, hearing loss, discharge from ear, rhinorrhea - Related Data Home Medications Medication Instructions Recorded Confirmed Last Taken Esomeprazole Magnesium [Nexium] 5 mg PO DAILY 11/23/13 04/03/18 04/03/18 Hydrocodone Bit/Acetaminophen 1 each PO Q8H PRN 11/23/13 04/03/18 04/03/18 [Vicodin 5/500] hydroCHLOROthiazide 25 mg PO DAILY 11/23/13 04/03/18 04/03/18 [Hydrochlorothiazide] Previous Rx's Medication Instructions Recorded Last Taken Type ALBUTEROL NEB's [Proventil 0.083% 2.5 mg IH Q4HRT PRN 30 Days nebu 04/19/18 Unknown Rx NEBS] Amiodarone [Cordarone 200 MG TAB] 200 mg PO DAILY #30 tablet 04/19/18 Unknown Rx Apixaban [Eliquis] 5 mg PO Q12HR 30 Days #60 tablet 04/19/18 Unknown Rx Arformoterol Nebu [Brovana Nebu] 15 mcg IH Q12HRT 30 Days #60 ml 04/19/18 Unknown Rx Aspirin [Aspirin BABY CHEW TAB] 81 mg PO DAILY #30 tab 04/19/18 04/03/18 Rx AtorvaSTATin [Lipitor] 40 mg PO QHS 30 Days tablet 04/19/18 Unknown Rx Budesonide [Pulmicort Respules] 0.5 mg IH Q12HRT 30 Days nebu 04/19/18 Unknown Rx Doxycycline [Vibramycin CAP] 100 mg PO BID #13 capsule 04/19/18 Unknown Rx Famotidine [Pepcid] 20 mg PO BID 30 Days tablet 04/19/18 Unknown Rx HYDROcodone/APAP 10-325 [[place] 1 each PO Q8H PRN #7 tablet 04/19/18 Unknown Rx 10-325 mg TAB] Losartan [Cozaar] 12.5 mg PO QDAY #30 tablet 04/19/18 Unknown Rx Metoprolol [Lopressor TAB] 12.5 mg PO BID 30 Days #60 tablet 04/19/18 Unknown Rx Min Oil/Petrolatum [Artificial 1 applic OU Q4HR PRN 30 Days tube 04/19/18 Unknown Rx Tears Ophth Oint] Petrolatum,White [Vaseline Lip 1 applic TP Q2HR PRN 30 Days tube 04/19/18 Unknown Rx Therapy] Allergies Allergy/AdvReac Type Severity Reaction Status Date / Time Penicillins Allergy Rash Verified 04/03/18 11:53 Sulfa (Sulfonamide Allergy Rash Verified 04/03/18 11:53 Antibiotics) ED Dental HPI - General Chief complaint: Earache Stated complaint: HIGH BP Time Seen by Provider: 07/10/18 18:35 Source: patient Mode of arrival: Ambulatory Limitations: No Limitations - Related Data Home Medications Medication Instructions Recorded Confirmed Last Taken Esomeprazole Magnesium [Nexium] 5 mg PO DAILY 11/23/13 04/03/18 04/03/18 Hydrocodone Bit/Acetaminophen 1 each PO Q8H PRN 11/23/13 04/03/18 04/03/18 [Vicodin 5/500] hydroCHLOROthiazide 25 mg PO DAILY 11/23/13 04/03/18 04/03/18 [Hydrochlorothiazide] Previous Rx's Medication Instructions Recorded Last Taken Type ALBUTEROL NEB's [Proventil 0.083% 2.5 mg IH Q4HRT PRN 30 Days nebu 04/19/18 Unknown Rx NEBS] Amiodarone [Cordarone 200 MG TAB] 200 mg PO DAILY #30 tablet 04/19/18 Unknown Rx Apixaban [Eliquis] 5 mg PO Q12HR 30 Days #60 tablet 04/19/18 Unknown Rx Arformoterol Nebu [Brovana Nebu] 15 mcg IH Q12HRT 30 Days #60 ml 04/19/18 Unknown Rx Aspirin [Aspirin BABY CHEW TAB] 81 mg PO DAILY #30 tab 04/19/18 04/03/18 Rx AtorvaSTATin [Lipitor] 40 mg PO QHS 30 Days tablet 04/19/18 Unknown Rx Budesonide [Pulmicort Respules] 0.5 mg IH Q12HRT 30 Days nebu 04/19/18 Unknown Rx Doxycycline [Vibramycin CAP] 100 mg PO BID #13 capsule 04/19/18 Unknown Rx Famotidine [Pepcid] 20 mg PO BID 30 Days tablet 04/19/18 Unknown Rx HYDROcodone/APAP 10-325 [[place] 1 each PO Q8H PRN #7 tablet 04/19/18 Unknown Rx 10-325 mg TAB] Losartan [Cozaar] 12.5 mg PO QDAY #30 tablet 04/19/18 Unknown Rx Metoprolol [Lopressor TAB] 12.5 mg PO BID 30 Days #60 tablet 04/19/18 Unknown Rx Min Oil/Petrolatum [Artificial 1 applic OU Q4HR PRN 30 Days tube 04/19/18 Unknown Rx Tears Ophth Oint] Petrolatum,White [Vaseline Lip 1 applic TP Q2HR PRN 30 Days tube 04/19/18 Unknown Rx Therapy] Allergies Allergy/AdvReac Type Severity Reaction Status Date / Time Penicillins Allergy Rash Verified 04/03/18 11:53 Sulfa (Sulfonamide Allergy Rash Verified 04/03/18 11:53 Antibiotics) ED Review of Systems ROS: Stated complaint: HIGH BP Other details as noted in HPI Constitutional: denies: chills, fever Eyes: denies: eye pain, eye discharge, vision change ENT: ear pain. denies: throat pain Respiratory: denies: cough, shortness of breath, wheezing Cardiovascular: denies: chest pain, palpitations Endocrine: no symptoms reported Gastrointestinal: denies: abdominal pain, nausea, diarrhea Genitourinary: denies: urgency, dysuria, discharge Musculoskeletal: denies: back pain, joint swelling, arthralgia Skin: denies: rash, lesions Neurological: denies: headache, weakness, paresthesias Psychiatric: denies: anxiety, depression Hematological/Lymphatic: denies: easy bleeding, easy bruising ED Past Medical Hx - Past Medical History Hx Hypertension: Yes Hx GERD: Yes Hx Arthritis: Yes (right knee) Hx Kidney Stones: Yes (Hx) Hx Asthma: Yes Additional medical history: bulging disc, arthritis - Surgical History Past Surgical History?: Yes Additional Surgical History: heart cath x 2 - Social History Smoking Status: Never Smoker Substance Use Type: None - Medications Home Medications: Home Medications Medication Instructions Recorded Confirmed Last Taken Type Esomeprazole Magnesium [Nexium] 5 mg PO DAILY 11/23/13 04/03/18 04/03/18 History Hydrocodone Bit/Acetaminophen 1 each PO Q8H PRN 11/23/13 04/03/18 04/03/18 History [Vicodin 5/500] hydroCHLOROthiazide 25 mg PO DAILY 11/23/13 04/03/18 04/03/18 History [Hydrochlorothiazide] ALBUTEROL NEB's [Proventil 0.083% 2.5 mg IH Q4HRT PRN 30 Days nebu 04/19/18 Unknown Rx NEBS] Amiodarone [Cordarone 200 MG TAB] 200 mg PO DAILY #30 tablet 04/19/18 Unknown Rx Apixaban [Eliquis] 5 mg PO Q12HR 30 Days #60 tablet 04/19/18 Unknown Rx Arformoterol Nebu [Brovana Nebu] 15 mcg IH Q12HRT 30 Days #60 ml 04/19/18 Unknown Rx Aspirin [Aspirin BABY CHEW TAB] 81 mg PO DAILY #30 tab 04/19/18 04/03/18 Rx AtorvaSTATin [Lipitor] 40 mg PO QHS 30 Days tablet 04/19/18 Unknown Rx Budesonide [Pulmicort Respules] 0.5 mg IH Q12HRT 30 Days nebu 04/19/18 Unknown Rx Doxycycline [Vibramycin CAP] 100 mg PO BID #13 capsule 04/19/18 Unknown Rx Famotidine [Pepcid] 20 mg PO BID 30 Days tablet 04/19/18 Unknown Rx HYDROcodone/APAP 10-325 [[place] 1 each PO Q8H PRN #7 tablet 04/19/18 Unknown Rx 10-325 mg TAB] Losartan [Cozaar] 12.5 mg PO QDAY #30 tablet 04/19/18 Unknown Rx Metoprolol [Lopressor TAB] 12.5 mg PO BID 30 Days #60 tablet 04/19/18 Unknown Rx Min Oil/Petrolatum [Artificial 1 applic OU Q4HR PRN 30 Days tube 04/19/18 Unknown Rx Tears Ophth Oint] Petrolatum,White [Vaseline Lip 1 applic TP Q2HR PRN 30 Days tube 04/19/18 Unknown Rx Therapy] ED Physical Exam - General Limitations: No Limitations General appearance: alert, in no apparent distress - Head Head exam: Present: atraumatic, normocephalic - Eye Eye exam: Present: normal appearance Pupils: Present: normal accommodation - ENT ENT exam: Present: normal exam, normal orophraynx, mucous membranes moist, TM's normal bilaterally, normal external ear exam, other (No mastoid tenderness. No tragus pain. NO ear discahrge. NOrmal TM.) - Neck Neck exam: Present: normal inspection, full ROM. Absent: tenderness, meningismus, lymphadenopathy - Respiratory Respiratory exam: Present: normal lung sounds bilaterally. Absent: respiratory distress - Cardiovascular Cardiovascular Exam: Present: regular rate, normal rhythm, normal heart sounds. Absent: bradycardia, tachycardia, irregular rhythm, systolic murmur, diastolic murmur, rubs, gallop - GI/Abdominal GI/Abdominal exam: Present: soft, normal bowel sounds. Absent: distended, tenderness, guarding, rebound, rigid, diminished bowel sounds - Rectal Rectal exam: Present: deferred - Extremities Exam Extremities exam: Present: normal inspection, full ROM, normal capillary refill. Absent: tenderness - Back Exam Back exam: Present: normal inspection, full ROM - Neurological Exam Neurological exam: Present: alert, oriented X3, normal gait - Psychiatric Psychiatric exam: Present: normal affect, normal mood - Skin Skin exam: Present: warm, dry, intact, normal color. Absent: rash ED Course Vital Signs 07/10/18 17:23 Temperature 97.8 F Pulse Rate 70 Respiratory 16 Rate Blood Pressure 141/72 O2 Sat by Pulse 96 Oximetry - Reevaluation(s) Reevaluation #1: 07/10/18 19:28 Patient is speaking in full sentences with no signs of distress noted. ED Medical Decision Making - Medical Decision Making 77-year-old female that presents with hypertension and a left earache. Patient is currently on antibiotic. Initially her to continue taking antibiotics. Currently the blood pressure in the ER is within normal limits. Patient was referred to Follow-up with a primary care doctor in 3-5 days or if symptoms worsen and continue return to emergency room as soon as possible. At time of discharge, the patient does not seem toxic or ill in appearance. No acute signs of distress noted. Patient agrees to discharge treatment plan of care. No further questions noted by the patient. Critical care attestation.: If time is entered above; I have spent that time in minutes in the direct care of this critically ill patient, excluding procedure time. ED Disposition Clinical Impression: Earache, left Hypertension Qualifiers: Hypertension type: unspecified Qualified Code(s): I10 - Essential (primary) hypertension Disposition: - TO HOME OR SELFCARE Is pt being admited?: No Does the pt Need Aspirin: No Condition: Stable Instructions: Hypertension (ED) Additional Instructions: Follow-up with a primary care doctor in 3-5 days or if symptoms worsen and continue return to emergency room as soon as possible. Referrals: PRIMARY MD LUCIO [Primary Care Provider] - 3-5 Days MELVI WHITEHEAD MD [Staff Physician] - 3-5 Days [facility] [Outside] - 3-5 Days
[2018-07-10 19:30] VITALS: BP 137/74
== END 2018-07-10 19:40 | disposition home or self-care (01) ==
LOC: ED 17:03
DX: H92.02 Otalgia, left ear (principal); I10 Essential (primary) hypertension; K21.9 Gastro-esophageal reflux disease without esophagitis; M19.90 Unspecified osteoarthritis, unspecified site; J45.909 Unspecified asthma, uncomplicated; Z88.0 Allergy status to penicillin; Z88.1 Allergy status to other antibiotic agents
CPT/HCPCS: 99282